=== PATIENT | female | born 2005 | race Caucasian/White ===

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

== ENCOUNTER 2023-11-14 19:55 | Emergency (ER) | payer OTHER ==
--- OUTSIDE RECORDS SUMMARY | 2023-11-14 19:59 | XMS REPORT | Continuity of Care Document ---
Author Name Unknown Address [address] [facility] [address] [place] [address] [facility] thconnect Address [address] [facility]. [address] [place] [address] Care Team Providers Care Defensive Driving Instructor Name Role Phone Ct Sears Primary Care Physician Margo Sears Attending Clinician Unavailable Chely Segura I Attending Clinician Unavailable Dolly Garcia Attending Clinician Unavailab DAVID Gann Attending Clinician Unavailable David Hartman DO Attending Clinician Mary Gordon PA-C Attending Clinician [phone] Margo Sears Admitting Clinician Unavailable Dolly Garcia Admitting Clinician Unavailab le Payers Payer Name Policy Type Policy Number Effective Date Expirati on Date Source [employer] [id number] 2022 00:00:00 Allergies, Adverse Reactions, Alerts Allergy Name Allergy Type Status Severity Reaction(s) Onset Date Inactive Date Treating Clinician Comments Source cephalex in DA Active MO HIVES 2022-07 00:00: 00 [facility] azithrom ycin DA Active SV SWELLING 2022-07 00:00: 00 [facility] latex DA Active SV HIVES 2023-1 1-12 00:00: 00 [facility] cephalex in DA Active MO HIVES 1 1- 00:00: 00 [facility] azithrom ycin DA Active SV SWELLING 1 1- 00:00: 00 [facility] [place] latex DA Active SV HIVES 1 1- 00:00: 00 [facility] [place] cephalex in DA Active MO HIVES 0 8-30 00:00: 00 [facility] azithrom ycin DA Active SV SWELLING 2022-0 5-17 00:00: 00 [facility] [place] latex DA Active SV 2020-0 6-21 00:00: 00 [facility] [place] latex DA Active SV HIVES 0 6-21 00:00: 00 [facility] latex DA Active SV 2020-0 5-22 00:00: 00 [facility] [place] latex DA Active SV HIVES 0 5-22 00:00: 00 [facility] No Known Allergie s DA Active U 2020-0 3-10 00:00: 00 [facility] No Known Allergie s DA Active U 2020-0 3-10 00:00: 00 [facility] NO KNOWN ALLERGIE S Drug Class Active [facility] Social History Social Habit Start Date Stop Date Quantity Comments Source Exposure to SARS-CoV-2 (event) 2022-10-14 00:00:00 2022-10-24 07:28:00 Not sure [facility] Tobacco use and exposure 2017-10-13 00:00:00 2017-10-13 00:00:00 Smokeless tobacco non-user [facility] Tobacco Comment 2017-10-13 00:00:00 2017-10-13 00:00:00 no smoke exposure [facility] Sex Assigned At 2005 00:00:00 2005 00:00:00 [facility] Smoking Status Start Date Stop Date Source Never smoked tobacco [facility] Medications Ordered Medication Name Filled Medication Name Start Date Stop Date Current Medication? Ordering Clinician Indication Dosage Frequency Signature (SIG) Comments Components Source NaCl 0.9% (NS) bolus infusion 1,000 mL 10-24 14:45: 00 10-24 14:50 :00 No 1000mL at 999 mL/hr, 1,000 mL, IV Piggyback, ONCE, 1 dose, On Kaylah 10/24/22 at 0945, STAT [facility] metoclopram razia HCl (REGLAN) injection 10 mg 10-24 13:45: 00 10-24 13:41 :00 No 10mg 10 mg, Slow IV Push, ONCE, 1 dose, On Kaylah 10/24/22 at 0845, TRACEY [facility] SERTraline 25 mg tablet 10-13 00:00: 00 Yes 25mg Take 1 tablet by mouth at bedtime. [facility] montelukast 10 mg tablet 09-10 00:00: 00 Yes TAKE ONE (1) TABLET(S) BY MOUTH IN THE EVENING. [facility] Vital Signs Vital Name Observation Time Observation Value Comments S ource Heart rate 2022-10-24 15:10:00 98 /min [facility] Respiratory rate 2022-10-24 15:10:00 21 /min [facility] Oxygen saturation in Arterial blood by Pulse oximetry 2022-10-24 15:10:00 98 /min [facility] Systolic blood pressure 2022-10-24 15:00:00 96 mm[Hg] [facility] Diastolic blood pressure 2022-10-24 15:00:00 49 mm[Hg] [facility] Body temperature 2022-10-24 12:30:00 37.06 Zofia [facility] Body height 2022-10-24 12:30:00 167.6 cm [facility] Body weight 2022-10-24 12:30:00 69.128 kg [facility] BMI 2022-10-24 12:30:00 24.60 kg/m2 [facility] Procedures Procedure Date / Time Performed Performing Clinicia n Source [id number] 2023-05-25 00:00:00 SILJA.01 [facility] [id number] 2023-05-25 00:00:00 SILJA.01 [facility] [id number] 2023-05-25 00:00:00 SILJA.01 [facility] [id number] 2022-11-25 00:00:00 MCIAL [facility] COMP. METABOLIC PANEL ([id number]) 2022-10-24 13:41:00 David Hartman [facility] CBC WITH DIFF 2022-10-24 13:41:00 David Hartman [facility] POCT TEST 2022-10-24 12:50:00 Trevor Hartman [facility] URINALYSIS 2022-10-24 12:41:00 David Hartman [facility] RAPID INFLUENZA A/B 2022-10-24 12:41:00 Trevor Hartman [facility] COVID-19 (ID NOW RAPID TESTING) 2022-10-24 12:41:00 David Hartman [facility] NOTICE OF PRIVACY PRACTICES 2022-10-24 12:25:07 Doctor Unassigned, [place] [facility] CONSENT/REFUSAL FOR DIAGNOSIS AND TREATMENT 2022-10-24 12:23:44 Doctor Unassigned, [place] [facility] Encounters Start Date/Time End Date/Time Encounter Type Admission Type Attending Clinicians Care Facility Care Department Encounter ID Source 2021-01-11 11:32:00 Inpatient EL Margo Sears [facility] LD [id number] [facility] 2020-11-21 11:19:59 Inpatient EM Margo Sears [facility] [id number] [facility] 2020-09-16 12:30:00 Inpatient Margo Sears [facility] STEVE [id number] [facility] 2020-09-13 16:23:13 Inpatient Margo Sears [facility] [id number] [facility] 2023-05-24 16:41:00 2023-05-27 12:40:00 Inpatient EM Tamara Searsdany [facility] OBPP [id number] [facility] 2023-05-18 10:00:00 2023-05-18 12:37:00 Emergency EM Chely Segura [facility] STEVE [id number] [facility] 2023-05-07 10:56:00 2023-05-07 12:31:00 Emergency EM Tamara Searsdany [facility] STEVE [id number] [facility] 2023-03-05 17:30:00 2023-03-05 22:20:00 Emergency EM Tamara Searsdany [facility] STEVE [id number] [facility] 2023-01-31 09:09:00 2023-01-31 09:09:00 Outpatient EL OrionBetoralph [facility] RADI [id number] [facility] 2022-12-21 19:40:00 2022-12-23 17:46:00 Inpatient EM SearsTamaradany [facility] MEDI.01 [id number] [facility] 2022-11-22 14:05:00 2022-11-26 17:07:00 Inpatient EM Dolly Garcia [facility] MEDI.01 [id number] [facility] 2022-10-24 07:35:00 2022-10-24 10:15:00 Emergency X DAVID HARTMAN [facility] ERT [id number] [facility] 2022-10-24 07:35:00 2022-10-24 10:15:00 Emergency David Hartman [facility] [id number] [facility] 2020-11-25 20:45:00 2020-11-25 23:43:00 Emergency EM OrionTamaradany [facility] STEVE [id number] [facility] 2019-08-31 00:00:00 2019-08-31 00:00:00 Telephone Mary Gordon [facility] [id number] 2019-08-31 00:00:00 2019-08-31 00:00:00 Telephone Mary Gordon [facility] [id number] [facility] 2019-02-25 00:00:00 2019-02-25 00:00:00 Telephone Mary Gordon [facility] [id number] 2019-02-25 00:00:00 2019-02-25 00:00:00 Telephone Mary Gordon [facility] [id number] [facility] Results Test Description Test Time Test Comments Results Result Co mments Source BILE ACIDS [id number] 01:08:00* Test Item Value Reference Range Interpretation Comme nts BILE ACIDS TOTAL (test code = BILEACT) 3.4 umol/L 0.0-10.0 Performed At: [facility] [id number] Sanjai MD Ph:[phone] Comments to Cloth Framer: add to admission labs drawn on 05/24/23 Specimen Comment: do not drawCOMPREHENSIVE METABOLIC [id number] 17:30:00* Test Item Value Reference Range Interpretation Comme nts SODIUM (test code = NA) 142 mEq/L 135-145 N POTASSIUM (test code = K) 3.9 mEq/L 3.5-5.0 N CHLORIDE (test code = CL) 108 mEq/L 100-115 N CARBON DIOXIDE (test code = CO2) 20 mEq/L 22-31 L ANION GAP (test code = GAP) 18.20 10-20 N GLUCOSE (test code = GLU) 121 mg/dL 65-110 H BLOOD UREA NITROGEN (test code = BUN) 4 mg/dL 7-18 L GLOMERULAR FILTRATION RATE (test code = GFR) 133 ml/min >60 N The Glomerular Filtration Rate is a calculated parameterbased on serum Creatinine, patient age and sex. GFR valuesless than 60 mL/min/1.73 square meters are indicative ofChronic Kidney Disease. Values less than 15 mL/min/1.73square meters indicate Kidney failure. The calculation forGFR is based on the CKD-EPI (2020) calculation. This formulais race indifferent and is the recommended formula for GFRby the National Kidney Foundation for Adults.The GFR will not calculate if the sex is unknown or if thepatient's age is <18 years. CREATININE (test code = CREAT) 0.6 mg/dL 0.5-1.0 N TOTAL PROTEIN (test code = PROT) 6.2 gm/dL 6.3-8.2 L ALBUMIN (test code = ALB) 2.9 gm/dL 3.4-4.8 L CALCIUM (test code = CA) 8.9 mg/dL 8.4-10.2 N BILIRUBIN TOTAL (test code = BILT) 0.2 mg/dL 0.2-1.0 N SGOT/AST (test code = AST) 20 units/L 15-37 N SGPT/ALT (test code = ALT) 15 units/L 12-78 N ALKALINE PHOSPHATASE TOTAL (test code = ALKP) 118 units/L 46-116 H AG HEPATITIS B [id number] 17:15:00* Test Item Value Reference Range Interpretation Comme nts AG HEPATITIS B SURFACE (test code = HBSAG) NONREACTIVE NONREACTIVE AB HEPATITIS C [id number] 17:15:00* Test Item Value Reference Range Interpretation Comme nts AB HEPATITIS C (test code = HCVAB) NONREACTIVE NONREACTIVE SIGNAL TO CUTOFF (test code = CUTOFF) 0.07 <0.80 N AB [id number] 17:15:00* Test Item Value Reference Range Interpretation Comme nts AB TREPONEMA (test code = TREPAB) NONREACTIVE NONREACTIVE AB HIV [id number] 17:15:00* Test Item Value Reference Range Interpretation Comme nts AB HIV 1 2 (test code = MDK84VS) NONREACTIVE NONREACTIVE Done by [employer] HIV Ag/Ab Combo Screen CBC W/AUTO [id number] 16:06:00* Test Item Value Reference Range Interpretation Comme nts WHITE BLOOD CELL (test code = WBC) 12.1 K/mm3 6.5-12.3 N RED BLOOD CELL (test code = RBC) 3.39 M/mm3 3.51-4.69 L HEMOGLOBIN (test code = HGB) 9.8 g/dL 10.1-13.8 L HEMATOCRIT (test code = HCT) 29.6 % 32.5-41.8 L MEAN CELL VOLUME (test code = MCV) 87.3 fL 84.6-96.6 N MEAN CELL HGB (test code = MCH) 28.9 pg 27.3-33.9 N MEAN CELL HGB CONCETRATION ( test code = MCHC) 33.1 gm/dL 32.0-34.2 N RED CELL DISTRIBUTION WIDTH (test code = RDW) 13.0 % 12.2-16.3 N PLATELET COUNT (test code = PLT) 210 K/mm3 134-363 N MEAN PLATELET VOLUME (test c ode = MPV) 11.5 fL 9.2-12.7 N NEUTROPHIL % (test code = NT%) 65.5 % 57.9-77.3 N LYMPHOCYTE % (test code = LY%) 23.2 % 14.5-29.7 N MONOCYTE % (test code = MO%) 9.7 % 3.6-10.2 N EOSINOPHIL % (test code = EO%) 0.2 % 0.0-3.0 N BASOPHIL % (test code = BA%) 0.2 % 0.1-0.9 N NEUTROPHIL # (test code = NT#) 7.9 K/mm3 LYMPHOCYTE # (test code = LY#) 2.8 K/mm3 MONOCYTE # (test code = MO#) 1.2 K/mm3 EOSINOPHIL # (test code = EO#) 0.02 K/mm3 BASOPHIL # (test code = BA#) 0.0 K/mm3 RBC MORPHOLOGY REQUIRED (beth t code = RBCM) NORMAL NORMAL PLATELET MORPHOLOGY REQUIRED (test code = PLTMR) NORMAL NORMAL RUPTURE OF [id number] 12:12:00* Test Item Value Reference Range Interpretation Comme nts RUPTURE OF MEMBRANES (test c ode = ROM) NON-RUPTURED COVID 19 Asymptomatic IH [id number] 20:21:00* Test Item Value Reference Range Interpretation Comme nts COVID 19 Asymptomatic IH AG (test code = COVNONPUIAG) NEGATIVE NEGATIVE This test has be en authorized only for the detection ofproteins from SARS-CoV-2, not for any other viruses orpathogens. Negative results should be treated as presumptive andconfirmed with a molecular assay, if necessary for patientmanagement. Negative results do not rule out COVID-19 andshould not be used as the sole basis for treatment orpatient management decisions, including infection controldecisions. Negative results should be considered in thecontext of a patient's recent exposures, history and thepresence of clinical signs and symptoms consistent withCOVID-19. This test has not been FDA cleared or approved; the test hasbeen authorized by FDA under an Emergency Use Authorization(EUA) for use by laboratories certified under the CLIA thatmeet the requirements to perform moderate, high or waivedcomplexity tests. This test is authorized for use at thePoint of Care (POC), i.e., in patient care settingsoperating under a CLIA Certificate of Waiver, Certificate ofCompliance, or Certificate of Accreditation. This test is only authorized for the duration of thedeclaration that circumstances exist justifying theauthorization of emergency use of in vitro diagnostic testsfor detection and/or diagnosis of COVID-19 under Xdzaqfx186(b)(1) of the Act, 21 U.S.C. 360bbb-3(b)(1), unless theauthorization is terminated or revoked sooner. URINALYSIS [id number] 18:18:00* Test Item Value Reference Range Interpretation Comme nts UA COLOR (test code = COLU) YELLOW YELLOW UA APPEARANCE (test code = APPU) Slightly-Cloudy CLEAR UA GLUCOSE DIPSTICK (test code = DGLUU) NEGATIVE NEG UA BILIRUBIN DIPSTICK (test code = BILU) NEGATIVE NEG UA KETONE DIPSTICK (test cod e = KETU) NEGATIVE NEG UA SPECIFIC GRAVITY (test code = SGU) 1.018 1.001-1.035 N UA BLOOD DIPSTICK (test code = BRYSON) NEG NEG UA PH DIPSTICK (test code = GINO) 6.0 5-9 UA PROTEIN DIPSTICK (test code = PROU) NEGATIVE NEG UA UROBILINIOGEN DIPSTICK (test code = URO) NEGATIVE mg/dL NEG UA NITRITE DIPSTICK (test code = SHAKIRA) NEG NEG UA LEUKOCYTE ESTERASE DIPSTICK (test code = LEUU) TRACE NEG A UA WBC (test code = WBCU) 3-5 #/hpf NONE SEEN A UA RBC (test code = RBCU) 0-2 #/hpf NONE SEEN UA EPITHELIAL CELLS (test code = EPIU) RARE #/HPF RARE-FEW UA BACTERIA (test code = BACU) RARE /HPF RARE-FEW UA MUCUS (test code = MUCU) 1+ NONE SEEN URINE SAMPLE: CLEAN CATCH- US PREG UT [id number] 00:00:00 [facility] 2005 Sex: F Patient Name: KALLI CALDWELL Unit No: [id number] EXAMS: CPT CODE: [id number] US PREG UT TRANSVAGINAL 51585 PROCEDURE INFORMATION: Exam: US , Limited and US , Transvaginal Exam date and time: 03/05/2023 8:32 PM Age: 17 years old Clinical indication: Other: Abdominal pain; Gestational age or lmp: 25w2d; ; Additional info: Iup @ 25.2 weeks; Cervical length LABS AND CLINICAL REPORTS: Gestational age (Established): 25 w 2 d Estimated due date (Established): 06/16/2023 TECHNIQUE:Imaging protocol: Real-time ultrasound of the maternal uterus with image documentation. Transvaginal imaging was used for better evaluation of the fetus, adnexa, and/or cervix. Exam focused on the clinical indication. COMPARISON: US PREG AFTER 1ST TRI 01/31/2023 9:31 AM FINDINGS: Gestation:A single living intrauterine gestation is present in breech position with heart rate of 155 bpm. The placenta is posterior fundal. An accessory placental lobe is located anteriorly and appears low lying, located 1.4 cm from the internal os. Amniotic fluid index is normal measuring 13.6 cm. The cervix is competent measuring 3.3 cm in length. heart rate: 155 bpm Amniotic fluid index: MIGUEL ANGEL is 13.61 cm. IMPRESSION: A single living IUP is present in breech position with heart rate of 155 bpm. MIGUEL ANGEL is normal and the cervix is competent. The placenta is posterior fundal, however, there is an acc essory placental lobe located anteriorly, low lying, with tip 1.4 cm from the internal os. at 2327 Reported and signed by: Crystal Martinez M.D. CC: Margo Sears MD Technologist: Anitha Quesada RDMS Probe: [id number] Trnscrbd D/ (4747) GCD.CPS Orig Print D/T: S: 03/05/2023 (0527) [facility] NAME: KALLI CALDWELL Radiology Department PHYS: Margo Wang MD [address] : 2005 AGE:17 SEX: F [place], [place] [address] LOC: MarisabelSTEVE PHONE #: [phone] EXAM DATE: 03/05/2023 STATUS: [facility] FAX #: [phone] RAD NO: Page 1 Signed Report Patient Name: KALLI CALDWELL Unit No: [id number] EXAMS: CPT CODE: [id number] US PREG UT TRANSVAGINAL 45853 (Continued) [facility] NAME: KALLI CALDWELL Radiology Department PHYS: Margo Wang MD [address] : 2005 AGE: 17 SEX: F [place] [address] LOC: GE[place]ES PHONE #: [phone] EXAM DATE: 03/05/2023 STATUS: DEP ER FAX #: [phone] RAD NO: Page 2 Signed Report- US [id number] 00:00:00 [facility] : 2005 Sex: F Patient Name: KALLI CALDWELL Unit No: [id number] EXAMS: CPT CODE: [id number] US LTD 65653 PROCEDURE INFORMATION: Exam: US , Limited and US , Transvaginal Exam date and time: 03/05/2023 8:32 PM Age: 17 years old Clinical indication: Other: Abdominal pain; Gestational age or lmp: 25w2d; ; Additional info: Iup @ 25.2 weeks; Cervical length LABS AND CLINICAL REPORTS: Gestational age (Established): 25 w 2 d Estimated due date (Established): 06/16/2023 TECHNIQUE: Imaging protocol: Real-time ultrasound of the maternal uterus with image documentation. Transvaginal imaging was used for better evaluation of the fetus, adnexa, and/or cervix. Exam focused on the c linical indication. COMPARISON: US PREG AFTER 1ST TRI 01/31/2023 9:31 AM FINDINGS: Gestation: A single living intrauterine gestation is present in breech position with heart rate of 155 bpm. The placenta is posterior fundal. An accessory placental lobe is located anteriorly and appears low lying, located 1.4 cm from the internal os. Amniotic fluid index is normal measuring 13.6 cm. The cervix is competent measuring 3.3 cm in length. heart rate: 155 bpm Amniotic fluid index: MIGUEL ANGEL is 13.61 cm. IMPRESSION: A single living IUP is present in breech position with heart rate of 155 bpm. MIGUEL ANGEL is normal and the cervix is competent. The placenta is posterior fundal, however, there is an accessory placental lobe located anteriorly, low lying, with tip 1.4 cm from the internal os. at 2327 Reported and signed by: Crystal Martinez M.D. CC: Margo Sears MD Technologist: Anitha Quesada RDMS Probe: Trnscrbd D/ (2326) GCD.CPS Orig Print D/T: S: 03/05/2023 (2326) [facility] NAME: NETTIE CALDWELLNA Radiology Department PHYS: Margo Wang MD [address] : 2005 AGE: 17 SEX: F [place] [address] LOC: Hailey.STEVE PHONE #: [phone] EXAM DATE: 03/05/2023 STATUS: DEP ER FAX #: [phone] RAD NO: Page 1 Signed Report Patient Name: KALLI CALDWELL Unit No: [id number] EXAMS: CPT CODE: [id number] US LTD 08420 (Continued) [facility] NAME: [facility] Rad[facility] Department PHYS: Margo Wang MD [address] : 2005 AGE: 17 SEX: F [place] [address] LOC: Hailey.STEVE PHONE #: [phone] EXAM DATE: 03/05/2023 STATUS: DEP ER FAX #: [phone] RAD NO: Page 2 Signed Report- US PREG AFTER [id number] 00:00:00 [facility] 2005 Sex: F Patient Name: KALLI CALDWELL Unit No: [id number] EXAMS: CPT CODE: [id number] US PREG AFTER 1ST TRI 05971 PROCEDURE INFORMATION: Exam: US After First Trimester, Transabdominal Exam date and time: 01/31/2023 9:31 AM Age: 17 years old Clinical indication: Screening exam; Routine US, uterus; Additional info: Anatomy TECHNIQUE: Imaging protocol: Real-time transabdominal obstetrical ultras ound of the maternal pelvis and a second or third trimester with image documentation. COMPARISON: US PREG UT TRANSVAGINAL 12/23/2022 3:00 PM FINDINGS: Gestation: Single, viable intrauterinegestation. heart rate: 146 bpm presentation: Variable. Placenta: Posterior, grade 2 placenta without placenta previa or retroplacental hemorrhage. Amniotic fluid: Normal amniotic fluid byvisual estimate. ANATOMY: midline falx: Unremarkable cerebellum: Unremarkable lateral ventricles: Unremarkable cisterna magna: Unremarkable choroid plexus: Unremarkable upper lip and nose: Unremarkable heart four-chamber view, heart size and position:Four- chamber heart visualized with normal situs right ventricular outflow tract: UnremarkableFetal left ventricular outflow tract: Limited by position kidneys: Unremarkable stomach: Unremarkable. Normal situs urinary bladder: Unremarkable spine: Unremarkable Umbilicalcord insertion site into the abdomen: Normal cord insertion Umbilical cord vessel number: 3 vessel cord extremities: Unremarkable external genitalia: Unremarkable; Female BIOMETRY: Gestational age (AUA): 20 w 1 d Estimated due date (AUA): 06/19/2023 Estimated weight: 355 +/-52 g (13 oz); EFW%: 38.1% Biparietal diameter (BPD): 4.6 cm Head circumference (HC): 17.2 cm. EGA (HC) is 19 w 6 d. 12.2 % percentile Abdominal circumference (AC): 16 cm. EGA (AC) is 21 w 0 d. 57.8 % percentile [facility] NAME: KALLI CALDWELL Radiology Department PHYS: Margo Wang MD [address] : 2005 AGE: 17 SEX: F [place], [place] [address] LOC: F.RAD PHONE #: [phone] EXAM DATE: 01/31/2023 STATUS: DEP CLI FAX #: [phone] RAD NO: Page1 Signed Report (CONTINUED) Patient Name: KALLI CALDWELL Unit No: [id number] EXAMS: CPT CODE: [id number] US PREG AFTER 1ST TRI 87099 (Continued) Humerus length (HL): 3 cm. EGA (HL) is 20 w 0 d. 29.4 % percentile Femur length (FL): 3 cm. EGA (FL) is 20 w 0 d. 23.7 % percentile Cephalic Index (CI): 72.47 % (Normal range: 70 % - 86 %) HC/AC: 1.09 (Normal range: 1.07 - 1.25) FL/HC: 0.19 (Normal range: 0.16 - 0.2) FL/BPD: 70.31 % (OOR) FL/AC: 20.3 % (Normal range: 20 % - 24 %) MATERNAL: Uterus: Unremarkable. Cervix: The cervix measures 3.4 cm Right ovary/adnexa: Obscured maternal right ovary by bowel gas. Left ovary/adnexa: Obscured maternal left ovary by bowel gas. Intraperitoneal space: No intr aperitoneal free fluid. IMPRESSION: 1. Normal growth concordant with dates. 2. Limited assessment of the structures for anomalies due to position. No gross focal abnormalities detected. at 0824 Reported and signed by:Sai Morris MD CC: Margo Sears MD Technologist: Lala Hood RDMS Probe: Trnscrbd D/ (0824) GCD.CPS Orig Print D/T: S: 02/01/2023 (0824) [facility] NAME: KALLI CALDWELL Radiology Department PHYS: Margo Wang MD [address] : 2005 AGE: 17 SEX: F [place] [address] LOC: MarisabelRAD PHONE #: [phone] EXAM DATE: 02/01/20 STATUS: DEP CLI FAX #: [phone] RAD NO: Page 2 Signed Report Patient Name: KALLI CALDWELL Unit No: [id number] EXAMS: CPT CODE: [id number] US PREG AFTER TRI 39467 (Continued) [facility] NAME: KALLI CALDWELL Radiology Department PHYS: Margo Wang MD [address] : 2005 AGE: 17 SEX: F [place] [address] LOC: Hailey.RAD PHONE #: [phone] EXAM DATE: 01/31/2023 STATUS: DEP CLI FAX #: [phone] RAD NO: Page 3 Signed Report- US PREG UT [id number] 00:00:00 [facility] 2005 Sex: F Patient Name: KALLI CALDWELL Unit No: [id number] EXAMS: CPT CODE: [id number] US PREG UT TRANSVAGINAL 77504 PROCEDURE INFORMATION: Exam: US , Limited and US , Transvaginal Exam date and time: 12/23/2022 3:00 PM Age: 17 years old Clinical indication: Abnormal findings; Abnormal radiologicstudy of abdomen/pelvis; ; Additional info: Subchorionic hemrrhage, pelvic pain; () LABS AND CLINICAL REPORTS: Gestational age (Established): 15 w 0 d Estimated due date (Established): 06/16/2023 TECHNIQUE: Imaging protocol: Real-time ultrasound of the maternal uterus with image documentation. Transvaginal imaging was used for better evaluation of the fetus, adnexa, and/or cervix. Exam focused on the clinical indication. COMPARISON: US PREG UT TRANSVAGINAL 12/22/2022 12:23 AM FINDINGS: Gestation: Intrauterine gestation. heart rate: 161 bpm. position: Fetus in transverse position with head on maternal left side. Placenta: Placenta is fundal, anterior and posterior and low lying. BIOMETRY: Gestational age (AUA): Gestational age 15 weeks 0 days by MARIA TERESA. MATERNAL: Cervix: Cervix measures 4.2 cm length. IMPRESSION: Live intrauterine in transverse position. Low lying placenta. at 1546 Reported and signed by: Tacho Simms MD CC: Margo Sears MD Technologist: Radha Cruz [facility] Probe: [id number] Trnscrbd D/ (1546) GCD.CPS Orig Print D/T: S: 12/23/2022 (1547) [facility] NAME: NETTIE CALDWELLNA Radiology Department PHYS: Margo Wang MD [address] : 2005 AGE: 17 SEX: F [place], [place] [address] [facility] NO: [id number] LOC: FMarii2606 A PHONE #: [phone] EXAM DATE: 12/23/2022 STATUS: ADM IN FAX #: [phone] RAD NO: Page 1 Signed Report Patient Name: KALLI CALDWELL Unit No: [id number] EXAMS: CPT CODE: [id number] US PREG UT TRANSVAGINAL 10992(Continued) [facility] NAME: JOHNKALLI Radiology Department PHYS: Margo Wang MD [address] : 2005 AGE: 17 SEX: F [place] [address] LOC: Jeanette6 Chirag PHONE #: [phone] EXAM DATE: 12/23/2022 STATUS: ADM IN FAX #: [phone] RAD NO:Page 2 Signed Report- US LTD 2022-12-23 00:00:00 [facility] 2005 Sex: F Patient Name: KALLI CALDWELL Unit No: [id number] EXAMS: CPT CODE: [id number] US LTD 19053 PROCEDURE INFORMATION: Exam: US , Limited and US , Transvaginal Exam date and time: 12/23/2022 3:00 PM Age: 17 years old Clinical indication: Abnormal findings; Abnormal radiologic studyof abdomen/pelvis; ; Additional info: Subchorionic hemrrhage, pelvic pain; () LABS AND CLINICAL REPORTS: Gestational age (Established): 15 w 0 d Estimated due date (Established): 06/16/2023 TECHNIQUE: Imaging protocol: Real-time ultrasound of the maternal uterus with image documentation. Transvaginal imaging was used for better evaluation of the fetus, adnexa, and/or cervix. Examfocused on the clinical indication. COMPARISON: US PREG UT TRANSVAGINAL 12/22/2022 12:23 AM FINDINGS: Gestation: Intrauterine gestation. heart rate: 161 bpm. position: Fetus in transverse position with head on maternal left side. Placenta: Placenta is fundal, anterior and posterior and low lying. BIOMETRY: Gestational age (AUA): Gestational age 15 weeks 0 days by MARIA TERESA. MATERNAL: Cervix: Cervix measures 4.2 cm length. IMPRESSION: Live intrauterine in transverse position. Low lying placenta. at 1546 Reported and signed by: Tacho Simms MD CC: Margo Sears MD Technologist: Radha Cruz RDMS Probe: Trnscrbd D/ (1546) GCD.CPS Orig Print D/T: S: 12/23/2022 (1547) [facility] NAME: KALLI CALDWELL Radiology Department PHYS: Margo Wang MD [address] : 2005 AGE: 17 SEX: F [place] [address] LOC: F.2606 A PHONE #: [phone] EXAM DATE: 12/23/2022 STATUS: ADM IN FAX #: [phone] RAD NO: Page 1 Signed Report Patient Name: KALLI CALDWELL Unit No: [id number] EXAMS: CPT CODE: [id number] US LTD 97515 (Continued) [facility] NAME: KALLI CALDWELL Radiology Department PHYS: Margo Wang MD [address] : 2005 AGE: 17 SEX: F [place], [place] [address] LOC: F.2606 A PHONE #: [phone] EXAM DATE: 12/23/2022 STATUS: ADM IN FAX #: [phone] RAD NO: Page 2 Signed Report- US PREG UT [id number] 00:00:00 [facility] : 2005 Sex: F Patient Name: KALLI CALDWELL Unit No: [id number] EXAMS: CPT CODE: [id number] US PREG UT TRANSVAGINAL 19959 PROCEDURE INFORMATION: Exam: US , Transvaginal Exam date and time: 12/22/2022 12:23 AM Age: 17 years old Clinical indication: Cervical length. complicated by abdominal or pelvic pain; Lower; Second trimester (14 weeks 0 days to 27 weeks 6 days); Gestational age or lmp: 14w5; LABS AND CLINICAL REPORTS: Gestational age (Established): 14 w 5 d Estimated due date (Established): 06/16/2023 TECHNIQUE: Imaging protocol: Real-time transvaginal obstetrical ultrasound of thematernal pelvis with image documentation. Transvaginal imaging was used for better evaluation of the fetus, adnexa, and/or cervix. COMPARISON: US LTD 12/21/2022 8:26 PM FINDINGS: Gestation:A single live intrauterine is identified currently in cephalic position with heart tones of 161 bpm. Cervix measures 4 cm length on transvaginal imaging. Maternal ovaries are obscuredby overlying gas. No free pelvic fluid seen. heart rate: 161 bpm MATERNAL: Cervix: Cervical length measures 4 cm. IMPRESSION: Cervical length of 4 cm. at 0102 Reported and signed by: Fabrice Avila MD CC: Cady Nelson MD; Margo Sears MD Technologist: Citlalli Krishnamurthy RDMS Probe: [id number] Trnscrbd D/ (0102) GCD.CPSOrig Print D/T: S: 12/22/2022 (0103) [facility] NAME: KALLI CALDWELL Radiology Department PHYS: RORO. Cady Nelson MD [address] : 2005 AGE: 17 SEX: F [place], [place] [address] LOC: HEATHER 3 PHONE #: [phone] EXAM DATE: 12/22/2022 STATUS: ADM IN FAX #: [phone] RAD NO: Page 1 Signed Report Patient Name: KALLI CALDWELL Unit No: [id number] EXAMS: CPT CODE: [id number] US PREG UT TRANSVAGINAL 75322 (Continued) [facility] Radiology Department PHYS: Cady Nelson MD [address] : 2005 AGE: 17 SEX: F [place], [place] [address] LOC: HEATHER 3 PHONE #: [phone] EXAM DATE: 12/22/2022 STATUS: ADM IN FAX #: [phone] RAD NO: Page 2 Signed ReportHCG SERUM 2022-12-21 21:01:00* Test Item Value Reference Range Interpretation Comme nts HCG SERUM (test code = HCG) 26974 INTERPRETATION:V ALUES BETWEEN 15-20 milliInternational units/mL NEED TO BERETESTED WITHIN 48 HOURS. All units for these ranges are in milliInternationalunits/mL0-1 WK AFTER CONCEPTION 0-50 1-2 WKS AFTER CONCEPTION 40-3002-3 WKS AFTER CONCEPTION 100-1,0003-4 WKS AFTER CONCEPTION 500-6,0001-2 MONTHS AFTER CONCEPTION 5,000-200,0002-3 MONTHS AFTER CONCEPTION 10,000-100,0002ND TRIMESTER 3,000-50,0003RD TRIMESTER 1,000-50,000 SPECIMENS WITH AN HCG LEVEL FROM 0-6 milliInternationalunits/mL SHOULD BE CONSIDERED NEGATIVE BASIC METABOLIC [id number] 20:41:00* Test Item Value Reference Range Interpretation Comme nts SODIUM (test code = NA) 141 mEq/L 135-145 N POTASSIUM (test code = K) 3.8 mEq/L 3.5-5.0 N CHLORIDE (test code = CL) 107 mEq/L 100-115 N CARBON DIOXIDE (test code = CO2) 23 mEq/L 22-31 N ANION GAP (test code = GAP) 14.80 10-20 N GLUCOSE (test code = GLU) 83 mg/dL 65-110 N BLOOD UREA NITROGEN (test code = BUN) 8 mg/dL 7-18 N GLOMERULAR FILTRATION RATE (test code = GFR) 133 ml/min >60 N The Glomerular Filtration Rate is a calculated parameterbased on serum Creatinine, patient age and sex. GFR valuesless than 60 mL/min/1.73 square meters are indicative ofChronic Kidney Disease. Values less than 15 mL/min/1.73square meters indicate Kidney failure. The calculation forGFR is based on the CKD-EPI (2020) calculation. This formulais race indifferent and is the recommended formula for GFRby the National Kidney Foundation for Adults.The GFR will not calculate if the sex is unknown or if thepatient's age is <18 years. CREATININE (test code = CREAT) 0.6 mg/dL 0.5-1.0 N CALCIUM (test code = CA) 8.9 mg/dL 8.4-10.2 N LIVER [id number] 20:41:00* Test Item Value Reference Range Interpretation Comme nts TOTAL PROTEIN (test code = PROT) 6.8 gm/dL 6.3-8.2 N ALBUMIN (test code = ALB) 3.6 gm/dL 3.4-4.8 N BILIRUBIN TOTAL (test code = BILT) 0.2 mg/dL 0.2-1.0 N BILIRUBIN DIRECT (test code = BILD) 0.1 mg/dL <0.2 N SGOT/AST (test code = AST) 14 units/L 15-37 L SGPT/ALT (test code = ALT) 19 units/L 12-78 N ALKALINE PHOSPHATASE TOTAL ( test code = ALKP) 47 units/L 46-116 N UA RFLX MICR CULT IF [id number] 20:23:00* Test Item Value Reference Range Interpretation Comme nts UA COLOR (test code = COLU) YELLOW YELLOW UA APPEARANCE (test code = APPU) CLEAR CLEAR UA GLUCOSE DIPSTICK (test co de = DGLUU) NEGATIVE NEG UA BILIRUBIN DIPSTICK (test code = BILU) NEGATIVE NEG UA KETONE DIPSTICK (test cod e = KETU) NEGATIVE NEG UA SPECIFIC GRAVITY (test co de = SGU) 1.020 1.001-1.035 N UA BLOOD DIPSTICK (test code = BRYSON) NEG NEG UA PH DIPSTICK (test code = GINO) 5.0 5-9 UA PROTEIN DIPSTICK (test co de = PROU) NEGATIVE NEG UA UROBILINIOGEN DIPSTICK (test code = URO) NEGATIVE mg/dL NEG UA NITRITE DIPSTICK (test co de = SHAKIRA) NEG NEG UA LEUKOCYTE ESTERASE DIPSTI CK (test code = LEUU) 2+ NEG A UA WBC (test code = WBCU) 6-10 #/hpf NONE SEEN A UA RBC (test code = RBCU) 3-5 #/hpf NONE SEEN A UA EPITHELIAL CELLS (test co de = EPIU) RARE #/HPF RARE-FEW UA BACTERIA (test code = BACU) RARE /HPF RARE-FEW UA MUCUS (test code = MUCU) 1+ NONE SEEN Indication for culture: Suprapubic PainSpecimen Description: CLEAN CATCHCBC W/AUTO [id number] 20:18:00* Test Item Value Reference Range Interpretation Comme nts WHITE BLOOD CELL (test code = WBC) 6.9 K/mm3 6.5-12.3 N RED BLOOD CELL (test code = RBC) 3.75 M/mm3 3.51-4.69 N HEMOGLOBIN (test code = HGB) 11.6 g/dL 10.1-13.8 N HEMATOCRIT (test code = HCT) 33.4 % 32.5-41.8 N MEAN CELL VOLUME (test code = MCV) 89.1 fL 84.6-96.6 N MEAN CELL HGB (test code = MCH) 30.9 pg 27.3-33.9 N MEAN CELL HGB CONCETRATION ( test code = MCHC) 34.7 gm/dL 32.0-34.2 H RED CELL DISTRIBUTION WIDTH (test code = RDW) 13.1 % 12.2-16.3 N PLATELET COUNT (test code = PLT) 191 K/mm3 134-363 N MEAN PLATELET VOLUME (test c ode = MPV) 10.5 fL 9.2-12.7 N NEUTROPHIL % (test code = NT%) 44.7 % 57.9-77.3 L LYMPHOCYTE % (test code = LY%) 45.0 % 14.5-29.7 H MONOCYTE % (test code = MO%) 7.4 % 3.6-10.2 N EOSINOPHIL % (test code = EO%) 2.2 % 0.0-3.0 N BASOPHIL % (test code = BA%) 0.4 % 0.1-0.9 N NEUTROPHIL # (test code = NT#) 3.1 K/mm3 LYMPHOCYTE # (test code = LY#) 3.1 K/mm3 MONOCYTE # (test code = MO#) 0.5 K/mm3 EOSINOPHIL # (test code = EO#) 0.15 K/mm3 BASOPHIL # (test code = BA#) 0.0 K/mm3 RBC MORPHOLOGY REQUIRED (beth t code = RBCM) NORMAL NORMAL PLATELET MORPHOLOGY REQUIRED (test code = PLTMR) NORMAL NORMAL - US ABDOMEN [id number] 00:00:00 [facility] 2005 Sex: F Patient Name: KALLI CALDWELL Unit No: [id number] EXAMS: CPT CODE: [id number] US ABDOMEN LTD 80994 PROCEDURE INFORMATION: Exam: US Abdomen, Limited; Appendix Exam date and time: 12/21/2022 8:39 PM Age: 17 years old Clinical indication: Abdominal pain; ; Additional info: Pain in rllq TECHNIQUE: Imaging protocol: Real time ultrasound of the abdomen with image documentation. Limited exam focused onthe appendix. COMPARISON: US DUP AB/PEL/SC LTD 11/21/2022 3:38 PM FINDINGS: Appendix: The appendix is not definitively seen on the exam. There are no thick walled, dilated tubular structure seen to give sonographic evidence of acute appendicitis. There are no fluid collections. The visualized bowel loops appear unremarkable. Notes: Ultrasound has sensitivity of 75-90 percent, specificity of 86-100percent, and positive predictive value of 89- 93 percent for the diagnosis of appendicitis. However, bowel gas and patient body habitus can limit the exam. IMPRESSION: Unremarkeble limited exam, appendix not definitively visualized. at 2147 Reported and signed by: Ha Fontenot CC: Cady Nelson MD; Margo Sears MD Technologist: Citlalli Krishnamurthy, RENETTA Probe: Trnscrbd D/ (2146) GCD.CPS Orig Print D/T: S: 12/21/2022 (2146) [facility] NAME: KALLI CALDWELL Radiology Department PHYS: [email or web address].[email or web address] - Cady Nelson MD [address] : 2005 AGE: 17 SEX: F [place] [address] LOC: F.ERS PHONE #: [phone] EXAM DATE: 12/21/2022 STATUS: REG ER FAX #: [phone] RAD NO: Page 1 SignedReport Patient Name: KALLI CALDWELL Unit No: [id number] EXAMS: CPT CODE: [id number] US ABDOMEN LTD 97032 (Continued) [facility] Rad[facility] Department PHYS: MEKHI.0 1 - Cady Nelson MD [address] : 2005 AGE: 17 SEX: F [place] [address] LOC: Hailey.ERS PHONE #: [phone] EXAM DATE: 12/21/2022 STATUS: REG ER FAX #: [phone] RAD NO: Page 2 Signed Report- US [id number] 00:00:00 [facility] : 2005 Sex: F Patient Name: KALLI CALDWELL Unit No: [id number] EXAMS: CPT CODE: [id number] US LTD 38339 PROCEDURE INFORMATION: Exam: US , Limited Exam date and time: 12/21/2022 8:26 PM Age: 17 years old Clinical indication: complicated by abdominal or pelvic pain; Right lower quadrant; Second trimester (14 weeks 0 days to 27 weeks 6 days); Gestational age or lmp: 14w5; TECHNIQUE: Imaging protocol: Real-time ultrasound of the maternal uterus with image documentation.Exam focused on the clinical indication. ADDITIONAL STUDY INFORMATION: Cervix: Cervical length measures 2.9 cm. Left adnexa: Left ovary measures 2.1 cm x 2.2 cm x 1 cm. Left adnexa: Left ovarian volume is 2.5 mL. Right adnexa: Right ovary measures 2.4 cm x 1.8 cm x 1.2 cm. Right adnexa: Right ovarian volume is 2.8 mL. Gestational age (Established): 14 w 5 d Estimated due date (Established): 06/16/2023 heart rate: 154 bpm COMPARISON: US PREG 1ST TRIMTR 11/21/2022 3:38 PM Findings: Limited transabdominal ultrasound. A single live intrauterine is identified currently in c ephalic position with heart tones of 154 bpm. Anterior grade 1 placenta is seen with a heterogeneous hypoechoic avascular area at the inferior placental tip measuring 2.7 x 1.3 x 1.6 cm. Low lying placenta with tip approximately 1.2 cm from the internal cervical os. The cervix measures 3.5 cmlength. Single deepest amniotic fluid pocket measures 4 cm. Maternal right ovary appears normal measuring 2.4 x 1.2 x 1.8 cm. Left ovary appears normal measuring 2.1 x 1 x 2.3 cm. Arterial and venouswaveforms documented to each ovary. No free pelvic fluid seen. Impression: 1. Single live intrauterine . 2. Suspected small placental marginal hemorrhage. 3. No sonographic abnormality of the ovaries. at 2221 Reported and signed by: Fabrice Avila MD CC: Cady Nelson MD; Margo Sears MD Technologist: Citlalli Krishnamurthy RDMS Probe: Trnscrbd D/ (222) GCD.CPS Orig Print D/T: S: 12/21/2022 (222) [facility] NAME: KALLI CALDWELL Radiology Department PHYS: MEKHI Cady Nelson MD [address] :2005 AGE: 17 SEX: F [place], [place] [address] LOC: F.ERS PHONE #: [phone] EXAM DATE: 12/21/2022 STATUS: REG ER FAX #: [phone] RAD NO: Page 1 Signed Report Patient Name: KALLI CALDWELL Unit No: [id number] EXAMS: CPT CODE: [id number] LTD 51045 (Continued) [facility] NAME: [facility] Radiology Department PHYS: RORO Cady Nelson MD [address] : 2005 AGE: 17 SEX: F [place], [place] [address] LOC: F.ERS PHONE #: [phone] EXAM DATE: 12/21/2022 STATUS: REG ER FAX #: [phone] RAD NO: Page 2 Signed Report- XR CHEST 1 [id number] 00:00:00[facility] : 2005 Sex: F Patient Name: KALLI CALDWELL Unit No: [id number] EXAMS: CPT CODE: [id number] XR CHEST 1 V 60917 PROCEDURE INFORMATION: Exam: XR Chest Exam date [...] RT Millicent Trnscrbd D/ (1606) GCD.CPS Orig PrintD/T: S: 11/25/2022 (1606) [facility] NAME: JOHNKALLI Radiology Department PHYS: Margo Wang MD [address] : 2005 AGE: 17 SEX: F [place], [place] [address] LOC: F.2650 A PHONE #: [phone] EXAM DATE: 11/25/2022 STATUS: ADM IN FAX #: [phone] RAD NO: Page 1 Signed ReportCOMPREHENSIVE METABOLIC [id number] 05:38:00* Test Item Value Reference Range Interpretation Comme nts SODIUM (test code = NA) 137 mEq/L 135-145 N POTASSIUM (test code = K) 3.9 mEq/L 3.5-5.0 N CHLORIDE (test code = CL) 104 mEq/L 100-115 N CARBON DIOXIDE (test code = CO2) 23 mEq/L 22-31 N ANION GAP (test code = GAP) 13.60 10-20 N GLUCOSE (test code = GLU) 94 mg/dL 65-110 N BLOOD UREA NITROGEN (test code = BUN) 5 mg/dL 7-18 L GLOMERULAR FILTRATION RATE (test code = GFR) 128 ml/min >60 N The Glomerular Filtration Rate is a calculated parameterbased on serum Creatinine, patient age and sex. GFR valuesless than 60 mL/min/1.73 square meters are indicative ofChronic Kidney Disease. Values less than 15 mL/min/1.73square meters indicate Kidney failure. The calculation forGFR is based on the CKD-EPI (202) calculation. This formulais race indifferent and is the recommended formula for GFRby the National Kidney Foundation for Adults.The GFR will not calculate if the sex is unknown or if thepatient's age is <18 years. CREATININE (test code = CREAT) 0.7 mg/dL 0.5-1.0 N TOTAL PROTEIN (test code = PROT) 5.8 gm/dL 6.3-8.2 L ALBUMIN (test code = ALB) 3.4 gm/dL 3.4-4.8 N CALCIUM (test code = CA) 8.6 mg/dL 8.4-10.2 N BILIRUBIN TOTAL (test code = BILT) 0.2 mg/dL 0.2-1.0 SGOT/AST (test code = AST) 9 units/L 15-37 L SGPT/ALT (test code = ALT) 18 units/L 12-78 N ALKALINE PHOSPHATASE TOTAL (test code = ALKP) 39 units/L 46-116 L - US PREG UT [id number] 00:00:00 [facility] : 2005 Sex: F Patient Name: KALLI CALDWELL Unit No: [id number] EXAMS: CPT CODE: [id number] US PREG UT TRANSVAGINAL 30346 PROCEDURE INFORMATION: Exam: US First Trimester (Transabdominal), [...] and other vascular conditions. COMPARISON: US PREG WI TRANSVAGINAL 11/20/2020 6:07 PM FINDINGS: Gestation: Intrauterine . Embryonic/ heart rate: 177 bpm. Extra-embryonic membranes/Placenta: Subchorionic hemorrhage measures 2.2 x 0.9 x 1.6 cm. Amniotic fluid:Amniotic fluid and extra-amniotic fluid are unremarkable for gestational age. BIOMETRY: Gestationalage (AUA): Gestational age 10 weeks 0 days by crown-rump length. Estimated due date (AUA): 06/19/2023 Mean sac diameter: 4.8 cm. EGA (MSD) is 10 w 3 d [place]-Rump length: 31.2 mm. EGA (CRL) is 10 w 0 d MATERNAL: Uterus: Uterus measures 10.0 cm length. Cervix: Unremarkable. Right ovary/adnexa: Right ovary measures 3.4 x 1.7 x 2.5 cm and contains a corpus luteum. Normal color and spectral Doppler. Left ovary/adnexa: Left ovary measures 2.3 x 1.2 x 1.1 cm with normal color and spectral Doppler. Intr aperitoneal space: No intraperitoneal free fluid. IMPRESSION: Live intrauterine with gestational age 10 weeks 0 days. [facility] NAME: KALLI CALDWELL Radiology DepartmentPHYS: Margo Wang MD [address] : 2005 AGE: 17 SEX: F [place] [id number] LOC: Marisabel2604 A PHONE #: [phone] EXAM DATE: 11/21/2022 STATUS: ADM IN FAX #: [phone] RAD NO: Page 1 Signed Report (CONTINUED) Patient Name: KALLI CALDWELL Unit No: [id number] EXAMS: CPT CODE: [id number] US PREG UT TRANSVAGINAL 83796 (Continued) at 1627 Reported and signed by: Tacho Simms MD CC: Margo Sears MD Technologist: Shayy Kasper, RENETTA Probe: [id number] Trnscrbd D/ (1627) GCD.CPS Orig Print D/T: S: 11/21/2022 (162) [facility] NAME: KALLI CALDWELL Radiology Department PHYS: Margo Wang MD [address] : 2005 AGE: 17 SEX: F [place] [address] LOC: Kimberly A PHONE #: [phone] EXAM DATE: 11/21/2022 STATUS: ADM IN FAX #: [phone] RAD NO: Page 2 Signed Report Patient Name: KALLI CALDWELL Unit No: [id number] EXAMS: CPT CODE: [id number] PREG UT TRANSVAGINAL 07175 (Continued) [facility] NAME: KALLI CONLEY Radiology Department PHYS: Margo Wang MD [address] : 2005 AGE: 17 SEX: F [place] [address] LOC: F.2604 A PHONE #: [phone] EXAM DATE: 11/21/2022 STATUS: ADM IN FAX #: [phone] RAD NO: Page 3 Signed Report- DUP AB/PEL/SC/[id number] 00:00:00 [facility] : 2005 Sex: F Patient Name: KALLI CALDWELL Unit No: [id number] EXAMS: CPT CODE: [id number] DUP AB/PEL/SC/LTD 35887 PROCEDURE INFORMATION: Exam: US First Trimester (Transabdominal), (Transvaginal), and US Duplex Artery or Vein (Ovaries) Limited Exam date and time: 11/21/2022 3:38 PM Age: 17 years old Clinical indication: Screening exam; Viability; Other: Hyperemesis; ; Additional info: viability; () LABS AND CLINICAL REPORTS: Last menstrual period start date: 09/13/2022 TECHNIQUE:Imaging protocol: Real-time transabdominal and transvaginal obstetrical ultrasound [...] are unremarkable for gestational age. BIOMETRY: Gestational age(AUA): Gestational age 10 weeks 0 days by crown-rump length. Estimated due date (AUA): 06/19/2023 Mean sac diameter: 4.8 cm. EGA (MSD) is 10 w 3 d [place]-Rump length: 31.2 mm. EGA (CRL) is 10 w 0 d MATERNAL: Uterus: Uterus measures 10.0 cm length. Cervix: Unremarkable. Right ovary/adnexa: Right ovary measures 3.4 x 1.7 x 2.5 cm and contains a corpus luteum. Normal color and spectral Doppler. Leftovary/adnexa: Left ovary measures 2.3 x 1.2 x 1.1 cm with normal color and spectral Doppler. Intraperitoneal space: No intraperitoneal free fluid. IMPRESSION: Live intrauterine with gestational age 10 weeks 0 days. [facility] NAME: KALLI CALDWELL Radiology Department PHYS: Margo Wang MD [address] : 2005 AGE: 17 SEX: F [place] [address] LOC: F.2603 A PHONE #: [phone] EXAM DATE: 11/21/2022 STATUS: ADM IN FAX #: [phone] RAD NO: Page 1 Signed Report (CONTINUED) Patient Name: KALLI CALDWELL Unit No: [id number] EXAMS: CPT CODE: [id number] DUP AB/PEL/SC/LTD 89923 (Continued) at 1627 Reported and signed by: Tacho Simms MD CC: Margo Sears MD Technolo gist: Shayy Kasper RDMS Probe: Trnscrbd D/ (1627) GCD.CPS Orig Print D/T: S: 11/21/2022 (1627) [facility] NAME: KALLI CALDWELL Radiology Department PHYS: Margo Wang MD [address] : 2005 AGE: 17 SEX: F [place] [address] LOC: F.2604 A PHONE #: [phone] EXAM DATE: 11/21/2022 STATUS: ADM IN FAX #: [phone] RAD NO: Page 2 Signed Report Patient Name: KALLI CALDWELL Unit No: [id number] EXAMS: CPT CODE: [id number] DUPAB/PEL/SC/LTD 67053 (Continued) [facility] NAME: KALLI CALDWELL Radiology Department PHYS: Margo Wang MD [address] : 2005 AGE: 17 SEX: F [place], [place] [address] LOC: F.2604 A PHONE #: [phone] EXAM DATE: 11/21/2022 STATUS: ADM IN FAX #:[phone] RAD NO: Page 3 Signed Report- US PREG EVAL 1ST [id number] 00:00:00 [facility] : 2005 Sex: F Patient Name: KALLI CALDWELL Unit No: [id number] EXAMS: CPT CODE: [id number] US PREG EVAL 1ST TRIMTR [id number] PROCEDURE INFORMATION: Exam: US First Trimester (Transabdominal), [...] 2.2 x 0.9 x 1.6 cm. Amniotic fluid:Amniotic fluid and extra-amniotic fluid are unremarkable for gestational age. BIOMETRY: Gestationalage (AUA): Gestational age 10 weeks 0 days by crown-rump length. Estimated due date (AUA): 06/19/2023 Mean sac diameter: 4.8 cm. EGA (MSD) is 10 w 3 d [place]-Rump length: 31.2 mm. EGA (CRL) is 10 w 0 d MATERNAL: Uterus: Uterus measures 10.0 cm length. Cervix: Unremarkable. Right ovary/adnexa: Right ovary measures 3.4 x 1.7 x 2.5 cm and contains a corpus luteum. Normal color and spectral Doppler. Left ovary/adnexa: Left ovary measures 2.3 x 1.2 x 1.1 cm with normal color and spectral Doppler. Intr aperitoneal space: No intraperitoneal free fluid. IMPRESSION: Live intrauterine with gestational age 10 weeks 0 days. [facility] NAME: KALLI CALDWELL Radiology Department PHYS: Jaimee Jennings MD [address] : 2005 AGE: 17 SEX: F [place], [place] [address] LOC: Hailey.2604 A PHONE #: [phone] EXAM DATE: 11/21/2022 STATUS: ADM IN FAX #:[phone] RAD NO: Page 1 Signed Report (CONTINUED) Patient Name: KALLI CALDWELL Unit No: [id number] EXAMS: CPT CODE: [id number] US PREG EVAL 1ST TRIMTR 88463 (Continued) at 1627 Reported and signed by: Tacho Simms MD CC: Jaimee Simental MD; Margo Sears MD Technologist: Shayy Kasper RDMS Probe: Trnscrbd D/ (1627) GCD.CPS Orig Print D/T: S: 11/21/2022 (1627) [facility] NAME: [facility] Radiology Department PHYS: Jaimee Jennings MD [address] : 2005 AGE: 17 SEX: F [place] [address] LOC: F.2604 A PHONE #: [phone] EXAM DATE: 11/21/2022 STATUS: ADM IN FAX #: [phone] RAD NO: Page 2 Signed Report [facility] Unit No: [id number] EXAMS: CPT CODE: [id number] US PREG EVAL 1ST TRIMTR 64714 (Continued) [facility] NAME: [facility] Radiology Department PHYS: Jaimee Jennings MD [address] : 2005 AGE: 17 SEX: F [place] [address] LOC: F.2604 A PHONE #: [phone] EXAM DATE: 11/21/2022 STATUS: ADM IN FAX #: [phone] RAD NO: Page 3 Signed ReportCOMPREHENSIVE METABOLIC [id number] 20:43:00* Test Item Value Reference Range Interpretation Comme nts SODIUM (test code = NA) 134 mEq/L 135-145 L POTASSIUM (test code = K) 3.7 mEq/L 3.5-5.0 N CHLORIDE (test code = CL) 101 mEq/L 100-115 N CARBON DIOXIDE (test code = CO2) 23 mEq/L 22-31 N ANION GAP (test code = GAP) 13.70 10-20 N GLUCOSE (test code = GLU) 91 mg/dL 65-110 N BLOOD UREA NITROGEN (test code = BUN) 10 mg/dL 7-18 N GLOMERULAR FILTRATION RATE (test code = GFR) 128 ml/min >60 N The Glomerular Filtration Rate is a calculated parameterbased on serum Creatinine, patient age and sex. GFR valuesless than 60 mL/min/1.73 square meters are indicative ofChronic Kidney Disease. Values less than 15 mL/min/1.73square meters indicate Kidney failure. The calculation forGFR is based on the CKD-EPI (202) calculation. This formulais race indifferent and is the recommended formula for GFRby the National Kidney Foundation for Adults.The GFR will not calculate if the sex is unknown or if thepatient's age is <18 years. CREATININE (test code = CREAT) 0.7 mg/dL 0.5-1.0 N TOTAL PROTEIN (test code = PROT) 6.7 gm/dL 6.3-8.2 N ALBUMIN (test code = ALB) 3.7 gm/dL 3.4-4.8 N CALCIUM (test code = CA) 8.4 mg/dL 8.4-10.2 N BILIRUBIN TOTAL (test code = BILT) 0.6 mg/dL 0.2-1.0 N SGOT/AST (test code = AST) 15 units/L 15-37 N SGPT/ALT (test code = ALT) 15 units/L 12-78 N ALKALINE PHOSPHATASE TOTAL (test code = ALKP) 39 units/L 46-116 L CBC W/AUTO [id number] 20:01:00* Test Item Value Reference Range Interpretation Comme nts WHITE BLOOD CELL (test code = WBC) [...] pg 27.3-33.9 N MEAN CELL HGB CONCETRATION ( test code = MCHC) 34.4 gm/dL 32.0-34.2 H RED CELL DISTRIBUTION WIDTH (test code = RDW) 12.4 % 12.2-16.3 N PLATELET COUNT (test code = PLT) 189 K/mm3 134-363 N MEAN PLATELET VOLUME (test c ode = MPV) 11.0 fL 9.2-12.7 N NEUTROPHIL % (test code = NT%) 59.8 [...] = BA#) 0.0 K/mm3 RBC MORPHOLOGY REQUIRED (beth t code = RBCM) NORMAL NORMAL PLATELET MORPHOLOGY REQUIRED (test code = PLTMR) NORMAL NORMAL UA RFLX MICR CULT IF [id number] 19:50:00* Test Item Value Reference Range Interpretation Comme nts UA COLOR (test code = COLU) YELLOW YELLOW UA APPEARANCE (test code = APPU) Slightly-Cloudy CLEAR UA GLUCOSE DIPSTICK (test code = DGLUU) NEGATIVE NEG UA BILIRUBIN DIPSTICK (test code = BILU) NEGATIVE NEG UA KETONE DIPSTICK (test cod e = KETU) 2+ NEG A UA SPECIFIC GRAVITY (test code = SGU) 1.029 1.001-1.035 N UA BLOOD DIPSTICK (test code = BRYSON) NEG NEG UA PH DIPSTICK (test code = GINO) 6.0 5-9 UA PROTEIN DIPSTICK (test code = PROU) NEGATIVE NEG UA UROBILINIOGEN DIPSTICK (test code = URO) NEGATIVE mg/dL NEG UA NITRITE DIPSTICK (test code = SHAKIRA) NEG NEG UA LEUKOCYTE ESTERASE DIPSTICK (test code = LEUU) 1+ NEG A UA WBC (test code = WBCU) 6-10 #/hpf NONE SEEN A UA RBC (test code = RBCU) 3-5 #/hpf NONE SEEN A UA EPITHELIAL CELLS (test code = EPIU) FEW #/HPF RARE-FEW UA BACTERIA (test code = BACU) RARE /HPF RARE-FEW UA MUCUS (test code = MUCU) 4+ NONE SEEN Indication for culture: Suprapubic PainSpecimen Description: CLEAN CATCHPOCT [id number] 12:50:00* Test Item Value Reference Range Interpretation Comme nts POCT PREG (test code = 1605) positive On board controls acceptable with C Line (test code = 3574) present POCT PREG LOT # (test code = 3575) [id number] POCT PREG TEST DATE ( test code = 3576) 08/06/2023 Lab Interpretation (test cod e = 87149-8) [facility] [id number] 11:34:00 * Test Item Value Reference Range Interpretation Comme nts COVID 19 Asymptomatic IH AG (test code = COVNONPUIAG) NEGATIVE NEGATIVE This test has be en authorized only for the detection ofproteins from SARS-CoV-2, not for any other viruses orpathogens. Negative results should be treated as presumptive andconfirmed with a molecular assay, if necessary for patientmanagement. Negative results do not rule out COVID-19 andshould not be used as the sole basis for treatment orpatient management decisions, including infection controldecisions. Negative results should be considered in thecontext of a patient's recent exposures, history and thepresence of clinical signs and symptoms consistent withCOVID-19. This test has not been FDA cleared or approved; the test hasbeen authorized by FDA under an Emergency Use Authorization(EUA) for use by laboratories certified under the CLIA thatmeet the requirements to perform moderate, high or waivedcomplexity tests. This test is authorized for use at thePoint of Care (POC), i.e., in patient care settingsoperating under a CLIA Certificate of Waiver, Certificate ofCompliance, or Certificate of Accreditation. This test is only authorized for the duration of thedeclaration that circumstances exist justifying theauthorization of emergency use of in vitro diagnostic testsfor detection and/or diagnosis of COVID-19 under Abhgypo476(b)(1) of the Act, 21 U.S.C. 360bbb-3(b)(1), unless theauthorization is terminated or revoked sooner. Comments to Cloth Framer: LDO CAG HEPATITIS B [id number] 11:22:00* Test Item Value Reference Range Interpretation Comme nts AG HEPATITIS B SURFACE (test code = HBSAG) NONREACTIVE NONREACTIVE Comments to Cloth Framer: LDO CIS CONSENT FORM SIGNED FOR HIV TESTING? YAB HEPATITIS C [id number] 11:22:00* Test Item Value Reference Range Interpretation Comme nts AB HEPATITIS C (test code = HCVAB) NONREACTIVE NONREACTIVE SIGNAL TO CUTOFF (test code = CUTOFF) 0.03 <0.80 N Comments to Cloth Framer: LDO CIS CONSENT FORM SIGNED FOR HIV TESTING? YAB [id number] 11:22:00* Test Item Value Reference Range Interpretation Comme nts AB TREPONEMA (test code = TREPAB) NONREACTIVE NONREACTIVE Comments to Cloth Framer: LDO CIS CONSENT FORM SIGNED FOR HIV TESTING? YAB HIV 1 11:22:00* Test Item Value Reference Range Interpretation Comme nts AB HIV 1 2 (test code = [id number]) NONREACTIVE NONREACTIVE Done by [employer] HIV Ag/Ab Combo Screen Comments to Cloth Framer: LDO CIS CONSENT FORM SIGNED FOR HIV TESTING? YCBC W/AUTO [id number] 10:06:00* Test Item Value Reference Range Interpretation Comme nts WHITE BLOOD CELL (test code = WBC) [...] pg 26-32 N MEAN CELL HGB CONCETRATION ( test code = MCHC) 32.8 gm/dL 32-35 N RED CELL DISTRIBUTION WIDTH (test code = RDW) 13.0 % 12.2-16.3 N PLATELET COUNT (test code = PLT) 206 K/mm3 135-380 N MEAN PLATELET VOLUME (test c ode = MPV) 10.7 fL 9.2-12.7 N NEUTROPHIL % (test code = NT%) 66.0 [...] = BA#) 0.0 K/mm3 RBC MORPHOLOGY REQUIRED (beth t code = RBCM) NORMAL NORMAL PLATELET MORPHOLOGY REQUIRED (test code = PLTMR) NORMAL NORMAL RUPTURE OF [id number] 00:27:00* Test Item Value Reference Range Interpretation Comme nts RUPTURE OF MEMBRANES (test c ode = ROM) NON-RUPTURED - US RETRO [id number] 01:16:00 [facility] 2005 Sex: F Patient Name: KALLI CALDWELL Unit No: [id number] EXAMS: CPT CODE: [id number] US RETRO LTD 49475 EXAM: US, US RETRO LTD: 11/21/2020, 0007 hours Clinical Indication: IUP at 32.4 weeks. Back pain. Flank pain. Comparison: None. TECHNIQUE: Multiple longitudinal and transverse real time sonographic images ofthe kidneys and urinary bladder are obtained. FINDINGS: KIDNEY: The right kidney measures 12.2 x 5.5 x 5.5 cm in length. Cortical thickness: 1.2 cm The left kidney measures 11.6 x 5.2 x 5.2 cm in length. Cortical thickness: 0.9 cm Normal shape, contour, and position. Cortices are normal in thickness and the cortico- medullary differentiation is maintained. Moderate right hydronephrosis. No echogenic foci/nephrolithiasis. No abnormal perinephric collections. BLADDER: Partly filled urinary bladder and limited due to movements and . Possible bilateral ureteral jets seen, left moreappreciable than right. There is no bladder wall thickening or bladder debris noted. AORTA AND IVC:Not well seen due to bowel gas. ASCITES: No ascites noted. IMPRESSION: 1. Moderate right hydronephrosis. SL: DARRIUS at 0116 Reported andsigned by: Sean Torres M.D. CC: Margo Sears MD Technologist: SWATHI SALCIDO RDMS, RVT Probe: Trnscrbd D/ (0116) t.SHANER.JS38 Orig Print D/T: S: 11/21/2020 (0119) [facility] NAME: KALLI CALDWELL Radiology Department PHYS: Margo Wang MD [address] : 2005 AGE: 15 SEX: F [place] [address] LOC: F.3004 A PHONE #: [phone] EXAM DATE: 11/20/2020 STATUS: ADM IN FAX #: [phone] RAD NO: Page 1 Signed Report Patient Name: KALLI CALDWELL Unit No: [id number] EXAMS: CPT CODE: [id number] [facility] L[facility] [address] (Continued) [facility] NAME: KALLI CALDWELL Radiology Department PHYS: Margo Wang MD [address] : 2005 AGE: 15 SEX: F [place] [address] LOC: Marisabel3004 Chirag PHONE #: [phone] EXAM DATE: 11/20/2020 STATUS: ADM IN FAX #: [phone] RAD NO: Page 2 Signed ReportCOVID 19 Asymptomatic IH [id number] 20:59:00* Test Item Value Reference Range Interpretation Comme nts COVID 19 Asymptomatic IH AG (test code = COVNONPUIAG) NEGATIVE NEGATIVE This test has be en authorized only for the detection ofproteins from SARS-CoV-2, not for any other viruses orpathogens. Negative results should be treated as presumptive andconfirmed with a molecular assay, if necessary for patientmanagement. Negative results do not rule out COVID-19 andshould not be used as the sole basis for treatment orpatient management decisions, including infection controldecisions. Negative results should be considered in thecontext of a patient's recent exposures, history and thepresence of clinical signs and symptoms consistent withCOVID-19. This test has not been FDA cleared or approved; the test hasbeen authorized by FDA under an Emergency Use Authorization(EUA) for use by laboratories certified under the CLIA thatmeet the requirements to perform moderate, high or waivedcomplexity tests. This test is authorized for use at thePoint of Care (POC), i.e., in patient care settingsoperating under a CLIA Certificate of Waiver, Certificate ofCompliance, or Certificate of Accreditation. This test is only authorized for the duration of thedeclaration that circumstances exist justifying theauthorization of emergency use of in vitro diagnostic testsfor detection and/or diagnosis of COVID-19 under Skanrky111(b)(1) of the Act, 21 U.S.C. 360bbb-3(b)(1), unless theauthorization is terminated or revoked sooner. Specimen Comment: LDO DCBC W/AUTO [id number] 19:53:00* Test Item Value Reference Range Interpretation Comme nts WHITE BLOOD CELL (test code = WBC) [...] pg 26-32 N MEAN CELL HGB CONCETRATION ( test code = MCHC) 33.3 gm/dL 32-35 N RED CELL DISTRIBUTION WIDTH (test code = RDW) 13.0 % 12.2-16.3 N PLATELET COUNT (test code = PLT) 199 K/mm3 135-380 N MEAN PLATELET VOLUME (test c ode = MPV) 11.1 fL 9.2-12.7 N NEUTROPHIL % (test code = NT%) 67.8 [...] = BA#) 0.0 K/mm3 RBC MORPHOLOGY REQUIRED (beth t code = RBCM) NORMAL NORMAL PLATELET MORPHOLOGY REQUIRED (test code = PLTMR) NORMAL NORMAL - US PREG UT [id number] 19:13:00 [facility] : 2005 Sex: F Patient Name: KALLI CALDWELL Unit No: [id number] EXAMS: CPT CODE: [id number] US PREG [place] TRANSVAGINAL 81590 biophysical profile with transvaginal imaging of the [...] Reported and signed by: Mu Harmon MD CC:Margo Sears MD Technologist: Mirta Jones Probe: [id number] Trnscrbd D/ (1912) tVINICIO Orig Print D/T: S: 11/20/2020 (1915) [facility] NAME: KALLI CALDWELL Radiology Department PHYS: Margo Wang MD [address] : 2005 AGE: 15 SEX: F [place], [place] [address] LOC: FRANCESCA D PHONE #: [phone] EXAM DATE: 11/20/2020 STATUS: ADM IN FAX #: [phone] RAD NO: Page 1 Signed Report Patient Name: KALLI CALDWELL Unit No: [id number] EXAMS: CPT CODE: [id number] US PREG UT TRANSVAGINAL 01408 (Continued) [facility] NAME: KALLI CALDWELL Radiology Department PHYS: Margo Wang MD [address] : 2005 AGE: 15 SEX: F [place], [place] [address] LOC: MarisabelLDO D PHONE #: [phone] EXAM DATE: 11/20/2020 STATUS: ADM IN FAX #: [phone] RAD NO: Page 2 Signed Report- US FET BIO PH AR W/O [id number] 19:13:00 [facility] 2005 Sex: F Patient Name: KALLI CALDWELL Unit No: [id number] EXAMS: CPT CODE: [id number] FET BIO PH AR W/O NST 04015 biophysical profile with transvaginal imaging of the cervix dated 11/20/2020. HISTORY: 32 weeks . Abdominal pain. Back pain. A limited transabdominal obstetrical ultrasound was performed for biophysical profile determination. The ultrasound reveals the presence of a single intrauter ine in cephalic position. cardiac activity is documented with a heart rate of 131 bpm. The placenta is anteriorly positioned and demonstrates grade 2 echotexture. There is no evidenceof placenta previa. Amniotic fluid volume appears within [...] Mirta Jones RDMS Probe: Trnscrbd D/ (1912) t.SDR.DMM Orig Print D/T: S: 11/20/2020 (1915) [facility] NAME: [facility] Radiology Department PHYS: Margo Wang MD [address] : 2005 AGE: 15 SEX: F [place] [address] LOC: SONIAO D PHONE #: [phone] EXAM DATE: 11/20/2020 STATUS: ADM IN FAX #: [phone] RAD NO: Page 1 Signed Report Patient Name: KALLI CALDWELL Unit No: [id number] EXAMS: CPT CODE: [id number] US FET BIO PH AR W/O NST 46617 (Continued) [facility] NAME: [facility] Radiology Department PHYS: Margo Wang MD [address] : 2005 A GE: 15 SEX: F [place] [address] LOC: SONIAO D PHONE #: [phone] EXAM DATE: 11/20/2020 STATUS: ADM IN FAX #: [phone] RAD NO: Page 2 Signed ReportFETAL [id number] 18:59:00* Test Item Value Reference Range Interpretation Comme nts FIBRONECTIN (test code = FFN) NEGATIVE Among symptoma tic women, elevated levels (>0.05 ug/mL) offFN between 24 weeks and 34 weeks, 6 days indicate increasedrisk of delivery in <= 7 or <= 14 days from samplecollection. Similarly, among asymptomatic women, elevated levels of fFNbetween 22 weeks and 30 weeks, 6 days indicate increasedrisk of delivery in <= 34 weeks, 6 days of gestation. URINALYSIS [id number] 18:10:00* Test Item Value Reference Range Interpretation Comme nts UA COLOR (test code = COLU) YELLOW YELLOW UA APPEARANCE (test code = APPU) Slightly-Cloudy CLEAR UA GLUCOSE DIPSTICK (test code = DGLUU) NEGATIVE NEG UA BILIRUBIN DIPSTICK (test code = BILU) NEGATIVE NEG UA KETONE DIPSTICK (test cod e = KETU) NEGATIVE NEG UA SPECIFIC GRAVITY (test code = SGU) 1.016 1.001-1.035 N UA BLOOD DIPSTICK (test code = BRYSON) NEG NEG UA PH DIPSTICK (test code = GINO) 8.0 5-9 UA PROTEIN DIPSTICK (test code = PROU) NEGATIVE NEG UA UROBILINIOGEN DIPSTICK (test code = URO) NEGATIVE mg/dL NEG UA NITRITE DIPSTICK (test code = SHAKIRA) NEG NEG UA LEUKOCYTE ESTERASE DIPSTICK (test code = LEUU) TRACE NEG A UA WBC (test code = WBCU) 6-10 #/hpf NONE SEEN A UA RBC (test code = RBCU) 0-2 #/hpf NONE SEEN UA EPITHELIAL CELLS (test code = EPIU) RARE #/HPF RARE-FEW UA BACTERIA (test code = BACU) RARE /HPF RARE-FEW UA MUCUS (test code = MUCU) RARE NONE SEEN URINE SAMPLE: CLEAN CATCHRUPTURE OF [id number] 23:18:00* Test Item Value Reference Range Interpretation Comme nts RUPTURE OF MEMBRANES (test c ode = ROM) NON-RUPTURED URINALYSIS [id number] 13:46:00* Test Item Value Reference Range Interpretation Comme nts UA COLOR (test code = COLU) YELLOW YELLOW UA APPEARANCE (test code = APPU) Slightly-Cloudy CLEAR UA GLUCOSE DIPSTICK (test code = DGLUU) NEGATIVE NEG UA BILIRUBIN DIPSTICK (test code = BILU) NEGATIVE NEG UA KETONE DIPSTICK (test cod e = KETU) NEGATIVE NEG UA SPECIFIC GRAVITY (test code = SGU) 1.016 1.001-1.035 N UA BLOOD DIPSTICK (test code = BRYSON) NEG NEG UA PH DIPSTICK (test code = GINO) 7.0 5-9 UA PROTEIN DIPSTICK (test code = PROU) NEGATIVE NEG UA UROBILINIOGEN DIPSTICK (test code = URO) NEGATIVE mg/dL NEG UA NITRITE DIPSTICK (test code = SHAKIRA) NEG NEG UA LEUKOCYTE ESTERASE DIPSTICK (test code = LEUU) 2+ NEG A UA WBC (test code = WBCU) 6-10 #/hpf NONE SEEN A UA RBC (test code = RBCU) 0-2 #/hpf NONE SEEN UA EPITHELIAL CELLS (test code = EPIU) FEW #/HPF RARE-FEW UA BACTERIA (test code = BACU) RARE /HPF RARE-FEW UA MUCUS (test code = MUCU) RARE NONE SEEN URINE SAMPLE: CLEAN CATCH- US PREG UT [id number] 17:48:00 [facility] : 2005 Sex: F Patient Name: KALLI CALDWELL Unit No: [id number] EXAMS: CPT CODE: [id number] US PREG UT TRANSVAGINAL 14681 TRANSABDOMINAL AND TRANSVAGINAL OBSTETRICAL PELVIC ULTRASOUND INDICATION: DECREASED MOVEMENTS. TECHNIQUE: Transabdominal and transvaginal obstetrical pelvic ultrasound was performed with dennis scale and Doppler images. COMPARISONS: None. FINDINGS: TRANSABDOMINAL: The maternal urinary bladder appears normal as visualized. The uterine cervix is obscured due to shadowing. The maternal rightovary measures 2.9 x 1.4 x 1.7 cm. The maternal left ovary measures 2.8 x 1.2 x 1.7 cm. There is a single live intrauterine gestation in vertex presentation. The heart rate is 144 bpm. There kenton grade 1 anterior placenta. There is no placenta previa or placental abruption. The amniotic fluidvolume appears subjectively normal. Transvaginal pelvic ultrasound was performed in order to bettervisualize the pelvic structures. TRANSVAGINAL PELVIC ULTRASOUND: The uterine cervix is closed and the cervical length is 3.5 cm. IMPRESSION: 1. There is a single live intrauterine gestation in vertexpresentation. 2. There is no placenta previa or placental abruption. 3. The uterine cervix is closed and the cervical length is 3.5 cm. at 1748 Reported and signed by: Reggie Nick DO CC: Margo Sears MD Technologist: Lorenza Montiel RDMS, RVT Probe: [id number] Trnscrbd D/ (1748) t.JB33 [facility] Print D/T: S: 09/13/2020 (1752) [facility] NAME: KALLI CALDWELL Radiology Department PHYS: Margo Wang MD [address] : 2005 AGE: 15 SEX: F [place], [place] [address] LOC: MarisabelSTEVE PHONE #: [phone] EXAM DATE: 09/13/2020 STATUS: REG ER FAX #: [phone] RAD NO: Page 1 Signed Report Patient Name: KALLI CALDWELL Unit No: [id number] EXAMS: CPT CODE: [id number] [facility] TRANSVAGINAL [address] (Continued) [facility] NAME: JOHNKALL[facility] Radiology Department PHYS: Margo Wang MD [address] : 2005 AGE: 15 SEX: F [place], [place] [address] LOC: MarisabelSTEVE PHONE #: [phone] EXAM DATE: 09/13/2020 STATUS: REG ER FAX #: [phone] RAD NO: Page 2 Signed Report- US [id number] 17:48:00[facility] : 2005 Sex: F Patient Name: KALLI CALDWELL Unit No: [id number] EXAMS: CPT CODE: [id number] [place] [address] TRANSABDOMINAL AND TRANSVAGINAL OBSTETRICAL PELVIC ULTRASOUND INDICATION: DECREASED MOVEMENTS. TECHNIQUE: Transabdominal and transvaginal obstetrical pelvic ultrasound was performed with dennis scaleand Doppler images. COMPARISONS: None. FINDINGS: TRANSABDOMINAL: The maternal urinary bladder appear s normal as visualized. The uterine cervix is obscured due to shadowing. The maternal right ovary measures 2.9 x 1.4 x 1.7 cm. The maternal left ovary measures 2.8 x 1.2 x 1.7 cm. There is a single live intrauterine gestation in vertex presentation. The heart rate is 144 bpm. There is a grade1 anterior placenta. There is no placenta previa [...] MD Technologist: Lorenza Montiel RDMS, RVT Probe: Trnscrbd D/ (1744) t.SHANERMariiJB33 Orig Print D/T: S: 09/13/2020 (2967) [facility] NAME: KALLI CALDWELL Radiology Department PHYS: Vishnu Vázquez III, MD [address] : 2005 AGE: 15 SEX: F [place] [address] LOC:Hailey.STEVE PHONE #: [phone] EXAM DATE: 09/13/2020 STATUS: REG ER FAX #: [phone] RAD NO: Page 1 Signed Report Patient Name: KALLI CALDWELL Unit No: [id number] EXAMS: CPT CODE: [id number] LTD [address]387 (Continued) [facility] NAME: JOHNKALLI GHOSH Radiology Department PHYS: Vishnu Vázquez III, MD [address] : 2005 AGE: 15 SEX: F [place] [address] LOC: F.STEVE PHONE #: [phone] EXAM DATE: 09/13/2020 STATUS: REG ER FAX #: [phone] RAD NO: Page 2 Signed Report Notes Date/Time Note Provider Source 2023-05-28 23:58:00 [id number] rcmnrpNi+sCtaN8qGC8f/Es2JmQz1 JTLSX4+bkpEq5ArAD5xrcoLX9nI6589-01-66Z77:58:732[address] [address] [place], [place] [address] PATIENT NAME: KALLI CALDWELL ADMIT DATE: 05/24/23ACCOUNT NO: [id number] ROOM NO: AGE: 17 SEX: F ADMITTING PHYSICIAN: Margo Sears MD ATTENDING PHYSICIAN: Margo Sears MD Provider Query QUERY TEXT: Specificity General 360MD Query related questions should be directed to: [place] [facility] [place] [facility] Coding Query Helpline Please provide any known specificity for [Chronic anemia] documented in the [OB Discharge 05/26/2023 ]. (Acute blood loss anemia, Chronic blood loss anemia, iron deficiency anemia, other, unable to determine) The patient's Clinical Indicators include:Chronic anemia- hgb on admission is 9.8 - OB Discharge 05/26/2023Vaginal delivery - OB Delivery Note 05/25/2023EBL:350 mL - OB Delivery Note 05/25/2023HEMATOCRIT (%) 29.6L - LABHEMOGLOBIN (g/dL) 9.8L - LABPNV WITH FE FUMARATE/FA - OB Admission / H and P 05/24/2023 Options provided:-- Respond - Create new note now-- Dismiss - Not applicable / Not valid-- Dismiss - Clinically unable to determine / Unknown-- Assign to another provider QUERY RESPONSE: Patient has physiologic anemia of (no evidence of iron deficiency anemia, no evidence of chronic blood loss anemia nor acute blood loss anemia on admission on 05/24/23 when hgb was found to be 9.8) Query created by: SHLOMO PORTILLO on 05/28/2023 9:47 PM at 2358 PATIENT NAME: KALLI CALDWELL noteF.[id number] for patient kofkKVZCQIBDZYKGRP8252-01-26N27:00:01 [facility] 2023-05-26 10:20:00 [id number] OTxhyvG51B8MYWNIw4O3mU7GfBcUf VsdN7xrwo2tE5FSWeKr7BYwjcxh9571-72-16C25:20:00 [facility] ([facility])OB Disch PostpartumREPORT#:[id number] REPORT STATUS: SignedREPORT INITIALIZATION DATE:05/26/23 TIME: 1020 PATIENT: KALLI CALDWELL UNIT #: [id number]#: [id number] ROOM/BED: 2015-ADOB: [birth year] AGE: 17 SEX: F ATTEND: Margo Sears MDADM AUTHOR: Margo Sears MDREPT SERVICE DT/TIME: 05/26/23 1020* ALL edits or amendments must be made on the electronic/computer document * Subjective SubjectiveAdmission EGA: Weeks: 36 Days: 5EGA at delivery (wks/days): 36 weeks (6 days)Status/day: post partumPatient reports: Patient reports: Yes: complaints, normal lochia, pain management effective, tolerating po well, voiding well, voiding without pain, tolerating ambulation, flatus, headache. No: bowel movement, nausea, vomiting, excessive bleeding, abdominal pain, perineal pain, blurred vision. Objective GeneralVS:Vital Signs Date Temp Pulse Resp B/P B/P Mean Pulse Ox FiO2 05/25-05/26 97.9-98.8 82-90 18 101-119/62-82 79.5 98 Last Documented: Result Date Time Pulse Ox 98 05/26 08 B/P 105/67 05/26 08 B/P Mean 79.5 05/26 817 Temp 97.9 05/26 08 Pulse 88 05/26 08 Resp 18 05/26 0408 PATIENT WEIGHT: Weight (lb): Weight (oz): Weight (kg): 77.700 Physical ExamLungs: unlabored breathingNeuro: Exam: alert, oriented x3, normal speechAbdomen: post gravid, soft, no abnormal tenderness, no guarding, no rebound tendernessUterus: involution appropriate, non-tenderFundus: firm, below the umbilicus, non-tenderLochia: normalLower extremities: Edema: none ResultsFindings/Data:Laboratory Tests: 05/24 1700 Chemistry Sodium (135 - 145 mEq/L) 142 Potassium (3.5 - 5.0 mEq/L) 3.9 Chloride (100 - 115 mEq/L) 108 Carbon Dioxide (22 - 31 mEq/L) 20 L Anion Gap (10 - 20) 18.20 BUN (7 - 18 mg/dL) 4 L Creatinine (0.5 - 1.0 mg/dL) 0.6 Glomerular Filtr Rate (>60 ml/min) 133 Glucose (65 - 110 mg/dL) 121 H Calcium (8.4 - 10.2 mg/dL) 8.9 Total Bilirubin (0.2 - 1.0 mg/dL) 0.2 AST (15 - 37 units/L) 20 ALT (12 - 78 units/L) 15 Total Alk Phosphatase (46 - 116 units/L) 118 H Total Protein (6.3 - 8.2 gm/dL) 6.2 L Albumin (3.4 - 4.8 gm/dL) 2.9 L Results: labs reviewed, vital signs reviewed, vital signs stable Discharge Summary GeneralFree Text A P:17 yo s/p PTSVD at 36 weeks due to labor and suspected intrahepatic cholestasis of based on clinical findings 1) PPD1 - good support with mother, doing well. baby at bedside getting bililights. Lochia normal, pain controlled with motrin. Lochia normal. 2) GBS negative 3) Rubella immune/Rh positive 4) PMH: bipolar disorder with anxiety/depression- patient kept stating that she was nervous about "everything" when she was admitted to D just prior to amniotomy. Asked if she took medications at home regarding her anxiety and her mother at bedside stated that she takes Buspirone. Will order; superior mesenteric artery syndrome 5) PSH: 2005 Eustacian tubes in ears 6) s/p tdap vaccine 7) Intrahepatic cholestasis of - patient complains of pruritis of palmsof her hands and soles of her feet. Bile acids drawn 05/22/23 at [facility] are still pending. Normal liver enzymes on admission (AST 20, ALT 15). Explainedto patient that the pruritis is a classic sign of this condition which could be lethal to her fetus so she was given recommendation to be admitted for augmentation of labor since delivery is indicated between 36-37 weeks in patients who have intrahepatic cholestasis of . She has not taken Ursodiol. 8) Chronic anemia- hgb on admission is 9.8. She had an order for type and cross x 2 units PRBC ordered since she has an obstetric risk for hemorrhage 9) OB History: s/p of her son on 12/25/20 and she reports that this was complicated by manual extraction of placenta and prolonged hospitalization as a result of this complication 10), Dispo - home tomorrow. strict precautions for PP depression, f/u in 2 weeksfor virtual visit and 6 weeks for pp visit. pt advised to get psych appointment this week for close follow up.Hospital course: spontaneous labor, spontaneous vag deliveryProcedures: spontaneous vaginal delivDischarge condition: stableDischarge to: Home/Self CareDischarge diagnosis: full-term uncomp deliveryDischarge management: less than 30 minsBaby A: status: live born Gender: female 1 minute: 8 5 minutes: 9 Anomalies:none notedNursing data:The data set between the solid lines has been imported from nursing documentation. Any exceptions have been noted below under Provider comments. Delivery date A: 05/25/23 Delivery time infant A: 0648Birthweight (gm) infant A: 3340Feeding preference: Gender A: FemaleApgar 1 minute A: 8Apgar 5 minutes infant A: 9Apgar 10 minutes A: Provider comments on imported nursing data: [] Plan: routine care Discharge InstructionsInstructions: routine instr sheet given, instr and warnings rev'd, specific instr as notedDiet: RegularActivity: Light DutyAdditional discharge routines: Attending Follow-UpContraception discussed: abstinence for 4-6 weeks, will discuss at PP visitPrescriptions: e-prescribe at 1700 RPT #:[id number] OF REPORT CLClinical [id number]:20:00F.[id number] able for patient tpaoRQKCXFLXETDJSO3780-95-56L97:01:14 [facility] 2023-05-25 07:17:00 [id number] liPO3emlU/T3kPi0JkI/LkBTLKFkz cW6FCECQ9H/0LWHB93s/jCSpAKI2586-50-77O11:17:00 [facility] ([facility])OB Delivery NoteREPORT#:[id number] REPORT STATUS: SignedREPORT INITIALIZATION DATE:05/25/23 TIME: 716 PATIENT: KALLI CALDWELL UNIT #: [id number]#: [id number] [facility] AGE: 17 SEX: F ATTEND: Margo Sears MDADM AUTHOR: Nuvia Schafer MDREPT SERVICE DT/TIME: 05/25/23 0717* ALL edits or amendments must be made on the electronic/computer document * OB Delivery Pre-deliveryGBS status: GBS status: negativeNewborn evaluation at delivery: NRP certified personnelAdmission EGA: Weeks: 36 Days: 5EGA at delivery (wks/days): 36 weeks (6 days)Admission indication: labor, intrahepatic cholestasis of Steroids Prior to DeliverySteroids prior to delivery: no, delivery on arrival Blood Loss/DetailsBlood loss at delivery: <1K: no sx hypovol=no hemEBL at delivery (ml's): 350 Baby A InformationBaby A information Delivery date: 05/25/23 Delivery time: 0648 status: live born Wt of baby: not yet available Gender: female 1 minute: 8 5 minutes: 9 Presentation: vertex Anomalies:none notedABG details Baby A Cord blood gases: not collectedNuchal cord Baby A Nuchal cord: no Vaginal Delivery Vaginal DeliveryVaginal delivery: Labor: augmented Medications/Devices used: oxytocinLacerations: High vaginal laceration: noExtraction details OVD performed: noShoulder dystocia present: noAdditional comments:Ms. Kalli Caldwell is a 17 y.o. woman who presented [facility]) on 05/24/23 at 36 weeks 5 days with complaint of painful regular contractions. OB hospitalist evaluated her and gave her Nubain for pain relief. When I evaluated her she not only complained of uterine contractions that had intensified compared to those she felt at her last visit with Dr. Sears at [facility] on 05/22/23 but also she stated shehad itching of the palms of her hands as well as the soles of her feet. Dr. Salinas ordered bile acids on 05/22/23 which are still pending. Patient and her mother at bedside were informed that she would be admitted not only for labor since her SVE in the outpatient setting was 3 cm but her cervix was dilated to 4 cm in ST[facility]E at [facility] but she was also informed that she has clinical signs of intrahepatic cholestasis of which can cause elevated bile acids. She was told that delivery is indicated between 36-37 weeks in patients who have intrahepatic cholestasis of because bile acids can be toxic for her fetus possibly leading to . When she was transferred from STEVE to L D unit, she gave verbal consent to perform amniotomy when SVE was 4 cm/70%/-3, clear fluid noted after use of amnihook. She elected to have an epidural placed afterwards. Her nurse, Tracey Chen, found her SVE to be 5 cm at 4:30 am. Patient complained of pressure despite having epidural and need to push at 6:30 am shortly after she was evaluated by [employer] M113. I checked her SVE and she was found to be 10 cm/100%/+1. Pushing effort began after her martines catheter was removed. She yelled "I can't do this! This hurts! I thought this epidural was suppose to work." I explained to Ms. Caldwell that she was likely experiencing intense pelvic pressure since her fetus had descended in her pelvis and she was encouraged to push so that herpelvic pressure would be alleviated with delivery. As the head crowned and delivered in LEROY position, the perineum was protected with blue towel. The anterior shoulder delivered with gentle downward tractionand posterior shoulder with gentle upward traction. A nuchal cord was not noted. Delivery time was 6:48 am on 05/25/23. The was placed on patient's chest, the umbilical cord was clamped x2 after 60 sec of delayed cord clampingand cut, then assessed by P certified nurse. Umbilical cord blood was collected and sent to the lab. Umbilical cord blood gases were not collected. Umbilical cord blood was not donated or kept for private use. Placenta delivered spontaneously and intact, sent to pathology due to intrahepatic cholestasis of . Bimanual exam was performed to clear the uterus of all clots and debris. Hemostasis achieved with fundal massage and IV pitocin. A right angle retractor was placed inside of the vagina to visualize the cervix which was noted to be free of lacerations. The right angle retractor was then removed from the vagina. No perineal laceration was noted; therefore, no stitches were required. Sponge, lap, and needle counts correct x 2, lap scan negative. Good maternal-infant bonding noted between Ms. Caldwell and her daughter (no name yet). Infant's weight is unavailable at this time. Infant's scores were 8 at 1 min and 9 at 5 min. EBL:350 mL. at 0728 RPT #:[id number] OF REPORT CLClinical [id number]:17:00F.[id number] able for patient [id number]:28:32 [facility] 2023-05-24 18:53:00 [id number] V+[id number] NicU2hyWFmyG5mNu1Gkry82EAIm7544-55-06X04:53:00 [facility] ([facility])OB Admission / H PREPORT#:[id number] REPORT STATUS: SignedREPORT INITIALIZATION DATE:05/24/23 TIME: 1852 PATIENT: KALLI CALDWELL UNIT #: [id number]#: [id number] ROOM/BED: 030-ADOB: [birth year] AGE: 17 SEX: F ATTEND: Margo Sears MDA AUTHOR: Nuvia Schafer MDREPT SERVICE DT/TIME: 05/24/23 4829* ALL edits or amendments must be made on the electronic/computer document * OB HistoryChief complaint: uterine contractions, itching of palms of hands and soles of feetHPI:Ms. Kalli Caldwell is a 18 y.o. at 36 weeks 1 day (EDC 06/20/23) on day of admission from [facility] to L D unit at [facility] on 05/24/23. She notes that she has had increase in her contractions since 05/19/23 when she had a routine visit with Dr. Sears who found her SVE to be 3 cm/70%/-2. She denies having leakage of vaginal fluid or vaginal bleeding. She detects movement. She has had one prior vaignal . history: : 3 Term: 1 : 0 Abortus: 1 Complications (prev preg): none Previous : none Number of prev : 0Current : Best EDC: 06/20/23 Admission EGA (weeks) 36 Admission EGA (days) 5 EDC based on: ultrasound, 1st trimester Steroids prior to delivery: no, delivery on arrivalConditions of : hospitalized for hyperemsis gravidarum in first trimester s/p zofran subcutaneous infusion pump and PICC joon which has been removed, hospitalized for pyelonephritis s/p IV antibiotics, contractions- she took progesterone 200 mg po qday since she could not tolerate vaginal progesterone and she had serial cervical length ultrasounds, hospitalized in [place], [place] at approx 28 weeks for contractions and received magnesium for neuroprophylaxis, steroids for lung maturity and SVE was 1-2 cm Labs: Blood type: O Rh: positive Rubella: immune Hepatitis B: negative HIV: negative STD: negative Syphilis: currently negative GBS: negativeProcedures: non stress test Past HistoryPast Medical History:Reports: Depression/mood disorder. Denies: Alcoholism/subst abuse, Anemia, Arthritis, Asthma, Atrial fibrillation, Cancer, Congestive heart failure, COPD, Coronary artery disease, Dementia, Diabetes mellitus, GERD/gastritis, Hypertension, Kidney disease/stones, Seizure disorder, Transient ischemic attack, , Abdominal aortic aneurysm, ADD/ADHD, AIDS, Angina pectoris, Anticoagulant therapy, Atrial flutter, Bleeding disorder, BPH, C diff colitis, Cardiac dysrhythmias, Chronic pain, Cirrhosis, Congenital anomalies, Dyslipidemia, Gallbladder dis/stones, GI bleed, Glaucoma, Headache disorder, Hepatitis, HIV, Intracranial hemorrhage, Ischemic stroke, Motor dysfunction, Pancreatitis, Peptic ulcer disease, Periph arterial disease, Pressure ulcer, Prior MS, Schizophrenia, Sickle cell disease, Steroid use, Thyroid disorder, Transfusion history, Tuberculosis, Urinary tract infection, Venous thromboembolism. Additional Medical History:Superior mesenteric artery syndrome, bipolar disorder with anxiety/depression (Dr. Amauri Pisano is her psychiatrist)Past Surgical History:Denies: Abdominal surgery, Appendectomy, Bariatric procedure, CABG, Carotid endarterectomy, Cholecystectomy, , Dialysis shunt/AV fistula, Heart valve procedure, Hernia repair, Hysterectomy, Pacemaker, Spine surgery, Splenectomy, Tonsillectomy, Transplant recipient, Vascular procedure, , Amputation, Anesthesia complications, Bilateral tubal ligation,Bladder surgery, Breast biopsy/procedure, Carpal tunnel release, Cranial procedure, D C, Eye surgery, Feeding tube, Hip procedure, ICD, Indwelling IV catheter, Knee procedure, Lithotripsy, Lung surgery, Nephrectomy, PCI, Prostate surgery, Thyroidectomy, Tracheotomy, ACTIVITY ASSISTANT shunt. Additional Surgical History:2005 Eustacian tubes in earsFamily HistoryReports: Depression/mood disorder. Denies: Abdominal aortic aneurysm, Anemia, Asthma, CAD < 40 yrs old, Cancer, Coagulopathy, Dementia/Alzheimer's dis, Diabetes, Heart disease, Hypertension, Kidney disease/stones, Seizure disorder, Stroke/TIA, Subarachnoid hemorrhage, Sudden cardiac , Thyroid disorder, , Connective tissue dis, Gallbladder disease, Hyperlipidemia, Neurofibromatosis, Sickle cell disease. Alcohol Use Denies EtOH useDrug Use Denies recreational drugsSmoking status for patients 13 years old or older: Former SmokerAdditional Social History:her mother is at bedsideMedications:Home Medications:PNV WITH FE FUMARATE/FA () (Unknown Dose) PROGESTERONE,MICRONIZED (PROMETRIUM) 200 MG PO BEDTIME Buspirone for mood Allergies:Coded Allergies:azithromycin (From ZITHROMAX) (Severe, SWELLING 05/18/23)latex (Severe, HIVES 05/18/23)cephalexin (From KEFLEX) (Intermediate, HIVES 05/18/23) Review of SystemsConstitutional:Denies: chills, fever. Skin:Denies: rash. Allergy/Immun:Denies: rhinorrhea. Eyes:Denies: visual loss/blurred. ENT:Denies: sore throat. Respiratory:Denies: SOB. Cardiovascular:Denies: chest pain. GI:Reports: abdominal pain. :Reports: , previous pregnancies. Denies: dysuria, vaginal bleeding, vaginal discharge. Musculoskeletal:Denies: extremity pain, extremity swelling. Neuro:Denies: headache. Objective GeneralVS:Last Documented: Result Date Time Pulse Ox 98 05/25 257 Pulse 97 05/25 257 B/P Mean 74.0 05/25 256 B/P 98/54 05/25 256 Temp 98.4 05/25 0200 Resp 18 05/24 2034Vital Signs: Date Time Temp Pulse Resp B/P B/P Pulse O2 O2 Flow FiO2 Mean Ox Delivery Rate 05/25 257 97 98 05/25 0256 74.0 05/25 0256 93 98/54 05/25 0252 98 98 05/25 0247 99 99 05/25 0242 94 100 05/25 0241 80.0 05/25 0241 88 107/64 05/25 0237 96 98 05/25 0232 93 97 05/25 0228 83.0 05/25 0228 91 116/58 05/25 0227 90 99 05/25 0222 93 98 05/25 0217 91 98 05/25 0212 96 97 05/25 0211 80.0 05/25 0211 93 107/66 05/25 0207 95 99 05/25 0202 95 98 05/25 0200 98.4 05/25 0157 95 98 05/25 0154 85.0 05/25 0154 101 113/68 05/25 0152 92 99 05/25 0151 85.0 11/19 0151 89 110/68 05/25 0148 84.0 05/25 0148 93 111/66 05/25 0147 92 98 05/25 0145 82.0 05/25 0145 103 108/65 05/25 0142 81.0 05/25 0142 97 107/67 99 05/25 0139 83.0 05/25 0139 107 110/65 05/25 0137 113 99 05/25 0135 70.0 05/25 0135 129 101/56 05/25 0134 72.0 05/25 0134 141 98/55 05/25 0132 79.0 05/25 0132 144 108/59 97 05/25 0130 86.0 05/25 0130 155 120/68 05/25 0128 85.0 05/25 0128 144 111/71 05/25 0127 145 100 05/25 0054 82.0 05/25 0054 113 105/67 05/25 0025 86.0 05/25 0025 120 116/65 05/24 2354 74.0 05/24 2354 90 101/56 05/24 2324 67.0 05/24 2324 94 93/52 05/24 2254 66.0 05/24 2254 104 91/53 05/24 2224 65.0 05/24 2224 98 92/53 05/24 2149 76.0 05/24 2149 100 105/61 05/24 2134 83.0 05/24 2134 98 104/70 05/24 2120 80.0 05/24 2120 96 101/67 05/24 2105 87.0 05/24 2105 98 114/70 05/24 2050 86.0 05/24 2050 99 114/71 05/24 2034 86.0 05/24 2034 98.8 99 18 115/71 18 1811 121 100 18 1806 105 99 18 1801 109 89 05/24 1756 100 100 18 1753 8 85 18 1751 107 100 18 1746 97 100 18 1741 92 100 18 1736 99 100 18 1731 195 99 18 1726 99 97 18 1721 100 98 18 1716 101 98 18 1711 102 98 18 1706 99 98 18 1701 210 99 11/18 1656 120 98 05/24 1651 109 98 05/24 1646 97 98 05/24 1641 104 97 05/24 1636 101 98 05/24 1631 201 99 05/24 1626 95 97 05/24 1621 99 97 05/24 1616 100 97 05/24 1611 103 97 05/24 1606 116 98 05/24 1601 125 98 05/24 1556 137 97 05/24 1551 122 97 05/24 1546 128 97 05/24 1544 126 90 05/24 1541 121 99 05/24 1536 132 99 05/24 1531 123 98 05/24 1526 145 98 05/24 1521 98.1 150 24 98 05/24 1516 122 97 05/24 1512 77.0 05/24 1512 98.1 150 24 99/65 98 05/24 1511 156 97 Vital Signs Date Temp Pulse Resp B/P B/P Mean Pulse Ox FiO2 05/24-05/25 98.1-98.8 8-210 18-24 91-120/52-71 65.0-87.0 85-100 PATIENT WEIGHT: Weight (lb): Weight (oz): Weight (kg): 77.700 Physical ExamHEENT: normocephalic w/o injuryCardiac: regular rate and rhythm (by palpation of radial pulse)Lungs: unlabored breathingBreasts: deferredNeuro: Exam: alert, oriented x3, normal speechAbdomen: gravid, soft, no abnormal tenderness, no guarding, no rebound tendernessMusculoskeletal: normal inspectionUterine activity: Monitor: toco Frequency (description): irregularPelvic exam: Pelvis clinically adequate: yesCervical/ exam: Dilatation (cm): 4 Effacement (%): 70 Est wt (gms): 3022 (by US at [facility] 05/22/23) Suspected macrosomia: No Suspected >/= 4500 grams No Suspected >/= 5000 grams: No station: - 3Membranes: Membranes: AROM ROM date: 05/25/23 ROM time: 0030 Amniotic fluid: clearLower extremities: Edema: noneBaby A: Baby A FHR category: category 1 ResultsFindings/Data:Laboratory Tests: 05/24 05/24 05/24 1700 1559 1557 Chemistry Sodium (135 - 145 mEq/L) 142 Potassium (3.5 - 5.0 mEq/L) 3.9 Chloride (100 - 115 mEq/L) 108 Carbon Dioxide (22 - 31 mEq/L) 20 L Anion Gap (10 - 20) 18.20 BUN (7 - 18 mg/dL) 4 L Creatinine (0.5 - 1.0 mg/dL) 0.6 Glomerular Filtr Rate (>60 ml/min) 133 Glucose (65 - 110 mg/dL) 121 H Calcium (8.4 - 10.2 mg/dL) 8.9 Total Bilirubin (0.2 - 1.0 mg/dL) 0.2 AST (15 - 37 units/L) 20 ALT (12 - 78 units/L) 15 Total Alk Phosphatase (46 - 116 units/L) 118 H Total Protein (6.3 - 8.2 gm/dL) 6.2 L Albumin (3.4 - 4.8 gm/dL) 2.9 L Hematology WBC (6.5 - 12.3 K/mm3) 12.1 RBC (3.51 - 4.69 M/mm3) 3.39 L Hgb (10.1 - 13.8 g/dL) 9.8 L Hct (32.5 - 41.8 %) 29.6 L MCV (84.6 - 96.6 fL) 87.3 MCH (27.3 - 33.9 pg) 28.9 MCHC (32.0 - 34.2 gm/dL) 33.1 RDW (12.2 - 16.3 %) 13.0 Plt Count (134 - 363 K/mm3) 210 MPV (9.2 - 12.7 fL) 11.5 Neut % (Auto) (57.9 - 77.3 %) 65.5 Lymph % (Auto) (14.5 - 29.7 %) 23.2 Trimble % (Auto) (3.6 - 10.2 %) 9.7 Eos % (Auto) (0.0 - 3.0 %) 0.2 Baso % (Auto) (0.1 - 0.9 %) 0.2 Neut # (Auto) (K/mm3) 7.9 Lymph # (Auto) (K/mm3) 2.8 Trimble # (Auto) (K/mm3) 1.2 Eos # (Auto) (K/mm3) 0.02 Baso # (Auto) (K/mm3) 0.0 Serology Treponema pallidum Ab (NONREACTIVE) NONREACTIVE Hep Bs Antigen (NONREACTIVE) NONREACTIVE Hepatitis C Antibody (NONREACTIVE) NONREACTIVE Hep C Ab Signal/Cutoff (<0.80) 0.07 HIV 1 2 Antibody (NONREACTIVE) NONREACTIVE Diagnosis, Assessment Plan Diagnosis, Assessment PlanFree Text A P:Ms. Kalli Caldwell is a 17 y.o. woman at 36 weeks 5 days (EDC 06/20/23) who is admitted from [facility] to L D unit at [facility] due to labor and suspected intrahepatic cholestasis of based on clinical findings 1) labor-patient's SVE at [facility] during her routine visits on 05/22/23 was 3 cm/70%/-2-OB hospitalist evaluated patient and found that she had a great deal of pain with abdominal contractions so she gave her Nubain-On L D my SVE was 4/70%/-3 and she was offered amniotomy for which she gave verbal consent. At approx 00:30 amnihook was used to perform amniotomy which patient tolerated with her mother at bedside but she explained it was exquisitely uncomfortable but she declined epidural prior to amniotomy since shehas fear of needles-After amniotomy she requested epidural-Plan to give IV Pitocin to augment labor-anticipate -Adequate pelvis 2) well being-cat I FHT-last growth US on 05/22/23 at [facility] showed fetus was in cephalic presentation/EFW 3022 gm/fundal placenta/MIGUEL ANGEL 17.80 cm-She received betamethasone at approx 28 weeks when she was hospitalized in [place], [place] for rule out labor. She had a rescue course 05/22/23 and 05/23/23 at [facility] 3) GBS negative 4) Rubella immune/Rh positive 5) PMH: bipolar disorder with anxiety/depression- patient kept stating that she was nervous about "everything" when she was admitted to L D just prior to amniotomy. Asked if she took medications at home regarding her anxiety and her mother at bedside stated that she takes Buspirone. Will order; superior mesenteric artery syndrome 6) PSH: 2005 Eustacian tubes in ears 7) s/p tdap vaccine 8) Intrahepatic cholestasis of - patient complains of pruritis of palmsof her hands and soles of her feet. Bile acids drawn 05/22/23 at [facility] are still pending. Normal liver enzymes on admission (AST 20, ALT 15). Explainedto patient that the pruritis is a classic sign of this condition which could be lethal to her fetus so she was given recommendation to be admitted for augmentation of labor since delivery is indicated between 36-37 weeks in patients who have intrahepatic cholestasis of . She has not taken Ursodiol. 9) Chronic anemia- hgb on admission is 9.8. She had an order for type and cross x 2 units PRBC ordered since she has an obstetric risk for hemorrhage 10) OB History: s/p of her son on 12/25/20 and she reports that this was complicated by manual extraction of placenta and prolonged hospitalization as a result of this complication 11) Dispo: admit to L D unit for labor and intrahepatic cholestasis of based on clinical findings of pruritis of palms of hands soles of her feet at 36 weeks 5 days at 0333 RPT #:[id number] OF REPORT HPHistory and physical ckgzpowhfjs2754-06-09F75:53:00F.[id number] AVAvailable for patient vhqgHYFKXFTKHAGKFA6644-50-63W79:33:18 [facility] 2023-05-24 16:03:00 [id number] 4mn9IRBWn4RGpenyJCyCNb43EIj7121-75-93J16:03:00 [facility] ([facility])STEVE Evaluation NoteREPORT#:[id number] REPORT STATUS: SignedREPORT INITIALIZATION DATE:05/24/23 TIME: 1603 PATIENT: KALLI CALDWELL UNIT #: [id number]#: [id number] ROOM/BED: [facility]: 03 AGE: 17 SEX: F ATTEND: Margo Sears MDA AUTHOR: Vicky Anderson MDREPT SERVICE DT/TIME: 05/24/23 1603* ALL edits or amendments must be made on the electronic/computer document * STEVE History Nursing Documentation ReviewNursing data:The data set between the solid lines has been imported from nursing documentation. Any exceptions have been noted below under Provider comments. Current dataSteroids prior to arrival: ROM date: ROM time: EDC date: 06/16/23Gestational age (labor triage): Post hemorrhage risk score: Prior historyGravida: 3 Para: 1 Term: : Abortions spontaneous: Abortions induced: Living children: Ectopic: Stillbirths: Live births: deaths: Number of previous C/S: Reported maternal labs/dataBlood type: Rh type: Rubella: Hepatitis B: HIV exposure test: VDRL: Group B beta strep: Rho(D) immune globulin this preg: Monitor mode - UA: Feeding preference: Provider comments on imported nursing data: [] Chief complaint: uterine contractionsHPI:17 year old at 36w5d who presents to ST[facility]E with complaint of contractions. The patient states that her contractions started earlier today and are painful and worsening. She was checked in clinic and noted to be 2cm dilated. She had labor earlier in her and dreceived 2 doses of betamethasone with rescure course given this week. She reports movement, no vaginal bleeding or loss of fluid. history: : 3 Term: 1 Abortus: 1 Living children: 1Conditions of : pre-term laborPast medical history: bipolarPast surgical history: denies PSHSocial history: no alcohol use, no tobacco use, no drug useFamily historyRelation not specified for: FH: breast cancer Medications:Home Medications:Medication Dose/Rte/Freq Days Qty Entered Last Max Daily Dose Reviewed PNV WITH FE (Unknown Dose) 12/21/22 FUMARATE/FA 2027 ()Strength: (Unknown Strength)TAB TERCONAZOLE 1 APPFUL VAGINAL 3 20 05/18/23 (TERAZOL-3 0.8% VAGINAL) DAILY 1226Strength: 0.8 % CREAM PROGESTERONE,MICRONIZED 200 MG PO BEDTIME 30 12/23/22 (PROMETRIUM) 1700Strength: 100 MG CAP Current Hospital Medications:Central Nervous System Agents Sig/Cornelio Start time Last Medication Dose Route Stop Time Status Admin Nalbuphine HCl 10 MG Q4H PRN PRN 05/24 1600 AC (NALBUPHINE HCL 10 IV 07/23 1559 MG/ML 1 ML AMP) AllergiesCoded Allergies:azithromycin (From ZITHROMAX) (Severe, SWELLING 05/18/23)latex (Severe, HIVES 05/18/23)cephalexin (From KEFLEX) (Intermediate, HIVES 05/18/23) Review of SystemsAdditional notes:As per HPI Objective GeneralVS:Last Documented: Result Date Time Pulse Ox 97 05/24 1556 Pulse 137 05/24 1556 Temp 98.1 05/24 1521 Resp 24 05/24 1521 B/P Mean 77.0 05/24 1512 B/P 05/24 1512 Vital Signs Date Temp Pulse Resp B/P B/P Mean Pulse Ox FiO2 05/24 98.1 121-156 24 77.0 90-99 PATIENT WEIGHT: Weight (lb): Weight (oz): Weight (kg): 77.208817 Physical ExamHEENT: normocephalic w/o injury, pupils equalCardiac: regular rate and rhythmNeuro: Exam: alert, oriented x3, normal speechAbdomen: gravidUterine activity: Monitor: toco Frequency (minutes): 2Cervical/ exam: Dilatation (cm): 4 Effacement (%): 25 station: - 3 FHR evaluation: Baseline: 130 bpm Variability: moderate 6-25 bpm Accelerations: 15 X 15 Decelerations: none FHR category: Reactive NSTMembranes: Membranes: Intact Diagnosis, Assessment Plan Diagnosis, Assessment PlanAssessment/Impression: 17 year old at 36w5d with contractionsPlan: Patient received Nubain with improvement in pain, however remains uncomfortable. Given degree of pain as well as regular contractions, will plan to admit patient to labor and delivery for expectant management. Patient's primary OB group notified. Care to be transfered. surveillance remains reassuring. at 1706 RPT #:[id number] OF REPORT CLClinical [id number]:03:00F.[id number] able for patient nwdoVAYYAESCLUHOLK3258-90-55W01:07:15 [facility] 2023-05-18 10:46:00 [id number]/ Hx4cq4gKooFQQQ27Y5OMrb7zg5EVb mxKk6N2XHsnNHJHYU4+n8qts0U/1717-16-48S61:46:00 [facility] ([facility])STEVE Evaluation NoteREPORT#:[id number] REPORT STATUS: SignedREPORT INITIALIZATION DATE:05/18/23 TIME: 104 PATIENT: KALLI CALDWELL UNIT #: [id number]#: [id number] ROOM/BED:: 03 AGE: 17 SEX: F ATTEND: Chely Segura I MDADM DT: AUTHOR: Chely Segura I MDREPT SERVICE DT/TIME: 05/18/23 1046* ALL edits or amendments must be made on the electronic/computer document * STEVE HistoryChief complaint: uterine contractionsHPI:17 year old at 35.6 weeks with complaints of contractions. States contractions has been occuring every 2 minutes since last night. No vb, lof. +FMPatient has had chronic vaginitis during and was treated for BV. Reports discharge and was tested on Friday by Dr. Sears who informed her that shehad white clumpy discharge history: : 2 Term: 1 Abortus: 1 Comments:G1 (2020)- 37 wks, . 6lb 12ozPast medical history: bipolar, superior mesentary artery syndromePast surgical history: wisdom teethSocial history: no alcohol use, no tobacco use, no drug useFamily historyRelation not specified for: FH: breast cancer Medications:Home Medications:Medication Dose/Rte/Freq Days Qty Entered Last Max Daily Dose Reviewed PNV WITH FE (Unknown Dose) 12/21/22 05/18/23 FUMARATE/FA 2027 1054 ()Strength: (UnknownStrength) TAB TERCONAZOLE 1 APPFUL VAGINAL 3 20 05/18/23 (TERAZOL-3 0.8% VAGINAL) DAILY 1226Strength: 0.8 % CREAM PROGESTERONE,MICRONIZED 200 MG PO BEDTIME 30 12/23/22 (PROMETRIUM) 1700Strength: 100 MG CAP AllergiesCoded Allergies:azithromycin (From ZITHROMAX) (Severe, SWELLING 05/18/23)latex (Severe, HIVES 05/18/23)cephalexin (From KEFLEX) (Intermediate, HIVES 05/18/23) Objective GeneralVS:Last Documented: Result Date Time Pulse Ox 99 05/18 1157 Pulse 91 05/18 1157 B/P Mean 90.0 05/18 1154 B/P 115/74 05/18 1154 Temp 98.4 05/18 1020 Resp 22 05/18 1020 Vital Signs Date Temp Pulse Resp B/P B/P Mean Pulse Ox FiO2 05/18 98.4 89-116 22 112-115/71-74 84.0-90.0 98-100 PATIENT WEIGHT: Weight (lb): 170Weight (oz): Weight (kg): 77.300 Physical ExamHEENT: normocephalic w/o injury, no scleral icterusLungs: unlabored breathingNeuro: Exam: alert, oriented x3, CNII-XII grossly intactAbdomen: gravid, soft, no abnormal tenderness, no rebound tendernessMusculoskeletal: normal inspectionUterine activity: Monitor: toco Frequency (description): noneCervical/ exam: Dilatation (cm): 0 - closed Effacement (%): 50 station: - 5 presentation: unable to assess FHR evaluation: Baseline: 140 bpm Variability: moderate 6-25 bpm Accelerations: 15 X 15 Decelerations: none Notes:ReactiveLower extremities: Edema: none Diagnosis, Assessment Plan Diagnosis, Assessment PlanFree Text A P:17 year old at 35.6 weeks with concerns about contractions ruled out forlabor Plan:- No cevical change or contractions noted - Patient given a trial with Procardia 10 mg once with no relief- Discussed concern for possible [place] infection. Pending vaginal swab by Dr. Sears. Will send patient with prescription for terconazole and informed to follow-up with swab performed in office- labor precautions- f/u with OB in 1-2 days at 1304 RPT #:[id number] OF REPORT CLClinical [id number]:46:00F.[id number] able for patient rejoFHMWFRZEJJQJOQ3792-48-57B98:05:29 [facility] 2023-05-07 11:20:00 [id number] c00LYJu8MBAAFr9RxYvuB3PFjJw9T 0awCJiK8QWWyH8Nv9j4LovXpDbb2753-08-91R03:20:00 [facility] ([facility])STEVE Evaluation NoteREPORT#:[id number] REPORT STATUS: SignedREPORT INITIALIZATION DATE:05/07/23 TIME: 1120 PATIENT: KALLI CALDWELL UNIT #: [id number]#: [id number] ROOM/BED:: 03 AGE: 17 SEX: F ATTEND: Margo Sears AUTHOR: Chely Segura I MDREPT SERVICE DT/TIME: 05/07/23 1120* ALL edits or amendments must be made on the electronic/computer document * STEVE HistoryChief complaint: suspected ruptured membHPI:17 year old at 34.2 weeks (MARIA TERESA 06/16/23) who presents with possible rupture of membrane. Noticed leakage since Friday and increased today. No contractions, vaginal bleeding. Reports movementPrenatal care with Dr. Sears. complicated by history of bipolar disorderPregnancy history: : 3 Term: 1 Abortus: 1 Comments:G1 (2020)- 37 wks, . 6lb 12ozPast medical history: bipolarPast surgical history: wisdom teethSocial history: no alcohol use, no tobacco use, no drug useFamily historyRelation not specified for: FH: breast cancer Medications: vitaminProgesterone 200 mcg POAllergiesCoded Allergies:azithromycin (From ZITHROMAX) (Severe, SWELLING 05/07/23)latex (Severe, HIVES 05/07/23)cephalexin (From KEFLEX) (Intermediate, HIVES 05/07/23) Review of SystemsAll systems rev neg: except as marked Objective GeneralVS:Last Documented: Result Date Time Pulse Ox 99 05/07 1158 Pulse 102 05/07 1158 B/P Mean 87.0 05/07 1106 B/P 110/72 05/07 1106 Temp 98.2 05/07 1106 Resp 18 05/07 1106 Vital Signs Date Temp Pulse Resp B/P B/P Mean Pulse Ox FiO2 05/07 98.2 100-116 18 110/72 87.0 98-99 PATIENT WEIGHT: Weight (lb): 168Weight (oz): Weight (kg): 76.400 Physical ExamHEENT: normocephalic w/o injury, no scleral icterusLungs: unlabored breathingNeuro: Exam: alert, oriented x3, CNII-XII grossly intactAbdomen: gravid, soft, no abnormal tendernessMusculoskeletal: normal inspectionUterine activity: Monitor: toco Frequency (description): nonePelvic exam: Sterile speculum exam: visually closed, no pooling, no bleeding, thick white discharge FHR evaluation: Baseline: 130 bpm Variability: moderate 6-25 bpm Accelerations: 15 X 15 Decelerations: none Notes:ReactiveLower extremities: Edema: none ResultsFindings/Data:Laboratory Tests: 05/07 1141 Other Body Source Membranes Rupture NON-RUPTURED Microbiology: Date/Time Procedure - Status Source Growth 05/07 1125 Wet Prep - COMP CERVIX Diagnosis, Assessment Plan Diagnosis, Assessment PlanFree Text A P:17 year old at 34.2 weeks ruled out for rupture of membrane. Plan:- ROM plus negative and speculum exam negative for pooling with valsalva- Wet prep with clue cells. Will treat for bacterial vaginosis. Metrogel sent topharmacy- labor precautions- f/u with OB on Friday as scheduled or earlier if indicatedPlan discussed with: patient, parent at 1323 RPT #:[id number] OF REPORT CLClinical [id number]:20:00F.[id number] able for patient fmqlCYQVJXFEJHDYUZ7632-04-33G21:24:20 [facility] 2023-03-05 23:16:00 [id number] WPHcKHEcagQQsislGhLTbtUkACUv1 SnvwJ5xsyiDNEGI5SRoEfux01/y8229-78-25K15:16:00 [facility] ([facility])Clinical NoteREPORT#:[id number] REPORT STATUS: SignedREPORT INITIALIZATION DATE:03/05/23 TIME: 2315 PATIENT: KALLI CALDWELL UNIT #: [id number]#: [id number] ROOM/BED:: 03 AGE: 17 SEX: F ATTEND: Margo Sears AUTHOR: Margo Sears MDREPT SERVICE DT/TIME: 03/05/232315* ALL edits or amendments must be made on the electronic/computer document * Clinical NoteNote:Patient is a 17 year old at 24 weeks gestation that presents to the hospital today complaining of pelvic pain, passing mucus, fever. PNC: Kassy NEWMAN with Dr Sears. Please see records for information. Obstetrical History: TSVDx 1, sab Past Medical History: bipolar Past Surgical History: non-contributory Social History: no alcohol, tobacco or drugs Medications: PNV, See Allergies: NKDA Vitals: Vital Signs: Date Time Temp Pulse Resp B/P B/P Pulse O2 O2 Flow FiO2 Mean Ox Delivery Rate 03/05 1951 98.2 18 03/05 1757 84.0 03/05 1757 88 103/74 03/05 1756 98 99 Abdomen: - gravid, non-tender SVE - closedEFM - Cat 1 strip 150bpm/moderate variability/positive accelerations/no decels. no cvatToco - no contractionsLaboratory Tests: 03/05 Serology SARS-CoV-2 Ag (Rapid) (NEGATIVE) NEGATIVE Urines Urine Color (YELLOW) YELLOW Urine Appearance (CLEAR) Slightly-Cloudy Urine pH (5 - 9) 6.0 Ur Specific [place] (1.001 - 1.035) 1.018 Urine Protein (NEG) NEGATIVE Urine Glucose (UA) (NEG) NEGATIVE Urine Ketones (NEG) NEGATIVE Urine Blood (NEG) NEG Urine Nitrite (NEG) NEG Urine Bilirubin (NEG) NEGATIVE Urine Urobilinogen (NEG mg/dL) NEGATIVE Ur Leukocyte Esterase (NEG) TRACE H Urine RBC (NONE SEEN #/hpf) 0-2 Urine WBC (NONE SEEN #/hpf) 3-5 H Ur Epithelial Cells (RARE - FEW #/HPF) RARE Urine Bacteria (RARE - FEW /HPF) RARE Urine Mucus (NONE SEEN) 1+ Microbiology: Date/Time Procedure - Status Source Growth 03/05 1953 Influenza Virus Type B Antigen - COMP NASOPHARG 03/05 1953 Influenza Virus Type A Antigen - COMP NASOPHARG 03/05 1804 Urine Culture - RECD URINE Assessment/Plan: Patient seen in Triage for pelvic pain and rule out labotPlan: Suspect UTI, plan for antibiotics, pelvic rest and tylenol for pain increase water hydration. Pyelonephritis precautions given. SVE close, plan to discharge home with ptl precautions. Patient advised to f/u in office at next scheduled appointment. at 2251 RPT #:[id number] OF REPORT CLClinical [id number]:16:00F.[id number] able for patient rizfTRBLIOETDSLJID5742-09-82Z41:51:59 [facility] 2022-12-23 16:26:00 [id number] 2VdaNAOJj5YxjtYPmO6N+cFGO3DIR G4UzHCjNICrFtpYkJlun2cAqkC59065-15-15I57:26:00 [facility] ([facility])OB Disch UndeliveredREPORT#:[id number] REPORT STATUS: SignedDATE:12/23/22 TIME: 1625 PATIENT: KLALI CALDWELL UNIT #: [id number]#: [id number] [address] [birth year] AGE: 17 SEX: F ATTEND: Margo Sears MDA AUTHOR: Margo Sears MD * ALL edits or amendments must be made on the electronic/computer document * Subjective SubjectiveAdmission EGA: Weeks: 14 Days: 1Current EGA weeks/days: 14 weekStatus/Day: hospital day (3)Patient reports: Patient reports: Yes: abdominal pain (but improving, mild). No: complaints, vaginal bleeding,leaking fluid, contractions, normal movement, no movement, headache,scotomata, fever, chills, shortness of breath, comfortable with epidural, coping well w/o pain meds, new complaints. Objective GeneralVS:Last Documented: Result Date Time Pulse Ox 99 12/23 1554 B/P 98/61 12/23 1554 B/P Mean 73.4 12/23 1554 O2 Delivery Room air 12/23 1554 Temp 98.1 12/23 1554 Pulse 90 12/23 1554 Resp 18 12/23 1554 Vital Signs Date Temp Pulse Resp B/P B/P Mean Pulse Ox FiO2 12/22-12/23 98.1-98.2 71-97 16-20 85-109/50-68 61.6-81.6 97-100 PATIENT WEIGHT: Weight (lb): Weight (oz): Weight (kg): 65.800 Physical ExamCervical/ exam: Dilatation (cm): 0 - closedFHR evaluation: Baby A notes:positive on ultrasoundProcedures performed: ultrasound: abdominal, ultrasound: transvaginalHEENT: normocephalic w/o injuryLungs: unlabored breathingNeuro: Exam: alert, oriented x3, normal speech, normal gaitAbdomen: gravid, soft, no abnormal tenderness, no rebound tenderness, no CVATLower extremities: Edema: none Los's sign: negative Calf tenderness: negative Discharge Undelivered GeneralFree Text A P:17 yo at 14 weeks 1 days with acute right lower abdominal painhospital day 3 - 14 days and 3 days1. Acute abdominal pain (RLQ and flank) - On iv antibiotics rocephin every 24 hours for presumed early pyelonephritis. Tvus shows 2.7 cornelio, no bleeding noted normal cervical length. continue progesterone. Repeat ultrasound on discharge shows viable fetus, stable 4cm cervical length. Abdominal ultrasound shows appendix appears normal. Patient also has a history of SMA syndrome.Patient reports she is clinically feeling better, no bleeding, recommend rest upon discharge, no pelvic activity and continue progesterone. Bleeding precautions. Will continue keflex outpatient for 7 more days, continue po hydration 2. Rh+3. Anxiety/history of bipolar - pt is not meds. will add prn hydroxyzine. 4. dispo - dc home today, plan to continue oral antibiotics. f/u in 1 week for repeat ultrasound. Discharge to: Home/Self CareDischarge diagnosis: kidney/bladder infection, low lying placenta, pelvic painProcedures: ultrasound: abdominal, ultrasound: transvaginalDischarge management: greater than 30 minsTime spent: Time spent with patient (minut 30 >50% spent on counseling/coordination of care: yes Discharge InstructionsInstructions: routine instr sheet given, instr and warnings rev'd, specific instr as notedWarnings: bleeding, nausea/vomit/dehydration, labor warnings, feverDiet: RegularActivity: Light Duty, No [place] for 6 Wks, No Lifting >10lbs, No Sports/Activities, No Strenuous ActivityAdditional Discharge Routines: Attending Follow-Up, F/U Labs/Procedures (f/u ultrasound 1 week)Follow-up labs, proc, tx:1 week ultrasoundPrescriptions:Continue taking these medications:ONDANSETRON (ZOFRAN) 4 MG TAB 4 MILLIGRAM ORAL EVERY 6 HOURS NEEDED. as needed for NAUSEA/VOMITING PNV WITH FE FUMARATE/FA () (Unknown Strength) TAB Unknown Dose AMOXICILLIN (AMOXIL) 875 MG TAB 875 MILLIGRAM ORAL EVERY 12 HOURS. Qty = 14 Start taking the following new medications:hydrOXYzine HCL (ATARAX) 25 MG TAB 25 MILLIGRAM ORAL EVERY 6 HOURS NEEDED. as needed for ANXIETY/SEDATION Qty = 30 No Refills CEPHALEXIN (KEFLEX) 500 MG CAP 500 MILLIGRAM ORAL EVERY 12 HOURS. Qty = 14 No Refills PROGESTERONE,MICRONIZED (PROMETRIUM) 100 MG CAP 200 MILLIGRAM ORAL BEDTIME. Qty = 30 No Refills at 0832 [facility] #:[id number] OF REPORT CLClinical [id number]:26:00F.[id number] able for patient kbyuVXRBGAJXSMCTHO9260-95-65Y42:33:00 [facility] 2022-12-22 09:55:00 [id number]/+ lWLcGOPSPBVqIBDq+1O5Fs6tNC7dn 3qnDYiXQPSsN0i3YKMYcicV4ZtT0525-91-72Y29:55:00 [facility] ([facility])OB Antepartum Prog NoteREPORT#:[id number] REPORT STATUS: SignedDATE:12/22/22 TIME: 09 PATIENT: KALLI CALDWELL UNIT #: [id number]#: [id number] ROOM/BED: [facility]-ADOB: [birth year] AGE: 17 SEX: F ATTEND: Margo Sears MDADM AUTHOR: Margo Sears MD * ALL edits or amendments must be made on the electronic/computer document * Subjective SubjectiveAdmission EGA: Weeks: 14 Days: 1Patient reports: Patient reports: Yes abdominal pain (right pains), No no complaints, No vaginal bleeding, No leaking fluid, No contractions, No normal movement, No decreased movement, No no movement, No headache, No blurred vision, No scotomata, Nofever, No chills, No shortness of breath, No comfortable with epidural, No coping well w/o pain meds, No new complaints Objective Nursing Documentation ReviewNursing data:The data set between the solid lines has been imported from nursing documentation. Any exceptions have been noted below under Provider comments. ROM date: ROM time: Labor onset date: Labor onset time: Provider comments on imported nursing data: [] VS:Last Documented: Result Date Time Pulse Ox 96 12/22 0925 B/P 97/63 12/22 0825 B/P Mean 74.2 12/22 0825 Temp 98.1 12/22 0925 Pulse 86 12/22 0925 Resp 14 12/22 09 O2 Delivery Room air 12/22 0200 Vital Signs Date Temp Pulse Resp B/P B/P Mean Pulse Ox FiO2 12/21-12/22 97.6-98.1 77-86 14-18 89-97/47-63 60.9-74.2 96-100 PATIENT WEIGHT: Weight (lb): Weight (oz): Weight (kg): 65.800 Membranes: IntactCervical/ exam: Dilatation (cm): 0 - closedHEENT: normocephalic w/o injuryCardiac: regular rate and rhythmLungs: unlabored breathingNeuro: Exam: alert, oriented x3, normal speech, normal gaitAbdomen: gravid, soft, no rebound tenderness, tender to deep palpation in lower right quadrant, right cvat, right CVATLower extremities: Edema: none Los's sign: negative Calf tenderness: negativeFindings/data:Laboratory Tests: 12/21 Chemistry Sodium (135 - 145 mEq/L) 141 Potassium (3.5 - 5.0 mEq/L) 3.8 Chloride (100 - 115 mEq/L) 107 Carbon Dioxide (22 - 31 mEq/L) 23 Anion Gap (10 - 20) 14.80 BUN (7 - 18 mg/dL) 8 Creatinine (0.5 - 1.0 mg/dL) 0.6 Glomerular Filtr Rate (>60 ml/min) 133 Glucose (65 - 110 mg/dL) 83 Calcium (8.4 - 10.2 mg/dL) 8.9 Total Bilirubin (0.2 - 1.0 mg/dL) 0.2 Direct Bilirubin (<0.2 mg/dL) 0.1 AST (15 - 37 units/L) 14 L ALT (12 - 78 units/L) 19 Total Alk Phosphatase (46 - 116 units/L) 47 Total Protein (6.3 - 8.2 gm/dL) 6.8 Albumin (3.4 - 4.8 gm/dL) 3.6 Hematology WBC (6.5 - 12.3 K/mm3) 6.9 RBC (3.51 - 4.69 M/mm3) 3.75 Hgb (10.1 - 13.8 g/dL) 11.6 Hct (32.5 - 41.8 %) 33.4 MCV (84.6 - 96.6 fL) 89.1 MCH (27.3 - 33.9 pg) 30.9 MCHC (32.0 - 34.2 gm/dL) 34.7 H RDW (12.2 - 16.3 %) 13.1 Plt Count (134 - 363 K/mm3) 191 MPV (9.2 - 12.7 fL) 10.5 Neut % (Auto) (57.9 - 77.3 %) 44.7 L Lymph % (Auto) (14.5 - 29.7 %) 45.0 H [place] % (Auto) (3.6 - 10.2 %) 7.4 Eos % (Auto) (0.0 - 3.0 %) 2.2 Baso % (Auto) (0.1 - 0.9 %) 0.4 Neut # (Auto) (K/mm3) 3.1 Lymph # (Auto) (K/mm3) 3.1 [place] # (Auto) (K/mm3) 0.5 Eos # (Auto) (K/mm3) 0.15 Baso # (Auto) (K/mm3) 0.0 Miscellaneous Maternal Serum HCG 03756 Urines Urine Color (YELLOW) YELLOW Urine Appearance (CLEAR) CLEAR Urine pH (5 - 9) 5.0 Ur Specific [place] (1.001 - 1.035) 1.020 Urine Protein (NEG) NEGATIVE Urine Glucose (UA) (NEG) NEGATIVE Urine Ketones (NEG) NEGATIVE Urine Blood (NEG) NEG Urine Nitrite (NEG) NEG Urine Bilirubin (NEG) NEGATIVE Urine Urobilinogen (NEG mg/dL) NEGATIVE Ur Leukocyte Esterase (NEG) 2+ H Urine RBC (NONE SEEN #/hpf) 3-5 H Urine WBC (NONE SEEN #/hpf) 6-10 H Ur Epithelial Cells (RARE - FEW #/HPF) RARE Urine Bacteria (RARE - FEW /HPF) RARE Urine Mucus (NONE SEEN) 1+ Microbiology: Date/Time Procedure - Status Source Growth 12/21 2022 Urine Culture - RES URINE Recent Impressions:ULTRASOUND - US ABDOMEN LTD 12/21 2024 Report Impression - Status: SIGNED Entered: 12/21/20227 IMPRESSION: Unremarkeble limited exam, appendix not definitively visualized. Impression By: [id number] - Enrique Fontenot - US LTD 12/21 2024 Report Impression - Status: SIGNED Entered: 12/21/2022 2221 Impression: 1. Single live intrauterine . 2. Suspected small placental marginal hemorrhage. 3. No sonographic abnormality of the ovaries.Impression By: [email or web address] - [place] - US PREG UT TRANSVAGINAL 12/22 0020 Report Impression - Status: SIGNED Entered: 12/22/2022 0103 IMPRESSION: Cervical length of 4 cm. Impression By: [email or web address] - Fabrice Avila MD Diagnosis, Assessment Plan Diagnosis, Assessment PlanFree Text A P:17 yo at 14 weeks 1 days with acute right lower abdominal painhospital day 2 - 14 days and 2 days1. Acute abdominal pain (RLQ and flank) - On iv antibiotics rocephin every 24 hours for presumed early pyelonephritis. Tvus shows 2.7 cornelio, no bleeding noted normal cervical length. continue progesterone. plan to repeat tvus on dischargeto monitor CORNELIO size. Abdominal ultrasound shows appendix appears normal. Patient also has a history of SMA syndrome.Patient is feel a little better, but still having some pains this morning with urination. 2. Rh+3. Anxiety/history of bipolar - pt is not meds. will add prn hydroxyzine. 4. dispo - possible home afte4 48 hours of iv antibiotics and clinical improvement. plan to continue oral antibiotics. f/u in 1 week for repeat ultrasound. Plan: continue current managmnt, begin antibiotic therapyPlan discussed with: patient, parent at 0958 RPT #:[id number] OF REPORT PRProgress [id number]:55:00F.[id number] able for patient oudnHTPERUBTCUKJGP1394-88-12N10:59:01 [facility] 2022-12-21 23:47:00 [id number] 4OToRye0wd5hKTqGRqkw01t7IEJVV 6WTu1rkxsAJKJJtZARMtSjh8B6v6364-08-62Q77:47:00 [facility])OB Admission / H PREPORT#:[id number] REPORT STATUS: SignedDATE:12/21/22 TIME: 2346 PATIENT: KALLI CALDWELL UNIT #: [id number]#: [id number] ROOM/BED: [facility]-ADOB: [birth year] AGE: 17 SEX: F ATTEND: Margo Sears MDADM AUTHOR: Margo Sears MD * ALL edits or amendments must be made on the electronic/computer document * OB HistoryChief complaint: nausea and vomiting, pelvic pain, right lower quadrantHPI:17 yo female at 14 weeks with severe right lower quadrant pain that started this morning. patient reports she also vomited this morning. Previously had hyperemesis but was controlled over the last few weeks with sublingual zofran. Prior picc line was removed earlier due to infection of picc line. She reports this pain is different than the pains and cramps she had before and thisfelt more like labor pains she had when she delivered her first baby. She deniesbleeding or loss of fluid. She has been in a lot of emotional stress from separation with baby's father. She has support of her mother who she is living with now. She denies recent trauma or strenous activity. prior history of 2.2subchorionic hemorrhage. history: : 3 Term: 1 : 0 Abortus: 1 Living children: 1Current : Best EDC: 06/20/23 Admission EGA (weeks) 14 Admission EGA (days) 1 EDC based on: LMP, ultrasound, 1st trimesterConditions of : hyperemesis gravidarum, kidney/bladder infectionLabs: Blood type: O Rh: positive Rubella: immuneProcedures: ultrasound Past HistoryPast Medical History:Reports: Depression/mood disorder. Denies: Alcoholism/subst abuse, Anemia, Arthritis, Asthma, Atrial fibrillation, Cancer, Congestive heart failure, COPD, Coronary artery disease, Dementia, Diabetes mellitus, GERD/gastritis, Hypertension, Kidney disease/stones, Seizure disorder, Transient ischemic attack, , Abdominal aortic aneurysm, ADD/ADHD, AIDS, Angina pectoris, Anticoagulant therapy, Atrial flutter, Bleeding disorder, BPH, C diff colitis, Cardiac dysrhythmias, Chronic pain, Cirrhosis, Congenital anomalies, Dyslipidemia, Gallbladder dis/stones, GI bleed, Glaucoma, Headache disorder, Hepatitis, HIV, Intracranial hemorrhage, Ischemic stroke, Motor dysfunction, Pancreatitis, Peptic ulcer disease, Periph arterial disease, Pressure ulcer, Prior MS, Schizophrenia, Sickle cell disease, Steroid use, Thyroid disorder, Transfusion history, Tuberculosis, Urinary tract infection, Venous thromboembolism. Additional Medical History:Superior mesenteric artery syndromePast Surgical History:Denies: Abdominal surgery, Appendectomy, Bariatric procedure, CABG, Carotid endarterectomy, Cholecystectomy, , Dialysis shunt/AV fistula, Heart valve procedure, Hernia repair, Hysterectomy, Pacemaker, Spine surgery, Splenectomy, Tonsillectomy, Transplant recipient, Vascular procedure, , Amputation, Anesthesia complications, Bilateral tubal ligation,Bladder surgery, Breast biopsy/procedure, Carpal tunnel release, Cranial procedure, D C, Eye surgery, Feeding tube, Hip procedure, ICD, Indwelling IV catheter, Knee procedure, Lithotripsy, Lung surgery, Nephrectomy, PCI, Prostate surgery, Thyroidectomy, Tracheotomy, ACTIVITY ASSISTANT shunt. Additional Surgical History:ear tubesFamily HistoryReports: Depression/mood disorder. Denies: Abdominal aortic aneurysm, Anemia, Asthma, CAD < 40 yrs old, Cancer, Coagulopathy, Dementia/Alzheimer's dis, Diabetes, Heart disease, Hypertension, Kidney disease/stones, Seizure disorder, Stroke/TIA, Subarachnoid hemorrhage, Sudden cardiac , Thyroid disorder, , Connective tissue dis, Gallbladder disease, Hyperlipidemia, Neurofibromatosis, Sickle cell disease. Alcohol Use Denies EtOH useDrug Use Denies recreational drugsSmoking status for patients 13 years old or older: Never SmokerAllergies:Coded Allergies:azithromycin (From ZITHROMAX) (Severe, SWELLING 11/20/22)latex (Severe, HIVES 12/25/20) Objective GeneralVS:Last Documented: Result Date Time Pulse Ox 100 12/21 2130 B/P 92/55 12/21 2130 B/P Mean 67 12/21 2130 O2 Delivery Room air 12/21 2130 Pulse 77 12/21 2130 Resp 16 12/21 2130 Temp 97.6 12/22 1951 Vital Signs Date Temp Pulse Resp B/P B/P Mean Pulse Ox FiO2 12/21 97.6 77-86 16 92/55-62 67-72 98-100 PATIENT WEIGHT: Weight (lb): Weight (oz): Weight (kg): 65.800 Physical ExamHEENT: normocephalic w/o injuryCardiac: regular rate and rhythmLungs: unlabored breathingBreasts: deferredNeuro: Exam: alert, oriented x3, normal speech, normal gaitAbdomen: gravid, soft, no rebound tenderness, tender to deep palpation in lower right quadrant, right cvatGenitourinary: flank pain (right)Cervical/ exam: Dilatation (cm): 0 - closedMembranes: Membranes: IntactLower extremities: Edema: none Los's sign: negative Calf tenderness: negative ResultsFindings/Data:Laboratory Tests: 12/21 Chemistry Sodium (135 - 145 mEq/L) 141 Potassium (3.5 - 5.0 mEq/L) 3.8 Chloride (100 - 115 mEq/L) 107 Carbon Dioxide (22 - 31 mEq/L) 23 Anion Gap (10 - 20) 14.80 BUN (7 - 18 mg/dL) 8 Creatinine (0.5 - 1.0 mg/dL) 0.6 Glomerular Filtr Rate (>60 ml/min) 133 Glucose (65 - 110 mg/dL) 83 Calcium (8.4 - 10.2 mg/dL) 8.9 Total Bilirubin (0.2 - 1.0 mg/dL) 0.2 Direct Bilirubin (<0.2 mg/dL) 0.1 AST (15 - 37 units/L) 14 L ALT (12 - 78 units/L) 19 Total Alk Phosphatase (46 - 116 units/L) 47 Total Protein (6.3 - 8.2 gm/dL) 6.8 Albumin (3.4 - 4.8 gm/dL) 3.6 Hematology WBC (6.5 - 12.3 K/mm3) 6.9 RBC (3.51 - 4.69 M/mm3) 3.75 Hgb (10.1 - 13.8 g/dL) 11.6 Hct (32.5 - 41.8 %) 33.4 MCV (84.6 - 96.6 fL) 89.1 MCH (27.3 - 33.9 pg) 30.9 MCHC (32.0 - 34.2 gm/dL) 34.7 H RDW (12.2 - 16.3 %) 13.1 Plt Count (134 - 363 K/mm3) 191 MPV (9.2 - 12.7 fL) 10.5 Neut % (Auto) (57.9 - 77.3 %) 44.7 L Lymph % (Auto) (14.5 - 29.7 %) 45.0 H Trimble % (Auto) (3.6 - 10.2 %) 7.4 Eos % (Auto) (0.0 - 3.0 %) 2.2 Baso % (Auto) (0.1 - 0.9 %) 0.4 Neut # (Auto) (K/mm3) 3.1 Lymph # (Auto) (K/mm3) 3.1 Trimble # (Auto) (K/mm3) 0.5 Eos # (Auto) (K/mm3) 0.15 Baso # (Auto) (K/mm3) 0.0 Miscellaneous Maternal Serum HCG 72947 Urines Urine Color (YELLOW) YELLOW Urine Appearance (CLEAR) CLEAR Urine pH (5 - 9) 5.0 Ur Specific [place] (1.001 - 1.035) 1.020 Urine Protein (NEG) NEGATIVE Urine Glucose (UA) (NEG) NEGATIVE Urine Ketones (NEG) NEGATIVE Urine Blood (NEG) NEG Urine Nitrite (NEG) NEG Urine Bilirubin (NEG) NEGATIVE Urine Urobilinogen (NEG mg/dL) NEGATIVE Ur Leukocyte Esterase (NEG) 2+ H Urine RBC (NONE SEEN #/hpf) 3-5 H Urine WBC (NONE SEEN #/hpf) 6-10 H Ur Epithelial Cells (RARE - FEW #/HPF) RARE Urine Bacteria (RARE - FEW /HPF) RARE Urine Mucus (NONE SEEN) 1+ Microbiology: Date/Time Procedure - Status Source Growth 12/21 2022 Urine Culture - RES URINE Recent Impressions:ULTRASOUND - US ABDOMEN LTD 12/21 2024 Report Impression - Status: SIGNED Entered: 12/21/20227 IMPRESSION: Unremarkeble limited exam, appendix not definitively visualized. Impression By: [id number] - Enrique Fontenot - US LTD 12/21 2024 Report Impression - Status: SIGNED Entered: 12/21/2022 2221 Impression: 1. Single live intrauterine . 2. Suspected small placental marginal hemorrhage. 3. No sonographic abnormality of the ovaries.Impression By: [email or web address] - Fabrice Gerguis, MDULTRASOUND - US PREG UT TRANSVAGINAL 12/22 0020 Report Impression - Status: SIGNED Entered: 12/22/2022 0103 IMPRESSION: Cervical length of 4 cm. Impression By: [email or web address] - Fabrice Avila MD Results: labs reviewed, vital signs reviewed, vital signs stable Diagnosis, Assessment Plan Diagnosis, Assessment PlanFree Text A P:17 yo at 14 weeks 1 days with acute right lower abdominal pain1. Acute abdominal pain (RLQ and flank) - Will admit for observation and iv antibiotics rocephin every 24 hours for presumed early pyelonephritis. Tvus shows 2.7 cornelio, no bleeding noted. will get cervical length to evaluate for labor sx. discussed increased risk of miscarriage and ptl with CORNELIO. Patient also noted to have a uti possible early pyelonephritis. prn pain meds. pt received iv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 notedDiet: RegularActivity: As ToleratedAdditional discharge routines: Attending Follow-UpContraception discussed: abstinence for 4-6 weeks, will discuss at PP visitPrescriptions: e-prescribe at 1218 RPT #:[id number] OF REPORT OBObstetric mgxq6891-80-76W32:15:00F.[id number] able for patient zjhpCVMASBOIYLBRSD8036-88-72G82:18:44 [facility] 2020-12-25 18:01:00 [id number] G0prPC+9JqIMJLAay0Nj9OPQvLanD wfsBvzJNXVdu95CWZ6hHfl2bEQivLXrXke7375-87-95X56:0 1:00 [facility] ([facility])OB Delivery NoteREPORT#:[id number] REPORT STATUS: SignedDATE:12/25/20 TIME: 180 PATIENT: KALLI CALDWELL UNIT #: [id number]#: [id number] ROOM/BED: 002-ADOB: [birth year] AGE: 15 SEX: F ATTEND: Margo Sears MDADM AUTHOR: Margo Sears MD * ALL edits or amendments must be made on the electronic/computer document * OB Delivery Nursing Documentation ReviewNursing data:The data set between the solid lines has been imported from nursing documentation. Any exceptions have been noted below under Provider comments. ROM date: ROM time: Membranes rupture method: AROMAmniotic fluid color: ClearAmniotic fluid amount: Steroids prior to arrival: Antibiotic prophylaxis given: Post hemorrhage risk score: Low Risk for Hemorrhage. Delivery date infant A: Delivery time A: Birthweight (gm) A: Weight (lb) A: Weight (oz) infant A: Gender infant A: 1 minute infant A: 5 minutes infant A: 10 minutes A: Cord pH obtained A: Vacuum time A: Vacuum # pulls A: Vacuum # popoffs A: QBL at delivery: Provider comments on imported nursing data: [] Pre-deliveryGBS status: GBS status: negativeNewborn evaluation at delivery: NRP certified personnelAdmission EGA: Weeks: 37 Days: 4EGA at delivery (wks/days): 37 weeks Baby A InformationBaby A information Delivery date: 12/25/20 Delivery time: 1734 status: live born Wt of baby: not yet available Gender: male (Medardo) 1 minute: 8 5 minutes: 9 Presentation: vertexABG details Baby A Cord blood gases: collectedNuchal cord Baby A Nuchal cord: no Vaginal DeliveryVaginal delivery: Labor: augmented Medications/Devices used: oxytocin Vaginal delivery: spontaneous Amniotic fluid: clear Anesthesia type: epidural anesthesia Episiotomy: none Episiotomy repair: not applicable Laceration repair: 3-0 suture (chromic) Vaginal hematoma: none Placenta: spontaneous, intact Post delivery meds used: oxytocin Count: correct, vag exam neg for sponges Vaginal packing: No Mother's condition: mother stable 's condition: stable in roomLacerations: Perineal laceration(s): 1st Degree w/labia/skin High vaginal laceration: noExtraction details OVD performed: noShoulder dystocia present: noAdditional comments:As the head crowned and delivered, the perineum was protected with blue towel. The anterior shoulder delivered with gentle downward traction and posterior shoulder with gentle upward traction. A nuchal cord was not noted. A vigorous baby boy delivered, clear amniotic fluid. The was bulb suctioned, the cord clamped and cut, then handed to the waiting mother. Placenta delivered spontaneously and intact. Hemostasis achieved with fundal massage and IV pitocin. A small first degree laceration was noted and repaired with 3-0 chromic, right labial repaired ith 3-0 chromic. Laceration repair as noted above. Sponge, lap, and needle counts correct x 2, lap scan negative. Good maternal- bonding notedebl 300. Blood Loss/DetailsBlood loss at delivery: <1000 mlEBL at delivery (ml's): 300 at 1804 RPT #:[id number] OF REPORT OBObstetric ymqo7057-55-10M15:01:00F.[id number] able for patient ddqaAAYHFAPTCAMHNE6524-31-20R57:05:11 [facility] 2020-12-25 11:34:00 EVphzfguwag06896228W W++uvHKDyz78ndN9Mdvwa0D71BeE4 nHBNVsSPxdOS09qhqD4/PSEIEm9wK/6Y7C4652-27-60T93:3 4:00 [facility] Ad[facility] / H PREPORT#:[id number] REPORT STATUS: SignedDATE:12/25/20 TIME: 1134 PATIENT: KALLI CALDWELL UNIT #: [id number]#: [id number] [facility] AGE: 15 SEX: F [facility] AUTHOR: Margo Sears MD * ALL edits or amendments must be made on the electronic/computer document * OB HistoryChief complaint: uterine contractions, decreased movementHPI: at 37 weeks 4 days with painful contractions, she was supposed to be induced today for polyhydramnios. contractions every 2-5minutes. Has bipolar on multiple medications, mood stable now , no suicidal or homicidal ideations. Father of baby at bedside. She denies bleeding or loss of fluid. history: : 1 Term: 0Current : Admission EGA (weeks) 37 Admission EGA (days) 4Conditions of : polyhydramniosLabs: Blood type: O Rh: positive Rubella: immune Hepatitis B: negative HIV: negative STD: negative Syphilis: currently negative GBS: negativeProcedures: ultrasound Past HistoryPast Medical History:Reports: Depression/mood disorder. Denies: Alcoholism/subst abuse, Anemia, Arthritis, Asthma, Atrial fibrillation, Cancer, Congestive heart failure, COPD, Coronary artery disease, Dementia, Diabetes mellitus, GERD/gastritis, Hypertension, Kidney disease/stones, Seizure disorder, Transient ischemic attack, , Abdominal aortic aneurysm, ADD/ADHD, AIDS, Angina pectoris, Anticoagulant therapy, Atrial flutter, Bleeding disorder, BPH, C diff colitis, Cardiac dysrhythmias, Chronic pain, Cirrhosis, Congenital anomalies, Dyslipidemia, Gallbladder dis/stones, GI bleed, Glaucoma, Headache disorder, Hepatitis, HIV, Intracranial hemorrhage, Ischemic stroke, Motor dysfunction, Pancreatitis, Peptic ulcer disease, Periph arterial disease, Pressure ulcer, Prior MS, Schizophrenia, Sickle cell disease, Steroid use, Thyroid disorder, Transfusion history, Tuberculosis, Urinary tract infection, Venous thromboembolism. Past Surgical History:Denies: Abdominal surgery, Appendectomy, Bariatric procedure, CABG, Carotid endarterectomy, Cholecystectomy, , Dialysis shunt/AV fistula, Heart valve procedure, Hernia repair, Hysterectomy, Pacemaker, Spine surgery, Splenectomy, Tonsillectomy, Transplant recipient, Vascular procedure, , Amputation, Anesthesia complications, Bilateral tubal ligation,Bladder surgery, Breast biopsy/procedure, Carpal tunnel release, Cranial procedure, D C, Eye surgery, Feeding tube, Hip procedure, ICD, Indwelling IV catheter, Knee procedure, Lithotripsy, Lung surgery, Nephrectomy, PCI, Prostate surgery, Thyroidectomy, Tracheotomy, ACTIVITY ASSISTANT shunt. Additional Surgical History:ear tubesFamily HistoryReports: Depression/mood disorder. Denies: Abdominal aortic aneurysm, Anemia, Asthma, CAD < 40 yrs old, Cancer, Coagulopathy, Dementia/Alzheimer's dis, Diabetes, Heart disease, Hypertension, Kidney disease/stones, Seizure disorder, Stroke/TIA, Subarachnoid hemorrhage, Sudden cardiac , Thyroid disorder, , Connective tissue dis, Gallbladder disease, Hyperlipidemia, Neurofibromatosis, Sickle cell disease. Alcohol Use Denies EtOH useDrug Use Denies recreational drugsSmoking status: Smoking status for patients 13 years old or older: Never SmokerMedications:Home Medications:LEVOTHYROXINE (SYNTHROID) 25 MCG PO DAILY FERROUS SULFATE (FEOSOL) 325 MG PO DAILY busPIRone (BUSPAR) 10 MG PO ASDIR SERTRALINE (ZOLOFT) 100 MG PO DAILY ASCORBIC ACID (VITAMIN C) (Unknown Dose) PO DAILY ALBUTEROL (PROAIR HFA 90 MCG/ACT 8.5 GM) ARIPiprazole (ABILIFY) 15 MG PO DAILY Allergies:Coded Allergies:latex (Severe, HIVES 12/25/20) Review of SystemsAll systems rev neg: except as marked Objective GeneralVS:Last Documented: Result Date Time B/P Mean 77.0 12/25 1456 B/P 110/57 12/25 1456 Pulse 83 12/25 1456 Temp 98.9 12/25 1453 Resp 16 12/25 1453 Vital Signs Date Temp Pulse Resp B/P B/P Mean Pulse Ox FiO2 12/25 98.7-98.9 83-100 16 91-128/57-70 68.0-86.0 PATIENT WEIGHT: Weight (lb): 179Weight (oz): Weight (kg): 81.193 Physical ExamHEENT: normocephalic w/o injury, pupils equal, pupils reactive to light, no apparent hearing diff, no lesions of mouthCardiac: regular rate and rhythmLungs: unlabored breathingBreasts: deferredNeuro: Exam: alert, oriented x3, normal speech, normal gaitAbdomen: gravid, soft, no abnormal tenderness, no guarding, no rebound tendernessMusculoskeletal: normal inspectionGenitourinary: no bladder distentionUterine activity: Monitor: toco Frequency (description): regular Frequency (minutes): 3 Intensity: moderatePelvic exam: Pelvis clinically adequate: yes, inlet appears appropriate, pubic bone configappropr, no midpelvic contraction Vulvar lesions: none, no evidence herpetic les, no evidence of other STD Vagina: normal Exam: soft, non-tenderCervical/ exam: Dilatation (cm): 3 Effacement (%): 70 Est wt (gms): 3000 Suspected macrosomia: No Suspected > 5000 grams: No station: - 2 presentation: cephalicMembranes: Membranes: IntactLower extremities: Edema: trace Los's sign: negative Calf tenderness: negativeBaby A: Baby A FHR category: category 1 ResultFindings/Data:Laboratory Tests: 12/25 12/25 0956 0925 Hematology WBC [...] % (Auto) (14.5 - 29.7 %) 20.4 Trimble % (Auto) (3.6 - 10.2 %) 11.1 H Eos % (Auto) (0.0 - 3.0 %) 0.7 Baso % (Auto) (0.1 - 0.9 %) 0.3 Neut # (Auto) (K/mm3) 9.2 Lymph # (Auto) (K/mm3) 2.8 Trimble # (Auto) (K/mm3) 1.6 Eos # (Auto) (K/mm3) 0.10 Baso # (Auto) (K/mm3) 0.0 Serology Treponema pallidum Ab (NONREACTIVE) NONREACTIVE Hep Bs Antigen (NONREACTIVE) NONREACTIVE Hepatitis C Antibody (NONREACTIVE) NONREACTIVE Hep C Ab Signal/Cutoff (<0.80) 0.03 HIV 1 2 Antibody (NONREACTIVE) NONREACTIVE SARS-CoV-2 Ag (Rapid) (NEGATIVE) NEGATIVE Results: vital signs stable Diagnosis, Assessment Plan Diagnosis, Assessment PlanFree Text A P:15 yo at 37 weeks 4 days in early active labor1. early active labor - admit to L D routine labs, will augment with pitocin if labor protracted. pelvis adequate for efw 7#, will arom when ready2. Teen - secondary social studies teacher consult3. Bipolar d/o- on abilify 15mg daily, zoloft 100mg daily, buspar 10mg bid, moodcurrently stable but high risk for depression, will monitor mood closely. Patient is with father of baby, patient is a little estranged from her mother and father. 4. RH+/rubella immune/gbs negativePlan: [facility] discussed with: patient at 1510 [facility] #:[id number] OF REPORT HPHistory and physical ytpbgktyeky4600-38-10Z98:34:00F.[id number] AVAvailable for patient wzxaAPNXTGVHRNXMOE3830-28-88A87:10:18 [facility] 2020-11-25 23:37:00 [id number] o7Ge02E5gzdavp+niv11xce+L8zdH uk8MSu405zjDZ5HoQ/Z0RFHLzF/B3Pfw+G1832-61-38B22:3 7:[address] [facility] ([facility])EMERGENCY PROVIDER REPORTREPORT#:[id number] REPORT STATUS: SignedDATE:11/25/20 TIME: 2336 PATIENT: KALLI CALDWELL UNIT #: [id number]#: [id number] ROOM/BED:AGE: 15 SEX: F PCP PHYS: Margo Sears MDSERVICE AUTHOR: Suzie Davis MD * ALL edits or amendments must be made on the electronic/computer document * STEVE HistoryChief complaint: LOFHPI:15y/o EDC: 01/11/2021 @ 33 weeks 2 days presents to STEVE c/o LOF started yesterday at 2330. + ctx q few min no vb +FM. no covid sxPast medical history: Bipolar depression anxietyPast surgical history: denies PSHSocial history: unemployed, single, no alcohol use, no tobacco use, no drug useFamily historyRelation not specified for: FH: breast cancer Medications:Home Medications:Medication Dose/Rte/Freq Days Qty Entered Last Max Daily Dose Reviewed LEVOTHYROXINE 25 MCG PO DAILY 09/13/20 11/25/20 (SYNTHROID) 1608 2023Strength: 25 MCG TAB FERROUS SULFATE 325 MG PO DAILY 11/25/20 11/25/20 (FEOSOL) 2024 2024Strength: 325 MG TAB busPIRone (BUSPAR) 10 MG PO ASDIR 11/25/20 11/25/20rength: 10 MG TAB 2024 2024 SERTRALINE (ZOLOFT) 100 MG PO DAILY 11/25/20 11/25/20rength: 100 MG TAB 2024 2025 ASCORBIC ACID (VITAMIN C) (Unknown Dose) PO 11/25/20 11/25/20rength: (Unknown DAILY 2025ren) TAB ALBUTEROL 11/25/20 11/25/20 (PROAIR HFA 90 MCG/ACT 2025 2025 8.5 GM)Strength: 90 MCG INHALER AllergiesCoded Allergies:latex (Severe, HIVES 11/25/20) Review of SystemsConstitutional:Denies: chills, fatigue, fever, generalized weakness, lethargy, malaise, recent wt loss, other. Skin:Denies: rash, swelling. Allergy/Immun:Denies: rhinorrhea, sneezing. Eyes:Denies: visual loss/blurred. ENT:Denies: nasal congestion, sore throat, throat pain. Respiratory:Denies: BARBOZA (dyspnea on exertion), hemoptysis, non productive cough, parox nocturnal dyspnea, pleurisy, pleuritic pain, pneumonia, productive cough (sputum), SOB, wheezing, other. Cardiovascular:Denies: chest pain, BARBOZA (dyspnea on exertion), edema, orthopnea, palpitations, parox nocturnal dyspnea, other. GI:Denies: abdominal pain, anorexia, constipation, diarrhea, dysphagia, GERD, hematemesis, hematochezia, hiatal hernia, melena, nausea, rectal pain, vomiting,other. :Reports: . Denies: dysuria, flank pain, frequency, hematuria, nocturia,pelvic pain, urgency, urinary retention, vaginal bleeding, vaginal discharge, other. Musculoskeletal:lumbar pain. Denies: extremity pain, extremity swelling, myalgias. Neuro:Denies: bladder dysfunction, bowel dysfunction, change in LOC, confusion, dizziness, focal weakness, gait problem, headache, lightheaded, numbness, seizure, slurred speech, spinning sensation, syncope, unable to speak, vision change, weakness, other. Psych:anxiety, depression. Denies: agitation, auditory hallucination, change in mental status, confusion, delusional, homicidal ideation, hostile, insomnia, stress, suicidal ideation, visual hallucination, other. Objective GeneralVS:PATIENT WEIGHT: Weight (lb): Weight (oz): Weight (kg): 78.602205X:98.4F P:94 R:18 BP: 101/55 Physical ExamHEENT: normocephalic w/o injuryCardiac: regular rate and rhythmLungs: clear to auscultationBreasts: deferredNeuro: Exam: alert, oriented x3, normal speechAbdomen: gravid, soft, no abnormal tenderness, normoactive bowel soundsMusculoskeletal: no CVA tendernessUterine activity: Monitor: toco Frequency (description): noneCervical/ exam: Dilatation (cm): 1 Effacement (%): 60 station: - 2 (exam by rn) presentation: cephalic FHR evaluation: Baseline: 125 bpm Variability: moderate 6-25 bpm Accelerations: 15 X 15 Decelerations: noneLower extremities: Edema: none Los's sign: negative Calf tenderness: negative ResultsROM test: negative Diagnosis, Assessment Plan Diagnosis, Assessment PlanFree Text A P:IUP @ 33 weeks 2 day no evidence of PTL/ PPROM AVSS FHR reactive Plan: discharge home ptl warnings given f/u primary ob at 2346 [facility] #:[id number] OF REPORT OBObstetric euxq7483-00-26K40:37:00F.SKSR47254130-4048JUBeuek able for patient hypaRKLCKUZAOSAEMW4763-41-83O24:47:00 [facility] 2020-11-23 12:23:00 QEjcgkxfesj68753402f ZfWs7oN8pW5fRtOBsiT5r1FF3GgT3 XniIMYWNkSMx5EzI5b7ekAn/20nrNreyat2278-05-71P90:2 3:00 [facility]OB Disch UndeliveredREPORT#:[id number] REPORT STATUS: SignedDATE:11/23/20 TIME: 1223 PATIENT: KALLI CALDWELL UNIT #: [id number]#: [id number] [facility]BED: [facility]-ADOB: [birth year] AGE: 15 SEX: F ATTEND: Margo Sears [facility] AUTHOR: Jaimee Santiago MD * ALL edits or amendments must be made on the electronic/computer document * Subjective SubjectiveAdmission EGA: Weeks: 32 Days: 4Current EGA weeks/days: 38z8vNtqvkw/Day: hospital day, #4Patient reports: Patient reports: Yes: normal movement. No: complaints, abdominal pain, vaginal bleeding, leaking fluid, contractions. Objective GeneralVS:Last Documented: Result Date Time B/P Mean 78.0 11/23 0854 B/P 103/65 11/23 0854 Pulse 90 11/23 0854 Pulse Ox 97 11/22 1323 Temp 98.3 11/22 1323 Resp 16 11/22 1323 Vital Signs Date Temp Pulse Resp B/P B/P Mean Pulse Ox FiO2 11/22-11/23 98.3 90-102 16 97-114/61-69 73.0-83.0 97 PATIENT WEIGHT: Weight (lb): 170Weight (oz): Weight (kg): 77.111 Physical ExamCervical/ exam: Dilatation (cm): 0 - closed Effacement (%): 30 station: - 2 presentation: cephalicFHR evaluation: Baby A baseline: 140 bpm Baby A variability: moderate 6-25 bpm Baby A accelerations: 15 X 15 Baby A decelerations: none Baby A FHR category: category 1 Baby A notes:monitored NST For 30 minutes, reactive NSTUterine activity: Monitor: toco Frequency (description): none, irritabilityHEENT: normocephalic w/o injuryLungs: unlabored breathingNeuro: Exam: alert, oriented x3, normal speech, normal gaitAbdomen: gravid, soft, no abnormal tendernessUterus: soft, non-tenderLower extremities: Calf tenderness: negative Discharge Undelivered GeneralFree Text A P:15 yo at 32 weeks 4 days with acute back pain and worsening depression HD#/33+0 weeks 1. Acute back pain - FFN negative, no evidence of active labor, will monitor with toco. Ddx includes renal stone, pyelonephritis although fever at this time.WBC elevated at 12. s/p IVF and 2 days of rocephin. Will send pt home with 4 days of oral augmentin for presumed pyelo/complicated UTI. urine culture sent-pending. -Pt has h/o kidney infections and UTIs. urine dip +leuk estrace-renal ultrasound-mild right hydronephrosis, no stones. -discussed adding heating pad for lower back pain and prn albuterol for contractions-advised to avoid IM Demerol if possible.-11/22: overnight patient did not report pain, but began having radiating back/abdominal pains this morning not relieved with PO meds. One dose of IV Demerol given, now comfortably sleeping. Mother at bedside. -11/23: pt states pain is much improved, she desires to go home 2. Depression/bipolar with anxiety/depression - Dr Baugh is her psychiatrist and she was on oxcarbazepine and buspirone prior to . Currently she is on zoloft 50mg, will increase her to 100mg tonight. s/p social work consult Suicidal precautions givenpatient is high risk for depression.Family support, mother at bedside-pt seen by social work and sitter ordered (sitter canceled after f/u visit fromsocial worker)-inpatient pysch consult pending, Dr. Flores (no inpatient psych consult optionat this time)-today feeling better. moments of saddness, no suicidal plans currently. has made decision not to breastfeed so that she can resume her previous psych medications-arranged outpatient f/u with patient's primary psychiatrist Dr. Regalado for 11/23 via telemedicine. patient is aware and dr. Regalado office was scheduled to contact her to confirm time-11/23: s/p telehealth visit with Dr Balderrama, pt has follow up appointment in 2 weeks 3. PTIUP - reactive NST observed over 30minutes, category 1, reassuring today 11/23/2020 4. RH+/rubella immune, COVID-19 negative 5. Dispo- Discharge pt home today with her mother. Strict PTL/PIH/fkc precautions given. pt to f/u with her psychiatrist in 2 weeks. pt has appt with Dr Sears next week. Plan:d/c home todayAdmission diagnosis: complicated UTI, back pain, worsening depressionHospital course:15 yo at 32 weeks 4 days with acute back pain and worsening depression HD#/33+0 weeks 1. Acute back pain - FFN negative, no evidence of active labor, will monitor with toco. Ddx includes renal stone, pyelonephritis although fever at this time.WBC elevated at 12. s/p IVF and 2 days of rocephin. Will send pt home with 4 days of oral augmentin for presumed pyelo/complicated UTI. urine culture sent-pending. -Pt has h/o kidney infections and UTIs. urine dip +leuk estrace-renal ultrasound-mild right hydronephrosis, no stones. -discussed adding heating pad for lower back pain and prn albuterol for contractions-advised to avoid IM Demerol if possible.-11/22: overnight patient did not report pain, but began having radiating back/abdominal pains this morning not relieved with PO meds. One dose of IV Demerol given, now comfortably sleeping. Mother at bedside. -11/23: pt states pain is much improved, she desires to go home 2. Depression/bipolar with anxiety/depression - Dr Baugh is her psychiatrist and she was on oxcarbazepine and buspirone prior to . Currently she is on zoloft 50mg, will increase her to 100mg tonight. s/p social work consult Suicidal precautions givenpatient is high risk for depression.Family support, mother at bedside-pt seen by social work and sitter ordered (sitter canceled after f/u visit fromsocial worker)-inpatient pysch consult pending, Dr. Flores (no inpatient psych consult optionat this time)-today feeling better. moments of saddness, no suicidal plans currently. has made decision not to breastfeed so that she can resume her previous psych medications-arranged outpatient f/u with patient's primary psychiatrist Dr. Regalado for 11/23 via telemedicine. patient is aware and dr. Regalado office was scheduled to contact her to confirm time-11/23: s/p telehealth visit with Dr Balderrama, pt has follow up appointment in 2 weeks 3. PTIUP - reactive NST observed over 30minutes, category 1, reassuring today 11/23/2020 4. RH+/rubella immune, COVID-19 negative 5. Dispo- Discharge pt home today with her mother. Strict PTL/PIH/fkc precautions given. pt to f/u with her psychiatrist in 2 weeks. pt has appt with Dr Sears next week. Discharge to: Home/Self CareDischarge condition: stableDischarge diagnosis: worsening depression, back pain, complicated UTIDischarge management: less than 30 minsTime spent: Time spent with patient (minutes): 20 >50% spent on counseling/coordination of care: yes Discharge InstructionsInstructions: routine instr sheet given, instr and warnings rev'd, specific instr as notedWarnings: labor warnings, decreased movementDiet: RegularActivity: Light DutyAdditional Discharge Routines: Attending Follow-UpPrescriptions:Stop taking the following medications:SERTRALINE (ZOLOFT) 50 MG TAB 50 MILLIGRAM ORAL DAILY. Continue taking these medications:PNV/FE FUM/FA ( MULTIVITAMIN) 28 MG IRON-800 MCG TAB 1 TABLET ORAL DAILY. LEVOTHYROXINE (SYNTHROID) 25 MCG TAB 25 MICROGRAM ORAL DAILY. PROGESTERONE,MICRONIZED (PROMETRIUM) 100 MG CAP 200 MILLIGRAM ORAL DAILY. Start taking the following new medications:HYDROcodone/APAP (NORCO 5/325) 1 TAB TAB 1 TABLET ORAL EVERY 6 HOURS NEEDED. as needed for pain Days = 30 Qty = 10 No Refills SERTRALINE (ZOLOFT) 50 MG TAB 100 MILLIGRAM ORAL BEDTIME. Days = 30 Qty = 30 Refills = 1 Consultation(s) performed: Consultation performed: psychiatrist, health and social care teacher at [address] [facility] #:[id number] OF REPORT OBObstetric kdnd7575-66-29H83:23:00F.[id number] able for patient odffNJHXIZSQUZZGPD1822-31-85L59:25:22 [facility] 2020-11-23 12:15:00 [id number] 0tEGJXqGC93ifNS/TU4IS9mTvgVNn qvHJa6DrUxgs6PFXaFtt5ky7eHDXAveA5i0330-66-28T40:1 5:00 [facility] ([facility])OB Antepartum Prog NoteREPORT#:[id number] REPORT STATUS: SignedDATE:11/23/20 TIME: 1215 PATIENT: KALLI CALDWELL UNIT #: [id number]#: [id number] [address] AGE: 15 SEX: F ATTEND: Margo Sears [facility] AUTHOR: Jaimee Santiago MD * ALL edits or amendments must be made on the electronic/computer document * Subjective SubjectiveAdmission EGA: Weeks: 32 Days: 4Patient reports: Patient reports: No no complaints Comments:Pt states pain is much improved and she desires to go home today +FM denies sx of labor Objective Nursing Documentation ReviewNursing data:The data set between the solid lines has been imported from nursing documentation. Any exceptions have been noted below under Provider comments. ROM date: ROM time: Labor onset date: Labor onset time: Provider comments on imported nursing data: [] Membranes: IntactCervical/ exam: Dilatation (cm): 0 - closed Effacement (%): 30 station: - 2 presentation: cephalicUterine activity: Monitor: toco Frequency (description): none, irritabilityHEENT: normocephalic w/o injuryCardiac: regular rate and rhythmLungs: unlabored breathingNeuro: Exam: alert, oriented x3, normal speech, normal gaitAbdomen: gravid, soft, no abnormal tendernessUterus: soft, non-tenderLower extremities: Calf tenderness: negativeBaby A: Baby A baseline: 140 bpm Baby A variability: moderate 6-25 bpm Baby A accelerations: 15 X 15 Baby A decelerations: none Baby A FHR category: category 1 Baby A notes:monitored NST For 30 minutes, reactive NST Diagnosis, Assessment Plan Diagnosis, Assessment PlanFree Text A P:15 yo at 32 weeks 4 days with acute back pain and worsening depression HD#/33+0 weeks 1. Acute back pain - FFN negative, no evidence of active labor, will monitor with toco. Ddx includes renal stone, pyelonephritis although fever at this time.WBC elevated at 12. s/p IVF and 2 days of rocephin. Will send pt home with 4 days of oral augmentin for presumed pyelo/complicated UTI. urine culture sent-pending. -Pt has h/o kidney infections and UTIs. urine dip +leuk estrace-renal ultrasound-mild right hydronephrosis, no stones. -discussed adding heating pad for lower back pain and prn albuterol for contractions-advised to avoid IM Demerol if possible.-11/22: overnight patient did not report pain, but began having radiating back/abdominal pains this morning not relieved with PO meds. One dose of IV Demerol given, now comfortably sleeping. Mother at bedside. -11/23: pt states pain is much improved, she desires to go home 2. Depression/bipolar with anxiety/depression - Dr Baugh is her psychiatrist and she was on oxcarbazepine and buspirone prior to . Currently she is on zoloft 50mg, will increase her to 100mg tonight. s/p social work consult Suicidal precautions givenpatient is high risk for depression.Family support, mother at bedside-pt seen by social work and sitter ordered (sitter canceled after f/u visit fromsocial worker)-inpatient pysch consult pending, Dr. Flores (no inpatient psych consult optionat this time)-today feeling better. moments of saddness, no suicidal plans currently. has made decision not to breastfeed so that she can resume her previous psych medications-arranged outpatient f/u with patient's primary psychiatrist Dr. Regalado for 11/23 via telemedicine. patient is aware and dr. Regalado office was scheduled to contact her to confirm time-11/23: s/p telehealth visit with Dr Balderrama, pt has follow up appointment in 2 weeks 3. PTIUP - reactive NST observed over 30minutes, category 1, reassuring today 11/23/2020 4. RH+/rubella immune, COVID-19 negative 5. Dispo- Discharge pt home today with her mother. Strict PTL/PIH/fkc precautions given. pt to f/u with her psychiatrist in 2 weeks. pt has appt with Dr Sears next week. Assessment: IUP @ 32WKS CONTRACTIONS-DOUBT THAT SHE IS IN LABOR ANXIETYPlan: continue current managmnt, I RECOMMENDED CONTINUED MONITORING FOR NOWConsultation(s): Consultation performed: social servicesPlan discussed with: patient, parent, nurse at 1219 RPT #:[id number] OF REPORT PRProgress Zvqm0238-72-91X94:15:00F.[id number] able for patient dwxfGZSFHTCNKZWPFB7128-55-36K83:19:51 [facility] 2020-11-23 12:15:00 [id number] mdHQwqOFoOaVZwvq+DKyP5I9GSHpi Zdo8KBDsQrQE6ztn1KFFYc1eNi9WKBe9zG7712-48-01R85:1 5:00 [facility] ([facility])OB Antepartum Prog NoteREPORT#:[id number] REPORT STATUS: SignedDATE:11/23/20 TIME: 1215 PATIENT: KALLI CALDWELL UNIT #: [id number]#: [id number] [address] AGE: 15 SEX: F ATTEND: Margo Sears MDADM AUTHOR: Jaimee Santiago MD * ALL edits or amendments must be made on the electronic/computer document * See AddendumSubjective SubjectiveAdmission EGA: Weeks: 32 Days: 4Patient reports: Patient reports: No no complaints Comments:Pt states pain is much improved and she desires to go home today +FM denies sx of labor Objective Nursing Documentation ReviewNursing data:The data set between the solid lines has been imported from nursing documentation. Any exceptions have been noted below under Provider comments. ROM date: ROM time: Labor onset date: Labor onset time: Provider comments on imported nursing data: [] Membranes: IntactCervical/ exam: Dilatation (cm): 0 - closed Effacement (%): 30 station: - 2 presentation: cephalicUterine activity: Monitor: toco Frequency (description): none, irritabilityHEENT: normocephalic w/o injuryCardiac: regular rate and rhythmLungs: unlabored breathingNeuro: Exam: alert, oriented x3, normal speech, normal gaitAbdomen: gravid, soft, no abnormal tendernessUterus: soft, non-tenderLower extremities: Calf tenderness: negativeBaby A: Baby A baseline: 140 bpm Baby A variability: moderate 6-25 bpm Baby A accelerations: 15 X 15 Baby A decelerations: none Baby A FHR category: category 1 Baby A notes:monitored NST For 30 minutes, reactive NST Diagnosis, Assessment Plan Diagnosis, Assessment PlanFree Text A P:15 yo at 32 weeks 4 days with acute back pain and worsening depression HD#4/33+0 weeks 1. Acute back pain - FFN negative, no evidence of active labor, will monitor with toco. Ddx includes renal stone, pyelonephritis although fever at this time.WBC elevated at 12. s/p IVF and 2 days of rocephin. Will send pt home with 4 days of oral augmentin for presumed pyelo/complicated UTI. urine culture sent-pending. -Pt has h/o kidney infections and UTIs. urine dip +leuk estrace-renal ultrasound-mild right hydronephrosis, no stones. -discussed adding heating pad for lower back pain and prn albuterol for contractions-advised to avoid IM Demerol if possible.-11/22: overnight patient did not report pain, but began having radiating back/abdominal pains this morning not relieved with PO meds. One dose of IV Demerol given, now comfortably sleeping. Mother at bedside. -11/23: pt states pain is much improved, she desires to go home 2. Depression/bipolar with anxiety/depression - Dr Baugh is her psychiatrist and she was on oxcarbazepine and buspirone prior to . Currently she is on zoloft 50mg, will increase her to 100mg tonight. s/p social work consult Suicidal precautions givenpatient is high risk for depression.Family support, mother at bedside-pt seen by social work and sitter ordered (sitter canceled after f/u visit fromsocial worker)-inpatient pysch consult pending, Dr. Flores (no inpatient psych consult optionat this time)-today feeling better. moments of saddness, no suicidal plans currently. has made decision not to breastfeed so that she can resume her previous psych medications-arranged outpatient f/u with patient's primary psychiatrist Dr. Regalado for 11/23 via telemedicine. patient is aware and dr. Regalado office was scheduled to contact her to confirm time-11/23: s/p telehealth visit with Dr Balderrama, pt has follow up appointment in 2 weeks 3. PTIUP - reactive NST observed over 30minutes, category 1, reassuring today 11/23/2020 4. RH+/rubella immune, COVID-19 negative 5. Dispo- Discharge pt home today with her mother. Strict PTL/PIH/fkc precautions given. pt to f/u with her psychiatrist in 2 weeks. pt has appt with Dr Sears next week. Assessment: IUP @ 32WKS CONTRACTIONS-DOUBT THAT SHE IS IN LABOR ANXIETYPlan: continue current managmnt, I RECOMMENDED CONTINUED MONITORING FOR NOWConsultation(s): Consultation performed: social servicesPlan discussed with: patient, parent, nurse at 1219 Addendum 1: 11/23/20 1220 by Jaimee Santiago MD urine culture negative therefore no oral home antibiotics needed at 1220 RPT #:[id number] OF REPORT PRProgress [id number]:15:00F.[id number] able for patient zvmqBPBPCMAAZDKOUN6982-25-77O59:21:11 [facility] 2020-11-22 11:28:00 [id number] Va+bA+oSYBuu/S1HqJ+5cR8o9IxiZ /1rIBiWZANCYBnf/aB1+QMF1WCKK/sq/188699-81-39H17:2 8:00 [facility] ([facility])OB Antepartum Prog NoteREPORT#:[id number] REPORT STATUS: SignedDATE:11/22/20 TIME: 1128 PATIENT: KALLI CALDWELL UNIT #: [id number]#: [id number] ROOM[facility]BED: [facility]-ADOB: [birth year] AGE: 15 SEX: F ATTEND: Tamara Searsdany MDADM AUTHOR: Gabriela Miramontes MD * ALL edits or amendments must be made on the electronic/computer document * Subjective SubjectivePatient reports: Patient reports: Yes abdominal pain, Yes normal movement, No leaking fluid, No contractions Objective Nursing Documentation ReviewNursing data:Vital Signs: Date Time Temp Pulse Resp B/P B/P Pulse O2 O2 Flow FiO2 Mean Ox Delivery Rate 11/22 0903 77.0 11/22 0903 84 106/62 11/21 2104 87.0 11/22 2103 97.8 105 16 120/66 The data set between the solid lines has been imported from nursing documentation. Any exceptions have been noted below under Provider comments. ROM date: ROM time: Labor onset date: Labor onset time: Provider comments on imported nursing data: [] Abdomen: gravid, soft, no abnormal tendernessLower extremities: Calf tenderness: negativeBaby A: Baby A FHR category: category 1 Diagnosis, Assessment Plan Diagnosis, Assessment PlanFree Text A P:15 yo at 32 weeks 4 days with acute back pain and worsening depression HD#32+6 weeks 1. Acute back pain - FFN negative, no evidence of active labor, will monitor with toco. Ddx includes renal stone, pyelonephritis although fever at this time.WBC elevated at 12. Will start ivf and rocephin IV x 24hrs (up tonight at midnight) and urine culture sent-pending. -Pt has h/o kidney infections and UTIs. urine dip +leuk estrace-renal ultrasound-mild right hydronephrosis, no stones. -discussed adding heating pad for lower back pain and prn albuterol for contractions-advised to avoid IM Demerol if possible.-11/22: overnight patient did not report pain, but began having radiating back/abdominal pains this morning not relieved with PO meds. One dose of IV Demerol given, now comfortably sleeping. Mother at bedside. 2. Depression/bipolar with anxiety/depression - Dr Baugh is her psychiatrist and she was on oxcarbazepine and buspirone prior to . Currently she is on zoloft 50mg, will increase her to 100mg tonight. Psych consult and social workerconsult pending. Suicidal precautions givenpatient is high risk for depression.Family support, mother at bedside-pt seen by social work and sitter ordered (sitter canceled after f/u visit fromsocial worker)-inpatient pysch consult pending, Dr. Flores (no inpatient psych consult optionat this time)-today feeling better. moments of saddness, no suicidal plans currently. has made decision not to breastfeed so that she can resume her previous psych medications-arranged outpatient f/u with patient's primary psychiatrist Dr. Regalado for 11/23 via telemedicine. patient is aware and dr. Regalado office was scheduled to contact her to confirm time 3. PTIUP - reactive NST observed over 30minutes, category 1, reassuring today 11/22 4. RH+/rubella immune, COVID-19 negative 5. Dispo- consider d/c home later this evening or tomorrow, if pain controlled on oral meds, currently required IV pain meds at 1250 RPT #:[id number] OF REPORT PRProgress Htdp8505-85-86Q51:28:00F.[id number] able for patient lwuxSMEOLEPGPWUUZQ9359-84-52M28:51:00 [facility] 2020-11-21 12:31:00 [id number]+ b9GS7g4NOLCYFPVfpaJLxCTFZnDZW vxfdZwfYXMZ8G6IsQiHCmxG0huf8mwlrrm3524-23-77A76:3 1:00 [facility])OB Antepartum Prog NoteREPORT#:[id number] REPORT STATUS: SignedDATE:11/21/20 TIME: 1231 PATIENT: KALLI CALDWELL UNIT #: [id number]#: [id number] [address] [birth year] AGE: 15 SEX: F ATTEND: Margo Sears [facility] AUTHOR: Patricia Szymanski MD * ALL edits or amendments must be made on the electronic/computer document * Subjective SubjectiveAdmission EGA: Weeks: 32 Days: 4Patient reports: Patient reports: Yes normal movement, No no complaints, No abdominal pain, No vaginal bleeding, No leaking fluid, No contractions, No headache, No fever, No chills ObjectiveMembranes: IntactCervical/ exam: Dilatation (cm): 0 - closed Effacement (%): 30 station: - 2 presentation: cephalicUterine activity: Monitor: toco Frequency (description): none, irritabilityHEENT: normocephalic w/o injuryCardiac: regular rate and rhythmLungs: unlabored breathingNeuro: Exam: alert, oriented x3, normal speech, normal gaitAbdomen: gravid, soft, no abnormal tenderness, no guarding, no rebound tenderness, cva tendernessUterus: soft, non-tenderBaby A: Baby A baseline: 140 bpm Baby A variability: moderate 6-25 bpm Baby A accelerations: 15 X 15 Baby A decelerations: none Baby A FHR category: category 1 Baby A notes:monitored NST For 30 minutes, reactive NST Diagnosis, Assessment Plan Diagnosis, Assessment PlanFree Text A P:15 yo at 32 weeks 4 days with acute back pain and worsening depression HD#2/32+5 weeks 1. Acute back pain - FFN negative, no evidence of active labor, will monitor with toco. Ddx includes renal stone, pyelonephritis although fever at this time.WBC elevated at 12. Will start ivf and rocephin IV x 24hrs (up tonight at midnight) and urine culture sent-pending. -Pt has h/o kidney infections and UTIs. urine dip +leuk estrace-renal ultrasound-mild right hydronephrosis, no stones. -discussed adding heating pad for lower back pain and prn albuterol for contractions-advised to avoid IM Demerol if possible. 2. Depression/bipolar with anxiety/depression - Dr Baugh is her psychiatrist and she was on oxcarbazepine and buspirone prior to . Currently she is on zoloft 50mg, will increase her to 100mg tonight. Psych consult and social workerconsult pending. Suicidal precautions givenpatient is high risk for depression.Family support, mother at bedside-pt seen by social work and sitter ordered (sitter canceled after f/u visit fromsocial worker)-inpatient pysch consult pending, Dr. Flores (no inpatient psych consult optionat this time)-today feeling better. moments of saddness, no suicidal plans currently. has made decision not to breastfeed so that she can resume her previous psych medications-arranged outpatient f/u with patient's primary psychiatrist Dr. Regalado for 11/23 via telemedicine. patient is aware and dr. Regalado office was scheduled to contact her to confirm time 3. PTIUP - reactive NST observed over 30minutes, reassuring today 11/21 4. RH+/rubella immune, COVID-19 negativeAssessment: IUP @ 32WKS CONTRACTIONS-DOUBT THAT SHE IS IN LABOR ANXIETYPlan: continue current managmnt, I RECOMMENDED CONTINUED MONITORING FOR NOW at 1446 RPT #:[id number] OF REPORT PRProgress Yzcc2397-44-32D27:31:00F.[id number] able for patient xcriVRGNTVRDLKUFYT4178-17-56B14:46:41 [facility] 2020-11-21 07:06:00 [id number] YSofHNYMw6A4jbh7fJ74gFtqd6Wcr 0fd690GLhkABIRj+bHIzn7ecpQCOJ+j61y8719-42-25K56:0 6:00 [facility] ([facility])OB Antepartum Prog NoteREPORT#:[id number] REPORT STATUS: SignedDATE:11/21/20 TIME: 07 PATIENT: KALLI CALDWELL UNIT #: [id number]#: [id number] ROOM[facility]BED: [facility]-ADOB: [birth year] AGE: 15 SEX: F ATTEND: Margo Sears [facility] AUTHOR: Camden Richards Jr, MD * ALL edits or amendments must be made on the electronic/computer document * Subjective SubjectiveAdmission EGA: Weeks: 32 Days: 4Comments:I WAS ASKED TO EVALUATE THIS PATIENT FOR CONTRACTIONS THAT STARTED THIS AM. NURSE GAVE ONE DOSE OF TERB AND CALLED ME TO EVALUATE PER DR SEARS REQUEST. Objective Nursing Documentation ReviewNursing data:The data set between the solid lines has been imported from nursing documentation. Any exceptions have been noted below under Provider comments. ROM date: ROM time: Labor onset date: Labor onset time: Provider comments on imported nursing data: [] VS:Last Documented: Result Date Time Pulse Ox 99 11/21 0633 Pulse 110 11/21 0633 B/P Mean 76.0 11/20 2146 B/P 101/62 11/20 2146 Vital Signs Date Temp Pulse Resp B/P B/P Mean Pulse Ox FiO2 11/20-11/21 87-112 101/62 76.0 88-100 PATIENT WEIGHT: Weight (lb): 170Weight (oz): Weight (kg): 77.111 Membranes: IntactCervical/ exam: Dilatation (cm): 0 - closed Effacement (%): 30 station: - 2 presentation: cephalicUterine activity: Monitor: toco Frequency (description): none, irritabilityAbdomen: gravid, soft, no abnormal tenderness, no guarding, no rebound tenderness, cva tendernessUterus: soft, non-tenderBaby A: Baby A baseline: 140 bpm Baby A variability: moderate 6-25 bpm Baby A accelerations: 15 X 15 Baby A decelerations: none Baby A FHR category: category 1 Baby A notes:monitored NST For 30 minutes, reactive NST Diagnosis, Assessment Plan Diagnosis, Assessment PlanAssessment: IUP @ 32WKS CONTRACTIONS-DOUBT THAT SHE IS IN LABOR ANXIETYPlan: continue current managmnt, I RECOMMENDED CONTINUED MONITORING FOR NOWPlan discussed with: patient, parent, nurse at 0718 RPT #:[id number] OF REPORT PRProgress Whms8145-57-98K37:06:00F.[id number] able for patient cqrcIGUXWBQOEUVLCU3182-81-42S90:19:06 [facility] [facility] 2020-11-20 20:09:00 [id number]4T13:0 9:00 [facility] ([facility])OB Admission / H PREPORT#:[id number] REPORT STATUS: SignedDATE:11/20/20 TIME: 2008 PATIENT: KALLI CALDWELL UNIT #: [id number]#: [id number] [facility] AGE: 15 SEX: F [facility]END[facility] AUTHOR: Margo Sears MD * ALL edits or amendments must be made on the electronic/computer document * OB HistoryChief complaint: uterine contractions, BACK PAINHPI:15 yo at 32 weeks 4 days with worsening back pain and abdominal tightening over the day. She reports the pain is 5/10, worsening and so intense it feels like labor. She has had musculoskeletal pains during the but this is acute worsening of pains. She feels like the baby is very low. No bleeding. She is on zoloft 50mg and reports mood is worsening due to increased discomforts anddue to FOB recently stating he is not planning to be involved with the baby. Shehas h/o bipolar and previously on other mood stablizers. Her mother is here withher and patient reports she recently had thought things would be so much easier if she just took a bunch of pills and go to sleep. She had thoughts of hurting herself but has not taken any action. She has good support from her mother who has been with her at every visit. No homicidal thoughts. She is trying to see a psychiatrist but she does not do well with just virtual visits. No psychosis. history: : 1 Term: 0Current : Best EDC: 01/11/21 Admission EGA (weeks) 32 Admission EGA (days) 4 EDC based on: LMP, ultrasound, 1st trimester Progesterone for PTB: yesConditions of : false labor, depressionLabs: Blood type: O Rh: positive Rubella: immune Hepatitis B: negative HIV: negative STD: negative Syphilis: currently negativeProcedures: ultrasound, non stress testPast medical history: depressionPast surgical history: ear tubesSocial history: no alcohol use, no tobacco use, no drug useMedications:Home Medications:SERTRALINE (ZOLOFT) 50 MG PO DAILY PNV/FE FUM/FA ( MULTIVITAMIN) 1 TAB PO DAILY LEVOTHYROXINE (SYNTHROID) 25 MCG PO DAILY PROGESTERONE,MICRONIZED (PROMETRIUM) 200 MG PO DAILY AllergiesCoded Allergies:No Known Allergies (09/13/20) Review of SystemsGI:Denies: abdominal pain, anorexia, constipation, diarrhea, dysphagia, GERD, hematemesis, hematochezia, hiatal hernia, melena, nausea, rectal pain, vomiting,other. :Reports: flank pain, pelvic pain, . Psych:depression, suicidal ideation. Denies: agitation, anxiety, auditory hallucination, change in mental status, confusion, delusional, homicidal ideation, hostile, insomnia, stress, visual hallucination, other. All systems rev neg: except as marked Objective GeneralVS:PATIENT WEIGHT: Weight (lb): 170Weight (oz): Weight (kg): 77.111 Physical ExamHEENT: normocephalic w/o injuryCardiac: regular rate and rhythmLungs: unlabored breathingBreasts: deferredNeuro: Exam: alert, oriented x3, normal speech, normal gaitAbdomen: gravid, soft, no abnormal tenderness, no guarding, no rebound tenderness, cva tendernessMusculoskeletal: normal inspectionGenitourinary: flank painUterine activity: Monitor: toco Frequency (description): none, irritabilityPelvic exam: Pelvis clinically adequate: yes, inlet appears appropriate, pubic bone configappropr, no midpelvic contractionMembranes: Membranes: IntactBaby A: Baby A baseline: 140 bpm Baby A variability: moderate 6-25 bpm Baby A accelerations: 15 X 15 Baby A decelerations: none Baby A FHR category: category 1 Baby A notes:monitored NST For 30 minutes, reactive NST ResultFindings/Data:Laboratory Tests: 11/20 11/20 11/20 1915 1715 1225 [...] % (Auto) (14.5 - 29.7 %) 22.3 [place] % (Auto) (3.6 - 10.2 %) 7.5 Eos % (Auto) (0.0 - 3.0 %) 0.6 Baso % (Auto) (0.1 - 0.9 %) 0.2 Neut # (Auto) (K/mm3) 8.4 Lymph # (Auto) (K/mm3) 2.8 [place] # (Auto) (K/mm3) 0.9 Eos # (Auto) (K/mm3) 0.07 Baso # (Auto) (K/mm3) 0.0 Miscellaneous Fibronectin NEGATIVE Urines Urine Color (YELLOW) YELLOW Urine Appearance (CLEAR) Slightly-Cloudy Urine pH (5 - 9) 8.0 Ur Specific [place] (1.001 - 1.035) 1.016 Urine Protein (NEG) [...] 1917 Urine Culture - RECD URINE Recent Impressions:ULTRASOUND - US PREG UT TRANSVAGINAL 11/20 1810 Report Impression - Status: SIGNED Entered: 11/20/20201915 IMPRESSION:1. Single living intrauterine in cephalic position.2. biophysical profile score of 8/8.3. Cervical shortening with a measured length of 1.9 cm usingtransvaginal imaging. SL: 131 Impression By: Sandy Harmon MDULTRASOUND - US FET BIO PH AR W/O NST 11/20 1810 Report Impression - Status: SIGNED Entered: 11/20/20201915 IMPRESSION:1. Single living intrauterine in cephalic position.2. biophysical profile score of 8/8.3. Cervical shortening with a measured length of 1.9 cm usingtransvaginal imaging. SL: 131 Impression By: Erica.KIRIT - Mu Harmon MD Results: labs reviewed, vital signs stable Diagnosis, Assessment Plan Diagnosis, Assessment PlanFree Text A P:15 yo at 32 weeks 4 days with acute back pain and worsening depression1. Acute back pain - FFN negative, no evidence of active labor, will monitor with toco. Ddx includes renal stone, pyelonephritis although fever at this time.WBC elevated at 12. Will start ivf and rocephin and urine culture sent. Pt has h/o kidney infections and UTIs. Order renal ultrasound in am.2. Depression/bipolar with anxiety/depression - Dr Baugh is her psychiatrist and she was on oxcarbazepine and buspirone prior to . Currently she is on zoloft 50mg, will increase her to 100mg tonight. Psych consult and social workerconsult pending. Suicidal precautions givenpatient is high risk for depression.Family support, mother at bedside3. PTIUP - reactive NST observed over 30minutes, reassuring4. RH+/rubella immuneAssessment/Impression: labor, pyelonephritis, depressionPlan: admit to observation, IVFConsultation(s): Consultation performed: psychiatrist, social servicesPlan discussed with: patient, parent at 2025 RPT #:[id number] OF REPORT HPHistory and physical [id number]:09:00F.[id number] AVAvailable for patient [id number]:27:05 [facility] 2020-11-20 20:09:00 [id number] [id number] LOE7hNxngyiVAa1kjyYLsnKtv3Ram0zzmR9809-97-70Z38:0 9:00 [facility] ([facility])OB Admission / H PREPORT#:[id number] REPORT STATUS: SignedDATE:11/20/20 TIME: 2008 PATIENT: KALLI CALDWELL UNIT #: [id number]#: [id number] [facility] F[facility]: [birth year] AGE: 15 SEX: F ATTEND: Margo Sears MDADM AUTHOR: Margo Sears MD * ALL edits or amendments must be made on the electronic/computer document * See AddendumOB HistoryChief complaint: uterine contractions, BACK PAINHPI:15 yo at 32 weeks 4 days with worsening back pain and abdominal tightening over the day. She reports the pain is 5/10, worsening and so intense it feels like labor. She has had musculoskeletal pains during the but this is acute worsening of pains. She feels like the baby is very low. No bleeding. She is on zoloft 50mg and reports mood is worsening due to increased discomforts anddue to FOB recently stating he is not planning to be involved with the baby. Shehas h/o bipolar and previously on other mood stablizers. Her mother is here withher and patient reports she recently had thought things would be so much easier if she just took a bunch of pills and go to sleep. She had thoughts of hurting herself but has not taken any action. She has good support from her mother who has been with her at every visit. No homicidal thoughts. She is trying to see a psychiatrist but she does not do well with just virtual visits. No psychosis. history: : 1 Term: 0Current : Best EDC: 01/11/21 Admission EGA (weeks) 32 Admission EGA (days) 4 EDC based on: LMP, ultrasound, 1st trimester Progesterone for PTB: yesConditions of : false labor, depressionLabs: Blood type: O Rh: positive Rubella: immune Hepatitis B: negative HIV: negative STD: negative Syphilis: currently negativeProcedures: ultrasound, non stress testPast medical history: depressionPast surgical history: ear tubesSocial history: no alcohol use, no tobacco use, no drug useMedications:Home Medications:SERTRALINE (ZOLOFT) 50 MG PO DAILY PNV/FE FUM/FA ( MULTIVITAMIN) 1 TAB PO DAILY LEVOTHYROXINE (SYNTHROID) 25 MCG PO DAILY PROGESTERONE,MICRONIZED (PROMETRIUM) 200 MG PO DAILY AllergiesCoded Allergies:No Known Allergies (09/13/20) Review of SystemsGI:Denies: abdominal pain, anorexia, constipation, diarrhea, dysphagia, GERD, hematemesis, hematochezia, hiatal hernia, melena, nausea, rectal pain, vomiting,other. :Reports: flank pain, pelvic pain, . Psych:depression, suicidal ideation. Denies: agitation, anxiety, auditory hallucination, change in mental status, confusion, delusional, homicidal ideation, hostile, insomnia, stress, visual hallucination, other. All systems rev neg: except as marked Objective GeneralVS:PATIENT WEIGHT: Weight (lb): 170Weight (oz): Weight (kg): 77.111 Physical ExamHEENT: normocephalic w/o injuryCardiac: regular rate and rhythmLungs: unlabored breathingBreasts: deferredNeuro: Exam: alert, oriented x3, normal speech, normal gaitAbdomen: gravid, soft, no abnormal tenderness, no guarding, no rebound tenderness, cva tendernessMusculoskeletal: normal inspectionGenitourinary: flank painUterine activity: Monitor: toco Frequency (description): none, irritabilityPelvic exam: Pelvis clinically adequate: yes, inlet appears appropriate, pubic bone configappropr, no midpelvic contractionMembranes: Membranes: IntactBaby A: Baby A baseline: 140 bpm Baby A variability: moderate 6-25 bpm Baby A accelerations: 15 X 15 Baby A decelerations: none Baby A FHR category: category 1 Baby A notes:monitored NST For 30 minutes, reactive NST ResultFindings/Data:Laboratory Tests: 11/20 11/20 11/20 1915 1715 1225 [...] % (Auto) (14.5 - 29.7 %) 22.3 [place] % (Auto) (3.6 - 10.2 %) 7.5 Eos % (Auto) (0.0 - 3.0 %) 0.6 Baso % (Auto) (0.1 - 0.9 %) 0.2 Neut # (Auto) (K/mm3) 8.4 Lymph # (Auto) (K/mm3) 2.8 [place] # (Auto) (K/mm3) 0.9 Eos # (Auto) (K/mm3) 0.07 Baso # (Auto) (K/mm3) 0.0 Miscellaneous Fibronectin NEGATIVE Urines Urine Color (YELLOW) YELLOW Urine Appearance (CLEAR) Slightly-Cloudy Urine pH (5 - 9) 8.0 Ur Specific [place] (1.001 - 1.035) 1.016 Urine Protein (NEG) [...] 1917 Urine Culture - RECD URINE Recent Impressions:ULTRASOUND - US PREG UT TRANSVAGINAL 11/20 1810 Report Impression - Status: SIGNED Entered: 11/20/20201915 IMPRESSION:1. Single living intrauterine in cephalic position.2. biophysical profile score of 8/8.3. Cervical shortening with a measured length of 1.9 cm usingtransvaginal imaging. SL: 131 Impression By: Sandy - Mu Harmon MDULTRASOUND - US FET BIO PH AR W/O NST 11/20 1810 Report Impression - Status: SIGNED Entered: 11/20/20201915 IMPRESSION:1. Single living intrauterine in cephalic position.2. biophysical profile score of 8/8.3. Cervical shortening with a measured length of 1.9 cm usingtransvaginal imaging. SL: 131 Impression By: Erica.KIRIT - Mu Harmon MD Results: labs reviewed, vital signs stable Diagnosis, Assessment Plan Diagnosis, Assessment PlanFree Text A P:15 yo at 32 weeks 4 days with acute back pain and worsening depression1. Acute back pain - FFN negative, no evidence of active labor, will monitor with toco. Ddx includes renal stone, pyelonephritis although fever at this time.WBC elevated at 12. Will start ivf and rocephin and urine culture sent. Pt has h/o kidney infections and UTIs. Order renal ultrasound in am.2. Depression/bipolar with anxiety/depression - Dr Baugh is her psychiatrist and she was on oxcarbazepine and buspirone prior to . Currently she is on zoloft 50mg, will increase her to 100mg tonight. Psych consult and social workerconsult pending. Suicidal precautions givenpatient is high risk for depression.Family support, mother at bedside3. PTIUP - reactive NST observed over 30minutes, reassuring4. RH+/rubella immuneAssessment/Impression: labor, pyelonephritis, depressionPlan: admit to observation, IVFConsultation(s): Consultation performed: psychiatrist, social servicesPlan discussed with: patient, parent at 2025 Addendum 1: 11/20/202039 by Margo Sears MD Vitals: BP 101/66, Pulse 78-92, RR 18, Temp 98.3, at 2039 RPT #:[id number] OF REPORT HPHistory and physical [id number]:09:00F.[id number] AVAvailable for patient lsgjXNJTBIYAVKOMZM6059-34-20B94:41:16 [facility] 2020-11-20 20:09:00 [id number] RpC5ZSJWoCDicequthx84VegYuV34 73IgnJ14MQzaz2hQ8j4uKtRMAT8jZ8F5qw7658-81-53S69:0 9:00 [facility] ([facility])OB Admission / H PREPORT#:[id number] REPORT STATUS: SignedDATE:11/20/20 TIME: 2008 PATIENT: KALLI CALDWELL UNIT #: [id number]#: [id number] ROOM/BED: .[facility]-DDOB: [birth year] AGE: 15 SEX: F ATTEND: Margo Sears [facility] AUTHOR: Margo Sears MD * ALL edits or amendments must be made on the electronic/computer document * See AddendumOB HistoryChief complaint: uterine contractions, BACK PAINHPI:15 yo at 32 weeks 4 days with worsening back pain and abdominal tightening over the day. She reports the pain is 5/10, worsening and so intense it feels like labor. She has had musculoskeletal pains during the but this is acute worsening of pains. She feels like the baby is very low. No bleeding. She is on zoloft 50mg and reports mood is worsening due to increased discomforts anddue to FOB recently stating he is not planning to be involved with the baby. Shehas h/o bipolar and previously on other mood stablizers. Her mother is here withher and patient reports she recently had thought things would be so much easier if she just took a bunch of pills and go to sleep. She had thoughts of hurting herself but has not taken any action. She has good support from her mother who has been with her at every visit. No homicidal thoughts. She is trying to see a psychiatrist but she does not do well with just virtual visits. No psychosis. history: : 1 Term: 0Current : Best EDC: 01/11/21 Admission EGA (weeks) 32 Admission EGA (days) 4 EDC based on: LMP, ultrasound, 1st trimester Progesterone for PTB: yesConditions of : false labor, depressionLabs: Blood type: O Rh: positive Rubella: immune Hepatitis B: negative HIV: negative STD: negative Syphilis: currently negativeProcedures: ultrasound, non stress testPast medical history: depressionPast surgical history: ear tubesSocial history: no alcohol use, no tobacco use, no drug useMedications:Home Medications:SERTRALINE (ZOLOFT) 50 MG PO DAILY PNV/FE FUM/FA ( MULTIVITAMIN) 1 TAB PO DAILY LEVOTHYROXINE (SYNTHROID) 25 MCG PO DAILY PROGESTERONE,MICRONIZED (PROMETRIUM) 200 MG PO DAILY AllergiesCoded Allergies:No Known Allergies (09/13/20) Review of SystemsGI:Denies: abdominal pain, anorexia, constipation, diarrhea, dysphagia, GERD, hematemesis, hematochezia, hiatal hernia, melena, nausea, rectal pain, vomiting,other. :Reports: flank pain, pelvic pain, . Psych:depression, suicidal ideation. Denies: agitation, anxiety, auditory hallucination, change in mental status, confusion, delusional, homicidal ideation, hostile, insomnia, stress, visual hallucination, other. All systems rev neg: except as marked Objective GeneralVS:PATIENT WEIGHT: Weight (lb): 170Weight (oz): Weight (kg): 77.111 Physical ExamHEENT: normocephalic w/o injuryCardiac: regular rate and rhythmLungs: unlabored breathingBreasts: deferredNeuro: Exam: alert, oriented x3, normal speech, normal gaitAbdomen: gravid, soft, no abnormal tenderness, no guarding, no rebound tenderness, cva tendernessMusculoskeletal: normal inspectionGenitourinary: flank painUterine activity: Monitor: toco Frequency (description): none, irritabilityPelvic exam: Pelvis clinically adequate: yes, inlet appears appropriate, pubic bone configappropr, no midpelvic contractionMembranes: Membranes: IntactBaby A: Baby A baseline: 140 bpm Baby A variability: moderate 6-25 bpm Baby A accelerations: 15 X 15 Baby A decelerations: none Baby A FHR category: category 1 Baby A notes:monitored NST For 30 minutes, reactive NST ResultFindings/Data:Laboratory Tests: 11/20 11/20 11/20 1915 1715 1225 [...] % (Auto) (14.5 - 29.7 %) 22.3 [place] % (Auto) (3.6 - 10.2 %) 7.5 Eos % (Auto) (0.0 - 3.0 %) 0.6 Baso % (Auto) (0.1 - 0.9 %) 0.2 Neut # (Auto) (K/mm3) 8.4 Lymph # (Auto) (K/mm3) 2.8 [place] # (Auto) (K/mm3) 0.9 Eos # (Auto) (K/mm3) 0.07 Baso # (Auto) (K/mm3) 0.0 Miscellaneous Fibronectin NEGATIVE Urines Urine Color (YELLOW) YELLOW Urine Appearance (CLEAR) Slightly-Cloudy Urine pH (5 - 9) 8.0 Ur Specific [place] (1.001 - 1.035) 1.016 Urine Protein (NEG) [...] 1917 Urine Culture - RECD URINE Recent Impressions:ULTRASOUND - US PREG UT TRANSVAGINAL 11/20 1810 Report Impression - Status: SIGNED Entered: 11/20/20201915 IMPRESSION:1. Single living intrauterine in cephalic position.2. biophysical profile score of 8/8.3. Cervical shortening with a measured length of 1.9 cm usingtransvaginal imaging. SL: 131 Impression By: Erica.KIRIT Harmon MDULTRASOUND - US FET BIO PH AR W/O NST 11/20 1810 Report Impression - Status: SIGNED Entered: 11/20/20201915 IMPRESSION:1. Single living intrauterine in cephalic position.2. biophysical profile score of 8/8.3. Cervical shortening with a measured length of 1.9 cm usingtransvaginal imaging. SL: 131 Impression By: Erica.KIRIT Harmon MD Results: labs reviewed, vital signs stable Diagnosis, Assessment Plan Diagnosis, Assessment PlanFree Text A P:15 yo at 32 weeks 4 days with acute back pain and worsening depression1. Acute back pain - FFN negative, no evidence of active labor, will monitor with toco. Ddx includes renal stone, pyelonephritis although fever at this time.WBC elevated at 12. Will start ivf and rocephin and urine culture sent. Pt has h/o kidney infections and UTIs. Order renal ultrasound in am.2. Depression/bipolar with anxiety/depression - Dr Baugh is her psychiatrist and she was on oxcarbazepine and buspirone prior to . Currently she is on zoloft 50mg, will increase her to 100mg tonight. Psych consult and social workerconsult pending. Suicidal precautions givenpatient is high risk for depression.Family support, mother at bedside3. PTIUP - reactive NST observed over 30minutes, reassuring4. RH+/rubella immuneAssessment/Impression: labor, pyelonephritis, depressionPlan: admit to observation, IVFConsultation(s): Consultation performed: psychiatrist, social servicesPlan discussed with: patient, parent at 2025 Addendum 1: 11/20/202039 by Margo Sears MD Vitals: BP 101/66, Pulse 78-92, RR 18, Temp 98.3, at 2039 Addendum 2: 11/20/202055 by Margo Sears MD D/w pt risk/benefits/indications/alternatives of adding back buspar to her mood medication regimen. Patient reports she has more anxiety symptoms and this worked well prior to . Discussed this is a class C drug and overall recommend use if benefits outweighs risk to baby. Buspar 10mg bid started. Patients consents to use. at 2056 RPT #:[id number] OF REPORT HPHistory and physical qpohvbsghqk2924-98-44H26:09:00F.[id number] AVAvailable for patient qtqhXEXHIBCROFKTCO1106-01-18K63:58:06 [facility] 2020-09-17 15:02:00 [id number]+Dq XcdjaT9j6ge55hidMlGCZ9ZFeFJZVRVYYm5988-67-70J88:0 2:[id number] [facility] [id number] PATIENT NAME: KALLI CALDWELL ADMIT DATE: 09/16/20ACCOUNT NO: [id number] ROOM NO: AGE: 15 SEX: F ADMITTING PHYSICIAN: ATTENDING PHYSICIAN: Margo Sears MD TRIAGE EVALUATION: 09/16/2020 For evaluation in OB ED on 09/16/2000, by Soumya Guerrero MD, triage hospitalist per agreement with [facility], patient of Dr. Sears. HISTORY OF PRESENT ILLNESS: The patient is a 15-year-old G1, P0 with lastmenstrual period unsure in 03/2020, and estimated date of iazkgrvkjlw18/08/2021. She presented at 23 and 2/7th weeks complaining of leakage of fluidbeginning on the evening of the . She also reported some occasional off andon brief abdominal twinges of pain for the last few days. She states she didhave intercourse earlier on the , but could not recall the exact time. Shedenied vaginal bleeding and reported good movement. She had been in theOB ED 3 days prior complaining of decreased movement. Workup was negativeand she was discharged home in stable condition at that time. She currentlydenies headache, vision changes, or other preeclampsia symptoms. She deniesfever, chills, nausea, vomiting, diarrhea, constipation, or dysuria. She deniescough, sore throat, shortness of breath, loss of taste and smell, fever,diarrhea, or other COVID symptoms. She states she did have COVID infection inJanuary. She was hospitalized for a single day and then sent home. She wasquarantined at that time. Her partner was also positive. She denies persistentsymptoms of COVID. Her care has been with Dr. Sears beginning atapproximately 4 weeks' gestation. She states she did have first trimesterbleeding and was diagnosed with a subchorionic hematoma. The bleeding resolvedwithout intervention, but she also reports she was found to have a lowprogesterone and has been on progesterone supplements since. She otherwisedenies complications in the and reports all labs and ultrasoundsnormal to her knowledge. PAST MEDICAL HISTORY: Asthma diagnosed in 2012, never hospitalized overnight,intubated or on long-term steroids. She states her last flare was 1 week ago.She uses her medications as needed, last with her flare a week ago. She alsoreports a history of anxiety and depression and bipolar disorder. She states 2years ago she attempted suicide multiple times during the course of a year andwas hospitalized 4 times, each suicide attempt was by overdosing with pills.She currently denies suicidal or homicidal ideation and states that the Zoloftis controlling her symptoms well. She was on Seroquel also in the past, butthis was stopped when she became . The patient states she was diagnosedwith hypothyroidism in the and was started on medications. PAST SURGICAL HISTORY: [facility] in 2019. ALLERGIES: NO KNOWN DRUG ALLERGIES. PATIENT NAME: KALLI CALDWELL MEDICATIONS: vitamins, levothyroxine, Zoloft, daily oral progesteroneand inhaler for her asthma as needed. OBSTETRICAL HISTORY: The patient is primiparous. GYNECOLOGIC HISTORY: Menarche at age 9 with regular monthly cycles lasting upto 2 weeks, heavy with moderate cramping. The patient denies prior history ofSTDs. She thinks she had a Pap smear though she is only 15 and states it wasnormal. SOCIAL HISTORY: The patient denies tobacco or illicit drug use. She reportsrare prepregnancy alcohol use. She lives with her mom, her stepfather, and 4siblings. She is still involved with the father of the . He is w35-ussj-irg healthy male. She is attending online classes for 11th grade. [employer] courses. FAMILY HISTORY: Mother with breast cancer diagnosed at age 37. Also, bipolardisorder, and anxiety disorder. Father with heart disease and diabetes.Maternal grandmother with diabetes and history of breast cancer diagnosed in her40s. Maternal grandfather with diabetes. Paternal grandmother with unknownhealth history. Paternal grandfather with MS. The patient has 3 halfsiblings, all living and healthy. She denies history of mental retardation orbirth defects in her family or her partner's family. REVIEW OF SYSTEMS: A 10-point review of systems is negative except as statedabove. PHYSICAL EXAMINATION:GENERAL: The patient is a well-nourished, well-developed young white female inno acute distress, lying on triage stretcher in OB ED.VITAL SIGNS: Height 5 feet 7, weight prior to the 150 pounds and atmost recent visit 160 pounds. Blood pressure 110/61, pulse 89, respirations 18,and temperature 98.7.HEAD AND NECK: Within normal limits without lymphadenopathy or thyromegaly.CHEST: Clear to auscultation bilaterally.HEART: With regular rate and rhythm.BREASTS: Deferred.ABDOMEN: Soft, nontender, gravid with a fundal height 4 cm above umbilicus.PELVIC: Sterile speculum exam showed normal leukorrhea and cervix appearedlong, closed, and posterior. No sterile vaginal exam was performed.EXTREMITIES: Without edema. Bilateral patellar reflexes, 2+NEUROLOGIC: Nonfocal. The patient is awake, alert, and oriented x3. heart tones in the 140s to 150s range. No contractions noted onmonitoring. ROM Plus was negative. Wet prep negative. LABORATORY DATA: Urinalysis showed 2+ leukocytes with 0 to 2 rbc's, 6 to 10wbc's, rare epithelial cells, and rare bacteria. Urine culture is pending atthe time of discharge, will not be available for approximately 48 hours. ASSESSMENT/PLAN: This is a 15-year-old G1, P0 at 23 and 2/7th weeks, very anxious with known history of anxiety, depression, and bipolar disorder, currently managed with an SSRI. Young teenage couple with limited knowledge of what is normal and abnormal in a . This is her second visit in 3 days. The PATIENT NAME: KALLI CALDWELL first for decreased movement. It was discussed with the patient at thisgestational age, movement might be felt less often than later in thepregnancy and now with leakage of fluid, but on workup consistent with normalleukorrhea and possibly mixed with seminal fluid from recent intercourse. Shealso reported low abdominal pain and is found to have urine with probableurinary tract infection. She is now discharged home in stable condition withreassuring status. An e-script for Macrobid is sent to her pharmacy [facility]. She is to drink greater than 100 ounces of water daily, eat frequentsmall meals. Follow up with Dr. Sears as scheduled. She is also to call 's office on the to request final results of urine culture. She is tocall or return for vaginal bleeding, leakage of fluid, contractions withincreasing force and frequency, worsening pain, temperature greater than 100.4,flank pain, dysuria, hematuria, or other concerns. It was also discussed withthe patient that due to her mother's history of breast cancer diagnosed at 37and her maternal grandmother with breast cancer diagnosis in her 40s, thepatient should follow up with her [facility] to discuss timing of her firstmammogram. Currently the recommendation is approximately 10 years younger thanthe age at which a first-degree relative was diagnosed i.e., at age 27. Dictated By: Soumya Guerrero MD WT: HP:ALVIN/AMBREEN/NTSDD: 09/17/2020 15:02:06DT: 09/17/2020 19:34:39Conf#: [id number]/DID#: [id number] and Edited by Soumya Guerrero MD On 10/08/20 1:57:18 AM at 0159 PATIENT NAME: KALLI CALDWELL and physical [id number]:34:00F.[id number] VAvailable for patient [id number]:59:53 [facility] 2020-09-13 16:18:00 [id number] [id number]:1 8:00 [facility] PROVID[facility] REPORTREPORT#:[id number] REPORT STATUS: SignedDATE:09/13/20 TIME: 1618 PATIENT: KALLI CALDWELL UNIT #: [id number]#: [id number] ROOM/BED:AGE: 15 SEX: F PCP PHYS: Margo Sears MDSERVICE AUTHOR: Vishnu Allen III, MD * ALL edits or amendments must be made on the electronic/computer document * STEVE History Nursing Documentation ReviewNursing data: [facility] STEVE 15 year old white female Primagravida at 22.6 wkscc Decreased movementsHPI She noticed the onset of decreased movements for the past 2 days. No vaginal bleeding, not leaking amniotic fluid, no ab pain. care with Dr Sears. Claims normal anatomy scan in her . History of first trimester vaginal bleeding. She is on oral progesterone.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 [employer] STD denied PMH Hypothyroidism PSH Denied MEDS Levothyroxine, zofran, progesterone, vitaminsFMH Postive for diabetes SH No smoke, no etoh, no drugsROS No fever, no cough, no sore throat, no shortness of breath, no chest pain, no ab pain, no vaginal bleeding, not leaking amniotic fluid, she is feeling her baby move here in triage Medications:Home Medications:Medication Dose/Rte/Freq Days Qty Entered Last Max Daily Dose Reviewed SERTRALINE (ZOLOFT) 50 MG PO DAILY 09/13/20 09/13/20rength: 50 MG TAB 1604 1606 PNV/FE FUM/FA 1 TAB PO DAILY 09/13/20 09/13/20 ( MULTIVITAMIN) 1605 1606Strength: 28 MG IRON-800 MCGTAB LEVOTHYROXINE 25 MCG PO DAILY 09/13/20 09/13/20 (SYNTHROID) 1605 1606Strength: 25 MCG TAB PROGESTERONE,MICRONIZED 200 MG PO DAILY 09/13/20 09/13/20 (PROMETRIUM) 1606 1606Strength: 100 MG CAP AllergiesCoded Allergies:No Known Allergies (09/13/20) Objective GeneralVS:PATIENT WEIGHT: Weight (lb): 160Weight (oz): Weight (kg): 72.725911Hy acute distress, alert, normal affectAfebrile, VSS 112/67, pulse 78 PUL Chest clear to auscultation, unlabored respirations CVR RRRAB Gravid, nontenderSVE Deferred, she is not contractingEXT No pathological pretibial edema, normal reflexes, no calf tendernessTOCO She is not contractingFHT Reassuring for gest age 4:08 pm I introduced myself to her. H and P done. Plan of care discussed. USG ordered. Upon return of her USG report I gave her results of her testing. Cleared for discharge. All questions were answered. I also spoke with Dr Miramontes. Recent Impressions:ULTRASOUND - US PREG WI TRANSVAGINAL 09/14 1719 Report Impression - Status: SIGNED Entered: 09/13/20201751 IMPRESSION: 1. There is a single live intrauterine gestation in vertexpresentation.2. There is no placenta previa or placental abruption.3. The uterine cervix is closed and the cervical length is 3.5 cm.Impression By: [email or web address] - Reggie Nick, [facility] 09/14 1719 Report Impression - Status: SIGNED Entered: 09/13/20201751 IMPRESSION: 1. There is a single live intrauterine gestation in vertexpresentation.2. There is no placenta previa or placental abruption.3. The uterine cervix is closed and the cervical length is 3.5 cm.Impression By: Nicci Nick DO Normal MIGUEL ANGEL ResultsFindings/Data:Recent Impressions:ULTRASOUND - US PREG UT TRANSVAGINAL 09/14 1719 Report Impression - Status: SIGNED Entered: 09/13/20201751 IMPRESSION: 1. There is a single live intrauterine gestation in vertexpresentation.2. There is no placenta previa or placental abruption.3. The uterine cervix is closed and the cervical length is 3.5 cm.Impression By: Nicci Nick DOULTRASOUND - US LTD 09/14 1719 Report Impression - Status: SIGNED Entered: 09/13/20201751 IMPRESSION: 1. There is a single live intrauterine gestation in vertexpresentation.2. There is no placenta previa or placental abruption.3. The uterine cervix is closed and the cervical length is 3.5 cm.Impression By: Nicci Nick DO Diagnosis, Assessment Plan Diagnosis, Assessment PlanFree Text A P:A IUP at 22.6 wks Decreased movementsP I gave her results of her testing. Cleared for discharge. Labor precautions. F/U with Dr Orion ochoa at 1915 RPT #:[id number] OF REPORT OBObstetric [id number]:18:[id number] able for patient [id number]:15:27 [facility]
[2023-11-14] MEDS ORDERED: MORPHINE 4 MG/ML SYR ONE (21:07)
[2023-11-14] MEDS ORDERED: NA CHLORIDE 0.9% 1,000 ML ONE (21:07)
[2023-11-14] MEDS ORDERED: ONDANSETRON 4 MG/2 ML VIAL ONE (21:07)
[2023-11-14 21:23] LABS: Absolute Eosinophils 0.2 K/uL (0-0.5); Absolute Monocytes 0.5 K/uL (0.1-1.3); Basophils % 0.7 % (0-1.3); Eosinophils % 3.2 % (0-4.4); Hematocrit 37.2 % (36.0-45.0); Hemoglobin 12.3 g/dL (12.0-15.0); MCHC 33.1 g/dL (32.0-36.0); MCV 87.7 fL (80-100); MPV 8.6 fL (7.6-11.3); Monocytes % 7.2 % (3.3-12.3); Neutrophils % 44.9 % (41.7-73.7); Platelets 211 thou/uL (152-406); RBC Red Blood Cell Count 4.24 M/uL (3.86-4.86); Red Cell Distribution Width 14.3 % (12.1-15.2)
[2023-11-14 21:34] LABS: Specific Gravity 1.029 (1.005-1.030)
[2023-11-14 21:35] LABS: Albumin 3.9 g/dL (3.4-5.0); Albumin/Globulin Ratio 1.1 (1.1-1.8); Anion Gap 4.9 mEq/L (5.0-15.0); Bilirubin Total 0.3 mg/dL (0.2-1.0); Globulin 3.4 g/dL (2.3-3.5); Potassium 3.9 mEq/L (3.5-5.1); Protein, Total 7.3 g/dL (6.4-8.2); Sqamous Epithelial <5 /HPF (None Seen); Urine Bacteria None Seen /HPF (<20); Urine Bilirubin NEGATIVE (Negative); Urine Blood Negative (Negative); Urine Clarity Clear (Clear); Urine Color Light-Yellow (Yellow); Urine Culture Reflex Order NOT NEEDED; Urine Glucose NEGATIVE (Negative); Urine Ketones NEGATIVE (Negative); Urine Microscopic Reflex YN ORDER UMIC; Urine Mucus Slight /HPF (None Seen); Urine Nitrite NEGATIVE (Negative); Urine Protein NEGATIVE (Negative); Urine RBC <5 /HPF (None Seen); Urine Urobilinogen Normal (Normal); Urine WBC <5 /HPF (<5); Urine pH 5.5 (5.0-7.0)
--- NOTE | 2023-11-14 22:32 | RAD REPORT ---
EXAM DESCRIPTION: CT - Abdomen Pelvis W Contrast - 11/14/2023 10:06 pm CLINICAL HISTORY: Abdominal pain COMPARISON: 2019 TECHNIQUE: Computed axial tomography of the abdomen pelvis was obtained. 100 cc Isovue-300 was admin istered intravenously. Oral contrast was not requested which limits evaluation of bowel and appendix All CT scans are performed using dose optimization technique as appropriate and may include automated exposure control or mA/KV adjustment according to patient size. FINDINGS: The liver, spleen, pancreas, adrenal and kidneys appear unremarkable. There is no evidence of diverticulitis. Normal appendix. No adnexal mass. Very small umbilical hernia Moderate amount stool within the colon IMPRESSION: Moderate amount of stool within the colon
[2023-11-14] MEDS ORDERED: KETOROLAC 30 MG/ML INJ ONE (22:57)
[2023-11-14] MEDS ORDERED: DICYCLOMINE HCL 20 MG/2 ML AMP IM ONE (22:57)
[2023-11-14] MEDS ORDERED: LACTULOSE 20 GM/30 ML UCUP ONE (22:58)
--- NOTE | 2023-11-15 00:39 | EDPHYS ---
Physician Documentation [facility] Name: Kalli Caldwell Age: 18 yrs Sex: Female : 2005 Arrival Date: 11/14/2023 Time: 19:55 Bed 7 Private MD: ED Physician Anselmo Aviles HPI: 11/14 02:24 This 18 yrs old Female presents to ER via Ambulatory with complaints of Abdominal Pain. rt 02:24 Patient presents to the ED with about 1 day of a right lower quadrant pain with nausea, rt subjective fever. The patient denies other acute complaints at this time, symptoms are moderate in severity, no other aggravating alleviating factors. No radiation of pain.. Historical: - Allergies: 11/13 20:22 Omnicef; pf1 20:22 Zithromax; pf1 20:22 Keflex; pf1 20:22 Latex, Natural Rubber; pf1 - PMHx: 20:22 Anxiety; Bipolar disorder; Depression; Hypothyroidism; SMAS; pf1 - PSHx: 20:22 None; pf1 - Immunization history:: Adult Immunizations not up to date, Client reports having NOT received the Covid vaccine. Last tetanus immunization: < 10 years ago Flu vaccine is not up to date. - Infectious Disease History:: Denies. - Social history:: Smoking status: Patient denies any tobacco usage or history of. Patient/guardian denies using alcohol, street drugs. - Family history:: not pertinent. ROS: 11/14 02:24 Cardiovascular: Negative for chest pain, palpitations, and edema, Respiratory: Negative rt for shortness of breath, cough, wheezing, and pleuritic chest pain, : Negative for injury, bleeding, discharge, and swelling, MS/Extremity: Negative for injury and deformity, Skin: Negative for injury, rash, and discoloration, Neuro: Negative for headache, weakness, numbness, tingling, and seizure, Constitutional: Positive for fever, malaise, Abdomen/GI: Positive for abdominal pain, nausea, Exam: 02:24 Constitutional: This is a well developed, well nourished patient who is awake, alert, rt and in no acute distress. Head/Face: Normocephalic, atraumatic. Chest/axilla: Normal chest wall appearance and motion. Nontender with no deformity. No lesions are appreciated. Cardiovascular: Regular rate and rhythm with a normal S1 and S2. No gallops, murmurs, or rubs. Normal PMI, no JVD. No pulse deficits. Respiratory: Lungs have equal breath sounds bilaterally, clear to auscultation and percussion. No rales, rhonchi or wheezes noted. No increased work of breathing, no retractions or nasal flaring. Abdomen/GI: Soft, non-tender, with normal bowel sounds. No distension or tympany. No guarding or rebound. No evidence of tenderness throughout. Skin: Warm, dry with normal turgor. Normal color with no rashes, no lesions, and no evidence of cellulitis. MS/ Extremity: Pulses equal, no cyanosis. Neurovascular intact. Full, normal range of motion. Neuro: Awake and alert, GCS 15, oriented to person, place, time, and situation. Cranial nerves II-XII grossly intact. Motor strength 5/5 in all extremities. Sensory grossly intact. Cerebellar exam normal. Normal gait. Psych: Awake, alert, with orientation to person, place and time. Behavior, mood, and affect are within normal limits. 02:24 Abdomen/GI: Tenderness to the right lower quadrant without rebound, guarding, distention, Vital Signs: 11/13 20:16 BP 108 / 68; Pulse 89; Resp 16; Temp 98.6; Pulse Ox 100% on R/A; Weight 63.5 kg; Height pf1 5 ft. 9 in. ; Pain 04/15; 21:48 BP 101 / 71; Pulse 84; Resp 16 S; Pulse Ox 100% on R/A; lg3 11/14 01:03 BP 113 / 67; Pulse 77; Resp 17 S; Temp 98.2(O); Pulse Ox 100% on R/A; lg3 11/13 20:16 Body Mass Index 20.67 (63.50 kg, 175.26 cm) pf1 11/13 20:16 Pain Scale: Adult pf1 MDM: 11/13 21:01 Patient medically screened. rt 11/14 02:24 Differential Diagnosis Appendicitis, kidney stone, nonspecific abdominal pain, ovarian rt torsion. Data reviewed: vital signs, nurses notes, lab test result(s), radiologic studies. I considered the following discharge prescriptions or medication management in the emergency department Medications were administered in the Emergency Department. See MAR. Independent interpretation of the following test(s) in the Emergency Department CT Scan: My interpretation is No bowel obstruction syndrome interpretation of CT scan images. Counseling: I had a detailed discussion with the patient and/or guardian regarding the historical points, exam findings, and any diagnostic results supporting the discharge/admit diagnosis, lab results, radiology results, the need for outpatient follow up, to return to the emergency department if symptoms worsen or persist or if there are any questions or concerns that arise at home. Response to treatment: the patient's symptoms have markedly improved after treatment. 11/13 21:05 Order name: CBC with Diff; Complete Time: 21:37 rt 11/13 21:05 Order name: CMP; Complete Time: 21:37 rt 11/13 21:05 Order name: Lipase; Complete Time: 21:37 rt 11/13 21:05 Order name: Test, Urine; Complete Time: 21:37 rt 11/13 21:05 Order name: Urinalysis w/ reflexes; Complete Time: 21:37 rt 11/13 21:05 Order name: CT Abd/Pelvis - IV Contrast Only; Complete Time: 22:36 rt 11/13 23:53 Order name: Transvaginal Study Probe EDMS 11/13 21:05 Order name: IV Saline Lock; Complete Time: 21:13 rt 11/13 21:05 Order name: Labs collected and sent; Complete Time: 21:13 rt Administered Medications: 11/13 21:13 Drug: NS 0.9% IV 1000 ml IV at 1 bolus Per protocol; 1000 mL bolus Route: IV; Rate: 1 lg3 bolus; Site: right antecubital; 11/14 01:02 Follow up: Response: No adverse reaction; IV Status: Completed infusion; IV Intake: lg3 1000ml 11/13 21:13 Drug: Ondansetron IVP 4 mg IVP once; over 2 minutes Route: IVP; Site: right antecubital;3 11/14 01:03 Follow up: Response: No adverse reaction formerly [facility] 11/13 21:13 Drug: morphine IVP or IV 4 mg IVP once over 4 mins Route: IVP; Infused Over: 4 mins; lg3 Site: right antecubital; 11/14 01:03 Follow up: Response: No adverse reaction formerly [facility] 11/13 23:06 Drug: Lactulose PO 30 grams 45 ml PO once Volume: 45 ml; Route: PO; 3 11/14 01:02 Follow up: Response: No adverse reaction 3 11/13 23:06 Drug: Ketorolac IVP 15 mg IVP once Route: IVP; Site: right antecubital; 3 11/14 01:02 Follow up: Response: No adverse reaction 3 11/13 23:06 Drug: Dicyclomine IM 20 mg IM once Route: IM; Site: right deltoid; 3 11/14 01:02 Follow up: Response: No adverse reaction 3 Disposition Summary: 11/15/23 00:39 Discharge Ordered Notes: Location: Home rt Problem: new rt Symptoms: have improved rt Condition: Stable rt Diagnosis - Abdominal pain, unspecified rt Followup: rt - With: Private Physician - When: 2 - 3 days - Reason: Discharge Instructions: - Discharge Summary Sheet rt - Abdominal Pain, Adult rt Forms: - Medication Reconciliation Form rt - Antibiotic Education rt - Prescription Opioid Use rt - Patient Portal Instructions rt - Leadership Thank You Letter rt Signatures: Dispatcher [employer] EDKelly Ott RN RN lg3 Anselmo Aviles MD MD rt Kasey Bailey RN RN pf1 Corrections: (The following items were deleted from the chart) 11/13 20:23 20:22 Allergies: unknown antibiotic; pf1 pf1 21:06 21:06 CBC+H.LAB.BRZ ordered. EDMS EDMS 21: 21:06 COMPREHENSIVE METABOLIC PANEL+C.LAB.BRZ ordered. EDMS EDMS 21: 21:06 LIPASE+C.LAB.BRZ ordered. EDMS EDMS 21: 21:06 Test, Urine+UC.LAB.BRZ ordered. EDMS EDMS 21:06 21:06 Urinalysis+U.LAB.BRZ ordered. EDMS EDMS 23:53 22:50 Pelvis Complete+US.RAD.BRZ ordered. EDMS EDMS
--- NOTE | 2023-11-15 00:39 | ER ---
Nurse's Notes [facility] Name: Kalli Caldwell Age: 18 yrs Sex: Female : 2005 Arrival Date: 11/14/2023 Time: 19:55 Bed 7 Private MD: Diagnosis: Abdominal pain, unspecified Presentation: 11/13 20:16 Chief complaint: Patient states: RLQ pain of 10,onset yesterday with nausea and low pf1 grade fever. Coronavirus screen: Vaccine status: Patient reports being unvaccinated. Client denies travel out of the [place] in the last 14 days. At this time, the client does not indicate any symptoms associated with coronavirus-19. Ebola Screen: Patient negative for fever greater than or equal to 101.5 degrees Fahrenheit, and additional compatible Ebola Virus Disease symptoms. Initial Sepsis Screen: Does the patient meet any 2 criteria? No. Patient's initial sepsis screen is negative. Does the patient have a suspected source of infection? No. Patient's initial sepsis screen is negative. Risk Assessment: Do you want to hurt yourself or someone else? Patient reports no desire to harm self or others. Onset of symptoms was November 13, 2023. 20:16 Method Of Arrival: Ambulatory pf1 20:16 Acuity: ANDRE 3 pf1 Triage Assessment: 20:23 General: Appears in no apparent distress. uncomfortable, well groomed, well developed, pf1 Behavior is calm, cooperative, appropriate for age, quiet. Pain: Complains of pain in abdomen Pain currently is 10 out of 10 on a pain scale. GI: Abdomen is flat, non-distended, Reports lower abdominal pain, nausea. Historical: - Allergies: 20:22 Omnicef; pf1 20:22 Zithromax; pf1 20:22 Keflex; pf1 20:22 Latex, Natural Rubber; pf1 - PMHx: 20:22 Anxiety; Bipolar disorder; Depression; Hypothyroidism; SMAS; pf1 - PSHx: 20:22 None; pf1 - Immunization history:: Adult Immunizations not up to date, Client reports having NOT received the Covid vaccine. Last tetanus immunization: < 10 years ago Flu vaccine is not up to date. - Infectious Disease History:: Denies. - Social history:: Smoking status: Patient denies any tobacco usage or history of. Patient/guardian denies using alcohol, street drugs. - Family history:: not pertinent. Screenin:07 [facility] ED Fall Risk Assessment (Adult) History of falling in the last 3 months, rv including since admission No falls in past 3 months (0 pts) Score/Fall Risk Level 0 - 2 = Low Risk Oriented to surroundings, Maintained a safe environment, Educated pt \T\ family on fall prevention, incl call for assistance when getting out of bed, Assessed \T\ reinforced patient's understanding of fall precautions. Abuse screen: Denies threats or abuse. Denies injuries from another. Nutritional screening: No deficits noted. Tuberculosis screening: No symptoms or risk factors identified. Assessment: 21:11 General: Appears in no apparent distress. uncomfortable, Behavior is calm, cooperative. lg3 Pain: Complains of pain in right lower quadrant Pain does not radiate. Pain currently is 7 out of 10 on a pain scale. Neuro: No deficits noted. [place] Agitation-Sedation Scale (RASS): 0 - Alert and Calm Level of Consciousness is awake, alert, obeys commands, Oriented to person, place, time, situation. Cardiovascular: No deficits noted. Denies chest pain, shortness of breath, Capillary refill < 3 seconds Clubbing of nail beds is absent JVD is absent Patient's skin is warm and dry. Respiratory: No deficits noted. Airway is patent Respiratory effort is even, unlabored, Respiratory pattern is regular, symmetrical, Breath sounds are clear bilaterally. GI: Abdomen is round non-distended, Bowel sounds present X 4 quads. Abd is soft X 4 quads Abdomen is tender to palpation in right lower quadrant. : No deficits noted. No signs and/or symptoms were reported regarding the genitourinary system. Urine is clear. EENT: No deficits noted. No signs and/or symptoms were reported regarding the EENT system. Derm: No deficits noted. No signs and/or symptoms reported regarding the dermatologic system. Skin is intact, is healthy with good turgor, Skin is dry, Skin is normal, Skin temperature is warm. Musculoskeletal: No deficits noted. No signs and/or symptoms reported regarding the musculoskeletal system. Circulation, motion, and sensation intact. Range of motion: intact in all extremities. 21:48 Reassessment: Patient appears in no apparent distress at this time. No changes from lg3 previously documented assessment. Patient and/or family updated on plan of care and expected duration. Pain level reassessed. Patient is alert, oriented x 3, equal unlabored respirations, skin warm/dry/pink. 11/14 01:02 Reassessment: Patient appears in no apparent distress at this time. Patient and/or lg3 family updated on plan of care and expected duration. Pain level reassessed. Patient is alert, oriented x 3, equal unlabored respirations, skin warm/dry/pink. Patient states feeling better. Patient states symptoms have improved. Vital Signs: 11/13 20:16 BP 108 / 68; Pulse 89; Resp 16; Temp 98.6; Pulse Ox 100% on R/A; Weight 63.5 kg; Height pf1 5 ft. 9 in. ; Pain 04/15; 21:48 BP 101 / 71; Pulse 84; Resp 16 S; Pulse Ox 100% on R/A; lg3 11/14 01:03 BP 113 / 67; Pulse 77; Resp 17 S; Temp 98.2(O); Pulse Ox 100% on R/A; lg3 11/13 20:16 Body Mass Index 20.67 (63.50 kg, 175.26 cm) pf1 11/13 20:16 Pain Scale: Adult pf1 ED Course: 11/13 19:57 Patient arrived in ED. im 19:58 Anselmo Aviles MD is Attending Physician. rt 20:21 Triage completed. pf1 20:24 Arm band placed on left wrist. pf1 20:59 Ed Marmolejo, ROSE is Primary Nurse. rv 21:07 Patient has correct armband on for positive identification. Client placed on continuous rv cardiac and pulse oximetry monitoring. NIBP monitoring applied. 21:07 No provider procedures requiring assistance completed. rv 21:11 Door closed. Noise minimized. Warm blanket given. Pillow given. Family accompanied lg3 patient. 21:11 Initial lab(s) drawn, by me, sent to lab. Urine collected: clean catch specimen, clear. lg3 Inserted saline lock: 20 gauge in right antecubital area, using aseptic technique. Blood collected. 22:07 CT Abd/Pelvis - IV Contrast Only In Process Unspecified. EDMS 23:53 Transvaginal Study Probe In Process Unspecified. EDMS 11/14 01:03 IV discontinued, intact, bleeding controlled, No redness/swelling at site. Pressure lg3 dressing applied. Administered Medications: 11/13 21:13 Drug: NS 0.9% IV 1000 ml IV at 1 bolus Per protocol; 1000 mL bolus Route: IV; Rate: 1 lg3 bolus; Site: right antecubital; 11/14 01:02 Follow up: Response: No adverse reaction; IV Status: Completed infusion; IV Intake: lg3 1000ml 11/13 21:13 Drug: Ondansetron IVP 4 mg IVP once; over 2 minutes Route: IVP; Site: right antecubital;lg3 11/14 01:03 Follow up: Response: No adverse reaction lg3 11/13 21:13 Drug: morphine IVP or IV 4 mg IVP once over 4 mins Route: IVP; Infused Over: 4 mins; lg3 Site: right antecubital; 11/14 01:03 Follow up: Response: No adverse reaction lg3 11/13 23:06 Drug: Lactulose PO 30 grams 45 ml PO once Volume: 45 ml; Route: PO; lg3 11/14 01:02 Follow up: Response: No adverse reaction lg3 11/13 23:06 Drug: Ketorolac IVP 15 mg IVP once Route: IVP; Site: right antecubital; lg3 11/14 01:02 Follow up: Response: No adverse reaction lg3 11/13 23:06 Drug: Dicyclomine IM 20 mg IM once Route: IM; Site: right deltoid; lg3 11/14 01:02 Follow up: Response: No adverse reaction lg3 Medication: 11/13 21:07 VIS not applicable for this client. rv Intake: 11/14 01:02 IV: 1000ml; Total: 1000ml. lg3 Outcome: 00:39 Discharge ordered by MD. rt 01:03 Discharged to home ambulatory, with significant other, lg3 01:03 Condition: stable 01:03 Discharge instructions given to patient, Instructed on discharge instructions, follow up and referral plans. Demonstrated understanding of instructions, follow-up care, 01:04 Patient left the ED. lg3 Signatures: Dispatcher [employer] EDMS Ed Marmolejo RN RN rv Able, Lacie, RN RN lg3 Anselmo Aviles MD MD rt Kasey Bailey RN RN pf1 Jacquie Torres im Corrections: (The following items were deleted from the chart) 11/13 20:23 20:22 Allergies: unknown antibiotic; pf1 pf1
[2023-11-15 01:50] VITALS: BP 113/67; TEMP 98.2; O2SAT 100
--- NOTE | 2023-11-17 11:27 | RAD REPORT ---
EXAM DESCRIPTION: Transvaginal Study Probe CLINICAL HISTORY: 18 years Female rlq pain, r/o torsion COMPARISON: None TECHNIQUE: Endovaginal sonography of the pelvis was performed. FINDINGS: Uterus is normal in size and echogenicity measuring 8.5 x 4.0 x 5.8 cm. Endometrium measur es 1 cm. Right ovary is normal in size and echogenicity measuring 4.0 x 2.6 x 2.3 cm. Doppler evaluation revea ls satisfactory flow. 2.0 x 1.7 x 1.6 cm cyst right ovary. This finding is thought to be benign. No f urther follow-up needed. Left ovary is normal in size and echogenicity measuring 2.3 x 1.6 x 1.6 cm. Doppler evaluation reveal ed satisfactory flow. Minimal fluid within the cul-de-sac. IMPRESSION: No sonographic abnormality involving the uterus or ovaries bilaterally. No sonographic evidence for ovarian torsion bilaterally. Electronically signed by: Brigitte Alcantara MD 11/15/2023 12:10 AM CDT Due to temporary technical issues with the PACS/Fluency reporting system, reports are being signed by the in house radiologist without review as a courtesy to ensure prompt reporting. The interpreting r adiologist is fully responsible for the content of the report.
== END 2023-11-15 01:04 | disposition home or self-care (01) ==
LOC: ER 19:55
DX: R10.31 Right lower quadrant pain (principal); Z88.1 Allergy status to other antibiotic agents; Z88.3 Allergy status to other anti-infective agents; Z91.040 Latex allergy status; Z91.048 Other nonmedicinal substance allergy status; Z28.310 Unvaccinated for COVID-19
CPT/HCPCS: 96361; 85025; 81001; 36415; 81025; 83690; 80053; 74177; 76830; 96375; 96372; 96374; 99284; Q9967; J0500; J2405; J7030

== ENCOUNTER 2024-10-25 12:50 | Emergency (ER) | payer OTHER ==
--- OUTSIDE RECORDS SUMMARY | 2024-10-25 12:55 | XMS REPORT | Continuity of Care Document ---
Author Name Unknown Address [address] [facility] [place] [address] [facility] Address [address] [facility] [address] [place] [address] Care Team Providers Care Tissue Technician Name Role Phone Ct Sears Primary Care Physician [phone] Margo Sears Attending Clinician Unavailable AUBRIE DOLAN Attending Clinician Unavailable AUBRIE DOLAN Attending Clinician Unavailable Aubrie Dolan MD Attending Clinician Manuela Vu MD Attending Clinician [phone] MANUELA VU Attending Clinician Unavailable MANUELA VU Attending Clinician Unavailable ARLENE MAYORGA Attending Clinician Unavailab ARLENE Royal Attending Clinician Unavailab Arlene Royal DO Attending Clinician [phone] Chely Segura I Attending Clinician Unavailable Dolly Garcia Attending Clinician Unavailab DAVID Gann Attending Clinician Unavailable David Vieyra DO Attending Clinician [phone] Mary Gordon PA-C Attending Clinician AUBRIE DOLAN Admitting Clinician Unavailable Margo Sears Admitting Clinician Unavailable Aubrie Dolan MD Admitting Clinician MANUELA VU Admitting Clinician Unavailable Dolly Garcia Admitting Clinician Unavailab le Payers Payer Name Policy Type Policy Number Effective Date Expirati on Date Source [facility] [id number] 2022 00:00:00 [facility] STAR [id number] 2023 00:00:00 [facility] STAR [id number] 2022 00:00:00 Allergies, Adverse Reactions, Alerts Allergy Name Allergy Type Status Severity Reaction(s) Onset Date Inactive Date Treating Clinician Comments Source cephalex in DA Active MO HIVES 0 3-05 00:00: 00 [facility] azithrom ycin DA Active SV SWELLING 0 3-05 00:00: 00 [facility] metoclop ramide DA Active SV TWITCHING 0 3-05 00:00: 00 [facility] latex DA Active SV HIVES 0 3-05 00:00: 00 [facility] cephalex in DA Active MO HIVES 0 2-19 00:00: 00 [facility] metoclop ramide DA Active SV TWITCHING 0 2-19 00:00: 00 [facility] latex DA Active SV HIVES 0 2-19 00:00: 00 [facility] cephalex in DA Active MO HIVES 0 1-06 00:00: 00 [facility] azithrom ycin DA Active SV SWELLING 0 1-06 00:00: 00 [facility] metoclop ramide DA Active SV TWITCHING 0 1-06 00:00: 00 [facility] latex DA Active SV HIVES 0 1-06 00:00: 00 [facility] LATEX DRUG INGREDI Active Hives 2023-07 0-04 00:00: 00 [facility] METOCLOP RAMIDE DRUG INGREDI Active EP Effects 2023-1 0-04 00:00: 00 [facility] Latex Propensi ty to adverse reaction s Active Hives 2023-07 0-04 00:00: 00 [facility] Metoclop ramide Propensi ty to adverse reaction s Active Extra pyramidal effects 2023-1 0-04 00:00: 00 [facility] metoclop ramide DA Active SV TWITCHING 2023-0 9-19 00:00: 00 [facility] CEPHALEX IN DRUG INGREDI Active Hives 2023-0 9- 00:00: 00 [facility] CEFDINIR DRUG INGREDI Active Hives 2023-0 9- 00:00: 00 [facility] AZITHROM YCIN DRUG INGREDI Active Hives 2023-0 9- 00:00: 00 [facility] Cephalex in Propensi ty to adverse reaction s Active Hives 0 9- 00:00: 00 [facility] Cefdinir Propensi ty to adverse reaction s Active Hives 2023-0 9- 00:00: 00 [facility] Azithrom ycin Propensi ty to adverse reaction s Active Hives 2023-0 9- 00:00: 00 [facility] cephalex in DA Active MO HIVES 2022-07 1- 00:00: 00 [facility] azithrom ycin DA Active SV SWELLING 2022-07- 00:00: 00 [facility] latex DA Active SV HIVES 2022-07 00:00: 00 [facility] cephalex in DA Active MO HIVES 2022-07 1- 00:00: 00 [facility] azithrom ycin DA Active SV SWELLING 2022-07 1 00:00: 00 [facility] latex DA Active SV HIVES 2022-07 1- 00:00: 00 [facility] cephalex in DA Active MO HIVES 0 8-30 00:00: 00 [facility] azithrom ycin DA Active SV SWELLING 2022-0 5-17 00:00: 00 [facility] latex DA Active SV 0 6-21 00:00: 00 [facility] latex DA Active SV HIVES 0 6-21 00:00: 00 [facility] latex DA Active SV 0 5-22 00:00: 00 [facility] latex DA Active SV HIVES 0 5-22 00:00: 00 [facility] No Known Allergie s DA Active U 0 3-10 00:00: [address] [facility] No Known Allergie s DA Active U 0 3-10 00:00: [address] [facility] NO KNOWN ALLERGIE S Drug Class Active [facility] Social History Social Habit Start Date Stop Date Quantity Comments Source ASSERTION 2024-01-19 00:00:00 [facility]coholic [facility] intake 2024-06-20 00:00:00 2024-06-20 00:00:00 Ex-drinker (finding) [facility] History of Social function 2024-04-10 00:00:00 2024-04-10 00:00:00 [facility] Exposure to SARS-CoV-2 (event) 2022-10-14 00:00:00 2022-10-24 07:28:00 Not sure [facility] Tobacco use and exposure 2017-10-13 00:00:00 2017-10-13 00:00:00 Smokeless tobacco non-user [facility] Tobacco Comment 2017-10-13 00:00:00 2017-10-13 00:00:00 no smoke exposure [facility] Sex assigned at 2003 00:00:00 2005 00:00:00 [facility] Smoking Status Start Date Stop Date Source Never smoked tobacco [facility] Medications Ordered Medication Name Filled Medication Name Start Date Stop Date Current Medication? Ordering Clinician Indication Dosage Frequency Signature (SIG) Comments Components Source metroNIDAZO LE 500 mg tablet 2023-07 00:00: 00 Yes [id number] 500mg Take 1 tablet by mouth every 12 (twelve) hours. [facility] Nitrofurant oin&Nit. Macrocryst 100 mg capsule 2023-07 00:00: 00 Yes [id number] 100mg Take 1 capsule by mouth in the morning and 1 capsule in the evening. [facility] amoxicillin (TRIMOX) capsule 500 mg 2023-07 0-05 06:00: 00 04-10 06:00 :00 No 500mg 500 mg, Oral, ONCE, 1 dose, On 04/10/24 at 0100, TRACEY, Reason for Anti-Infec tive: Documented Infection, Documented Infection Site: Urine, Duration of Therapy: Once (ED) [facility] Potassium Bicarb-Citr ic Acid (EFFER-K) effervescen t tablet 40 mEq 2023-07 05:00: 00 04-10 05:17 :00 No 40meq 40 mEq, Oral, ONCE, 1 dose, On 04/10/24 at 0000, Routine [facility] ketorolac (TORADOL) injection 30 mg 2023-07 0-05 03:45: 00 04-10 03:30 :00 No 30mg 30 mg, Slow IV Push, ONCE, 1 dose, On Fri04/09/24 at 2245, Routine [facility] amoxicillin 500 mg capsule 2023-07 0-05 00:00: 00 06-20 00:00 :00 No [id number] 500mg Take 1 capsule by mouth in the morning and 1 capsule at noon and 1 capsule in the evening. [facility] NaCl 0.9% (NS) bolus infusion 1,000 mL 03-07 23:30: 00 03-07 23:46 :00 No 1000mL at 999 mL/hr, 1,000 mL, IV Infusion, ONCE, 1 dose, On 03/07/24 at 1830, TRACEY [facility] metoclopram razia HCl (REGLAN) injection 10 mg 03-07 22:45: 00 03-07 22:56 :00 No 10mg 10 mg, Slow IV Push, ONCE, 1 dose, On 03/07/24 at 1745, TRACEY [facility] proMETHazin e 12.5 mg suppository 03-07 00:00: 00 Yes [id number] 12.5mg Insert 1 Suppositor y into rectum every 4 (four) hours as needed for Nausea and Vomiting (N/V). [facility] NaCl 0.9% (NS) bolus infusion 1,000 mL 10-24 14:45: 00 10-24 14:50 :00 No 1000mL at 999 mL/hr, 1,000 mL, IV Piggyback, ONCE, 1 dose, On Kaylah 10/24/22 at 0945, STAT [facility] metoclopram razia HCl (REGLAN) injection 10 mg 10-24 13:45: 00 10-24 13:41 :00 No 10mg 10 mg, Slow IV Push, ONCE, 1 dose, On Kaylah 10/24/22 at 0845, TRACEY [facility] SERTraline 25 mg tablet 10-13 00:00: 00 Yes 25mg Take 1 tablet by mouth at bedtime. [facility] montelukast 10 mg tablet 09-10 00:00: 00 Yes TAKE ONE (1) TABLET(S) BY MOUTH IN THE EVENING. [facility] Vital Signs Vital Name Observation Time Observation Value Comments S ource Systolic blood pressure 2024-06-20 07:30:00 92 mm[Hg] [facility] Diastolic blood pressure 2024-06-20 07:30:00 58 mm[Hg] [facility] Heart rate 2024-06-20 07:30:00 80 /min [facility] Oxygen saturation in Arterial blood by Pulse oximetry 2024-06-20 07:30:00 100 /min [facility] Body temperature 2024-06-20 06:25:00 36.89 Zofia [facility] Respiratory rate 2024-06-20 06:04:00 17 /min [facility] Body height 2024-06-20 06:04:00 167.6 cm [facility] Body weight 2024-06-20 06:04:00 74.435 kg [facility] BMI 2024-06-20 06:04:00 26.49 kg/m2 [facility] Systolic blood pressure 2024-04-10 06:00:00 100 mm[Hg] [facility] Diastolic blood pressure 2024-04-10 06:00:00 66 mm[Hg] [facility] Heart rate 2024-04-10 06:00:00 79 /min [facility] Body temperature 2024-04-10 06:00:00 37.11 Zofia [facility] Respiratory rate 2024-04-10 06:00:00 18 /min [facility] Oxygen saturation in Arterial blood by Pulse oximetry 2024-04-10 06:00:00 99 /min [facility] Body height 2024-04-10 02:05:00 170.2 cm [facility] Body weight 2024-04-10 02:05:00 68.04 kg [facility] BMI 2024-04-10 02:05:00 23.49 kg/m2 [facility] Systolic blood pressure 2024-03-08 00:00:24 100 mm[Hg] [facility] Diastolic blood pressure 2024-03-08 00:00:24 73 mm[Hg] [facility] Heart rate 2024-03-08 00:00:24 79 /[facility] Body temperature 2024-03-08 00:00:24 37 Zofia [facility] Respiratory rate 2024-03-08 00:00:24 20 /min [facility] Oxygen saturation in Arterial blood by Pulse oximetry 2024-03-08 00:00:00 100 /min [facility] Body height 2024-03-07 22:45:00 170.2 cm [facility] Body weight 2024-03-07 22:41:00 72.576 kg [facility] BMI 2024-03-07 22:41:00 25.06 kg/m2 [facility] Heart rate 2022-10-24 15:10:00 98 /min [facility] Respiratory rate 2022-10-24 15:10:00 21 /min [facility] Oxygen saturation in Arterial blood by Pulse oximetry 2022-10-24 15:10:00 98 /min [facility] Systolic blood pressure 2022-10-24 15:00:00 96 mm[Hg] [facility] Diastolic blood pressure 2022-10-24 15:00:00 49 mm[Hg] [facility] Body temperature 2022-10-24 12:30:00 37.06 Zofia [facility] Body height 2022-10-24 12:30:00 167.6 cm [facility] Body weight 2022-10-24 12:30:00 69.128 kg [facility] BMI 2022-10-24 12:30:00 24.60 kg/m2 [facility] Procedures Procedure Date / Time Performed Performing Clinician Source DELIVERY OF PRODUCTS OF CONCEPTION, EXTERNAL APPRO 2024-09-09 00:00:00 GABRIELLE.03 [facility] DRAINAGE OF AMNIOTIC FL, THERAP FROM POC, VIA OPEN 2024-09-09 00:00:00 GABRIELLE.03 [facility] INTRODUCTION OF OTH HORMONE INTO PERIPH VEIN, PERC 2024-09-09 00:00:00 GABRIELLE.03 [facility] URINALYSIS 2024-06-20 06:42:00 [facility]um[facility] ADC ONLY - FERN TEST 2024-06-20 06:42:00 Adum[facility]ubrie [facility] FIRST TRIMESTER LESS THAN 14 WEEKS 2024-04-10 04:53:00 Manuela Vu [facility] ABORH CONFIRMATION (LAB ONLY) 2024-04-10 03:53:00 Manuela Vu [facility] URINALYSIS 2024-04-10 03:34:00 Manuela Vu [facility] BASIC METABOLIC PANEL (NA, K, CL, CO2, GLUCOSE, BUN, CREATININE, CA) 2024-04-10 02:41:00 Manuela Vu [facility] CBC WITH DIFF 2024-04-10 02:41:00 Manuela Vu Uni [facility] HB ABO GROUPING 2024-04-10 02:41:00 Manueal Vu U [facility] POCT TEST 2024-03-07 23:48:00 Rina Mayorga ra [facility] URINALYSIS 2024-03-07 23:45:00 Arlene Mayorga [facility] MAGNESIUM 2024-03-07 22:58:00 Arlene Mayorga [facility] COMP. METABOLIC PANEL (31038) 2024-03-07 22:58:00 Arlene Mayorga [facility] CBC WITH DIFF 2024-03-07 22:58:00 Arlene Mayorga U [facility] [id number] 2023-05-25 00:00:00 SILJA.01 [facility] [id number] 2023-05-25 00:00:00 SILJA.01 [facility] [id number] 2023-05-25 00:00:00 SILJA.01 [facility] [id number] 2022-11-25 00:00:00 MCIAL [facility] COMP. METABOLIC PANEL ([id number]) 2022-10-24 13:41:00 David Vieyra [facility] CBC WITH DIFF 2022-10-24 13:41:00 David Vieyra [facility] POCT TEST 2022-10-24 12:50:00 Trevor Vieyra [facility] URINALYSIS 2022-10-24 12:41:00 David Vieyra [facility] RAPID INFLUENZA A/B 2022-10-24 12:41:00 Trevor Vieyra [facility] COVID-19 (ID NOW RAPID TESTING) 2022-10-24 12:41:00 David Vieyra [facility] NOTICE OF PRIVACY PRACTICES 2022-10-24 12:25:07 Doctor Unassigned, Daphne [facility] CONSENT/REFUSAL FOR DIAGNOSIS AND TREATMENT 2022-10-24 12:23:44 Doctor Unassigned, Daphne [facility] Encounters Start Date/Time End Date/Time Encounter Type Admission Type Attending [facility] Care Department Encounter ID Source 2024-06-20 03:43:33 Outpatient P [facility] JAY JAY [id number] [facility] 2021-01-11 11:32:00 Inpatient EL Tamara Searsdany [facility] LD [id number] [facility] 2020-11-21 11:19:59 Inpatient EM Tamara Searsdany [facility] [id number] [facility] 2020-09-16 12:30:00 Inpatient Tamara Searsdany [facility] STEVE [id number] [facility] 2020-09-13 16:23:13 Inpatient SearsTamaradany [facility] [id number] [facility] 2024-09-08 23:26:00 2024-09-14 17:41:00 Inpatient EM Tamara Searsdany [facility] OBPP [id number] [facility] 2024-08-25 17:50:00 2024-08-25 23:57:00 Emergency EM Tamara Searsdany [facility] STEVE [id number] [facility] 2024-08-03 13:41:00 2024-08-03 16:56:00 Emergency EM Tamara Searsdany [facility] STEVE [id number] [facility] 2024-07-12 19:38:00 2024-07-12 21:58:00 Emergency EM Tamara Searsdany [facility] STEVE [id number] [facility] 2024-06-20 00:20:00 2024-06-20 02:43:00 Outpatient P ADAUBRIE ERNST VIVIAN [facility] JAY JAY [id number] [facility] 2024-06-20 00:20:00 2024-06-20 02:43:00 Hospital Encounter Aubrie Dolan [facility] [id number] [facility] 2024-04-09 21:00:00 2024-04-10 01:25:00 Emergency Manuela Vu [facility] [id number] [id number] [facility] 2024-04-09 21:00:00 2024-04-10 01:25:00 Emergency X MANUELA VU WAKILI [facility] ERT [id number] [facility] 2024-03-23 18:17:00 2024-03-25 12:47:00 Inpatient EM Margo Sears [facility]01 [id number] [facility] 2024-03-07 17:45:00 2024-03-07 19:13:00 Emergency X ARLENE MAYORGA SANDRA [facility] ERT [id number] [facility] 2024-03-07 17:45:00 2024-03-07 19:13:00 Emergency Arlene Mayorga [facility] [id number] [facility] 2023-05-24 16:41:00 2023-05-27 12:40:00 Inpatient EM Margo Sears [facility] OBPP [id number] [facility] 2023-05-18 10:00:00 2023-05-18 12:37:00 Emergency EM Chely Segura [facility] STEVE [id number] [facility] 2023-05-07 10:56:00 2023-05-07 12:31:00 Emergency EM Tamara Searsdany [facility] STEVE [id number] [facility] 2023-03-05 17:30:00 2023-03-05 22:20:00 Emergency EM Tamara Searsdany [facility] STEVE [id number] [facility] 2023-01-31 09:09:00 2023-01-31 09:09:00 Outpatient EL Tamara Searsdany [facility] RADI [id number] [facility] 2022-12-21 19:40:00 2022-12-23 17:46:00 Inpatient EM Tamara Searsdany [facility] MEDI.01 [id number] [facility] 2022-11-22 14:05:00 2022-11-26 17:07:00 Inpatient EM Dolly Garcia [facility] MEDI.01 [id number] [facility] 2022-10-24 07:35:00 2022-10-24 10:15:00 Emergency X DAVID VIEYRA [facility] ERT [id number] [facility] 2022-10-24 07:35:00 2022-10-24 10:15:00 Emergency David Vieyra [facility] [id number] [id number] [id number] [id number] [facility] 2020-11-25 20:45:00 2020-11-25 23:43:00 Emergency EM Tamara Searsdany [facility] STEVE [id number] [facility] 2019-08-31 00:00:00 2019-08-31 00:00:00 Telephone Mary Gordon [facility] 1..840.114 [id number] [id number] [id number] 2019-08-31 00:00:00 2019-08-31 00:00:00 Telephone Mary Gordon [facility] [id number] [id number] [id number] [facility] 2019-02-25 00:00:00 2019-02-25 00:00:00 Telephone Mary Gordon [facility] [id number] [id number] 2019-02-25 00:00:00 2019-02-25 00:00:00 Telephone Mary Gordon [facility] [id number] [id number] [facility] Results Test Description Test Time Test Comments Results Result Co mments Source AB HEPATITIS C [id number] 03:48:00* Test Item Value Reference Range Interpretation Comme nts AB HEPATITIS C (test code = HCVAB) NONREACTIVE NONREACTIVE SIGNAL TO CUTOFF (test code = CUTOFF) 0.14 <0.80 N AB [id number] 03:48:00* Test Item Value Reference Range Interpretation Comme nts AB TREPONEMA (test code = TREPAB) NONREACTIVE NONREACTIVE AB HIV 1 03:48:00* Test Item Value Reference Range Interpretation Comme nts AB HIV 1 2 (test code = [id number]) NONREACTIVE NONREACTIVE Done by Siemens Myagiaur 4th Gen HIV Ag/Ab Combo Screen CBC W/AUTO [id number] 01:40:00* Test Item Value Reference Range Interpretation Comme nts WHITE BLOOD CELL (test code = WBC) 11.9 K/mm3 6.5-12.3 N RED BLOOD CELL (test code = RBC) 3.59 M/mm3 3.51-4.69 N HEMOGLOBIN (test code = HGB) 10.4 g/dL 10.1-13.8 N HEMATOCRIT (test code = HCT) 31.6 % 32.5-41.8 L MEAN CELL VOLUME (test code = MCV) 88.0 fL 84.6-96.6 N MEAN CELL HGB (test code = MCH) 29.0 pg 27.3-33.9 N MEAN CELL HGB CONCETRATION ( test code = MCHC) 32.9 gm/dL 32.0-34.2 N RED CELL DISTRIBUTION WIDTH (test code = RDW) 13.2 % 12.2-16.3 N PLATELET COUNT (test code = PLT) 224 K/mm3 134-363 N MEAN PLATELET VOLUME (test c ode = MPV) 11.3 fL 9.2-12.7 N NEUTROPHIL % (test code = NT%) 58.0 % 57.9-77.3 N LYMPHOCYTE % (test code = LY%) 29.7 % 14.5-29.7 N MONOCYTE % (test code = MO%) 9.9 % 3.6-10.2 N EOSINOPHIL % (test code = EO%) 1.1 % 0.0-3.0 N BASOPHIL % (test code = BA%) 0.3 % 0.1-0.9 N NEUTROPHIL # (test code = NT#) 6.9 K/mm3 LYMPHOCYTE # (test code = LY#) 3.5 K/mm3 MONOCYTE # (test code = MO#) 1.2 K/mm3 EOSINOPHIL # (test code = EO#) 0.13 K/mm3 BASOPHIL # (test code = BA#) 0.0 K/mm3 COMPREHENSIVE METABOLIC [id number] 01:38:00* Test Item Value Reference Range Interpretation Comme nts SODIUM (test code = NA) 140 mEq/L 136-145 N POTASSIUM (test code = K) 3.8 mEq/L 3.4-4.5 N CHLORIDE (test code = CL) 106 mEq/L 98-107 N CARBON DIOXIDE (test code = CO2) 24 mEq/L 20-31 N Please note ne w normal range as of Aug 2024 ANION GAP (test code = GAP) 14 10-20 N GLUCOSE (test code = GLU) 88 mg/dL 74-106 N BLOOD UREA NITROGEN (test code = BUN) <5 mg/dL 8-23 L GLOMERULAR FILTRATION RATE (test code = GFR) 136.76 ml/min >60 N The Glomerular Filtration Rate [...] <18 years. CREATININE (test code = CREAT) 0.5 mg/dL 0.55-1.02 L TOTAL PROTEIN (test code = PROT) 6.1 g/dL 5.7-8.2 N ALBUMIN (test code = ALB) 4.2 g/dL 3.2-4.8 N CALCIUM (test code = CA) 9.7 mg/dL 8.3-10.6 N BILIRUBIN TOTAL (test code = BILT) 0.4 mg/dL 0.3-1.2 N SGOT/AST (test code = AST) 18 units/L < 34 SGPT/ALT (test code = ALT) 8 units/L 10-49 L ALKALINE PHOSPHATASE TOTAL (test code = ALKP) 101 units/L 46-116 N AG [id number] 23:26:00* Test Item Value Reference Range Interpretation Comme nts AG RSV (test code = RSV) NEGATIVE NEGATIVE Coronavirus 2019 nCoV [id number] 23:26:00* Test Item Value Reference Range Interpretation Comme nts Coronavirus 2019 nCoV Bedside (test code = [id number]) Negative Negative Negative results should be treated as presumptive and, ifinconsistent with clinical signs and symptoms or necessaryfor patient management, should be tested with differentauthorized or cleared molecular tests. Negative results donot preclude SARS-COV-2 infection and should not be used asthe sole basis for patient management decisions. Negativeresults should be considered in the context of the patient'srecent exposures, history, presence of clinical signs andsymptoms consistent with COVID-19. This result does not rule out co-infections with otherpathogens. * False negative results may occur if a specimen isimproperly collected, transported or handled. False negativeresults may also occur if amplification inhibitors arepresent in the specimen or if inadequate levels of virusesare present in the specimen. * As with any molecular test, if the virus mutates in [facility] [facility], COVID-19 may not be detected or may bedetected less predictably.TEST PERFORMED UNDER AN EMERGENCY USE AUTHORIZATION FROM [facility] DRUGS OF ABUSE [id number] 22:12:00* Test Item Value Reference Range Interpretation Comme nts UR COCAINE (test code = COCAU) Negative Negative DETECTION CUT OF F: 150 ng/mL UR CANNABINOIDS (test code = CANU) Negative Negative DETECTION CUT OF F: 50 ng/mL UR AMPHETAMINE (test code = AMPHU) Negative Negative DETECTION CUT OF F: 500 ng/mL UR BARBITURATE QUAL (test code = BARBQLU) Negative Negative DETECTION CUT OF F: 200 ng/mL UR BENZODIAZEPINE (test code = BENZU) Negative Negative DETECTION CUT OF F: 200 ng/mL UR OPIATES QUAL (test code = OPIAQLU) Negative Negative DETECTION CUT OF F: 300 ng/mL UR PHENCYCLIDINE (PCP) (test code = PHENCU) Negative Negative DETECTION C UT OFF: 25 ng/mL COMPREHENSIVE METABOLIC [id number] 19:37:00* Test Item Value Reference Range Interpretation Comme nts SODIUM (test code = NA) 141 mEq/L 136-145 N POTASSIUM (test code = K) 3.8 mEQ/L 3.4-4.5 N Please note new normal range as of November 2023 CHLORIDE (test code = CL) 110 mEq/L 98-107 H Please note new normal range as of November 2023 CARBON DIOXIDE (test code = CO2) 21 mEq/L 22-31 L ANION GAP (test code = GAP) 13.8 10-20 N GLUCOSE (test code = GLU) 93 mg/dL 74-106 N Please note new normal range as of November 2023 BLOOD UREA NITROGEN (test code = BUN) 5 mg/dL 8-23 L Please note ne w normal range as of November 2023 CREATININE (test code = CREAT) 0.6 mg/dL 0.55-1.02 N Please note new normal range as of November 2023 TOTAL PROTEIN (test code = PROT) 6.7 g/dL 5.7-8.2 N Please note new normal range as of November 2023 ALBUMIN (test code = ALB) 4.4 g/dL 3.2-4.8 N Please note new normal range as of November 2023 CALCIUM (test code = CA) 9.4 mg/dL 8.3-10.6 N Please note new normal range as of November 2023 BILIRUBIN TOTAL (test code = BILT) 0.4 mg/dL 0.3-1.2 N Please note n ew normal range as of November 2023 SGOT/AST (test code = AST) 20 units/L < 34 SGPT/ALT (test code = ALT) 7 units/L 10-49 L ALKALINE PHOSPHATASE TOTAL (test code = ALKP) 85 units/L 46-116 N Please note n ew normal range as of November 2023 GLOMERULAR FILTRATION RATE (test code = GFR) 130.88 ml/min >60 N The Glomerular Filtration Rate [...] or if thepatient's age is <18 years. URINALYSIS [id number] 18:44:00* Test Item Value Reference Range Interpretation Comme nts UA COLOR (test code = COLU) YELLOW YELLOW UA APPEARANCE (test code = APPU) CLEAR CLEAR UA GLUCOSE DIPSTICK (test co de = DGLUU) NEGATIVE NEG UA BILIRUBIN DIPSTICK (test code = BILU) NEGATIVE NEG UA KETONE DIPSTICK (test cod e = KETU) 1+ NEG A UA SPECIFIC GRAVITY (test co de = SGU) 1.020 1.001-1.035 N UA BLOOD DIPSTICK (test code = BRYSON) NEG NEG UA PH DIPSTICK (test code = GINO) 6.0 5-9 UA PROTEIN DIPSTICK (test co de = PROU) NEGATIVE NEG UA UROBILINIOGEN DIPSTICK (test code = URO) NEGATIVE mg/dL NEG UA NITRITE DIPSTICK (test co de = SHAKIRA) NEG NEG UA LEUKOCYTE ESTERASE DIPSTI CK (test code = LEUU) NEG NEG UA WBC (test code = WBCU) 0-2 #/hpf NONE SEEN UA RBC (test code = RBCU) 0-2 #/hpf NONE SEEN UA EPITHELIAL CELLS (test co de = EPIU) RARE #/HPF RARE-FEW UA BACTERIA (test code = BACU) RARE /HPF RARE-FEW UA MUCUS (test code = MUCU) RARE NONE SEEN URINE SAMPLE: CLEAN CATCHCBC W/AUTO [id number] 18:40:00* Test Item Value Reference Range Interpretation Comme nts WHITE BLOOD CELL (test code = WBC) 11.1 K/mm3 6.5-12.3 N RED BLOOD CELL (test code = RBC) 3.55 M/mm3 3.51-4.69 N HEMOGLOBIN (test code = HGB) 10.4 g/dL 10.1-13.8 N HEMATOCRIT (test code = HCT) 31.7 % 32.5-41.8 L MEAN CELL VOLUME (test code = MCV) 89.3 fL 84.6-96.6 N MEAN CELL HGB (test code = MCH) 29.3 pg 27.3-33.9 N MEAN CELL HGB CONCETRATION ( test code = MCHC) 32.8 gm/dL 32.0-34.2 N RED CELL DISTRIBUTION WIDTH (test code = RDW) 13.2 % 12.2-16.3 N PLATELET COUNT (test code = PLT) 222 K/mm3 134-363 N MEAN PLATELET VOLUME (test c ode = MPV) 11.0 fL 9.2-12.7 N NEUTROPHIL % (test code = NT%) 59.4 % 57.9-77.3 N LYMPHOCYTE % (test code = LY%) 27.8 % 14.5-29.7 N MONOCYTE % (test code = MO%) 10.6 % 3.6-10.2 H EOSINOPHIL % (test code = EO%) 1.2 % 0.0-3.0 N BASOPHIL % (test code = BA%) 0.4 % 0.1-0.9 N NEUTROPHIL # (test code = NT#) 6.6 K/mm3 LYMPHOCYTE # (test code = LY#) 3.1 K/mm3 MONOCYTE # (test code = MO#) 1.2 K/mm3 EOSINOPHIL # (test code = EO#) 0.13 K/mm3 BASOPHIL # (test code = BA#) 0.0 K/mm3 URINALYSIS [id number] 15:08:00* Test Item Value Reference Range Interpretation Comme nts UA COLOR (test code = COLU) YELLOW YELLOW UA APPEARANCE (test code = APPU) CLEAR CLEAR UA GLUCOSE DIPSTICK (test co de = DGLUU) NEGATIVE NEG UA BILIRUBIN DIPSTICK (test code = BILU) NEGATIVE NEG UA KETONE DIPSTICK (test cod e = KETU) 1+ NEG A UA SPECIFIC GRAVITY (test co de = SGU) 1.010 1.001-1.035 N UA BLOOD DIPSTICK (test code = BRYSON) NEG NEG UA PH DIPSTICK (test code = GINO) 6.0 5-9 UA PROTEIN DIPSTICK (test co de = PROU) NEGATIVE NEG UA UROBILINIOGEN DIPSTICK (test code = URO) NEGATIVE mg/dL NEG UA NITRITE DIPSTICK (test co de = SHAKIRA) NEG NEG UA LEUKOCYTE ESTERASE DIPSTI CK (test code = LEUU) NEG NEG UA WBC (test code = WBCU) 0-2 #/hpf NONE SEEN UA RBC (test code = RBCU) 0-2 #/hpf NONE SEEN UA EPITHELIAL CELLS (test co de = EPIU) RARE #/HPF RARE-FEW UA BACTERIA (test code = BACU) RARE /HPF RARE-FEW UA MUCUS (test code = MUCU) RARE NONE SEEN URINE SAMPLE: URINE BAGURINALYSIS [id number] 21:03:00* Test Item Value Reference Range Interpretation Comme nts UA COLOR (test code = COLU) YELLOW YELLOW UA APPEARANCE (test code = APPU) CLEAR CLEAR UA GLUCOSE DIPSTICK (test co de = DGLUU) NEGATIVE NEGATIVE UA BILIRUBIN DIPSTICK (test code = BILU) NEGATIVE NEGATIVE UA KETONE DIPSTICK (test cod e = KETU) NEGATIVE NEGATIVE UA SPECIFIC GRAVITY (test co de = SGU) 1.010 1.001-1.035 N UA BLOOD DIPSTICK (test code = BRYSON) NEG NEGATIVE UA PH DIPSTICK (test code = GINO) 6.5 5-9 UA PROTEIN DIPSTICK (test co de = PROU) NEGATIVE NEGATIVE UA UROBILINIOGEN DIPSTICK (test code = URO) 0.2 EU/dL <=1.0 UA NITRITE DIPSTICK (test co de = SHAKIRA) NEGATIVE NEGATIVE UA LEUKOCYTE ESTERASE DIPSTI CK (test code = LEUU) NEG NEGATIVE UA WBC (test code = WBCU) 5-10 #/hpf NONE SEEN A UA RBC (test code = RBCU) 0-2 #/hpf NONE SEEN UA EPITHELIAL CELLS (test co de = EPIU) MANY #/hpf NONE SEEN A UA BACTERIA (test code = BACU) MODERATE #/hpf NONE SEEN A URINE SAMPLE: CLEAN CATCHRUPTURE OF [id number] 20:47:00* Test Item Value Reference Range Interpretation Comme nts RUPTURE OF MEMBRANES (test c ode = ROM) NON-RUPTURED US FIRST TRIMESTER LESS THAN 14 [id number] 05:31:11Ordering physician: MANUELA VU INDICATION: Contractions in early COMPARISON: None TECHNIQUE: Limited grayscale and Doppler images of the pelvis wereperformed via a transabdominal approach. FINDINGS: The uterus measures 13.2 x 8.4 x 10.7 cm. The cervix appearsclosed, measuring approximately 5.2 cm in length. There is a single liveintrauterine gestation. The placenta is forming anteriorly. Estimatedgestational age by crown-rump length is 13 weeks, 2 days. Amniotic fluidvolume is grossly within normal limits. heart rate is 165 bpm. Theright ovary measures 2.8 x 1.1 x 2.2 cm and the left ovary measures 2.7 x1.9 x 2.8 cm. There is grossly preserved color Doppler flow in the o variesbilaterally. No adnexal mass or free fluid is appreciated.[facility] Only)2024-04-10 04:03:00* Test Item Value Reference Range Interpretation Comme nts ABO & RH (test code = 20) O Positive [facility] (NA, K, CL, CO2, GLUCOSE, BUN, CREATININE, CA)2024-04-10 03:54:06* Test Item Value Reference Range Interpretation Comme nts NA (test code = 1776038695) 133 mmol/L 135-145 L K (test code = 5031489234) 3.1 mmol/L 3.5-5.0 L CL (test code = 8798768250) 105 mmol/L 98-108 CO2 TOTAL (test code = 4778724690) 16 mmol/L 23-31 L AGAP (test code = 5844411939) 12 2-16 BUN (test code = 2175223801) 5 mg/dL 7-23 L GLUCOSE (test code = 8615883931) 103 mg/dL 70-110 CREATININE (test code = 2160-0) 0.58 mg/dL 0.50-1.04 CALCIUM (test code = 3098867917) 8.9 mg/dL 8.6-10.6 eGFR (test code = 08315-2) 133.1 mL/min/1.73m2 CKD-EPI eGFR (2020). Assuming creatinine has been stable day-to-day for at least three months, the eGFR indicates Category G1 (>= 90 mL/min/1.73 m2) Lab Interpretation (test code = 60532-0) Abnormal [facility] with [id number] 03:40:27* Test Item Value Reference Range Interpretation Comme nts WBC (test code = 6690-2) 6.34 4.30-11.10 RBC (test code = 789-8) 3.77 3.93-5.25 L HGB (test code = 718-7) 11.6 g/dL 11.6-15.0 HCT (test code = 4544-3) 33.3 % 35.7-45.2 L MCV (test code = 787-2) 88.3 fL 80.6-95.5 MCH (test code = 785-6) 30.8 pg 25.9-32.8 MCHC (test code = 786-4) 34.8 g/dL 31.6-35.1 RDW-SD (test code = 75676-2) 39.6 fL 39.0-49.9 RDW-CV (test code = 788-0) 12.3 % 12.0-15.5 PLT (test code = 777-3) 194 166-358 MPV (test code = 73866-4) 11.0 fL 9.5-12.9 NRBC/100 WBC (test code = 4988148008) 0.0 0.0-10.0 NRBC x10^3 (test code = 3830180146) See_Comment [Automated messa ge] The system which generated this result transmitted reference range: 10*3/?L. The reference range was not used to interpret this result as normal/abnormal. GRAN MAT (NEUT) % (test code = 770-8) 48.4 % IMM GRAN % (test code = 8392597925) 0.50 % LYMPH % (test code = 736-9) 41.6 % MONO % (test code = 5905-5) 7.6 % EOS % (test code = 713-8) 1.4 % BASO % (test code = 706-2) 0.5 % GRAN MAT x10^3(ANC) (test code = 8613656732) 3.07 10*3/uL 1.88-7.09 IMM GRAN x10^3 (test code = 5095467680) 0.03 10*3/uL 0.00-0.06 LYMPH x10^3 (test code = 731-0) 2.64 10*3/uL 1.32-3.29 MONO x10^3 (test code = 742-7) 0.48 10*3/uL 0.33-0.92 EOS x10^3 (test code = 711-2) 0.09 10*3/uL 0.03-0.39 BASO x10^3 (test code = 704-7) 0.03 10*3/uL 0.01-0.07 Lab Interpretation (test code = 30168-3) [facility]normal [facility] - ONCE [id number] 03:36:00 * Test Item Value Reference Range Interpretation Comme nts ABO & RH (test code = 20) O POSITIVE IAT (test code = 1185) Negative [facility] Center[facility]PRE[facility] METABOLIC [id number] 07:45:00* Test Item Value Reference Range Interpretation Comme nts SODIUM (test code = NA) 138 mEq/L 136-145 N POTASSIUM (test code = K) 3.7 mEQ/L 3.4-4.5 N Please note new normal range as of November 2023 CHLORIDE (test code = CL) 108 mEq/L 98-107 H Please note new normal range as of November 2023 CARBON DIOXIDE (test code = CO2) 26 mEq/L 22-31 N ANION GAP (test code = GAP) 7.7 10-20 L GLUCOSE (test code = GLU) 91 mg/dL 74-106 N Please note new normal range as of November 2023 BLOOD UREA NITROGEN (test code = BUN) <5 mg/dL 8-23 L Please note ne w normal range as of November 2023 CREATININE (test code = CREAT) 0.6 mg/dL 0.55-1.02 N Please note new normal range as of November 2023 TOTAL PROTEIN (test code = PROT) 6.1 g/dL 5.7-8.2 N Please note new normal range as of November 2023 ALBUMIN (test code = ALB) 3.7 g/dL 3.2-4.8 N Please note new normal range as of November 2023 CALCIUM (test code = CA) 8.8 mg/dL 8.3-10.6 N Please note new normal range as of November 2023 BILIRUBIN TOTAL (test code = BILT) 0.3 mg/dL 0.3-1.2 N Please note n ew normal range as of November 2023 SGOT/AST (test code = AST) 14 units/L < 34 SGPT/ALT (test code = ALT) 7 units/L 10-49 L ALKALINE PHOSPHATASE TOTAL (test code = ALKP) 43 units/L 46-116 L Please note n ew normal range as of November 2023 GLOMERULAR FILTRATION RATE (test code = GFR) 131.70 ml/min >60 N The Glomerular Filtration Rate [...] or if thepatient's age is <18 years. COMPREHENSIVE METABOLIC [id number] 08:39:00* Test Item Value Reference Range Interpretation Comme nts SODIUM (test code = NA) 138 mEq/L 136-145 N POTASSIUM (test code = K) 3.8 mEQ/L 3.4-4.5 N Please note new normal range as of November 2023 CHLORIDE (test code = CL) 109 mEq/L 98-107 H Please note new normal range as of November 2023 CARBON DIOXIDE (test code = CO2) 25 mEq/L 22-31 N ANION GAP (test code = GAP) 7.8 10-20 L GLUCOSE (test code = GLU) 92 mg/dL 74-106 N Please note new normal range as of November 2023 BLOOD UREA NITROGEN (test code = BUN) 6 mg/dL 8-23 L Please note ne w normal range as of November 2023 CREATININE (test code = CREAT) 0.6 mg/dL 0.55-1.02 N Please note new normal range as of November 2023 TOTAL PROTEIN (test code = PROT) 5.8 g/dL 5.7-8.2 N Please note new normal range as of November 2023 ALBUMIN (test code = ALB) 3.6 g/dL 3.2-4.8 N Please note new normal range as of November 2023 CALCIUM (test code = CA) 8.2 mg/dL 8.3-10.6 L Please note new normal range as of November 2023 BILIRUBIN TOTAL (test code = BILT) 0.4 mg/dL 0.3-1.2 N Please note n ew normal range as of November 2023 SGOT/AST (test code = AST) 13 units/L < 34 SGPT/ALT (test code = ALT) <7 units/L 10-49 L ALKALINE PHOSPHATASE TOTAL (test code = ALKP) 40 units/L 46-116 L Please note n ew normal range as of November 2023 GLOMERULAR FILTRATION RATE (test code = GFR) 131.70 ml/min >60 N The Glomerular Filtration Rate [...] or if thepatient's age is <18 years. [id number] 08:39:00* Test Item Value Reference Range Interpretation Comme nts MAGNESIUM (test code = MAG) 1.7 mg/dL 1.6-2.6 N Please note new normal range as of November 2023 DRUGS OF ABUSE [id number] 20:57:00* Test Item Value Reference Range Interpretation Comme nts UR COCAINE (test code = COCAU) Negative Negative DETECTION CUT OF F: 150 ng/mL UR CANNABINOIDS (test code = CANU) Negative Negative DETECTION CUT OF F: 50 ng/mL UR AMPHETAMINE (test code = AMPHU) Negative Negative DETECTION CUT OF F: 500 ng/mL UR BARBITURATE QUAL (test code = BARBQLU) Negative Negative DETECTION CUT OFF: 200 ng/mL UR BENZODIAZEPINE (test code = BENZU) Negative Negative DETECTION CUT OF F: 200 ng/mL UR OPIATES QUAL (test code = OPIAQLU) POSITIVE Negative A RESULTS CALLED Ferny DIAZ SINEGARREAD BACK & CONFIRMED?YES BY [id number] 03/23/242055 RESULTS SENT FOR CONFIRMATION OF SCREEN RESULTS These results are to be used only for medical (ie,treatment) purposes. Unconfirmed screening results must notbe used for non-medical purposes (eg, employment testing)DETECTION CUT OFF: 300 ng/mL UR PHENCYCLIDINE (PCP) (test code = PHENCU) Negative NEGATIVE DETECTION C UT OFF: 25 ng/mL UA RFLX MICR CULT IF [id number] 20:47:00* Test Item Value Reference Range Interpretation Comme nts UA COLOR (test code = COLU) YELLOW YELLOW UA APPEARANCE (test code = APPU) CLEAR CLEAR UA GLUCOSE DIPSTICK (test co de = DGLUU) NEGATIVE NEG UA BILIRUBIN DIPSTICK (test code = BILU) NEGATIVE NEG UA KETONE DIPSTICK (test cod e = KETU) 2+ NEG A UA SPECIFIC GRAVITY (test co de = SGU) 1.026 1.001-1.035 N UA BLOOD DIPSTICK (test code = BRYSON) NEG NEG UA PH DIPSTICK (test code = GINO) 6.0 5-9 UA PROTEIN DIPSTICK (test co de = PROU) NEGATIVE NEG UA UROBILINIOGEN DIPSTICK (test code = URO) NEGATIVE mg/dL NEG UA NITRITE DIPSTICK (test co de = SHAKIRA) NEG NEG UA LEUKOCYTE ESTERASE DIPSTI CK (test code = LEUU) NEG NEG UA WBC (test code = WBCU) 0-2 #/hpf NONE SEEN UA RBC (test code = RBCU) 0-2 #/hpf NONE SEEN UA EPITHELIAL CELLS (test co de = EPIU) RARE #/HPF RARE-FEW UA MUCUS (test code = MUCU) 1+ NONE SEEN Indication for culture: Dysuria/FrequencySpecimen Description: CLEAN CATCHHCG [id number] 20:00:00* Test Item Value Reference Range Interpretation Comme nts HCG SERUM (test code = HCG) 05901 mIU/mL INTERPRETATION:V ALUES BETWEEN 15-20 milliInternational units/mL NEED TO BERETESTED WITHIN 48 HOURS. All units for these ranges are in milliInternationalunits/mL0 -1 WK AFTER CONCEPTION 0-50 1-2 WKS AFTER CONCEPTION 40-3002-3 WKS AFTER CONCEPTION 100-1,0003-4 WKS AFTER CONCEPTION 500-6,0001-2 MONTHS AFTER CONCEPTION 5,000-200,0002-3 MONTHS AFTER CONCEPTION 10,000-100,0002ND TRIMESTER 3,000-50,0003RD TRIMESTER 1,000-50,000 SPECIMENS WITH AN HCG LEVEL FROM 0-6 milliInternationalunits/mL SHOULD BE CONSIDERED NEGATIVE CBC W/O [id number] 19:55:00* Test Item Value Reference Range Interpretation Comme nts WHITE BLOOD CELL (test code = WBC) 7.3 K/mm3 6.5-12.3 N RED BLOOD CELL (test code = RBC) 4.33 M/mm3 3.51-4.69 N HEMOGLOBIN (test code = HGB) 13.1 g/dL 10.1-13.8 N HEMATOCRIT (test code = HCT) 36.8 % 32.5-41.8 N MEAN CELL VOLUME (test code = MCV) 85.0 fL 84.6-96.6 N MEAN CELL HGB (test code = MCH) 30.3 pg 27.3-33.9 N MEAN CELL HGB CONCETRATION ( test code = MCHC) 35.6 gm/dL 32.0-34.2 H RED CELL DISTRIBUTION WIDTH (test code = RDW) 12.4 % 12.2-16.3 N PLATELET COUNT (test code = PLT) 192 K/mm3 134-363 N MEAN PLATELET VOLUME (test c ode = MPV) 10.6 fL 9.2-12.7 N COMPREHENSIVE METABOLIC [id number] 19:41:00* Test Item Value Reference Range Interpretation Comme nts SODIUM (test code = NA) 136 mEq/L 136-145 N POTASSIUM (test code = K) 3.3 mEQ/L 3.4-4.5 L Please note new normal range as of November 2023 CHLORIDE (test code = CL) 106 mEq/L 98-107 N Please note new normal range as of November 2023 CARBON DIOXIDE (test code = CO2) 22 mEq/L 22-31 N ANION GAP (test code = GAP) 11.3 10-20 N GLUCOSE (test code = GLU) 89 mg/dL 74-106 N Please note new normal range as of November 2023 BLOOD UREA NITROGEN (test code = BUN) 8 mg/dL 8-23 N Please note ne w normal range as of November 2023 CREATININE (test code = CREAT) 0.6 mg/dL 0.55-1.02 N Please note new normal range as of November 2023 TOTAL PROTEIN (test code = PROT) 7.5 g/dL 5.7-8.2 N Please note new normal range as of November 2023 ALBUMIN (test code = ALB) 4.6 g/dL 3.2-4.8 N Please note new normal range as of November 2023 CALCIUM (test code = CA) 9.4 mg/dL 8.3-10.6 N Please note new normal range as of November 2023 BILIRUBIN TOTAL (test code = BILT) 0.5 mg/dL 0.3-1.2 N Please note n ew normal range as of November 2023 SGOT/AST (test code = AST) 16 units/L < 34 SGPT/ALT (test code = ALT) 8 units/L 10-49 L ALKALINE PHOSPHATASE TOTAL (test code = ALKP) 52 units/L 46-116 N Please note n ew normal range as of November 2023 GLOMERULAR FILTRATION RATE (test code = GFR) 131.70 ml/min >60 N The Glomerular Filtration Rate [...] or if thepatient's age is <18 years. [id number] 19:41:00* Test Item Value Reference Range Interpretation Comme nts LIPASE (test code = LIP) 45 units/L 12-53 N Please note new normal range as of November 2023 POCT [id number] 23:48:00* Test Item Value Reference Range Interpretation Comme nts POCT PREG (test code = 1605) Positive On board controls acceptable with C Line (test code = 3574) Yes POCT PREG LOT # (test code = 3575) [id number] POCT PREG TEST DATE ( test code = 3576) 11/13/2024 Lab Interpretation (test cod e = 87584-4) Normal [facility] (56711)2024-03-07 23:46:53* Test Item Value Reference Range Interpretation Comme nts NA (test code = 4224525145) 137 mmol/L 135-145 K (test code = 3626156998) 3.8 mmol/L 3.5-5.0 CL (test code = 8884360506) 101 mmol/L 98-108 CO2 TOTAL (test code = 4771443245) 28 mmol/L 23-31 AGAP (test code = 4206114573) 8 2-16 BUN (test code = 6903090223) 8 mg/dL 7-23 GLUCOSE (test code = 7631754157) 103 mg/dL 70-110 CREATININE (test code = 2160-0) 0.61 mg/dL 0.50-1.04 TOTAL BILI (test code = 9807287064) 0.7 mg/dL 0.1-1.1 CALCIUM (test code = 2225081667) 9.7 mg/dL 8.6-10.6 T PROTEIN (test code = 9561109952) 7.9 g/dL 6.3-8.2 ALBUMIN (test code = 7099138395) 4.5 g/dL 3.5-5.0 ALK PHOS (test code = 2849813663) 47 U/L 34-122 ALTv (test code = 1742-6) 13 U/L 5-35 AST(SGOT) (test code = 3470809241) 22 U/L 13-40 eGFR (test code = 41812-2) 131.4 mL/min/1.73m2 CKD-EPI eGFR (20 21). Assuming creatinine has been stable day-to-day for at least three months, the eGFR indicates Category G1 (>= 90 mL/min/1.73 m2) [facility] CenterMagnesium2024-[facility] 23:46:53* Test Item Value Reference Range Interpretation Comme nts MAGNESIUM (test code = 3285765659) 1.9 mg/dL 1.7-2.4 Lab Interpretation (test cod e = 22203-7) Normal [facility] CenterCB WITH [id number] 23:22:53* Test Item Value Reference Range Interpretation Comme nts WBC (test code = 6690-2) 8.26 4.30-11.10 RBC (test code = 789-8) 4.25 3.93-5.25 HGB (test code = 718-7) 12.8 g/dL 11.6-15.0 HCT (test code = 4544-3) 37.3 % 35.7-45.2 MCV (test code = 787-2) 87.8 fL 80.6-95.5 MCH (test code = 785-6) 30.1 pg 25.9-32.8 MCHC (test code = 786-4) 34.3 g/dL 31.6-35.1 RDW-SD (test code = 68176-4) 39.1 fL 39.0-49.9 RDW-CV (test code = 788-0) 12.4 % 12.0-15.5 PLT (test code = 777-3) 229 166-358 MPV (test code = 90866-0) 10.4 fL 9.5-12.9 NRBC/100 WBC (test code = 4695610872) 0.0 0.0-10.0 NRBC x10^3 (test code = 7453652013) See_Comment [Automated me ssage] The system which generated this result transmitted reference range: 10*3/?L. The reference range was not used to interpret this result as normal/abnormal. GRAN MAT (NEUT) % (test code = 770-8) 56.2 % IMM GRAN % (test code = 3874669282) 0.40 % LYMPH % (test code = 736-9) 34.9 % MONO % (test code = 5905-5) 7.3 % EOS % (test code = 713-8) 0.7 % BASO % (test code = 706-2) 0.5 % GRAN MAT x10^3(ANC) (test code = 3749622700) 4.65 10*3/uL 1.88-7.09 IMM GRAN x10^3 (test code = 0859153153) 0.03 10*3/uL 0.00-0.06 LYMPH x10^3 (test code = 731-0) 2.88 10*3/uL 1.32-3.29 MONO x10^3 (test code = 742-7) 0.60 10*3/uL 0.33-0.92 EOS x10^3 (test code = 711-2) 0.06 10*3/uL 0.03-0.39 BASO x10^3 (test code = 704-7) 0.04 10*3/uL 0.01-0.07 [facility] 11:07:00* Test Item Value Reference Range Interpretation Comme nts SURGICAL (test code = SR) R UN DATE: 05/28/23 [facility] PAGE 1 RUN TIME: 1107 Specimen Inquiry RUN USER: INTERFACE P ATIENT: KALLI CALDWELL LOC: BLACKUW U #: [id number] AGE/SX: 17/F ROOM: RE05/24/23REG DR: Margo Sears MD, DOB: [birth year] BED: A DIS: 05/27/23 STATUS: DIS IN TLOC: SPEC #: [id number] RECD: 05/26/23 STATUS: SOUFerny REQ #: [id number] DANNI: 05/24/[address] [facility] [address]: Margo Sears MD ENTERED: 05/26/23 SP TYPE: SURGICAL OTHR DR: ORDERED: ANATOMIC SPEC, SPEC TRACK, [id number] PROCEDURES: [id number] (05/26/23) TISSUES: A. PLACENTA, THIRD TRIMESTER (28 + WEEKS) FINAL DIAGNOSIS PLACENTA, DELIVERY: Membranes - Focal mild meconium staining. Cotyledons - Consistent with gestational age. - Focal increased fibrin deposition. Umbilical cord - Three vessels. - Over coiling of cord. GROSS DESCRIPTION Fixative: FormalinLabeled: PlacentaSpecimen received: James placenta with attached membranes and umbilical cordTrimmed weight: 440 gDimensions: 16.8 x 15.2 x 2.9 cmFetal membranes: Dusky pink-dennis, translucentSite of membrane rupture: 2.3 cm from the placental marginFetal surface: Intact, blue-dennis with a normal arborizing vasculature patternUmbilical cord: 3 vessels, 51.3 cm in length and ranges in diameter from 1.5 to 1.8 cmUmbilical cord insertion: Paramarginal; 1.5 cm from closest placental marginUmbilical cord appearance: Pale-rao to light yellow with 5-6 twists per 10 cmMaternal surface: Intact and complete with a slight amount of adherent blood coagulumCut surface: [place]-tanAbnormalities: None identified [employer] sections submitted as follows:A1 umbilical cord and membrane rollA2-A3 full-thickness placental cross-section divided into and maternal aspectsA4 additional section of maternal surface.(CAA; 05/26/2023) Technical component performed at [facility], [place] [address] CONTINUED ON NEXT PAGE R UN DATE: 05/28/23 [facility] - Laboratory PAGE 2 RUN TIME: 1107 Specimen Inquiry RUN USER: INTERFACE S MEHDI #: [id number] PATIENT: KALLI CALDWELL #[id number] (Continued) GROSS DESCRIPTION (Continued) Immunohistochemical stains and Special Stains are performed at [employer] [place], [address] [place] [address], [address], [place] [address] Unless gross only, the diagnosis is based upon microscopic examination. Immunohistochemistry: This test was developed and its performance characteristicsdetermined by this laboratory. It has not been approved nor does it need approval by [place] FDA. Appropriate positive and negative controls are reviewed and judged to beacceptable. This laboratory is certified under the Clinical Laboratory ImprovementAmendments (CLIA-88) as qualified to perform high complexity clinical laboratory testing. MICROSCOPIC DESCRIPTION Microscopic examination is performed and the findings are incorporated in the diagnosis. CLINICAL INFORMATION 05/07/23, OUT OF BODY 0648, IN FORMALIN 1840, 36.6 WEEKS, CHOLESTASIS, PTL. --- Signed _ Sobia Fernandojing 05/28/23 1107 END OF REPORT BILE ACIDS [id number] 01:08:00* Test Item Value Reference Range Interpretation Comme [facility] BILE ACIDS TOTAL (test code = BILEACT) 3.4 umol/L 0.0-10.0 Performed At: [address] [id number] Sanjai MD Ph:[phone] Comments to Cryptography Teacher: add to admission labs drawn on 05/24/23 Specimen Comment: do not drawCOMPREHENSIVE METABOLIC [id number] 17:30:00* Test Item Value Reference Range Interpretation Comme [facility] SODIUM (test code = NA) 142 mEq/L [...] 118 units/L 46-116 H AG HEPATITIS B [id number] 17:15:00* Test Item Value Reference Range Interpretation Comme nts AG HEPATITIS B SURFACE (test code = HBSAG) NONREACTIVE NONREACTIVE AB HEPATITIS C [id number] 17:15:00* Test Item Value Reference Range Interpretation Comme nts AB HEPATITIS C (test code = HCVAB) NONREACTIVE NONREACTIVE SIGNAL TO CUTOFF (test code = CUTOFF) 0.07 <0.80 N AB [id number] 17:15:00* Test Item Value Reference Range Interpretation Comme nts AB TREPONEMA (test code = TREPAB) NONREACTIVE NONREACTIVE AB HIV 1 17:15:00* Test Item Value Reference Range Interpretation Comme nts AB HIV 1 2 (test code = [id number]) NONREACTIVE NONREACTIVE Done by [employer] 4th Gen HIV Ag/Ab Combo Screen CBC W/AUTO [id number] 16:06:00* Test Item Value Reference Range Interpretation [...] code = PLTMR) NORMAL NORMAL RUPTURE OF [id number] 12:12:00* Test Item Value Reference Range Interpretation Comme nts RUPTURE OF MEMBRANES (test c ode = ROM) NON-RUPTURED COVID 19 Asymptomatic IH [id number] 20:21:00* Test Item Value Reference Range Interpretation [...] testsfor detection and/or diagnosis of COVID-19 under Xczlxdu757(b)(1) of the Act, 21 U.S.C. 360bbb-3(b)(1), unless theauthorization is terminated or revoked sooner. URINALYSIS [id number] 18:18:00* Test Item Value Reference Range Interpretation [...] URINE SAMPLE: CLEAN CATCH- US PREG UT [id number] 00:00:00 [facility] : 2005 Sex: F Patient Name: KALLI CALDWELL Unit No: [id number] EXAMS: CPT CODE: [id number] US PREG UT TRANSVAGINAL 18043 PROCEDURE INFORMATION: Exam: US , Limited and [...] of the fetus, adnexa, and/or cervix. Exam focusedon the clinical indication. COMPARISON: US PREG AFTER TRI 01/31/2023 9:31 AM FINDINGS: Gestation: A [...] Sears MD Technologist: Anitha Quesada RDMS Probe: [id number] Trnscrbd D/ (7117) GCD.CPS Orig Print D/T: S: 03/05/2023 (7187) [facility] NAME: KALLI CALDWELL Radiology Department PHYS: Margo Wang MD [address] : 2005 AGE: 17 SEX: F [place] [address] LOC: MarisabelSTEVE PHONE #: [phone] EXAM DATE: 03/05/2023 STATUS: DEP FAX #: [phone] RAD NO: Page 1 Signed Report Patient Name: Jesús CALDWELL No: [id number] EXAMS: CPT CODE: [id number] [facility] UT TRANSVAGINAL [address]9620 (Continued) The [facility] NAME: KALLI CALDWELL Radiology Department PHYS: Margo Wang MD [address] : 2005 AGE: 17 SEX: F [place], [place] [address] LOC: Hailey.STEVE PHONE #: [phone] EXAM DATE: 03/05/2023 STATUS: DEP ER FAX #: [phone] RAD NO: Page 2 Signed Report- US [id number] 00:00:00 [facility] : 2005 Sex: F Patient Name: KALLI CALDWELL Unit No: [id number] EXAMS: CPT CODE: [id number] US LTD 72690 PROCEDURE INFORMATION: Exam: US , Limited and US , Transvaginal Exam date and time: 03/05/2023 8:32 PM Age: 17 years old Clinical indication: Other: Abdominal pain; Gestational age or lmp: 25w2d; ; Additional info: Iup @ 25.2 weeks; Cervical length LABS AND CLINICAL REPORTS: Gestational age (Established): 25 w 2 d Estimated due date (Established): 06/16/2023 TECHNIQUE: Imagingprotocol: Real-time ultrasound of the maternal uterus with image documentation. Transvaginal imaging was used for better evaluation of the fetus, adnexa, and/or cervix. Exam focused on the cl inical indication. COMPARISON: US PREG AFTER 1ST TRI [...] Amniotic fluid index: MIGUEL ANGEL is 13.61 cm.IMPRESSION: A single living IUP is present in breech position with heart rate of 155 bpm. MIGUEL ANGEL is normal and the cervix is competent. The placenta is posterior fundal, however, there is an accessory placental lobe located anteriorly, low lying, with tip 1.4 cm from the internal os. ElectronicallySigned by Sixto Martinez on 03/05/2023 at 2327 Reported and signed by: Crystal Martinez M.D. CC: Margo Sears MD Technologist: Anitha Quesada RDMS Probe: Trnscrbd D/ (2326) GCD.CPS Orig Print D/T: S: 03/05/2023 (2326) [facility] NAME: KALLI CALDWELL Radiology Department PHYS: Margo Wang MD [address] : 2005 AGE: 17 SEX: F [place] [address] LOC: MarisabelSTEVE PHONE #: [phone] EXAM DATE: 03/05/2023 STATUS: DEP ER FAX #: [phone] RAD NO: Page 1 Signed Report Patient Name: KALLI CALDWELL Unit No: [id number] EXAMS: CPT CODE: [id number] US LTD 59824 (Continued) The [facility] NAME: KALLI CALDWELL Radiology Department PHYS: Margo Wang MD [address] : 2005 AGE: 17 SEX: F [place] [address] LOC: MarisabelSTEVE PHONE #: [phone] EXAM DATE: 03/05/2023 STATUS: DEP ER FAX #: [phone] RAD NO: Page 2 Signed Report- US PREG AFTER [id number] 00:00:00 [facility] : 2005 Sex: F Patient Name: KALLI CALDWELL Unit No: [id number] EXAMS: CPT CODE: [id number] US PREG AFTER 1ST TRI 22518 PROCEDURE INFORMATION: Exam: US After First Trimester, Transabdominal Exam date and time: 01/31/2023 9:31 AM Age: 17 years old Clinical indication: Screening exam; Routine US, uterus; Additional info: Anatomy TECHNIQUE: Imaging protocol: Real-time transabdominal obstetrical ultras ound of the maternal pelvis and a second or third trimester with image documentation. COMPARISON: US PREG UT TRANSVAGINAL 12/23/2022 3:00 PM FINDINGS: Gestation: Single, viable intrauterine gestation. heart rate: 146 bpm presentation: Variable. Placenta: Posterior, grade 2 placenta without placenta previa or retroplacental hemorrhage. Amniotic fluid: Normal amniotic fluid by visual estimate. ANATOMY: midline falx: Unremarkable cerebellum: Unremarkable lateral ventricles: Unremarkable cisterna magna: Unremarkable choroid plexus: Unremarkable upper lip and nose: Unremarkable heart four-chamber view, heart size and position: Four- chamber heart visualized with normal situs right ventricular outflow tract: Unremarkable left ventricular outflow tract: Limited by position kidneys: Unremarkable stomach:Unremarkable. Normal situs urinary bladder: Unremarkable spine: Unremarkable [...] (AC) is 21 w 0 d. 57.8 %percentile The [facility] NAME: KALLI CALDWELL Radiology Department PHYS: Margo Wang MD [address] : 2005 AGE: 17 SEX: F [place], [place] [address] LOC: [place] PHONE #: [phone] EXAM DATE: 01/31/2023 STATUS: ALBERTO CLI FAX #: [phone] RAD NO: Page 1 Signed Report (CONTINUED) Patient Name: KALLI CALDWELL Unit No: [id number] EXAMS: CPT CODE: [id number] US PREG AFTER 1ST TRI 09404 (Continued) Humerus length (HL): 3 cm. EGA [...] Technologist: Lala Hood RDMS Probe: Trnscrbd D/ (08) GCD.CPS Orig Print D/T: S: 02/01/2023 (0824) [facility] NAME: KALLI CALDWELL Radiology Department PHYS: Margo Wang MD [address] : 2005 AGE: 17 SEX: F [place], [place] [address] LOC: MarisabelRAD PHONE #: [phone] EXAM DATE: 01/31/2023 STATUS: DEP CLI FAX #: [phone] RAD NO: Page 2 Signed Report Patient Name: KALLI CALDWELL UnitNo: [id number] EXAMS: CPT CODE: [id number] US PREG AFTER 1ST TRI 81426 (Continued) [facility] NAME: KALLI CALDWELL Radiology Department PHYS: Margo Wang MD [address] : 2005 AGE: 17 SEX: F [place], [place] [address] LOC: MarisabelRAD PHONE #: [phone] EXAM DATE: 01/31/2023 STATUS: DEP CLI FAX #: [phone] RAD NO: Page 3 Signed Report- US PREG UT [id number] 00:00:00 [facility] : 2005 Sex: F Patient Name: KALLI CALDWELL Unit No: [id number] EXAMS: CPT CODE: [id number] US PREG UT TRANSVAGINAL 37332 PROCEDURE INFORMATION: Exam: US , Limited and [...] CC: Margo Sears MD Technologist: Radha Cruz [facility] Probe: [id number] Trnscrbd D/ (1546) GCD.CPS Orig Print D/T: S: 12/23/2022 (1547) [facility] NAME: KALLI CALDWELL Radiology Department PHYS: Margo Wang MD [address] : 2005 AGE: 17 SEX: F [place] [address] LOC: F.2606 A PHONE #: [phone] EXAM DATE: 12/23/2022 STATUS: ADM IN FAX #: [phone] RAD NO: Page 1 Signed Report PatientName: KALLI CALDWELL Unit No: [id number] EXAMS: CPT CODE: [id number] US PREG UT TRANSVAGINAL 43014 (Continued) [facility] NAME: KALLI CALDWELL Radiology Department PHYS: Margo Wang MD [address] : 2005 AGE: 17 SEX: F [place], [place] [address] LOC: F.2606 A PHONE #: [phone] EXAM DATE: 12/23/2022 STATUS: ADM IN FAX #: [phone] RAD NO: Page 2 Signed Report- US [id number] 00:00:00 [facility] : 2005 Sex: F Patient Name: KALLI CALDWELL Unit No: [id number] EXAMS: CPT CODE: [id number] US LTD 83608 PROCEDURE INFORMATION: Exam: US , Limited and [...] in transverse position. Low lying placenta. at 1541 Reported and signed by: Tacho Simms MD CC: Margo Sears MD Technologist: Radah Cruz RDMS Probe: Trnscrbd D/ (1546) GCD.CPS Orig Print D/T: S: 12/23/2022 (1547) [facility] NAME: JOHN,KALLI Radiology Department PHYS: Margo Wang MD [address] : 2005 AGE: 17 SEX: F [place], [place] [address] LOC: F.2606 A PHONE #: [phone] EXAM DATE: 12/23/2022 STATUS: ADM IN FAX #: [phone] RAD NO: Page 1 Signed Report Patient Name: KALLI CALDWELL Unit No: [id number] EXAMS: CPT CODE: [id number] US LTD 62206 (Continued) [facility] PHYS: Margo Wang MD [address]: 2005 AGE: 17 SEX: F [place], [place] [address] LOC: F.2606 A PHONE #: [phone] EXAM DATE: 12/23/2022 STATUS: ADM IN FAX #: [phone] RAD NO: Page 2 Signed Report- US PREG UT [id number] 00:00:00 [facility] : 2005 Sex: F Patient Name: KALLI CALDWELL Unit No: [id number] EXAMS: CPT CODE: [id number] US PREG UT TRANSVAGINAL 36172 PROCEDURE INFORMATION: Exam: US , Transvaginal Exam [...] COMPARISON: US LTD 12/21/2022 8:26 PM FINDINGS: Gestation: A single live intrauterine is identified currently in cephalic position with heart tones of 161 bpm. Cervix measures 4 cm length on transvaginal imaging. Maternal ovaries are obscured by overlying gas. No free pelvic fluid seen. heart rate: 161 bpm MATERNAL: Cervix: Cervical length measures 4 cm. IMPRESSION: Cervical length of 4 cm. at 0102 Reported and signed by: Fabrice Avila MD CC: Cady Nelson MD; Margo Sears MD Technologist: Citlalli Krishnamurthy [facility] Probe: [id number] Trnscrbd D/ (0102) GCD.CPS Orig Print D/T: S: 12/22/2022 (0103) [facility] NAME: KALLI CALDWELL Radiology Department PHYS: MEKHIJE. - Cady Nelson MD [address] : 2005 AGE: 17 SEX: F [place], [place] [address] LOC: HEATHER 3 PHONE #: [phone] EXAM DATE: 12/22/2022 STATUS: ADM IN FAX #: [phone] RAD NO: Page 1 Signed Report Patient Name: KALLI CALDWELL Unit No: [id number] EXAMS: CPT CODE: [id number] US PREG UT TRANSVAGINAL 75345 (Continued) The [facility] NAME: KALLI CALDWELL Radiology Department PHYS: DAVI Cady Nelson MD [address] : 2005AGE: 17 SEX: F [place], [place] [address] LOC: HEATHER 3 PHONE #: [phone] EXAMDATE: 12/22/2022 STATUS: ADM IN FAX #: [phone] RAD NO: Page 2 Signed ReportHCG [id number] 21:01:00* Test Item Value Reference Range Interpretation Comme nts HCG SERUM (test code = HCG) 31094 INTERPRETATION:V ALUES BETWEEN 15-20 milliInternational units/mL NEED TO BERETESTED WITHIN 48 HOURS. All units for these ranges are in milliInternationalunits/mL0-1 WK AFTER CONCEPTION 0-50 1-2 WKS AFTER CONCEPTION 40-3002-3 WKS AFTER CONCEPTION 100-1,0003-4 WKS AFTER CONCEPTION 500-6,0001-2 MONTHS AFTER CONCEPTION 5,000-200,0002-3 MONTHS AFTER CONCEPTION 10,000-100,0002ND TRIMESTER 3,000-50,0003RD TRIMESTER 1,000-50,000 SPECIMENS WITH AN HCG LEVEL FROM 0-6 milliInternationalunits/mL SHOULD BE CONSIDERED NEGATIVE BASIC METABOLIC [id number] 20:41:00* Test Item Value Reference Range Interpretation [...] = CA) 8.9 mg/dL 8.4-10.2 N LIVER [id number] 20:41:00* Test Item Value Reference Range Interpretation [...] 46-116 N UA RFLX MICR CULT IF [id number] 20:23:00* Test Item Value Reference Range Interpretation [...] culture: Suprapubic PainSpecimen Description: CLEAN CATCHCBC W/AUTO [id number] 20:18:00* Test Item Value Reference Range Interpretation [...] = PLTMR) NORMAL NORMAL - US ABDOMEN [id number] [facility]:00[facility] 2005 Sex: F Patient Name: AKLLI CALDWELL Unit No: [id number] EXAMS: CPT CODE: [id number] US ABDOMEN LTD 84694 PROCEDURE INFORMATION: Exam: US Abdomen, Limited; Appendix Exam date and time: 12/21/2022 8:39 PM Age: 17 years old Clinical indication: Abdominal pain; ; Additional info: Pain in rllq TECHNIQUE: Imaging protocol: Real time ultrasound of the abdomen with image documentation. Limited exam focused on the appendix. COMPARISON: US DUP AB/PEL/SC LTD 11/21/2022 3:38 PM FINDINGS: Appendix: The appendixis not definitively seen on the exam. There are no thick walled, dilated tubular structure seen to give sonographic evidence of acute appendicitis. There are no fluid collections. The visualized bowel loops appear unremarkable. Notes: Ultrasound has sensitivity of 75-90 percent, specificity of 86-100 percent, and positive predictive value of 89- 93 percent for the diagnosis of appendicitis. However, bowel gas and patient body habitus can limit the exam. IMPRESSION: Unremarkeble limited exam, appendix not definitively visualized. at 2143 Reported and signed by: Ha Fontenot CC: Cady Nelson MD; Margo Sears MD Technologist: Citlalli Krishnamurthy RDMS Probe: Trnscrbd D/ (2146) GCD.CPS Orig Print D/T: S: 12/21/2022 (2146)[facility] Rad[facility] Department PHYS: ROROMarii Cady Olson AMD [address] : 2005 AGE: 17 SEX: F [place] [address] LOC: F.ERSPHONE #: [phone] EXAM DATE: 12/21/2022 STATUS: REG ER FAX #: [phone] RAD NO: Page 1 Signed Report Patient Name: KALLI CALDWELL Unit No: [id number] EXAMS: CPT CODE: [id number] US ABDOMEN LTD 63434 (Continued) [facility] NAME: [facility] Radiology Department PHYS: RORO Colvin Cady Nelson MD [address] : 2005 AGE: 17 SEX: F [place] [address] LOC: F.ERS PHONE #: [phone] EXAM DATE: 12/21/2022 STATUS: REG ER FAX #: [phone] RAD NO: Page 2 Signed Report- US [id number] 00:00:00 [facility] : 2005 Sex: F Patient Name: KALLI CALDWELL Unit No: [id number] EXAMS: CPT CODE: [id number] US LTD 22213 PROCEDURE INFORMATION: Exam: US , Limited Exam date and time: 12/21/2022 8:26 PM Age: 17 yearsold Clinical indication: complicated by abdominal or pelvic [...] in cephalic position with heart tones of 154 bpm. Anterior grade 1 placenta is seen with a heterogeneous hypoechoic avascular area at the inferior placental tip measuring 2.7 x 1.3 x 1.6 cm. Low lying placenta with tip approximately 1.2 cm from the internal cervical os. The cervix measures 3.5 cmlength. Single deepest amniotic fluid pocket measures 4 cm. Maternal right ovary appears normal rogelio uring 2.4 x 1.2 x 1.8 cm. Left [...] Technologist: Citlalli Krishnamurthy RDMS Probe: Trnscrbd D/ (2221) GCD.CPS Orig Print D/T: S: 12/21/2022 (2221) [facility] NAME: KALLI CALDWELL Radiology Department PHYS: ROROMarii Cady Nelson MD [address] : 2005 AGE: 17 SEX: F [place], [place] [address] LOC: Hailey.ERS PHONE #: [phone] EXAM DATE: 12/21/2022 STATUS: REG ER FAX #: [phone] RAD NO: Page 1 Signed Report Patient Name: KALLI CALDWELL Unit No: [id number] EXAMS: CPT CODE: [id number] US LTD 98008 (Continued) [facility] NAME: KALLI CALDWELL Radiology Department PHYS: Samy Nelson MD [address] : 2005 AGE: 17 SEX: F [place], [place] [address] LOC: F.ERS PHONE #: [phone] EXAM DATE: 12/21/2022 STATUS: REG ER FAX #: [phone] RAD NO: Page 2 Signed Report- XR CHEST 1 [id number] 00:00:00[facility] : 2005 Sex: F Patient Name: KALLI CALDWELL Unit No: [id number] EXAMS: CPT CODE: [id number] XR CHEST 1 V 97187 PROCEDURE INFORMATION: Exam: XR Chest Exam date and time: 11/25/2022 3:24 PM Age: 17 years old Clinical indication: Device placement; Picc; Additional info: Picc line placement TECHNIQUE: Imaging protocol: Radiologic exam of the chest. Views: 1 view. COMPARISON: No relevant prior studies available. FINDINGS: Tubes, catheters and devices: Right upper extremity PICC tip overlies the mid superior vena cava.Lungs: No focal consolidation. Pleural spaces: No pleural effusion or pneumothorax. Heart/Mediastinum: No cardiomegaly. Midline trachea. Bones/joints: No acute abnormalities. IMPRESSION: Right upper extremity PICC tip overlies the mid superior vena cava. at 1606 Reported and signed by: Luis Antonio Marcum MD CC: Dolly Garcia MD; Margo Sears MD Technologist: RT Millicent Trnscrbd D/ (160) GCD.CPS Orig Print D/T: S: 11/25/2022 (1606) [facility] NAME: [facility] Radiology DepartmentPHYS: Margo Wang MD [address] : 2005 AGE: 17 SEX: F [place], [place] [address] LOC: F.2650 A PHONE #: [phone] EXAM DATE: 11/25/2022 STATUS: ADM IN FAX #: [phone] RAD NO: Page 1 Signed ReportCOMPREHENSIVE METABOLIC [id number] 05:38:00* Test Item Value Reference Range Interpretation [...] units/L 46-116 L - US PREG UT [id number] 00:00:00 [facility] : 2005 Sex: F Patient Name: KALLI CALDWELL Unit No: [id number] EXAMS: CPT CODE: [id number] US PREG UT TRANSVAGINAL 10301 PROCEDURE INFORMATION: Exam: US First Trimester (Transabdominal), [...] EGA (MSD) is 10 w 3 d [place]-Rump length: 31.2 mm. EGA (CRL) is 10 [...] gestational age 10 weeks 0 days. The [facility] NAME: KALLI CALDWELL Radiology Department PHYS: Margo Wang MD [address] : 2005 AGE: 17 SEX: F [place], [place] [address] LOC: F.2604 A PHONE #: [phone] EXAM DATE: 11/21/2022 STATUS: ADM IN FAX #: [phone] RAD NO: Page 1 Signed Report (CONTINUED) Patient Name: KALLI CALDWELL Unit No: [id number] EXAMS: CPT CODE: [id number] US PREG UT TRANSVAGINAL 59607 (Continued) at 1627 Reported and signed by: Tacho Simms MD CC: Margo Sears MD Technologist: Shayy Kasper RDMS Probe: [id number] Trnscrbd D/ (1626) GCD.CPS Orig Print D/T: S: 11/21/2022 (1626) [facility] NAME: KALLI CALDWELL Radiology DepartmentPHYS: Margo Wang MD [address] : 2005 AGE: 17 SEX: [place], [place] [address] LOC: F.2604 A PHONE #: [phone] EXAM DATE: 11/21/2022 STATUS: ADM IN FAX #: [phone] RAD NO: Page 2 Signed Report Patient Name: KALLI CALDWELL Unit No: [id number] EXAMS: CPT CODE: [id number] US PREG UT TRANSVAGINAL 14338 (Continued) [facility] NAME: KALLI CALDWELL Radiology Department PHYS: Margo Wang MD [address] : 2005 AGE: 17 SEX: [place], [place] [address] LOC: F.2604 A PHONE #: [phone] EXAM DATE: 11/21/2022 STATUS: ADM IN FAX #: [phone] RAD NO: Page 3 Signed Report- DUP AB/PEL/SC/[id number] 00:00:00 [facility] : 2005 Sex: F Patient Name: KALLI CALDWELL Unit No: [id number] EXAMS: CPT CODE: [id number] DUP AB/PEL/SC/LTD 13867 PROCEDURE INFORMATION: Exam: US First Trimester (Transabdominal), [...] exam, limited duplex. Duplex exam was performed toevaluate for torsion and other vascular conditions. COMPARISON: [...] crown-rump length. Estimated due date (AUA): 06/19/2023 [place] diameter: 4.8 cm. EGA (MSD) is 10 w 3 d [place]-Rump length: 31.2 mm. EGA (CRL) is 10 w 0 d MATERNAL: Uterus: Uterus measures 10.0 cm length. Cervix: Unremarkable. Right ovary/adnexa: Right ovary measures 3.4 x 1.7 x 2.5 cm and contains a corpus luteum. Normal color and spectral Doppler. Left ovary/adnexa: Left ovary measures 2.3 x 1.2 x 1.1 cm with normal color and spectral Doppler. Intraperito tiffanie space: No intraperitoneal free fluid. IMPRESSION: Live intrauterine with gestationalage 10 weeks 0 days. The [facility] NAME: KALLI CALDWELL Radiology Department PHYS: Margo Wang MD [address] : 2005 AGE: 17 SEX: F [place], [place] [address] LOC: F.2604 A PHONE #: [phone] EXAM DATE: 11/21/2022 STATUS: ADM IN FAX #: [phone] RAD NO: Page 1 Signed Report (CONTINUED) Patient Name: KALLI CALDWELL Unit No: [id number] EXAMS: CPT CODE: [id number] DUP AB/PEL/SC/LTD 35432 (Continued) Electronically Signed by Tacho Modi 11/21/2022 at 1627 Reported and signed by: Tacho Simms MD CC: Margo Sears MD Technologist: Shayy Kasper RDMS Probe: Trnscrbd D/ (1627) GCD.CPS Orig Print D/T: S: 11/21/2022(1627) [facility] NAME: NETTIE CALDWELLNA Radiology Department PHYS: Margo Wang MD [address] : 2005 AGE: 17 SEX: F [place], [place] [address] LOC: F .2604 A PHONE #: [phone] EXAM DATE: 11/21/2022 STATUS: ADM IN FAX #: [phone] RAD NO: Page2 Signed Report Patient Name: KALLI CALDWELL Unit No: [id number] EXAMS: CPT CODE: [id number] DUP AB/PEL/SC/LTD 87610 (Continued) [facility] NAME: KALLI CALDWELL Radiology Department PHYS: Margo Wang MD [address] : 2005 AGE: 17 SEX: F [place] [address] LOC: Marisabel2604 Chirag PHONE #: [phone] EXAM DATE: 11/21/2022 STATUS: ADM IN FAX #: [phone] RAD NO: Page 3 Signed Report- US PREG EVAL 1ST [id number] [facility]:00[facility]00 [facility] 2005 Sex: F Patient Name: KALLI CALDWELL Unit No: [id number] EXAMS: CPT CODE: [id number] US PREG EVAL 1ST TRIMTR 81663 PROCEDURE INFORMATION: Exam: US First Trimester (Transabdominal), [...] EGA (MSD) is 10 w 3 d [place]-Rump length: 31.2 mm. EGA (CRL) is 10 [...] gestational age 10 weeks 0 days. The [facility] NAME: KALLI CALDWELL Radiology DepartmentPHYS: GABRIELLEShayla - Jaimee Santiago MD [address] : 2005 AGE: 17 SEX: F [place], [place] [address]BPRH NO: [id number] LOC: F.2604 A PHONE #: [phone] EXAM DATE: 11/21/2022 STATUS: ADM IN FAX #: [phone] RAD NO: Page 1 Signed Report (CONTINUED) Patient Name: KALLI CALDWELL Unit No: [id number] EXAMS: CPT CODE: [id number] US PREG EVAL 1ST TRIMTR 76176 (Continued) at 2437 Reported and signed by: Tacho Simms MD CC: Jaimee Santiago MD; Margo Sears MD Technologist: Shayy Kasper RDMS Probe: Trnscrbd D/ (1627) D.CPS Orig Print D/T: S: 11/21/2022 (1627) [facility] NAME: KALLI CALDWELL Radiology Department PHYS: Jaimee Jennings MD [address] : 2005 AGE: 17 SEX: F [place], [place] [address] LOC: F.2604 A PHONE #: [phone] EXAM DATE: 11/21/2022 STATUS: ADM IN FAX #: [phone] RAD NO: Page 2 Signed Report Patient Name: KALLI CALDWELL Unit No:[id number] EXAMS: CPT CODE: [id number] US PREG EVAL 1ST TRIMTR 94599 (Continued) [facility] NAME: KALLI CALDWELL Radiology Department PHYS: Jaimee Jennings MD [address]OB: 2005 AGE: 17 SEX: F [place] [address] LOC: F.2604 A PHONE #: [phone] EXAM DATE: 11/21/2022 STATUS: ADM IN FAX #: [phone] RAD NO: Page 3 Signed ReportCOMPREHENSIVE METABOLIC [id number] 20:43:00* Test Item Value Reference Range Interpretation [...] ALKP) 39 units/L 46-116 L CBC W/AUTO [id number] 20:01:00* Test Item Value Reference Range Interpretation [...] NORMAL NORMAL UA RFLX MICR CULT IF [id number] 19:50:00* Test Item Value Reference Range Interpretation [...] for culture: Suprapubic PainSpecimen Description: CLEAN CATCHPOCT [id number] 12:50:00* Test Item Value Reference Range Interpretation Comme nts POCT PREG (test code = 1605) positive On board controls acceptable with C Line (test code = 3574) present POCT PREG LOT # (test code = 3575) [id number] POCT PREG TEST DATE ( test code = 3576) 08/06/2023 Lab Interpretation (test cod e = 05274-0) [facility] [id number] 11:34:00 * Test Item Value Reference Range [...] testsfor detection and/or diagnosis of COVID-19 under Njinzgk944(b)(1) of the Act, 21 U.S.C. 360bbb-3(b)(1), unless theauthorization is terminated or revoked sooner. Comments to Cryptography Teacher: LOKESH CAG HEPATITIS B [id number] 11:22:00* Test Item Value Reference Range Interpretation Comme nts AG HEPATITIS B SURFACE (test code = HBSAG) NONREACTIVE NONREACTIVE Comments to Cryptography Teacher: LDO CIS CONSENT FORM SIGNED FOR HIV TESTING? YAB HEPATITIS C [id number] 11:22:00* Test Item Value Reference Range Interpretation Comme nts AB HEPATITIS C (test code = HCVAB) NONREACTIVE NONREACTIVE SIGNAL TO CUTOFF (test code = CUTOFF) 0.03 <0.80 N Comments to Cryptography Teacher: LDO CIS CONSENT FORM SIGNED FOR HIV TESTING? YAB [id number] 11:22:00* Test Item Value Reference Range Interpretation Comme nts AB TREPONEMA (test code = TREPAB) NONREACTIVE NONREACTIVE Comments to Cryptography Teacher: LDO CIS CONSENT FORM SIGNED FOR HIV TESTING? YAB HIV 1 11:22:00* Test Item Value Reference Range Interpretation Comme nts AB HIV 1 2 (test code = YJF01MR) NONREACTIVE NONREACTIVE Done by [employer] 4[employer] Gen HIV Ag/Ab Combo Screen Comments to Cryptography Teacher: LDO CIS CONSENT FORM SIGNED FOR HIV TESTING? YCBC W/AUTO [id number] 10:06:00* Test Item Value Reference Range Interpretation [...] code = PLTMR) NORMAL NORMAL RUPTURE OF [id number] 00:27:00* Test Item Value Reference Range Interpretation Comme nts RUPTURE OF MEMBRANES (test c ode = ROM) NON-RUPTURED - US RETRO [id number] 01:16:00 [facility] : 2005 Sex: F Patient Name: KALLI CALDWELL Unit No: [id number] EXAMS: CPT CODE: [id number] US RETRO LTD 84959 EXAM: US, US RETRO LTD: 11/21/2020, 0007 hours Clinical Indication: IUP at 32.4 weeks. Back pain. Flank pain.Comparison: None. TECHNIQUE: Multiple longitudinal and transverse real time sonographic images of the kidneys and urinary bladder are obtained. FINDINGS: KIDNEY: The right kidney measures 12.2 x 5.5x 5.5 cm in length. Cortical thickness: 1.2 cm The left kidney measures 11.6 x 5.2 x 5.2 cm in length. Cortical thickness: 0.9 cm Normal shape, contour, and position. Cortices are normal in thicknessand the cortico- medullary differentiation is maintained. Moderate right hydronephrosis. No echogenic foci/nephrolithiasis. No abnormal perinephric collections. BLADDER: Partly filled urinary bladderand limited due to movements and . Possible bilateral ureteral jets seen, left more appreciable than right. There is no bladder wall thickening or bladder debris noted. AORTA AND IVC: Not well seen due to bowel gas. ASCITES: No ascites noted. IMPRESSION: 1. Moderate right hydronephrosis. SL: DARRIUS at 0116 Reported and s igned by: Sean Torres M.D. CC: Margo Sears MD Technologist: SWATHI SALCIDO RDMS, RVT Probe: Trnscrbd D/ (0116) [id number].[email or web address] Orig Print D/T: S: 11/21/2020 (0119) [facility] NAME: KALLI CALDWELL Radiology Department PHYS: Margo Wang MD [address] : 2005 AGE: 15 SEX: F [place] [address] LOC: F.3004 A PHONE #: [phone] EXAM DATE: 11/20/2020 STATUS: ADM IN FAX #: [phone] RAD NO: Page 1 Signed Report Patient Name: KALLI CALDWELL Unit No: [id number] EXAMS: CPT CODE: [id number] RETRO LTD 03107 (Continued) [facility] NAME: KALLI CALDWELL Radiology Department PHYS: Margo Wang MD [address] : 2005 AGE: 15 SEX: F [place], [place] [address] LOC: F.3004 A PHONE #: [phone] EXAM DATE: 11/20/2020 STATUS: ADM IN FAX #: [phone] RAD NO: Page 2 Signed ReportCOVID 19 Asymptomatic IH [id number] 20:59:00* Test Item Value Reference Range Interpretation [...] testsfor detection and/or diagnosis of COVID-19 under Ohutnfv626(b)(1) of the Act, 21 U.S.C. 360bbb-3(b)(1), unless theauthorization is terminated or revoked sooner. Specimen Comment: LDO DCBC W/AUTO [id number] 19:53:00* Test Item Value Reference Range Interpretation [...] PLTMR) NORMAL NORMAL - US PREG UT [id number] 19:13:00 [facility] : 2005 Sex: F Patient Name: KALLI CALDWELL Unit No: [id number] EXAMS: CPT CODE: [id number] US PREG UT TRANSVAGINAL 40506 biophysical profile with transvaginal imaging of the [...] 1.9 cm using transvaginal imaging. SL: 131 Electronically Signedby Mu Harmon MD on 11/20/2020 at 1913 Reported and signed by: Mu Harmon MD CC: Margo Sears MD Technologist: Mirta Jones RDMS Probe: [id number] Trnscrbd D/ (1912) tVINICIO Orig Print D/T: S: 11/20/2020 (1915) [facility] NAME: JOHNKADEadiology Department PHYS: Margo Wang MD [address] : 2005 AGE: 15 SEX: F [place], [place] [address] LOC: FRANCESCA Jenae PHONE #: [phone] EXAM DATE: 11/20/2020 STATUS: ADM IN FAX #: [phone] RAD NO: Page 1 Signed Report Patient Name: KALLI CALDWELL Unit No: [id number] EXAMS: CPT CODE: [id number] US PREG UT TRANSVAGINAL 92287 (Continued) [facility] NAME: KALLI CALDWELL Radiology Department PHYS: Margo Wang MD [address] : 2005 AGE: 15 SEX: F [place] [address] LOC: FRANCESCA Emanuel PHONE #: [phone] EXAM DATE: 11/20/2020 STATUS: ADM IN FAX #: [phone] RAD NO: Page 2 Signed Report- US FET BIO PH MA W/O [id number] 19:13:00 [facility] 2005 Sex: F Patient Name: KALLI CALDWELL Unit No: [id number] EXAMS: CPT CODE: [id number] US FET BIO PH MA W/O NST 35418 biophysical profile with transvaginal imaging of the cervix dated 11/20/2020. HISTORY: 32weeks . Abdominal pain. Back pain. A limited [...] limits with a measured MIGUEL ANGEL of 14.8cm. The cervix is closed however is shortened [...] at 1913 Reported and signed by: Mu Harmon, [facility]: Margo Sears MD Technologist: Mirta Jones RDMS Probe: Trnscrbd D/ (1912) t.Marycruz FIELD Orig Print D/T: S: 11/20/2020 (1915) [facility] [place] Rad[place] Department PHYS: Margo Wang MD [address] : 2005 AGE: 15 SEX: F [place] [address] LOC: MarisabelBHARATHO D PHONE #: [phone] EXAM DATE: 11/20/2020 STATUS: ADM IN FAX #: [phone] RAD NO: Page 1 Signed Report Patient Name: KALLI CALDWELL Unit No: [id number] EXAMS: CPT CODE: [id number] US FET BIO PH MA W/O NST 34452 (Continued) [facility] [place] Rad[place] Department PHYS: Margo Wang MD [address] : 2005 AGE: 15 SEX: F [place] [address] LOC: MarisabelBHARATHO D PHONE #: [phone] EXAM DATE: 11/20/2020 STATUS: ADM IN FAX #: [phone] RAD NO: Page 2 Signed ReportFETAL [id number] 18:59:00* Test Item Value Reference Range Interpretation [...] 34 weeks, 6 days of gestation. URINALYSIS [id number] 18:10:00* Test Item Value Reference Range Interpretation [...] NONE SEEN URINE SAMPLE: CLEAN CATCHRUPTURE OF [id number] 23:18:00* Test Item Value Reference Range Interpretation Comme nts RUPTURE OF MEMBRANES (test c ode = ROM) NON-RUPTURED URINALYSIS [id number] 13:46:00* Test Item Value Reference Range Interpretation [...] URINE SAMPLE: CLEAN CATCH- US PREG UT [id number] 17:48:00 [facility] : 2005 Sex: F Patient Name: KALLI CALDWELL Unit No: [id number] EXAMS: CPT CODE: [id number] US PREG UT TRANSVAGINAL 24348 TRANSABDOMINAL AND TRANSVAGINAL OBSTETRICAL PELVIC ULTRASOUND INDICATION: [...] placental abruption. 3. The uterine cervix is closedand the cervical length is 3.5 cm. at 1748 Reported and signed by: Reggie Nick DO CC: Margo Sears MD Technologist: Lorenza Montiel RDMS, RVT Probe: [id number] Trnscrbd D/ (1748) t.JB33 Orig Print D/T: S: 09/13/2020 (1752) [facility] NAME: KALLI CALDWELL Radiology Department PHYS: Margo Wang MD [address] : 2005 AGE: 15 SEX: F [place] [address] LOC: MarisabelSTEVE PHONE #: [phone] EXAM DATE: 09/13/2020 STATUS: REG ER FAX #: [phone] RAD NO: Page 1 Signed Report Patient Name: KALLI CALDWELL Unit No: [id number] EXAMS: CPT CODE: [id number] US PREG UT TRANSVAGINAL 13004 (Continued) [facility] NAME: KALLI CALDWELL Radiology DepartmentPHYS: Margo Wang MD [address] : 2005 AGE: 15 SEX: F [place] [address] LOC: MarisabelSTEVE PHONE #: [phone] EXAM DATE: 09/13/2020 STATUS: REG ER FAX #: [phone] RAD NO: Page 2 Signed Report- US [id number] 17:48:00[facility] : 2005 Sex: F Patient Name: KALLI CALDWELL Unit No: [id number] EXAMS: CPT CODE: [id number] LTD 06322 TRANSABDOMINAL AND TRANSVAGINAL OBSTETRICAL PELVIC ULTRASOUND INDICATION: [...] a single live intrauterine gestation in vertex presenta tion. 2. There is no placenta previa or placental abruption. 3. The uterine cervix is closed and the cervical length is 3.5 cm. at 1748 Reported and signed by: Reggie Nick DO CC: Vishnu Allen III, MD; Margo Sears MD Technologist: RENETTA Arcos, RVT Probe: Trnscrbd D/ (1748) [id number] Orig Print D/T: S: 09/13/2020 (1752) [facility] NAME: KALLI CALDWELL Radiology Department PHYS: Vishnu Vázquez III, MD [address] : 2005 AGE: 15 SEX: F [place], [place] [address] LOC: F.STEVE PHONE #: [phone] EXAM DATE: 09/13/2020 STATUS: REG ER FAX #: [phone] RAD NO: Page 1 Signed Report Patient Name: KALLI CALDWELL Unit No: [id number] EXAMS: CPT CODE: [id number] US LTD 20793 (Continued) [facility] NAME: KALLI CALDWELL Radiology Department PHYS: Vishnu Vázquez III, MD [address] : 2005 AGE: 15 SEX: F [place], [place] [address] LOC: F.STEVE PHONE #: [phone] EXAM DATE: 09/13/2020 STATUS: REG ER FAX #: [phone] RAD NO: Page 2 Signed Report Notes Date/Time Note Provider Source 2024-09-14 18:53:00 [facility] ([facility]) OB Disch REPORT#:[id number] REPORT STATUS: Signed REPORT INITIALIZATION DATE:09/14/24 TIME: 1852 PATIENT: KALLI CALDWELL UNIT #: [id number] ROOM/BED: : 03 AGE: 19 SEX: F ATTEND: Margo Sears MD ADM AUTHOR: Patricia Manzo MD REPT SERVICE DT/TIME: 09/14/241852 * ALL edits or amendments must be made on the electronic/computer document * Subjective Subjective Admission EGA: Weeks: 36 Days: 2 EGA at delivery (wks/days): 36 weeks Status/day: post (1) Comments: intermittently mad and overwhelmed by her son's NICU status. denies any SI/HI Objective General VS: Vital Signs Date Temp Pulse Resp B/P B/P Mean Pulse Ox FiO2 09/14 98.0-98.1 74-108 18 108-115/69-73 82.0-86.9 97-99 Last Documented: Result Date Time B/P Mean 82.0 09/14 738 Pulse Ox 97 09/14 738 B/P 108/69 09/14 738 Temp 98.0 09/14 738 Pulse 74 09/14 738 Resp 18 09/14 738 PATIENT WEIGHT: Weight (lb): 180 Weight (oz): Weight (kg): 81.800 Physical Exam Cardiac: normal rhythm Lungs: unlabored breathing Neuro: Exam: alert, oriented x3 Abdomen: post gravid, soft, no abnormal tenderness Uterus: non-tender Fundus: below the umbilicus Discharge Summary General Free Text A P: 19y/o s/p at 36.3wks after spontaneous labor, with c/b cholestasis now having exacerbation of mood disorder PPD#5 Assessment: -ID: Afebrile. No signs or symptoms of infection -Heme: pre-delivery hgb 10.4, no hemorrhage, no need for oral iron supplement for chronic iron deficiency -CV/Pulm: hemodynamically stable -GI/: tolerating regular diet, voiding spontaneously, Colace for bowel regimen -Mother/Baby: patient reports that her remains in NICU and intubated. Possible extubation Friday. 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-in status so she can visit her other two children and visit her son in the NICU (was successfully extubated today and on CPAP) -medication uptitrated recently (Buspirone frequency was changed from BID to TID and Sertraline dose was increased from 50 mg po qbedtime to 75 mg) -s/p psych consult who agreed with the above medication adjustments and agreed that she was safe for discharge home 2) Kidney infections- asymptomatic -PSH: Eustachian tubes 2004 3) Intrahepatic cholestasis of - patient does not complaint of pruritis Assessment: nml progress Hospital course: spontaneous labor, spontaneous vag delivery Discharge condition: stable Discharge to: Home/Self Care Discharge diagnosis: pre-term PROM Baby A: Vaginal delivery: spontaneous status: live born Gender: male 1 minute: 7 5 minutes: 9 Discharge Instructions Instructions: routine instr sheet given, instr and warnings rev'd Diet: Regular Activity: As Tolerated, Light Duty, No Driving, No [place] for 6 Wks, No Lifting >20lbs, No Sports/Activities, No Strenuous Activity, No Swimming, Nothing in vagina pre f/u, Shower Only Additional discharge routines: None Notify PCP of these S/S: Increased tenderness/pain, Moderate/large bleeding, Temp. 101 or greater Discharge meds: Stop taking the following medications: ONDANSETRON ODT (ZOFRAN ODT) 4 MG TAB.RAPDIS 4 MILLIGRAM ORAL EVERY 6 HOURS. Qty = 90 PROGESTERONE,MICRONIZED (PROGESTERONE) 100 MG CAP 100 MILLIGRAM ORAL DAILY. Continue taking these medications: busPIRone (BUSPIRONE) (Unknown Strength) TAB Unknown Dose ORAL TWICE DAILY. ALBUTEROL (PROAIR DIGIHALER 90 MCG/ACT 0.65 GM) 90 MCG INHALER 2 PUFF INHALATION RT - EVERY 4 HOURS. IRON (EZFE 200) 200 MG IRON CAP 200 MILLIGRAM ORAL DAILY. Start taking the following new medications: SERTRALINE (ZOLOFT) 50 MG TAB 75 MILLIGRAM ORAL BEDTIME. Qty = 30 No Refills IBUPROFEN (MOTRIN) 600 MG TAB 600 MILLIGRAM ORAL EVERY 6 HOURS NEEDED. as needed for PAIN SCALE 1-3 ( USE 1ST) Days = 10 Qty = 40 Refills = 1 busPIRone (BUSPIRONE) 10 MG TAB 10 MILLIGRAM ORAL THREE TIMES A DAY. Qty = 90 No Refills Consultation(s): Consultation performed: psychiatrist at 1900 RPT #:[id number] END OF REPORT [facility] 2024-09-13 10:16:00 [facility]) OB Postpart Progr Note REPORT#:[id number] REPORT STATUS: Signed REPORT INITIALIZATION DATE:09/13/24 TIME: 1016 PATIENT: KALLI CALDWELL UNIT #: [id number] ROOM/BED: : 03 AGE: 19 SEX: F ATTEND: Margo Sears MD ADM AUTHOR: Margo Sears MD REPT SERVICE DT/TIME: 09/13/24 1016 * ALL edits or amendments must be made on the electronic/computer document * Subjective Subjective Admission EGA: Weeks: 36 Days: 2 EGA at delivery (wks/days): 36 weeks Status/day: post (1) Patient reports: Patient reports: Yes: complaints, normal lochia, pain management effective, tolerating po well , voiding well, voiding without pain, tolerating ambulation, flatus, difficulty nursing. No: bowel movement, nausea, vomiting, excessive bleeding, abdominal pain, perineal pain, headache, blurred vision. Free Text Subj Notes Free Text Subj Notes: Patient still feels very down, has not seen psych yet. No suicidal or homicidal ideations. Objective Nursing Documentation Review Nursing data: The data set between the solid lines has been imported from nursing documentation. Any exceptions have been noted below under Provider comments. Feeding preference: Post hemorrhage risk score: MedRisk Provider comments on imported nursing data: [] General VS: Vital Signs Date Temp Pulse Resp B/P B/P Mean Pulse Ox FiO2 09/12-09/13 98.4 72-77 19-20 96-109/57-67 70.2-80.8 92-95 Last Documented: Result Date Time Pulse Ox 95 09/13 925 B/P 109/67 09/13 925 B/P Mean 80.8 09/13 925 Temp 98.4 09/13 925 Pulse 72 09/13 925 Resp 19 09/13 925 PATIENT WEIGHT: Weight (lb): 180 Weight (oz): Weight (kg): 81.800 Medications: Active Meds + DC'd Last 24 Hrs Sertraline HCl (Zoloft 25 Mg Tablet) 75 MG BEDTIME PO Buspirone HCl (BUSPAR 10 MG) 10 MG TID PO Acetaminophen (ACETAMINOPHEN 325 MG TAB) 650 MG Q6H PRN PRN PO Ibuprofen (IBUPROFEN 600 MG TAB) 600 MG Q6H PRN PRN PO Multivit/Folic Acid/Iron ( Vitamin Tablet) 1 TAB DAILY PO Docusate Sodium (DOCUSATE SODIUM 100 MG CAP) 100 MG Q12HR PO Benzocaine (AMERICAINE) 1 APPLIC DAILY PRN PRN TOPICAL (CKD) Benzocaine/Menthol (Chloraseptic Sore Throat Lozng) 1 EACH ASDIR PRN MM (CKD) Carboprost Tromethamine (HEMABATE 250 MCG/ML AMP) 250 MCG Q15M PRN PRN IM Guaifenesin/Dextromethorphan (guaiFENesin W DM 10 ML UD) 10 ML Q4H PRN PRN PO Hydrocortisone/Pramoxine (ANALPRAM HC 2.5% CRM SINGLES) 1 GM ASDIR PRN TOPICAL (CKD) Loperamide HCl (LOPERAMIDE HCL 2 MG CAP) 4 MG ASDIR PRN PO Magnesium Hydroxide (MILK OF MAGNESIA 30 ML UD) 30 ML BID PRN PRN PO Measles/Mumps/Rubella Vaccine Live (M-M-R II VACCINE W DILUENT) 0.5 ML ASDIR PRN SUBQ Methylergonovine Maleate (METHERGINE 0.2 MG/ML 1 ML AMP) 0.2 MG Q2H PRN PRN IM Misoprostol (CYTOTEC 200MCG TAB) 600 MCG ASDIR PRN PO Multi-Ingredient GI Drug (Maalox Oral Liquid) 30 ML Q4H PRN PRN PO Ondansetron Base (ZOFRAN ODT 4MG) 4 MG Q6H PRN PRN PO Ondansetron HCl (ZOFRAN 2 MG/ML 4 MG SYR) 4 MG Q6H PRN PRN IV Oxycodone HCl (OXYIR 5MG TAB) 5 MG Q4H PRN PRN PO Oxycodone HCl (Oxycodone HCl 10 MG IR) 10 MG Q4H PRN PRN PO Polyethylene Glycol (POLYETHYLENE GLYCOL PKT) 17 GM DAILY PRN PRN PO Promethazine HCl (Phenergan 25 MG) 25 MG Q6H PRN PRN IM Simethicone (SIMETHICONE 80 MG TAB) 80 MG PC HS PRN PO Tranexamic Acid (Cyklokapron) 1,000 MG ASDIR PRN IV Sodium Chloride (SODIUM CHLORIDE 0.9% 100 mL MBP) 100 ML Witch Sushma/Glycerin (A-E-R) 1 APPLIC ASDIR PRN TOPICAL Loperamide HCl (LOPERAMIDE HCL 2 MG CAP) 2 MG Q4H PRN PRN PO Physical Exam Lungs: unlabored breathing Neuro: Exam: alert, oriented x3 Abdomen: soft, no abnormal tenderness, no guarding, no rebound tenderness Uterus: firm, involution appropriate, non-tender Fundus: firm, below the umbilicus, non-tender Lochia: normal Add'l comments: Affect flat, jittery, restless, good eye contact Results Results: labs reviewed, vital signs reviewed, vital signs stable Diagnosis, Assessment Plan Diagnosis, Assessment Plan Free text A P: 19y/o s/p at 36.3wks after spontaneous labor, with c/b cholestasis now having exacerbation of mood disorder PPD#4 Assessment: -ID: Afebrile. No signs or symptoms of infection -Heme: pre-delivery hgb 10.4, no hemorrhage, no need for oral iron supplement for chronic iron deficiency -CV/Pulm: hemodynamically stable -GI/: tolerating regular diet, voiding spontaneously, Colace for bowel regimen -Mother/Baby: patient reports that her infant remains in NICU and intubated. Possible extubation Friday. She was given emotional support -Pain control: she complains of lower back pain and she is using a heating pad in addition to oral pain medications -Rubella immune /Rh positive -PMH: 1) bipolar disorder, anxiety/depression: patient states she is not thriving well in terms of her mental health. Her discharge was delayed so that her primary Ob/ Billiard Table Mechanic, Dr. Sears could adjust her psychiatric mediations (Buspirone frequency was changed from BID to TID and Sertraline dose was increased from 50 mg po qbedtime to 75 mg). We discussed that having a in NICU can make blues amplified. She feels "down" but she denies having suicidal and homicidal today. A male support person is at her bedside. She explains that the last time she met with her psychiatrist (Dr. Amauri Pisano) was before and she took Gabapentin at that time. She does not have a psychotherapist. She was given recommendation to contact her psychiatrist to re-establish care this week and she was given contact information for [employer] ([email or web address]) to establish care with a psychotherapist. awaiting psychiatry retirement consultant Dr. Madisyn Espinoza ( appreciate her recommendations) to determine if Buspirone 10 mg po TID and Sertraline 75 mg po qbedtime is the appropriate regimen for her mood disorder with exacerbation and if she is safe for discharge to home Still awaiting psych consult prior to dc home. History of pp depression 6 months with first baby. 2) Kidney infections- asymptomatic -PSH: Eustachian tubes 2004 3) Intrahepatic cholestasis of - patient does not complaint of pruritis -Dispo: anticipate discharge home on PPD #4 if cleared by psychiatrist. Social work consult order will be placed as well Assessment: nml progress Consultation(s): Consultation performed: psychiatrist Plan discussed with: patient at 1545 RPT #:[id number] END OF REPORT [facility] 2024-09-12 19:37:00 [facility] ([facility]) OB Postpart Progr Note REPORT#:[id number] REPORT STATUS: Signed REPORT INITIALIZATION DATE:09/12/24 TIME: 1936 PATIENT: KALLI CALDWELL UNIT #: [id number] ROOM/BED: : 03 AGE: 19 SEX: F ATTEND: Margo Sears MD ADM AUTHOR: Nuvia Schafer MD REPT SERVICE DT/TIME: 09/12/241936 * ALL edits or amendments must be made on the electronic/computer document * Subjective Subjective Admission EGA: Weeks: 36 Days: 2 EGA at delivery (wks/days): 36 weeks Status/Day: post (day 3) Comments: Ms. Caldwell reports that she feels "down." She explains that her baby remains intubated in NICU and she feels very "emotional." She has noticed swollen legs for which she is wearing antiembolism stockings. She reports having "severe back pain" which she rates 8/10 on pain scale Objective Nursing Documentation Review Nursing Data: The data set between the solid lines has been imported from nursing documentation. Any exceptions have been noted below under Provider comments. Feeding preference: Post hemorrhage risk score: MedRisk Provider comments on imported nursing data: [] General VS: Vital Signs: Date Time Temp Pulse Resp B/P B/P Pulse O2 O2 Flow FiO2 Mean Ox Delivery Rate 09/12 930 83.0 09/12 930 98.4 72 18 109/70 97 09/11 2346 97.5 76 18 106/69 81.1 96 PATIENT WEIGHT: Weight (lb): 180 Weight (oz): Weight (kg): 81.800 Physical Exam Breasts: Feeding: pumping breasts Lungs: no distress Neuro: Exam: alert, oriented x3, normal speech Abdomen: soft, no abnormal tenderness, no guarding, no rebound tenderness Incision site: none Uterus: firm, involution appropriate, non-tender Fundus: firm, below the umbilicus, non-tender Lochia: normal Lower extremities: Edema: trace (compression stockings in place) Diagnosis, Assessment Plan Diagnosis, Assessment Plan Free text A P: 19y/o s/p at 36.3wks after spontaneous labor, with c/b cholestasis now having exacerbation of mood disorder PPD#3 Assessment: -ID: Afebrile. No signs or symptoms of infection -Heme: pre-delivery hgb 10.4, no hemorrhage, no need for oral iron supplement for chronic iron deficiency -CV/Pulm: hemodynamically stable -GI/: tolerating regular diet, voiding spontaneously, Colace for bowel regimen -Mother/Baby: patient reports that her remains in NICU and intubated. She was given emotional support -Pain control: she complains of lower back pain and she is using a heating pad in addition to oral pain medications -Rubella immune /Rh positive -PMH: 1) bipolar disorder, anxiety/depression: patient states she is not thriving well in terms of her mental health. Her discharge was delayed so that her primary Ob/ Billiard Table Mechanic, Dr. Sears could adjust her psychiatric mediations (Buspirone frequency was changed from BID to TID and Sertraline dose was increased from 50 mg po qbedtime to 75 mg). We discussed that having a in NICU can make blues amplified. She feels "down" but she denies having suicidal and homicidal today. A male support person is at her bedside. She explains that the last time she met with her psychiatrist (Dr. Amauri Pisano) was before and she took Gabapentin at that time. She does not have a psychotherapist. She was given recommendation to contact her psychiatrist to re-establish care this week and she was given contact information for [email or web address] ([email or web address]) to establish care with a psychotherapist. Will consult psychiatry retirement consultant Dr. Madisyn Espinoza (appreciate her recommendations) to determine if Buspirone 10 mg po TID and Sertraline 75 mg po qbedtime is the appropriate regimen for her mood disorder with exacerbation and if she is safe for discharge to home 2) Kidney infections- asymptomatic -PSH: Eustachian tubes 2004 3) Intrahepatic cholestasis of - patient does not complaint of pruritis -Dispo: anticipate discharge home on PPD #4 if cleared by psychiatrist. Social work consult order will be placed as well Assessment: nml progress at 2038 RPT #:[id number] END OF REPORT [facility] 2024-09-10 16:20:00 [facility] ([facility]) Clinical Note REPORT#:[id number] REPORT STATUS: Signed REPORT INITIALIZATION DATE:09/10/24 TIME: 162 PATIENT: KALLI CALDWELL UNIT #: [id number] ROOM/BED: : 03 AGE: 19 SEX: F ATTEND: Margo Sears MD ADM AUTHOR: Margo Sears MD REPT SERVICE DT/TIME: 09/10/24 1620 * ALL edits or amendments must be made on the electronic/computer document * Clinical Note Note: Patient reports feeling anxious and mood not stable. No suicidal or homicidal ideations. Tolerating zoloft 50mg daily. Will add back buspar 10mg 3 times a day and monitor mood. Baby is doing ok but in NICU. at 1621 RPT #:[id number] END OF REPORT [facility] 2024-09-10 09:11:00 [facility] ([facility]) OB Disch REPORT#:[id number] REPORT STATUS: Signed REPORT INITIALIZATION DATE:09/10/24 TIME: 09 PATIENT: KALLI CALDWELL UNIT #: [id number] ROOM/BED: : 03 AGE: 19 SEX: F ATTEND: Margo Sears MD ADM AUTHOR: Zenobia Castillo REPT SERVICE DT/TIME: 09/10/24 0911 * ALL edits or amendments must be made on the electronic/computer document * Subjective Subjective Admission EGA: Weeks: 36 Days: 2 EGA at delivery (wks/days): 36 weeks Status/day: post (1) Patient reports: Patient reports: Yes: normal lochia, pain management effective, tolerating po well, voiding well, voiding without pain, tolerating ambulation, flatus. No: complaints, bowel movement, nausea, vomiting, excessive bleeding, abdominal pain, perineal pain, difficulty nursing, headache, blurred vision. Objective General VS: Vital Signs Date Temp Pulse Resp B/P B/P Mean Pulse Ox FiO2 09/09-09/10 97.7-98.2 93-189 18 95-128/54-78 68.0-96.0 76-100 Last Documented: Result Date Time B/P Mean 68.0 09/10 6 Pulse Ox 96 09/107 B/P 96/54 09/10 000 Temp 98.2 09/10 6 Pulse 109 09/10 000 Resp 18 09/10 000 PATIENT WEIGHT: Weight (lb): 180 Weight (oz): Weight (kg): 81.800 Physical Exam Lungs: unlabored breathing Neuro: Exam: alert, oriented x3 Abdomen: post gravid, soft, no abnormal tenderness Results Findings/Data: Laboratory Tests: 09/09 004 Chemistry Sodium (136 - 145 mEq/L) 140 Potassium (3.4 - 4.5 mEq/L) 3.8 Chloride (98 - 107 mEq/L) 106 Carbon Dioxide (20 - 31 mEq/L) 24 Anion Gap (10 - 20) 14 BUN (8 - 23 mg/dL) <5 L Creatinine (0.55 - 1.02 mg/dL) 0.5 L Glomerular Filtr Rate (>60 ml/min) 136.76 Glucose (74 - 106 mg/dL) 88 Calcium (8.3 - 10.6 mg/dL) 9.7 Total Bilirubin (0.3 - 1.2 mg/dL) 0.4 AST (< 34 units/L) 18 ALT (10 - 49 units/L) 8 L Total Alk Phosphatase (46 - 116 units/L) 101 Total Protein (5.7 - 8.2 g/dL) 6.1 Albumin (3.2 - 4.8 g/dL) 4.2 Hematology WBC (6.5 - 12.3 K/mm3) 11.9 RBC (3.51 - 4.69 M/mm3) 3.59 Hgb (10.1 - 13.8 g/dL) 10.4 Hct (32.5 - 41.8 %) 31.6 L MCV (84.6 - 96.6 fL) 88.0 MCH (27.3 - 33.9 pg) 29.0 MCHC (32.0 - 34.2 gm/dL) 32.9 RDW (12.2 - 16.3 %) 13.2 Plt Count (134 - 363 K/mm3) 224 MPV (9.2 - 12.7 fL) 11.3 Neut % (Auto) (57.9 - 77.3 %) 58.0 Lymph % (Auto) (14.5 - 29.7 %) 29.7 Robertson % (Auto) (3.6 - 10.2 %) 9.9 Eos % (Auto) (0.0 - 3.0 %) 1.1 Baso % (Auto) (0.1 - 0.9 %) 0.3 Neut # (Auto) (K/mm3) 6.9 Lymph # (Auto) (K/mm3) 3.5 Robertson # (Auto) (K/mm3) 1.2 Eos # (Auto) (K/mm3) 0.13 Baso # (Auto) (K/mm3) 0.0 Serology Treponema pallidum Ab (NONREACTIVE) NONREACTIVE Hep Bs Antigen (NONREACTIVE) NON REACTIVE Hepatitis C Antibody (NONREACTIVE) NONREACTIVE Hep C Ab Signal/Cutoff (<0.80) 0.14 HIV 1 2 Antibody (NONREACTIVE) NONREACTIVE Discharge Summary General Free Text A P: 19y/o s/p at 36.3wks after spontaneous labor, with c/b cholestasis 1. PPD#2- AFVSS, no si/sx infection. Patient is feeling well overall and desires discharge home tomorrow on PPD#2 pending her pain. Patient is visiting her in NICU 3. Her pain is well managed and bleeding is light. 2. O+/RI 3. GBS neg/3T HIV neg 4. Cholestasis: urosodiol prn 5. PMHx: bipolar disorder, anxiety/depression: restart home meds. 6. Dispo- cont routine pp care, d/c home tomorrow per patient's request. F/u in 2 weeks for telemed appt or sooner if pain is uncontrolled, bleeding is severe, temp >101F, or poor maternal/ bonding. Assessment: nml progress Date of admission: Date of admission: 09/08/24 Admission diagnosis: labor-spontaneous Hospital course: spontaneous labor, augmentation of labor, spontaneous vag delivery Procedures: spontaneous vaginal deliv Discharge condition: stable Discharge to: Home/Self Care Discharge diagnosis: pre-term PROM Baby A: Vaginal delivery: spontaneous status: live born Gender: male 1 minute: 7 5 minutes: 9 Discharge Instructions Instructions: routine instr sheet given, instr and warnings rev'd Diet: Regular Activity: Light Duty, No Driving, No [place] for 6 Wks, No Lifting >20lbs, No Sports/Activities, No Strenuous Activity, No Swimming, Nothing in vagina pre f/u, Shower Only Additional discharge routines: None Notify PCP of these S/S: Increased tenderness/pain, Moderate/large bleeding, Temp. 101 or greater Contraception discussed: abstinence for 4-6 weeks, will discuss at PP visit at 0917 RPT #:[id number] END OF REPORT [facility] 2024-09-09 14:48:00 [facility] ([facility]) OB Delivery Note REPORT#:[id number] REPORT STATUS: Signed REPORT INITIALIZATION DATE:09/09/24 TIME: 1447 PATIENT: KALLI CALDWELL UNIT #: [id number] [facility] AGE: 19 SEX: F ATTEND: Margo Sears MD ADM AUTHOR: Jaimee Santiago MD REPT SERVICE DT/TIME: 09/09/24 1448 * ALL edits or amendments must be made on the electronic/computer document * OB Delivery Nursing Documentation Review Nursing data: The data set between the solid lines has been imported from nursing documentation. Any exceptions have been noted below under Provider comments. _ ROM date: 09/09/24 ROM time: 0941 Membranes rupture method: AROM Amniotic fluid color: Clear Amniotic fluid amount: Steroids prior to arrival: Antibiotic prophylaxis given: Post hemorrhage risk score: LowRisk Delivery date infant A: 09/09/24 Delivery time infant A: 1404 Birthweight (gm) infant A: Weight (lb) A: Weight (oz) infant A: Gender infant A: Male 1 minute infant A: 5 minutes infant A: 10 minutes infant A: Cord pH obtained A: Vacuum time infant A: Vacuum # pulls A: Vacuum # popoffs infant A: QBL at delivery: __ Provider comments on imported nursing data: [] Pre-delivery [place] evaluation at delivery: [employer] certified personnel, SCHOOL 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 NANNY Admission EGA: Weeks: 36 Days: 2 EGA at delivery (wks/days): 36 weeks Blood Loss/Details Blood loss at delivery: <1K: no sx hypovol=no hem EBL at delivery (ml's): 200 Baby A Information Baby A information Delivery date: 09/09/24 Delivery time: 1404 status: live born Wt of baby: not yet available Gender: male 1 minute: 7 5 minutes: 9 Presentation: vertex Nuchal cord Baby A Nuchal cord: no Vaginal Delivery Vaginal Delivery Vaginal delivery: Labor: induced Medications/Devices used: oxytocin Vaginal delivery: spontaneous Amniotic fluid: clear Anesthesia type: epidural anesthesia Laceration repair: no Placenta: spontaneous, intact Post delivery meds used: oxytocin Count: correct, vag exam neg for sponges Mother's condition: mother stable 's condition: infant stable in room Additional comments: As the head crowned and delivered, the perineum was protected with blue towel. The anterior shoulder delivered with gentle downward traction and posterior shoulder with gentle upward traction. A nuchal cord was not noted. The infant was bulb suctioned, the cord clamped and cut, then handed to the waiting mother. Placenta delivered spontaneously and intact. Hemostasis achieved with fundal massage and IV pitocin. Perineum inspected, no lacerations noted. Sponge, lap , and needle counts correct x 2, lap scan negative. Good maternal-infant bonding noted. NICU called to room due to respiratory desats. at 1451 RPT #:[id number] END OF REPORT [facility] 2024-09-09 01:06:00 [facility] ([facility]) OB Admission / H P REPORT#:[id number] REPORT STATUS: Signed REPORT INITIALIZATION DATE:09/09/24 TIME: 105 PATIENT: KALLI CALDWELL UNIT #: [id number] ROOM/BED: [address] : 03 AGE: 19 SEX: F ATTEND: Margo Sears MD ADM AUTHOR: Deanna Khan MD REPT SERVICE DT/TIME: 09/09/24 0106 * ALL edits or amendments must be made on the electronic/computer document * See Addendum OB History Chief complaint: uterine contractions HPI: 19y/o at 36w3d who presented with complaints of contractions that have gotten more frequent. She was evaluated in [facility] and noted to change from 3cm to 4cm and was admitted for further management. Current : Admission EGA (weeks) 36 Admission EGA (days) 2 Conditions of : Cholestasis of Labs: Blood type: O Rh: positive Rubella: immune Hepatitis B: negative HIV: negative STD: negative Syphilis: currently negative GBS: negative Past History Past Medical History: Reports: Depression/mood disorder. Additional Medical History: Superior mesenteric artery syndrome, bipolar disorder with anxiety/depression (Dr. Amauri Pisano is her psychiatrist) Past Surgical History: Denies: Abdominal surgery, Appendectomy, Bariatric procedure, CABG, Carotid [...] surgery, Nephrectomy, PCI, Prostate surgery, Thyroidectomy, Tracheotomy, [employer] shunt. Additional Surgical History: 2005 Eustachian tubes in ears Family History Reports: Depression/mood disorder. Alcohol Use Denies EtOH use Drug Use Denies recreational drugs Smoking status for patients 13 years old or older: Unknown,if ever smoked Additional Social History: her mother is at bedside Medications: Home Medications: PROGESTERONE,MICRONIZED (PROGESTERONE) 100 MG PO DAILY busPIRone (BUSPIRONE) (Unknown Dose) PO BID ALBUTEROL (PROAIR DIGIHALER 90 MCG/ACT 0.65 GM) 2 PUFF INH RTQ4H IRON (EZFE 200) 200 MG PO DAILY ONDANSETRON ODT (ZOFRAN ODT) 4 MG PO Q6H Allergies: Coded Allergies: azithromycin (From ZITHROMAX) (Severe, SWELLING 09/08/24) latex (Severe, HIVES 09/08/24) metoclopramide (From REGLAN) (Severe, TWITCHING 09/08/24) SEVERE EYE TWITCHING AND EYES ROLLING TO BACK OF HEAD cephalexin (From KEFLEX) (Intermediate, HIVES 09/08/24) Objective General VS: Last Documented: Result Date Time B/P Mean 74.0 09/09 558 B/P 105/54 09/09 558 Pulse 120 09/09 558 Pulse Ox 100 03/06 0558 Temp 98.3 09/09 0136 Vital Signs Date Temp Pulse Resp B/P B/P Mean Pulse Ox FiO2 09/08-09/09 98.3 80-204 81-135/45-83 57.0-102.0 89-100 PATIENT WEIGHT: Weight (lb): 180 Weight (oz): Weight (kg): 81.800 Physical Exam Lungs: unlabored breathing Neuro: Exam: alert, oriented x3 Abdomen: gravid, soft, no abnormal tenderness, no guarding Uterine activity: Monitor: toco Frequency (description): irregular Cervical/ exam: Dilatation (cm): 4 Effacement (%): 50 station: - 3 Membranes: Membranes: Intact Baby A: Baby A baseline: 120 bpm Baby A variability: moderate 6-25 bpm Baby A accelerations: 15 X 15 Baby A decelerations: none Baby A FHR category: category 1 Results Findings/Data: Laboratory Tests: 09/09 004 Chemistry Sodium (136 - 145 mEq/L) 140 Potassium (3.4 - 4.5 mEq/L) 3.8 Chloride (98 - 107 mEq/L) 106 Carbon Dioxide (20 - 31 mEq/L) 24 Anion Gap (10 - 20) 14 BUN (8 - 23 mg/dL) <5 L Creatinine (0.55 - 1.02 mg/dL) 0.5 L Glomerular Filtr Rate (>60 ml/min) 136.76 Glucose (74 - 106 mg/dL) 88 Calcium (8.3 - 10.6 mg/dL) 9.7 Total Bilirubin (0.3 - 1.2 mg/dL) 0.4 AST (< 34 units/L) 18 ALT (10 - 49 units/L) 8 L Total Alk Phosphatase (46 - 116 units/L) 101 Total Protein (5.7 - 8.2 g/dL) 6.1 Albumin (3.2 - 4.8 g/dL) 4.2 Hematology WBC (6.5 - 12.3 K/mm3) 11.9 RBC (3.51 - 4.69 M/mm3) 3.59 Hgb (10.1 - 13.8 g/dL) 10.4 Hct (32.5 - 41.8 %) 31.6 L MCV (84.6 - 96.6 fL) 88.0 MCH (27.3 - 33.9 pg) 29.0 MCHC (32.0 - 34.2 gm/dL) 32.9 RDW (12.2 - 16.3 %) 13.2 Plt Count (134 - 363 K/mm3) 224 MPV (9.2 - 12.7 fL) 11.3 Neut % (Auto) (57.9 - 77.3 %) 58.0 Lymph % (Auto) (14.5 - 29.7 %) 29.7 Robertson % (Auto) (3.6 - 10.2 %) 9.9 Eos % (Auto) (0.0 - 3.0 %) 1.1 Baso % (Auto) (0.1 - 0.9 %) 0.3 Neut # (Auto) (K/mm3) 6.9 Lymph # (Auto) (K/mm3) 3.5 Robertson # (Auto) (K/mm3) 1.2 Eos # (Auto) (K/mm3) 0.13 Baso # (Auto) (K/mm3) 0.0 Serology Treponema pallidum Ab (NONREACTIVE) NONREACTIVE Hep Bs Antigen (NONREACTIVE) NON REACTIVE Hepatitis C Antibody (NONREACTIVE) NONREACTIVE Hep C Ab Signal/Cutoff (<0.80) 0.14 HIV 1 2 Antibody (NONREACTIVE) NONREACTIVE Diagnosis, Assessment Plan Diagnosis, Assessment Plan Free Text A P: 19y/o at 36.3wks who presents in latent labor, with c/b cholestasis 1. Labor: admit to L D. Augment as indicated 2. FHTs: Cat I 3. GBS neg/3T HIV neg 4. Cholestasis: urosodiol prn 5. PMHx: bipolar disorder, anxiety/depression: restart home meds. at 0615 Addendum 1: 09/09/24 1033 by Jaimee Santiago MD s/p arom cervix unchanged will begin pitocin augmentation epidural redosed fhts Cat I monitored > 30 minutes FHTs reassuring for gestational age recheck SVE at noon or prn at 1034 RPT #:[id number] END OF REPORT [facility] 2024-08-27 13:43:00 [facility] ([facility]) EMERGENCY PROVIDER REPORT REPORT#:[id number] REPORT STATUS: Signed DATE:08/27/24 TIME: 1343 PATIENT: KALLI CALDWELL UNIT #: [id number] ROOM/BED: : 03 AGE: 19 SEX: F PCP PHYS: Margo Sears MD SERVICE AUTHOR: Arturo Lares MD REP SRV REP SRV TM: 2300 * ALL edits or amendments must be made on the electronic/computer document * STEVE History Chief complaint: Nausea. Vomiting. Abdo pains. Fever Nasal congestion HPI: This 19yo at 34w2d gestation, presents with a 1 day hx/o: Nausea. Vomiting (x10 emesis). Abdo pains which peaked at 7/10 intensity. Fever (102F at home) Family history Relation not specified for: Condition: FH: breast cancer Medications: Home Medications: Medication Dose/Rte/Freq Days Qty Entered Last Max Daily Dose Reviewed PROGESTERONE,MICRONIZED 100 MG PO DAILY 07/12/24 (PROGESTERONE) 2047 Strength: 100 MG CAP busPIRone (BUSPIRONE) (Unknown Dose) PO 07/12/24 Strength: (Unknown BID 2048 Strength) TAB ALBUTEROL 2 PUFF INH RTQ4H 07/12/24 (PROAIR DIGIHALER 90 9 MCG/ACT 0.65 GM) Strength: 90 MCG INHALER IRON (EZFE 200) 200 MG PO DAILY 07/12/24 Strength: 200 MG IRON CAP 0 ONDANSETRON ODT 4 MG PO Q6H 90 03/25/24 (ZOFRAN ODT) 0952 Strength: 4 MG TAB.RAPDIS Allergies Coded Allergies: azithromycin (From ZITHROMAX) (Severe, SWELLING 07/12/24) latex (Severe, HIVES 08/25/24) metoclopramide (From REGLAN) (Severe, TWITCHING 08/25/24) SEVERE EYE TWITCHING AND EYES ROLLING TO BACK OF HEAD cephalexin (From KEFLEX) (Intermediate, HIVES 08/25/24) Review of Systems Constitutional: fever. Denies: chills. Skin: Denies: rash. ENT: nasal congestion (x2 days). Denies: sore throat, throat pain. Respiratory: Denies: non productive cough, SOB. Cardiovascular: Denies: chest pain. GI: Reports: abdominal pain, nausea, vomiting. Denies: constipation, diarrhea. : Denies: dysuria, frequency. Neuro: Denies: headache, seizure, vision change. Objective General VS: Last Documented: Result Date Time B/P Mean 67.0 08/25 2342 B/P 93/52 08/25 2342 Pulse 82 08/25 2342 Pulse Ox 99 08/25 1804 Temp 99.6 08/25 1804 Resp 18 08/25 1804 Vital Signs Date Temp Pulse Resp B/P B/P Mean Pulse Ox FiO2 08/25 99.6 82-106 18 93-122/52-69 67.0-86.0 99 PATIENT WEIGHT: Weight (lb): 176 Weight (oz): Weight (kg): 80.000 Physical Exam Cardiac: regular rate and rhythm Lungs: unlabored breathing Neuro: Exam: alert, oriented x3, normal speech Abdomen: gravid, soft, no abnormal tenderness Musculoskeletal: no CVA tenderness Uterine activity: Monitor: toco Frequency (description): irregular Pelvic exam: Vulvar lesions: none Vagina: normal Exam: soft, non-tender Cervical/ exam: Dilatation (cm): 1 Effacement (%): 0 station: - 4 Lower extremities: Calf tenderness: negative Results Findings/Data: Laboratory Tests: 08/25 08/25 08/25 08/25 2154 2154 1822 1813 Chemistry Sodium (136 - 145 mEq/L) 141 Potassium (3.4 - 4.5 mEQ/L) 3.8 Chloride (98 - 107 mEq/L) 110 H Carbon Dioxide (22 - 31 mEq/L) 21 L Anion Gap (10 - 20) 13.8 BUN (8 - 23 mg/dL) 5 L Creatinine (0.55 - 1.02 mg/dL) 0.6 Glomerular Filtr Rate (>60 ml/min) 130.88 Glucose (74 - 106 mg/dL) 93 Calcium (8.3 - 10.6 mg/dL) 9.4 Total Bilirubin (0.3 - 1.2 mg/dL) 0.4 AST (< 34 units/L) 20 ALT (10 - 49 units/L) 7 L Total Alk Phosphatase (46 - 116 85 units/L) Total Protein (5.7 - 8.2 g/dL) 6.7 Albumin (3.2 - 4.8 g/dL) 4.4 Hematology WBC (6.5 - 12.3 K/mm3) 11.1 RBC (3.51 - 4.69 M/mm3) 3.55 Hgb (10.1 - 13.8 g/dL) 10.4 Hct (32.5 - 41.8 %) 31.7 L MCV (84.6 - 96.6 fL) 89.3 MCH (27.3 - 33.9 pg) 29.3 MCHC (32.0 - 34.2 gm/dL) 32.8 RDW (12.2 - 16.3 %) 13.2 Plt Count (134 - 363 K/mm3) 222 MPV (9.2 - 12.7 fL) 11.0 Neut % (Auto) (57.9 - 77.3 %) 59.4 Lymph % (Auto) (14.5 - 29.7 %) 27.8 Robertson % (Auto) (3.6 - 10.2 %) 10.6 H Eos % (Auto) (0.0 - 3.0 %) 1.2 Baso % (Auto) (0.1 - 0.9 %) 0.4 Neut # (Auto) (K/mm3) 6.6 Lymph # (Auto) (K/mm3) 3.1 Robertson # (Auto) (K/mm3) 1.2 Eos # (Auto) (K/mm3) 0.13 Baso # (Auto) (K/mm3) 0.0 Serology RSV (PCR) (NEGATIVE) NEGATIVE SARS CoV-2 RNA Rapid STEVEN (Negative) Negative Toxicology Urine Opiates Screen (Negative) Negative Ur Barbiturates, Qual (Negative) Negative Ur Phencyclidine Scrn (Negative) Negative Ur Amphetamines Screen (Negative) Negative U Benzodiazepines Scrn (Negative) Negative Urine Cocaine Screen (Negative) Negative Urine Cannabinoids (Negative) Negative Urines Urine Color (YELLOW) YELLOW Urine Appearance (CLEAR) CLEAR Urine pH (5 - 9) 6.0 Ur Specific [place] (1.001 - 1.035) 1.020 Urine Protein (NEG) NEGATIVE Urine Glucose (UA) (NEG) NEGATIVE Urine Ketones (NEG) 1+ H Urine Blood (NEG) NEG Urine Nitrite (NEG) NEG Urine Bilirubin (NEG) NEGATIVE Urine Urobilinogen (NEG mg/dL) NEGATIVE Ur Leukocyte Esterase (NEG) NEG Urine RBC (NONE SEEN #/hpf) 0-2 Urine WBC (NONE SEEN #/hpf) 0-2 Ur Epithelial Cells (RARE - FEW #/HPF) RARE Urine Bacteria (RARE - FEW /HPF) RARE Urine Mucus (NONE SEEN) RARE Microbiology: Date/Time Procedure - Status Source Growth 08/25 2153 Influenza Virus Type B Antigen - COMP NASOPHARG 08/25 2153 Influenza Virus Type A Antigen - COMP NASOPHARG 08/25 181 Urine Culture - RES URINE Diagnosis, Assessment Plan Diagnosis, Assessment Plan Free Text A P: See labs. RSV Influenza COVID all wnl UA: Ketonuria 1+. ASSESSMENT PLAN: (1) 19yo at 34w2d gestation with probable viral syndrome. Rx Tylenol prn. (2) ctn. VE after 2 hr showed no cx change. UC is pending. Discharged home. F/U with OBGYN in 2-3 days. at 1355 RPT #:[id number] END OF REPORT [facility] 2024-08-03 17:36:00 [facility] ([facility]) ST[facility] Evaluation Note REPORT#:[id number] REPORT STATUS: Signed REPORT INITIALIZATION DATE:08/03/24 TIME: 1735 PATIENT: KALLI CALDWELL UNIT #: [id number] ROOM/BED: : 03 AGE: 19 SEX: F ATTEND: Margo Sears MD ADM DT: AUTHOR: Zoya Hines MD REPT SERVICE DT/TIME: 08/03/241735 * ALL edits or amendments must be made on the electronic/computer document * STEVE History HPI: 19 y/o @ 31+1 here with lower back pain and abdominal cramping. Pt reports hx of PTD, so wanting to make sure everything is fine. Denies any VB, LOF, reg ctx, DFM. Baby is moving well history: : 4 Living children: 2 Past medical history: denies PMH Past surgical history: wisdom teeth Family history Relation not specified for: Condition: FH: breast cancer Allergies Coded Allergies: azithromycin (From ZITHROMAX) (Severe, SWELLING 07/12/24) latex (Severe, HIVES 07/12/24) metoclopramide (From REGLAN) (Severe, TWITCHING 07/12/24) SEVERE EYE TWITCHING AND EYES ROLLING TO BACK OF HEAD cephalexin (From KEFLEX) (Intermediate, HIVES 07/12/24) Review of Systems Constitutional: fatigue. Denies: chills, fever, generalized weakness. Objective General VS: Last Documented: Result Date Time B/P Mean 78.0 08/03 1355 Pulse Ox 100 08/03 1355 B/P 104/63 08/03 1355 Pulse 96 08/03 1355 Temp 98.1 08/03 1340 Resp 17 08/03 1340 Vital Signs Date Temp Pulse Resp B/P B/P Mean Pulse Ox FiO2 08/03 98.1 96 17 104/63 78.0 100 PATIENT WEIGHT: Weight (lb): 165 Weight (oz): Weight (kg): 75.000 Physical Exam Cardiac: regular rate and rhythm Lungs: unlabored breathing Abdomen: gravid, soft, no abnormal tenderness, no guarding Musculoskeletal: no CVA tenderness Uterine activity: Monitor: toco Frequency (description): irritability Cervical/ exam: Dilatation (cm): 0 - closed Effacement (%): 40 station: - 3 FHR evaluation: Baseline: 130 bpm Variability: moderate 6-25 bpm Accelerations: 15 X 15, 10 X 10 FHR category: category 1 Membranes: Membranes: Intact Lower extremities: Edema: none Diagnosis, Assessment Plan Diagnosis, Assessment Plan Assessment/Impression: reassuring status, membranes intact, normal FHR pattern, reactive NST, no evidence of labor, no evidence of infection, no active bleeding, Lower back pain and lower abdominal cramping Plan: discharge home, surveillance, follow up (your ob for this visit), UA , wet prep done all neg No cervical change after 1 hr of monitoring Pt reassures she is not in labor To use warm compresses and tyleno prn for symptoms PTL, FKC precautions reviewed All of pt's questions and concerns addressed at 1800 RPT #:[id number] END OF REPORT [facility] 2024-07-12 20:47:00 [facility] ([facility]) STEVE Evaluation Note REPORT#:[id number] REPORT STATUS: Signed REPORT INITIALIZATION DATE:07/12/24 TIME: 2046 PATIENT: KALLI CALDWELL UNIT #: [id number] ROOM/BED: : 03 AGE: 19 SEX: F ATTEND: Margo Sears MD ADM AUTHOR: Julissa Campbell MD REPT SERVICE DT/TIME: 07/12/242046 * ALL edits or amendments must be made on the electronic/computer document * STEVE History Nursing Documentation Review Nursing data: The data set between the solid lines has been imported from nursing documentation. Any exceptions have been noted below under Provider comments. Current data Steroids prior to arrival: ROM date: ROM time: EDC date: 10/04/24 Gestational age (labor triage): Post hemorrhage risk score: Prior history : 4 Para: 2 Term: : Abortions spontaneous: Abortions induced: Living children: Ectopic: Stillbirths: Live births: deaths: Number of previous C/S: Reported maternal labs/data Blood type: Rh type: Rubella: Hepatitis B: HIV exposure test: VDRL: Group B beta strep: Rho(D) immune globulin this preg: Monitor mode - UA: Feeding preference: Provider comments on imported nursing data: [] Chief complaint: suspected ruptured memb HPI: 19 y/o at 28 weeks presents with c/o contractions, pelvic pressure and leakage of fluid. Her contractions started this morning and have become progressively worse. She feels like the "baby is about to come out" due to the intense pelvic pressure she is experiencing. The patient denies recent intercourse, trauma, vaginal bleeding or decreased movements. Her OB history is complicated by prior delivery at 36 weeks, hyperemesis gravidarum during this and anemia. history: : 4 Term: 1 : 1 Abortus: 1 Living children: 2 Conditions of : hyperemesis gravidarum Past medical history: asthma, Anemia Family history Relation not specified for: Condition: FH: breast cancer Medications: Home Medications: Medication Dose/Rte/Freq Days Qty Entered Last Max Daily Dose Reviewed PROGESTERONE,MICRONIZED 100 MG PO DAILY 07/12/24 (PROGESTERONE) 2047 Strength: 100 MG CAP busPIRone (BUSPIRONE) (Unknown Dose) PO 07/12/24 Strength: (Unknown BID 2048 Strength) TAB ALBUTEROL 2 PUFF INH RTQ4H 07/12/24 (PROAIR DIGIHALER 90 2048 MCG/ACT 0.65 GM) Strength: 90 MCG INHALER IRON (EZFE 200) 200 MG PO DAILY 07/12/24 Strength: 200 MG IRON CAP 2050 ONDANSETRON ODT 4 MG PO Q6H 90 03/25/24 (ZOFRAN ODT) 0952 Strength: 4 MG TAB.RAPDIS Allergies Coded Allergies: azithromycin (From ZITHROMAX) (Severe, SWELLING 07/12/24) latex (Severe, HIVES 07/12/24) metoclopramide (From REGLAN) (Severe, TWITCHING 07/12/24) SEVERE EYE TWITCHING AND EYES ROLLING TO BACK OF HEAD cephalexin (From KEFLEX) (Intermediate, HIVES 07/12/24) Review of Systems : Reports: pelvic pain, vaginal discharge. All systems rev neg: except as marked Objective General VS: Last Documented: Result Date Time Pulse Ox 100 07/12 1955 Pulse 88 07/12 1955 B/P Mean 79.0 07/12 1950 B/P 109/61 07/12 1950 Vital Signs Date Temp Pulse Resp B/P B/P Mean Pulse Ox FiO2 07/12 88-90 109/ 79.0 100 PATIENT WEIGHT: Weight (lb): 165 Weight (oz): Weight (kg): 75.000 Physical Exam Lungs: unlabored breathing Abdomen: gravid, soft, no abnormal tenderness, no guarding Genitourinary: no bladder distention, no flank pain Uterine activity: Monitor: toco Frequency (description): irritability Pelvic exam: Pelvis clinically adequate: yes Vulvar lesions: none Vagina: normal Sterile speculum exam: visually closed, White discharge Cervical/ exam: Dilatation (cm): 0 - closed Effacement (%): 0 station: - 3 FHR evaluation: Baseline: 120 bpm Variability: moderate 6-25 bpm Accelerations: 15 X 15 Decelerations: variable FHR category: category 1 Lower extremities: Edema: none Results Findings/Data: Laboratory Tests: 07/12 1947 Other Body Source Membranes Rupture NON-RUPTURED Microbiology: Date/Time Procedure - Status Source Growth 07/12 2024 Wet Prep - RECD CERVIX WET MOUNT Final 07/12/24-2099 RESULT: BACTERIA SEEN CLUE CELLS SQUAMOUS EPITHELIAL CELLS WHITE BLOOD CELLS UA: + epithelial cells and bacteria ROM plus: Negative Results: labs reviewed Diagnosis, Assessment Plan Diagnosis, Assessment Plan Free Text A P: 19 y/o at 28 weeks presents with c/o contractions, pelvic pressure and leakage of fluid. ROM Plus was negative, UA was also negative. Wet prep is + for clue cells. Rx for Flagyl was sent to her pharmacy. Her cervix is closed and she is not in labor. She was encouraged to take the medication as directed and to follow up with her provider. She verbalized understanding. at 2149 RPT #:[id number] END OF REPORT [facility] 2024-06-20 00:04:34 Patient arrived ambulatory to ED c/o possible water breaking about 30 minutes ago. Patient thinks mucous plug was lost yesterday. Sees Dr. Margo Sears in [place]. 23 weeks but measuring 25 weeks. Has a disk in to prevent bladder from falling out. . Hx of births. EGE AND CAREER COUNSELOR Emily Du RN [facility] 2024-04-10 01:23:47 Pt given printed and verbal discharge instructions regarding pelvic pain, Prescriptions provided Discussed antibiotic therapy and to take until all completed unless adverse reaction occurs - if occurs, discontinue medication and follow up with pcp/seek medical attention Pt verbalized understanding of instructions, pt awake alert oriented, resp reg unlabored, skin w/d, color appropriate for race, moves all ext well,pt encouraged to follow up with pcp and OBGYN Advised to seek medical attention for new/prolonged/worsening of symptoms, No adverse reaction to meds given in ER noted upon discharge PIV d'cd, dressing to site, catheter in tact. Awake, alert oriented, resp reg unlabored, skin w/d, pt leaving amb with steady gait, in no apparent distress, T Kahlil Bro RN [facility] 2024-04-09 23:09:11 Report given to ROSE Guillory T [facility] 2024-04-09 20:56:39 Patient arrived via EMS. EMS states patient is 13 weeks with lower abdominal pain, contractions every minute. Given 100mcg Fentanyl, 100ml NS plane captain. . Patient states she keeps having the notion to push with severe lower abdominal cramping, denies bleeding or abnormal discharge. Patient has a Zofran pump [facility] 2024-03-25 09:54:00 [facility] ([facility]) OB Disch Undelivered REPORT#:[id number] REPORT STATUS: Signed REPORT INITIALIZATION DATE:03/25/24 TIME: 953 PATIENT: KALLI CALDWELL UNIT #: [id number] ROOM/BED: [address] : 03 AGE: 18 SEX: F ATTEND: Margo Sears MD ADM AUTHOR: Dolly Garcia MD REPT SERVICE DT/TIME: 03/25/24 0954 * ALL edits or amendments must be made on the electronic/computer document * Subjective Subjective Patient reports: Patient reports: No: complaints. Objective General VS: Last Documented: Result Date Time Pulse Ox 96 03/25 0402 B/P 97/62 03/25 0402 B/P Mean 73.7 03/25 0402 Temp 98.4 03/25 0402 Pulse 86 03/25 0402 Resp 16 03/25 0402 O2 Delivery Room air 03/24 0323 Vital Signs Date Temp Pulse Resp B/P B/P Mean Pulse Ox FiO2 03/24-03/25 98.4-99.5 78-107 16-18 91-98/55-63 68.1-74 96-99 PATIENT WEIGHT: Weight (lb): Weight (oz): Weight (kg): 71.818 Physical Exam Abdomen: gravid, soft, no abnormal tenderness Discharge Undelivered General Free Text A P: see prior A/P from today Plan: d/c home today Admission diagnosis: hyperemesis gravidarum Hospital course: Pt was admited with HG and lab changes; she was treated with IVF, IV meds, and had an EPS reaction to reglan which was stopped; she has contrinued IV zofran and protonix and is now doing well; no emesis since admit; we are d/c' ing home today as long as tolerated PO zofran and protonix which she can continue at home ; no Vb or pain; ultrasound yesterday WNL Discharge to: Home/Self Care Discharge condition: stable Discharge diagnosis: hyperemesis gravidarum Discharge management: less than 30 mins Discharge Instructions Diet: Regular Additional Discharge Routines: None Prescriptions: Stop taking the following medications: IBUPROFEN (MOTRIN) 600 MG TAB 600 MILLIGRAM ORAL EVERY 6 HOURS NEEDED. as needed for PAIN SCALE 1-3 ( USE 2ND) Qty = 30 Continue taking these medications: PNV WITH FE FUMARATE/FA () (Unknown Strength) TAB Unknown Dose Start taking the following new medications: ONDANSETRON ODT (ZOFRAN ODT) 4 MG TAB.RAPDIS 4 MILLIGRAM ORAL EVERY 6 HOURS. Qty = 90 No Refills PANTOPRAZOLE (PROTONIX IV) 40 MG VIAL 40 MILLIGRAM ORAL DAILY AT 1800. Qty = 90 No Refills at 0957 RPT #:[id number] END OF REPORT [facility] 2024-03-25 09:34:00 [facility] ([facility]) Gynecology Progress Note REPORT#:[id number] REPORT STATUS: Signed REPORT INITIALIZATION DATE:03/25/24 TIME: 933 PATIENT: KALLI CALDWELL UNIT #: [id number] ROOM/BED: [address] : 03 AGE: 18 SEX: F ATTEND: Margo Sears MD ADM AUTHOR: Dolly Garcia MD REPT SERVICE DT/TIME: 03/25/2434 * ALL edits or amendments must be made on the electronic/computer document * Subjective Chief complaint: nausea and vomiting Patient reports: No: complaints, abdominal pain, chills, fever, nausea. Objective General VS/I O: Vital Signs: Date Time Temp Pulse Resp B/P B/P Pulse O2 O2 Flow FiO2 Mean Ox Delivery Rate 03/25 402 98.4 86 16 97/62 73.7 96 03/25 0021 99.0 88 16 94/55 68.1 96 03/24 2015 98.7 107 16 98/63 74 99 03/24 1641 99.5 78 18 91/59 69.3 98 03/24 1303 99.0 81 18 96/60 72.2 97 Last Documented: Result Date Time Pulse Ox 96 03/25 040 B/P 97/62 03/25 040 B/P Mean 73.7 03/25 402 Temp 98.4 03/25 040 Pulse 86 03/25 0402 Resp 16 03/25 0402 O2 Delivery Room air 03/24 0323 24 hour I O ending at 0700: 03/25 0700 03/24 1900 Intake Total 400.00 Output Total Balance 400.00 Intake, IV 400.00 PATIENT WEIGHT: Weight (lb): Weight (oz): Weight (kg): 71.818 Physical Exam General appearance: alert, awake, oriented Abdomen: non-tender, soft, no CVA tenderness Extremities: full range of motion, moves all, no calf tenderness Neuro/SENIOR ARCHITECT: alert, oriented X 3, normal speech Results Findings/Data: Laboratory Tests 03/25 0629 Chemistry Sodium (136 - 145 mEq/L) 138 Potassium (3.4 - 4.5 mEQ/L) 3.7 Chloride (98 - 107 mEq/L) 108 H Carbon Dioxide (22 - 31 mEq/L) 26 Anion Gap (10 - 20) 7.7 L BUN (8 - 23 mg/dL) <5 L Creatinine (0.55 - 1.02 mg/dL) 0.6 Glomerular Filtr Rate (>60 ml/min) 131.70 Glucose (74 - 106 mg/dL) 91 Calcium (8.3 - 10.6 mg/dL) 8.8 Total Bilirubin (0.3 - 1.2 mg/dL) 0.3 AST (< 34 units/L) 14 ALT (10 - 49 units/L) 7 L Total Alk Phosphatase (46 - 116 units/L) 43 L Total Protein (5.7 - 8.2 g/dL) 6.1 Albumin (3.2 - 4.8 g/dL) 3.7 Diagnosis, Assessment Plan Free Text A P: 18 yo at 10+2 with hyperemesis gravidarum, refractory to outpatient therapy, with acute dehydration and mild hyokalemia at admission HD#.2 wks -Hyperemesis Gravidarum- on APU, s/p IVF, s/p thiamine/banana bag, was on scheduled reglan but had an EPS reaction so stopped, on scheduled zofran, and protonix. Now tolerating PO well with IV meds. Feeling great and desires to go home. Discussed will transition to PO meds and d/c all IV meds. If tolerates well will d/c home this pm. - Hypokalemia- now corrected, K WNL this am - No VB or pain - + FHTs yesterday - feeling well - if tolerating PO on PO meds d/c home today at 0949 RPT #:[id number] END OF REPORT [facility] 2024-03-24 22:06:00 [facility] ([facility]) SIDEWALK INSPECTOR Consult Note - Brief REPORT#:[id number] REPORT STATUS: Signed REPORT INITIALIZATION DATE:03/24/24 TIME: 2205 PATIENT: KALLI CALDWELL UNIT #: [id number] ROOM/BED: [address] : 03 AGE: 18 SEX: F ATTEND: Margo Sears MD ADM AUTHOR: Radha Ball MD REPT SERVICE DT/TIME: 03/24/242205 * ALL edits or amendments must be made on the electronic/computer document * See Addendum History of Present Illness HPI Reason for consult: Eye twitching, visual changes History of present illness: 18 in early gestation was admitted for hyperemesis gravidarium She developed an acute episode of eye twitching. She reports being unable to focus her sight, she is unable to blink or completely close her eyes. She feels her eyes are having rapid movements. In addition c/o palpitations, denies SOB or difficulty breathing. Denies bobby or chills. Denies similar episodes in the past Denies any recreational drug use or medications other than was have been prescribed by Obgyn Patient reports improvement on nausea and vomiting, reports mild headache 5/10 History Past Medical History Past medical history: Reports: Depression/mood disorder. Additional medical history: Superior mesenteric artery syndrome, bipolar disorder with anxiety/depression ( Dr. Amauri Pisano is her psychiatrist) Past Surgical History Additional surgical history: 2005 Eustacian tubes in ears Past SIDEWALK INSPECTOR History Past OB history: : 4 Term: 3 Family History Family history: Reports: Depression/mood disorder. Social History Alcohol use: Denies EtOH use Drug use: Denies recreational drugs Smoking status for patients 13 years old or older: Never Smoker Medication/Allergy-Vaccine Hx Allergies: Coded Allergies: azithromycin (From ZITHROMAX) (Severe, SWELLING 05/18/23) latex (Severe, HIVES 05/18/23) cephalexin (From KEFLEX) (Intermediate, HIVES 05/18/23) OB-Billiard Table Mechanic Brief Consult Note Free Text A P: Suspected extrapyramidal side effect to medication. Patient received IV reglan prior to onset of medication. No other significant findings. Discussed with patient suspected etiology and need to d/c reglan. Also recommended to add allergy on her phone -IV benadryl -Eye patches/ tape since patient can't blink -Will consider other anticholinergics or further eval management if symptoms don't improve -Report provided to oncall physician Dr Jaimee Santiago, she will come and evaluate patient and continue with care -All questions answered at 2034 Addendum 1: 03/24/242250 by Jaimee Santiago MD Saw pt and she is doing better Will monitor cramping Dr Sears updated Laboratory Tests: 03/24 07 Chemistry Sodium (136 - 145 mEq/L) 138 Potassium (3.4 - 4.5 mEQ/L) 3.8 Chloride (98 - 107 mEq/L) 109 H Carbon Dioxide (22 - 31 mEq/L) 25 Anion Gap (10 - 20) 7.8 L BUN (8 - 23 mg/dL) 6 L Creatinine (0.55 - 1.02 mg/dL) 0.6 Glomerular Filtr Rate (>60 ml/min) 131.70 Glucose (74 - 106 mg/dL) 92 Calcium (8.3 - 10.6 mg/dL) 8.2 L Magnesium (1.6 - 2.6 mg/dL) 1.7 Total Bilirubin (0.3 - 1.2 mg/dL) 0.4 AST (< 34 units/L) 13 ALT (10 - 49 units/L) <7 L Total Alk Phosphatase (46 - 116 units/L) 40 L Total Protein (5.7 - 8.2 g/dL) 5.8 Albumin (3.2 - 4.8 g/dL) 3.6 Recent Impressions: ULTRASOUND - US PREG UT TRANSVAGINAL 03/24 2032 Report Impression - Status: SIGNED Entered: 03/24/20242131 IMPRESSION: 1. Single live IUP as noted above. 2. Bilateral adnexal vascular congestion. Impression By: Chris Morris MD ULTRASOUND - DUP AB/PEL/SC/LTD 03/24 2032 Report Impression - Status: SIGNED Entered: 03/24/20242131 IMPRESSION: 1. Single live IUP as noted above. 2. Bilateral adnexal vascular congestion. Impression By: Chris Morris MD ULTRASOUND - US PREG EVAL 1ST TRIMTR 03/24 2032 Report Impression - Status: SIGNED Entered: 03/24/20242131 IMPRESSION: 1. Single live IUP as noted above. 2. Bilateral adnexal vascular congestion. Impression By: Chris Morris MD at 2251 RPT #:[id number] END OF REPORT [facility] 2024-03-24 09:32:00 [facility] ([facility]) OB Antepartum Prog Note REPORT#:[id number] REPORT STATUS: Signed REPORT INITIALIZATION DATE:03/24/24 TIME: 931 PATIENT: KALLI CALDWELL UNIT #: [id number] ROOM/BED: [address] : 03 AGE: 18 SEX: F ATTEND: Margo Sears MD ADM AUTHOR: Gabriela Miramontes MD REPT SERVICE DT/TIME: 03/24/24 0932 * ALL edits or amendments must be made on the electronic/computer document * Subjective Subjective Patient reports: Patient reports: Yes abdominal pain (but improved this AM), No vaginal bleeding Comments: mild nausea currently, has not vomited this AM. Attempting to eat soft diet currently. Objective Nursing Documentation Review Nursing data: The data set between the solid lines has been imported from nursing documentation. Any exceptions have been noted below under Provider comments. ROM date: ROM time: Labor onset date: Labor onset time: Provider comments on imported nursing data: [] VS: Last Documented: Result Date Time Pulse Ox 98 03/24 925 B/P 95/62 03/24 925 B/P Mean 72.7 03/24 925 Temp 98.8 03/24 925 Pulse 89 03/24 925 Resp 18 03/24 925 O2 Delivery Room air 03/24 0323 Vital Signs Date Temp Pulse Resp B/P B/P Mean Pulse Ox FiO2 03/23-03/24 98.1-98.8 82-104 16-18 88-105/51-71 64.8-82 97-99 PATIENT WEIGHT: Weight (lb): Weight (oz): Weight (kg): 71.818 Abdomen: gravid, soft, no abnormal tenderness Findings/data: Laboratory Tests: 03/24 03/23 03/23 0749 1916 1830 Chemistry Sodium (136 - 145 mEq/L) 138 136 Potassium (3.4 - 4.5 mEQ/L) 3.8 3.3 L Chloride (98 - 107 mEq/L) 109 H 106 Carbon Dioxide (22 - 31 mEq/L) 25 22 Anion Gap (10 - 20) 7.8 L 11.3 BUN (8 - 23 mg/dL) 6 L 8 Creatinine (0.55 - 1.02 mg/dL) 0.6 0.6 Glomerular Filtr Rate (>60 ml/min) 131.70 131.70 Glucose (74 - 106 mg/dL) 92 89 Calcium (8.3 - 10.6 mg/dL) 8.2 L 9.4 Magnesium (1.6 - 2.6 mg/dL) 1.7 Total Bilirubin (0.3 - 1.2 mg/dL) 0.4 0.5 AST (< 34 units/L) 13 16 ALT (10 - 49 units/L) <7 L 8 L Total Alk Phosphatase (46 - 116 units/L) 40 L 52 Total Protein (5.7 - 8.2 g/dL) 5.8 7.5 Albumin (3.2 - 4.8 g/dL) 3.6 4.6 Lipase (12 - 53 units/L) 45 Hematology WBC (6.5 - 12.3 K/mm3) 7.3 RBC (3.51 - 4.69 M/mm3) 4.33 Hgb (10.1 - 13.8 g/dL) 13.1 Hct (32.5 - 41.8 %) 36.8 MCV (84.6 - 96.6 fL) 85.0 MCH (27.3 - 33.9 pg) 30.3 MCHC (32.0 - 34.2 gm/dL) 35.6 H RDW (12.2 - 16.3 %) 12.4 Plt Count (134 - 363 K/mm3) 192 MPV (9.2 - 12.7 fL) 10.6 Miscellaneous Maternal Serum HCG (mIU/mL) 87923 Toxicology Urine Opiates Screen (Negative) POSITIVE *A Ur Barbiturates, Qual (Negative) Negative Ur Phencyclidine Scrn (NEGATIVE) Negative Ur Amphetamines Screen (Negative) Negative U Benzodiazepines Scrn (Negative) Negative Urine Cocaine Screen (Negative) Negative Urine Cannabinoids (Negative) Negative Urines Urine Color (YELLOW) YELLOW Urine Appearance (CLEAR) CLEAR Urine pH (5 - 9) 6.0 Ur Specific [place] (1.001 - 1.035) 1.026 Urine Protein (NEG) NEGATIVE Urine Glucose (UA) (NEG) NEGATIVE Urine Ketones (NEG) 2+ H Urine Blood (NEG) NEG Urine Nitrite (NEG) NEG Urine Bilirubin (NEG) NEGATIVE Urine Urobilinogen (NEG mg/dL) NEGATIVE Ur Leukocyte Esterase (NEG) NEG Urine RBC (NONE SEEN #/hpf) 0-2 Urine WBC (NONE SEEN #/hpf) 0-2 Ur Epithelial Cells (RARE - FEW #/HPF) RARE Urine Mucus (NONE SEEN) 1+ Recent Impressions: ULTRASOUND - US PREG UT TRANSVAGINAL 03/23 1834 Report Impression - Status: SIGNED Entered: 03/23/20241920 IMPRESSION: Single live IUP. Impression By: Chris Morris MD ULTRASOUND - DUP AB/PEL/SC/LTD 03/23 1834 Report Impression - Status: SIGNED Entered: 03/23/20241920 IMPRESSION: Single live IUP. Impression By: Chris Morris MD ULTRASOUND - US PREG EVAL 1ST TRIMTR 03/23 1834 Report Impression - Status: SIGNED Entered: 03/23/20241920 IMPRESSION: Single live IUP. Impression By: Chris Morris MD Diagnosis, Assessment Plan Diagnosis, Assessment Plan Free Text A P: 18 yo at 10+1 with hyperemesis gravidarum, refractory to outpatient therapy, acute dehydration and mild hyokalemia: 1) HEG-pt with more severe nausea/vomiting over the last week with abdominal pain, multiple episodes of vomiting all day. Admitted to Med Surg/APU for IVF therapy, thiamine/banana bag, scheduled reglan, zofran, and protonix. UA with 2+ ketones and mild hypokalemia on labs. Currently only mild nausea, attempting to eat soft diet this morning. Abdominal pain still present but much improved. Based on exam and lab findings do not suspect her abdominal pain is due to an intraabdominal source, but more so dehydration and recurrent vomiting which can cause abdominal soreness/pain. But will follow closely during this admission. 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 Sears who presents to ED [facility] with severe nausea and vomiting at home despite outpatient medications. She was instructed to come in for evaluation and possible admission by her doctor. She denies vaginal bleeding. She also endorses lower abdominal pain that she says spans across her lower abdomen and feels like uterine contractions. She reports that she is having BM's daily and does not think she is constipated. History Past Medical History Past medical history: Reports: Depression/mood disorder. Denies: Alcoholism/subst abuse, Anemia, Arthritis, Asthma, Atrial fibrillation, Cancer, Congestive heart failure, COPD, Coronary artery disease, Dementia, Diabetes mellitus, GERD/gastritis, Hypertension, Kidney disease/stones, Seizure disorder, Transient ischemic attack , , Abdominal aortic aneurysm, ADD/ADHD, AIDS, Angina pectoris, Anticoagulant therapy, Atrial flutter, Bleeding disorder, BPH, C diff colitis, Cardiac dysrhythmias, Chronic pain, Cirrhosis, Congenital anomalies, Dyslipidemia, Gallbladder dis/stones, GI bleed, Glaucoma, Headache disorder, Hepatitis, HIV, Intracranial hemorrhage, Ischemic stroke, Motor dysfunction, Pancreatitis, Peptic ulcer disease, Periph arterial disease, Pressure ulcer, Prior [place], Schizophrenia, Sickle cell disease, Steroid use, Thyroid disorder, Transfusion history, Tuberculosis, Urinary tract infection, Venous thromboembolism. Additional medical history: Superior mesenteric artery syndrome, bipolar disorder with anxiety/depression (Dr. Amauri Pisano is her psychiatrist) Past Surgical History Past surgical history: Denies: Abdominal surgery, Appendectomy, Bariatric procedure, CABG, Carotid [...] surgery, Nephrectomy, PCI, Prostate surgery, Thyroidectomy, Tracheotomy, PERSONAL LOAN SPECIALIST shunt. Additional surgical history: 2005 Eustacian tubes in ears Family History Family history: Reports: Depression/mood disorder. Denies: Abdominal aortic aneurysm, Anemia, Asthma, CAD < 40 yrs old, Cancer, Coagulopathy, Dementia/Alzheimer's dis, Diabetes, Heart disease, Hypertension, Kidney disease/stones, Seizure disorder, Stroke/TIA, Subarachnoid hemorrhage, Sudden cardiac , Thyroid disorder, === , Connective tissue dis, Gallbladder disease, Hyperlipidemia, Neurofibromatosis, Sickle cell disease. Social History Alcohol use: Denies EtOH use Drug use: Denies recreational drugs Smoking status for patients 13 years old or older: Never Smoker Additional social history: her mother is at bedside Medication/Allergy-Vaccine Hx Medications: Home Medications: Medication Dose/Rte/Freq Days Qty Entered Last Max Daily Dose Reviewed PNV WITH FE (Unknown Dose) 12/21/22 FUMARATE/FA 2027 () Strength: (Unknown Strength) TAB IBUPROFEN (MOTRIN) 600 MG PO 30 05/26/23 Strength: 600 MG TAB Q6H PRN PRN PAIN 1701 SCALE 1-3 (USE 2ND) Current Hospital Medications: Antihistamine Drugs Sig/Cornelio Start time Last Medication Dose Route Stop Time Status Admin Diphenhydramine HCl 25 MG X1ED STA 03/23 1937 DC 03/23 (diphenhydrAMINE HCL IV 03/23 1938 1950 50 MG/ML 1 ML VIAL) Central Nervous System Agents Sig/Cornelio Start time Last Medication Dose Route Stop Time Status Admin Promethazine HCl 25 MG Q6H PRN PRN 03/23 2130 UNV (PHENERGAN 25 MG RECTAL 05/22 2129 SUPP) Acetaminophen 650 MG Q4H PRN PRN 03/23 2115 AC (ACETAMINOPHEN 325 PO 03/24 2105 MG TAB) Hydrocodone Bitart/ 1 TAB Q4H PRN PRN 09/17 2115 DC Acetaminophen PO 03/24 2105 (NORCO 5/325 TABLET) Morphine Sulfate 4 MG Q4H PRN PRN 03/23 2115 DC (Morphine Sulfate) IV 03/24 2105 Morphine Sulfate 4 MG X1ED STA 03/23 1937 DC 03/23 (Morphine Sulfate) IV 03/23 Promethazine HCl 25 MG X1ED STA 03/23 1818 CAN (Phenergan 25 MG) IM 03/23 1819 Electrolytic, Caloric, And Anjelica Sig/Cornelio Start time Last Medication Dose Route Stop Time Status Admin Potassium Chloride/ 100 ML ASDIR PRN 03/23 2130 AC Water IV 05/22 2129 (POTASSIUM CHLORIDE 20 MEQ/100ML STERILE WATER) Sodium Chloride 10 ML ASDIR 03/23 2130 UNV (SODIUM CHLORIDE IV 05/22 2129 0.9% PF) Sodium Chloride 1,000 ML BOLUS ASDIR ONE 03/23 1830 DC 03/23 (SODIUM CHLORIDE IV 03/23 0.9% - 1000 ML) Gastrointestinal Drugs Sig/Cornelio Start time Last Medication Dose Route Stop Time Status Admin Metoclopramide HCl 10 MG Q8H 03/24 0400 AC (Reglan 10 MG/2 ML IV 05/239 VIAL) Ondansetron HCl 4 MG Q6H 03/23 2130 AC (ZOFRAN 2 MG/ML 4 MG IV 05/22 2129 SYR) Pantoprazole Sodium 40 MG DAILY 1800 03/23 2130 UNV (PROTONIX VIAL) IV 05/22 2129 Metoclopramide HCl 10 MG Q6H PRN PRN 03/23 2115 AC (Reglan 10 MG/2 ML IV 03/24 2105 VIAL) Metoclopramide HCl 10 MG X1ED STA 03/23 1937 DC 03/23 (Reglan 10 MG/2 ML IV 03/23 VIAL) Vitamins Sig/Cornelio Start time Last Medication Dose Route Stop Time Status Admin Thiamine HCl 100 MG Q24H 03/23 2200 AC (THIAMINE HCL) IV 05/22 2159 Folic Acid 1 MG (FOLIC ACID INJ 5MG/ ML) Multivitamins 10 ML (M.V.I. WITH VIT K 10 ML VIAL) Sodium Chloride 1,000 ML (SODIUM CHLORIDE 0.9% - 1000 ML) Allergies: Coded Allergies: azithromycin (From ZITHROMAX) (Severe, SWELLING 05/18/23) latex (Severe, HIVES 05/18/23) cephalexin (From KEFLEX) (Intermediate, HIVES 05/18/23) Review of Systems Additional notes: 10 systems reviewed and neg with exception of the above pertinent positives Physical Exam VS/I O Vital Signs: Date Time Temp Pulse Resp B/P B/P Pulse O2 O2 Flow FiO2 Mean Ox Delivery Rate 03/23 1817 98.1 104 16 105/71 82 97 Room air PATIENT WEIGHT: Weight (lb): Weight (oz): Weight (kg): 71.818 General appearance: alert, awake, oriented Head/Eyes: clear cornea, normocephalic Cardiovascular: regular rate rhythm Respiratory: clear to auscultation, no distress Abdomen/GI: soft, non-tender, no guarding, no rebound, no distention, no mass/ organomegaly Extremities: moves all, no edema-all extremities Musculoskeletal: full range of motion Neuro/SENIOR ARCHITECT: alert, oriented X 3, normal speech, no motor deficits, no sensory deficits, CNII-XII grossly intact Skin: dry, intact Psychiatry: normal affect, normal judgment/insight, normal mood Results Findings/Data: Laboratory Tests: 03/23 03/23 1916 1830 Chemistry Sodium (136 - 145 mEq/L) 136 Potassium (3.4 - 4.5 mEQ/L) 3.3 L Chloride (98 - 107 mEq/L) 106 Carbon Dioxide (22 - 31 mEq/L) 22 Anion Gap (10 - 20) 11.3 BUN (8 - 23 mg/dL) 8 Creatinine (0.55 - 1.02 mg/dL) 0.6 Glomerular Filtr Rate (>60 ml/min) 131.70 Glucose (74 - 106 mg/dL) 89 Calcium (8.3 - 10.6 mg/dL) 9.4 Total Bilirubin (0.3 - 1.2 mg/dL) 0.5 AST (< 34 units/L) 16 ALT (10 - 49 units/L) 8 L Total Alk Phosphatase (46 - 116 units/L) 52 Total Protein (5.7 - 8.2 g/dL) 7.5 Albumin (3.2 - 4.8 g/dL) 4.6 Lipase (12 - 53 units/L) 45 Hematology WBC (6.5 - 12.3 K/mm3) 7.3 RBC (3.51 - 4.69 M/mm3) 4.33 Hgb (10.1 - 13.8 g/dL) 13.1 Hct (32.5 - 41.8 %) 36.8 MCV (84.6 - 96.6 fL) 85.0 MCH (27.3 - 33.9 pg) 30.3 MCHC (32.0 - 34.2 gm/dL) 35.6 H RDW (12.2 - 16.3 %) 12.4 Plt Count (134 - 363 K/mm3) 192 MPV (9.2 - 12.7 fL) 10.6 Miscellaneous Maternal Serum HCG (mIU/mL) 04901 Toxicology Urine Opiates Screen (Negative) POSITIVE *A Ur Barbiturates, Qual (Negative) Negative Ur Phencyclidine Scrn (NEGATIVE) Negative Ur Amphetamines Screen (Negative) Negative U Benzodiazepines Scrn (Negative) Negative Urine Cocaine Screen (Negative) Negative Urine Cannabinoids (Negative) Negative Urines Urine Color (YELLOW) YELLOW Urine Appearance (CLEAR) CLEAR Urine pH (5 - 9) 6.0 Ur Specific [place] (1.001 - 1.035) 1.026 Urine Protein (NEG) NEGATIVE Urine Glucose (UA) (NEG) NEGATIVE Urine Ketones (NEG) 2+ H Urine Blood (NEG) NEG Urine Nitrite (NEG) NEG Urine Bilirubin (NEG) NEGATIVE Urine Urobilinogen (NEG mg/dL) NEGATIVE Ur Leukocyte Esterase (NEG) NEG Urine RBC (NONE SEEN #/hpf) 0-2 Urine WBC (NONE SEEN #/hpf) 0-2 Ur Epithelial Cells (RARE - FEW #/HPF) RARE Urine Mucus (NONE SEEN) 1+ Radiology data: Recent Impressions: ULTRASOUND - US PREG UT TRANSVAGINAL 03/23 1834 Report Impression - Status: SIGNED Entered: 03/23/20241920 IMPRESSION: Single live IUP. Impression By: Chris Morris MD ULTRASOUND - DUP AB/PEL/SC/LTD 03/23 1834 Report Impression - Status: SIGNED Entered: 03/23/20241920 IMPRESSION: Single live IUP. Impression By: Chris Morris MD ULTRASOUND - US PREG EVAL 1ST TRIMTR 03/23 1834 Report Impression - Status: SIGNED Entered: 03/23/20241920 IMPRESSION: Single live IUP. Impression By: [email or web address] - Ken Morris MD Diagnosis, Assessment Plan Problem List/A P: 1. Hyperemesis gravidarum Orders: Procedure Date/time Status MAGNESIUM 03/24 600 Active COMPREHENSIVE METABOLIC PANEL 03/24 600 Active Nutritional Consult 03/23 2122 Active Free Text DxA P Notes Free Text DxA P Notes: 18 yo at 10+1 with hyperemesis gravidarum, refractory to outpatient therapy, acute dehydration and mild hyokalemia. Normotensive, afebrile. US shows live SIUP. Plan: -admit to Med Surg/APU for IVF therapy, thiamine/banana bag, scheduled reglan, zofran, and protonix. NPO until AM -nutrition consult -AM labs -at this time based on exam and lab findings do not suspect her abdominal pain is due to an intraabdominal source, but more so dehydration and recurrent vomiting which can cause abdominal soreness/pain. But will follow closely during this admission -Anticipate dispo in 1-2 days-- Quality Current Medications Current medication review: I attest that the foregoing medication list in the medical record is true, accurate, and complete to the best of my knowledge. at 0611 RPT #:[id number] END OF REPORT [facility] 2024-03-23 21:02:00 [facility] ([facility]) EMERGENCY PROVIDER REPORT REPORT#:[id number] REPORT STATUS: Signed DATE:03/23/24 TIME: 2101 PATIENT: KALLI CALDWELL UNIT #: [id number] ROOM/BED: [facility] : 03 AGE: 18 SEX: F PCP PHYS: Margo Sears MD SERVICE AUTHOR: Yamil Coleman DO REP SRV REP SRV TM: 2101 * ALL edits or amendments must be made on the electronic/computer document * HPI-General Illness Free Text HPI Notes Free Text HPI Notes onset 1 day ago, not sudden onset, described as dull, non-radiating, at worse 10 /10 intensity, currently 6/10, nothing makes better nor worse General Initial Greet Date/Time 03/23/241816 Presentation Chief Complaint Abdominal pain, Vomiting Review of Systems ROS Statements All systems rev neg except as marked. Complete sys rev neg except as marked. Review of Systems Constitutional Denies: Chills, Fatigue, Fever, Lethargy, Malaise, Recent wt loss, Weakness - generalized. Past Medical History - Adult Stated Complaint vomiting, abd pain, 10 wks Allergies Coded Allergies: azithromycin (From ZITHROMAX) (Severe, SWELLING 05/18/23) latex (Severe, HIVES 05/18/23) metoclopramide (From REGLAN) (Severe, TWITCHING 03/25/24) SEVERE EYE TWITCHING AND EYES ROLLING TO BACK OF HEAD cephalexin (From KEFLEX) (Intermediate, HIVES 05/18/23) Home Medications Reported Medications PNV WITH FE FUMARATE/FA () (Unknown Dose) Past Medical History: Reports: Depression/mood disorder. Denies: Alcoholism/subst abuse, Anemia, Arthritis, Asthma, Atrial fibrillation, Cancer, Congestive heart failure, COPD, Coronary artery disease, Dementia, Diabetes mellitus, GERD/gastritis, Hypertension, Kidney disease/stones, Seizure disorder, Transient ischemic attack , , Abdominal aortic aneurysm, ADD/ADHD, AIDS, Angina pectoris, Anticoagulant therapy, Atrial flutter, Bleeding disorder, BPH, C diff colitis, Cardiac dysrhythmias, Chronic pain, Cirrhosis, Congenital anomalies, Dyslipidemia, Gallbladder dis/stones, GI bleed, Glaucoma, Headache disorder, Hepatitis, HIV, Intracranial hemorrhage, Ischemic stroke, Motor dysfunction, Pancreatitis, Peptic ulcer disease, Periph arterial disease, Pressure ulcer, Prior [place], Schizophrenia, Sickle cell disease, Steroid use, Thyroid disorder, Transfusion history, Tuberculosis, Urinary tract infection, Venous thromboembolism. Additional Medical History Superior mesenteric artery syndrome, bipolar disorder with anxiety/depression (Dr. Amauri Pisano is her psychiatrist) Past Surgical History: Denies: Abdominal surgery, Appendectomy, Bariatric procedure, CABG, Carotid [...] surgery, Nephrectomy, PCI, Prostate surgery, Thyroidectomy, Tracheotomy, PERSONAL LOAN SPECIALIST shunt. Additional Surgical History 2005 Eustacian tubes in ears Family History: Reports: Depression/mood disorder. Denies: Abdominal aortic aneurysm, Anemia, Asthma, CAD < 40 yrs old, Cancer, Coagulopathy, Dementia/Alzheimer's dis, Diabetes, Heart disease, Hypertension, Kidney disease/stones, Seizure disorder, Stroke/TIA, Subarachnoid hemorrhage, Sudden cardiac , Thyroid disorder, === , Connective tissue dis, Gallbladder disease, Hyperlipidemia, Neurofibromatosis, Sickle cell disease. Alcohol Use Denies EtOH use Drug Use Denies recreational drugs Smoking status for patients 13 years old or older: Never Smoker Additional Social History her mother is at bedside Physical Exam Vital Signs Vital Signs First Documented: Result Date Time Pulse Ox 97 03/23 1817 B/P 105/71 03/23 1817 B/P Mean 82 03/23 1817 O2 Delivery Room air 03/23 1817 Temp 36.7 03/23 1817 Pulse 104 03/23 1817 Resp 03/23 Last Documented: Result Date Time Pulse Ox 97 03/23 1817 B/P 105/71 03/23 1817 B/P Mean 82 03/23 1817 O2 Delivery Room air 03/23 1817 Temp 36.7 03/23 1817 Pulse 104 03/23 1817 Resp 03/23 Review of Vital Signs Reviewed Physical Exam General/Const General/Const Awake, Alert, No acute distress, Well appearing, Well developed , Well hydrated, Well nourished, Cooperative, Not toxic appearing MS Head Head Normocephalic Eyes Eyes PERRL Ears/Nose/Throat Ears/Nose/Throat Airway patent, Mucous membranes moist, Pharynx NL MS Neck Neck Supple, No meningismus, Full range of motion, No swelling, Non-tender, No masses Resp/Chest Respiratory/Chest Breath sounds NL, Breath sounds = bilat, No respiratory distress, No rales, No rhonchi, No wheezing Cardiovascular Cardiovascular Heart rate NL, Regular rhythm, Heart sounds NL, Cap refill not delayed, Peripheral circulation NL Abdomen/GI Abdomen/GI Soft, Non-tender, No guarding, No rebound MS Back Back Inspection NL, Painless range of motion, Non-tender, No CVA tenderness Lymphatic Lymphatic No gross adenopathy MS Upper Extrem Upper Extremity/MS Inspection NL, No swelling, Non-tender, No erythema, No deformity, Neurologic intact, Vascular intact, No clubbing/cyanosis MS Wrist/Hand Wrist/Hand Inspection NL, No swelling, No erythema, Non-tender, No deformity, Neurologic intact, Vascular intact, No clubbing/cyanosis MS Lower Extrem Lower Ext/Pelvis/MS Inspection NL, No swelling, Non-tender, No erythema, No deformity, Neurologic intact, Vascular intact, No edema MS Ankle/Foot Ankle/Foot Inspection NL, No swelling, No erythema, Non-tender, No deformity, Neurologic intact, Vascular intact, No edema Skin Skin Color NL, Warm, Dry, Turgor NL Neurologic Neurologic Oriented X3, Speech NL, No motor deficits, No sensory deficits Psychiatric Psychiatric Affect NL, Mood NL, Thought content NL Interpretation Diagnostics Lab Results Interpretation Considerations Independ review imaging, Reviewed prior records Results Laboratory Tests 03/23/241915: [Embedded Image Not Available] Laboratory Tests: 03/23 1830 Chemistry Sodium (136 - 145 mEq/L) 136 Potassium (3.4 - 4.5 mEQ/L) 3.3 L Chloride (98 - 107 mEq/L) 106 Carbon Dioxide (22 - 31 mEq/L) 22 Anion Gap (10 - 20) 11.3 BUN (8 - 23 mg/dL) 8 Creatinine (0.55 - 1.02 mg/dL) 0.6 Glomerular Filtr Rate (>60 ml/min) 131.70 Glucose (74 - 106 mg/dL) 89 Calcium (8.3 - 10.6 mg/dL) 9.4 Total Bilirubin (0.3 - 1.2 mg/dL) 0.5 AST (< 34 units/L) 16 ALT (10 - 49 units/L) 8 L Total Alk Phosphatase (46 - 116 units/L) 52 Total Protein (5.7 - 8.2 g/dL) 7.5 Albumin (3.2 - 4.8 g/dL) 4.6 Lipase (12 - 53 units/L) 45 Hematology WBC (6.5 - 12.3 K/mm3) 7.3 RBC (3.51 - 4.69 M/mm3) 4.33 Hgb (10.1 - 13.8 g/dL) 13.1 Hct (32.5 - 41.8 %) 36.8 MCV (84.6 - 96.6 fL) 85.0 MCH (27.3 - 33.9 pg) 30.3 MCHC (32.0 - 34.2 gm/dL) 35.6 H RDW (12.2 - 16.3 %) 12.4 Plt Count (134 - 363 K/mm3) 192 MPV (9.2 - 12.7 fL) 10.6 Miscellaneous Maternal Serum HCG (mIU/mL) 03783 Toxicology Urine Opiates Screen (Negative) POSITIVE *A Ur Barbiturates, Qual (Negative) Negative Ur Phencyclidine Scrn (NEGATIVE) Negative Ur Amphetamines Screen (Negative) Negative U Benzodiazepines Scrn (Negative) Negative Urine Cocaine Screen (Negative) Negative Urine Cannabinoids (Negative) Negative Urines Urine Color (YELLOW) YELLOW Urine Appearance (CLEAR) CLEAR Urine pH (5 - 9) 6.0 Ur Specific [place] (1.001 - 1.035) 1.026 Urine Protein (NEG) NEGATIVE Urine Glucose (UA) (NEG) NEGATIVE Urine Ketones (NEG) 2+ H Urine Blood (NEG) NEG Urine Nitrite (NEG) NEG Urine Bilirubin (NEG) NEGATIVE Urine Urobilinogen (NEG mg/dL) NEGATIVE Ur Leukocyte Esterase (NEG) NEG Urine RBC (NONE SEEN #/hpf) 0-2 Urine WBC (NONE SEEN #/hpf) 0-2 Ur Epithelial Cells (RARE - FEW #/HPF) RARE Urine Mucus (NONE SEEN) 1+ Recent Impressions: ULTRASOUND - US PREG UT TRANSVAGINAL 03/23 1834 Report Impression - Status: SIGNED Entered: 03/23/20241920 IMPRESSION: Single live IUP. Impression By: Chris Morris MD ULTRASOUND - DUP AB/PEL/SC/LTD 03/23 1834 Report Impression - Status: SIGNED Entered: 03/23/20241920 IMPRESSION: Single live IUP. Impression By: Chris Morris MD ULTRASOUND - US PREG EVAL 1ST TRIMTR 03/23 183 Report Impression - Status: SIGNED Entered: 03/23/20241920 IMPRESSION: Single live IUP. Impression By: [email or web address] - Ken Morris MD Lab Imaging Statement Laboratory radiographic studies reviewed and considered in the medical decision-making. Re-Evaluation MDM Re-Evaluation/Progress #1 Time of Re-Eval 2101 Re-Eval Status Improved Eval Following Treatment Pt. feels better, Condition improved ED Course Medication(s) Ordered Medication(s) Ordered: Antihistamine Drugs Sig/Cornelio Start time Last Medication Dose Route Stop Time Status Admin Diphenhydramine HCl 25 MG X1ED STA 03/23 193 DC 03/23 IV 03/23 1938 1950 Central Nervous System Agents Sig/Cornelio Start time Last Medication Dose Route Stop Time Status Admin Morphine Sulfate 4 MG X1ED STA 03/23 1937 DC 03/23 IV 03/23 1938 194 Promethazine HCl 25 MG X1ED STA 03/23 1818 CANr IM 03/23 1819 Electrolytic, Caloric, And Anjelica Sig/Cornelio Start time Last Medication Dose Route Stop Time Status Admin Sodium Chloride 1,000 ML BOLUS ASDIR ONE 03/23 1830 DC 03/23 IV 03/23 183 1912 Gastrointestinal Drugs Sig/Cornelio Start time Last Medication Dose Route Stop Time Status Admin Metoclopramide HCl 10 MG X1ED STA 03/23 193 DC 03/23 IV 03/23 1938 195 Patient Discharge Departure Vital Signs/Condition Vital Signs First Documented: Result Date Time Pulse Ox 97 03/23 181 B/P 105/71 03/23 181 B/P Mean 82 03/23 181 O2 Delivery Room air 03/23 181 Temp 36.7 03/23 181 Pulse 104 03/23 1817 Resp 16 03/23 1817 Last Documented: Result Date Time Pulse Ox 97 03/23 181 B/P 105/71 03/23 181 B/P Mean 82 03/23 181 O2 Delivery Room air 03/23 1817 Temp 36.7 03/23 181 Pulse 104 03/23 181 Resp 16 03/23 1817 All vital signs available at the time of this entry have been reviewed. Condition Stable, Improved Clinical Impression Clinical Impression Primary Impression: Hyperemesis gravidarum before end of 22 week gestation with dehydration Secondary Impressions: Dehydration, Hypokalemia, Pelvic pain affecting in first trimester, antepartum Time of Impression 2102 Disposition Decision Hospitalize Hosp Physician Name Margo Sears MD )( Accepts Hospitalization Yes )( Reason for Hospitalization hyperem )( Accepted Time 2102 )( Accepted Date 03/23/24 Discharge/Care Plan (Auto) Prescriptions Current Visit Scripts ONDANSETRON ODT (ZOFRAN ODT) 4 MG PO Q6H ONDANSETRON ODT (ZOFRAN ODT) 4 MG PO Q6H #90 TAB PANTOPRAZOLE (PROTONIX IV) 40 MG PO DAILY 1800 PANTOPRAZOLE (PROTONIX IV) 40 MG PO DAILY 1800 #90 at 1300 RPT #:[id number] END OF REPORT [facility] 2024-03-07 19:11:02 Pt given printed and verbal discharge instructions regarding nausea and vomiting Prescriptions provided: proMETHazine 12.5 mg suppository Pt verbalized understanding of instructions, pt awake alert oriented, resp reg unlabored, skin w/d, color appropriate for race, moves all ext well,pt encouraged to follow up with pcp Advised to seek medical attention for new/prolonged/worsening of symptoms No adverse reaction to meds given in ER noted upon discharge PIV d'cd, dressing to site, catheter in tact. Awake, alert oriented, resp reg unlabored, skin w/d, pt leaving amb with steady gait, in no apparent distress Citlalli Christian RN [facility] 2024-03-07 17:42:29 Kalli Caldwell is a 18 year old female presents to ED for vomiting. Pt report vomiting since Friday, unable to keep anything down, pt is 8 weeks , . Denied any any vaginal bleeding, cramping, fever. Pt endorses rib pain and vomited 30min ago. Pt reports she took promethazine this AM. Pt AAOx4, RR even and unlabored. [facility] 2024-03-07 17:35:00 [facility] Emergency Department Note Patient Name: Kalli Caldwell Date of : 2005 18 year old female Treatment Room: Room/bed info not found Primary Care Physician: CT SEARS Patient Escorted by: Family [5] Mode of Arrival: Personal means [1] EMS Treatment Prior to ED Arrival: Travel and Exposure Screening: Symptoms Does patient have any of these symptoms?: (not recorded) Exposure Screening Has patient had contact with someone with a communicable disease in the last month?: (not recorded) Diseases exposed to:: (not recorded) Is Patient ?: (not recorded) Exposure Date: (not recorded) Chief Complaint: Chief Complaint Patient presents with Vomiting History of Present Illness: The patient presents from home for evaluation for nausea and vomiting on and off for the past 1 week. She reports it has been constant since Friday. Today is Friday. No diarrhea. No sick contacts. No bad food exposure. No recent trips or travel or antibiotics. She reports she is currently with her last menstrual period being January 11. She is 3 para 2-0-0-2. [facility] [place] She reports she has Zofran and Phenergan tablets at home but they are not helping. No dysuria or hematuria. No abdominal pain or cramping. No vaginal bleeding or discharge. Here for evaluation. Past Medical History/Immunizations: Past Medical History: Diagnosis Date ADHD (attention deficit hyperactivity disorder) Allergic rhinitis Asthma Allergies: Allergies Allergen Reactions Keflex [Cephalexin] Hives Omnicef [Cefdinir] Hives Zithromax [Azithromycin] Hives Past Social History: Tobacco Use Never smoked or used smokeless tobacco. Comments: no smoke exposure Past Surgical History: Past Surgical History: Procedure Laterality Date MYRINGOTOMY 2004, 2006 Review of Systems: Review of Systems Constitutional: Negative for chills and fever. Respiratory: Negative for cough and shortness of breath. Cardiovascular: Negative for chest pain. Gastrointestinal: Positive for nausea and vomiting. Negative for abdominal pain. Genitourinary: Negative for dysuria. Musculoskeletal: Negative for arthralgias, neck pain and neck stiffness. Skin: Negative for wound. Neurological: Negative for dizziness. Psychiatric/Behavioral: Negative for agitation. Endocrine: Negative for goiter. Physical Exam: ED Triage Vitals Weight 03/07/24 1741 72.6 kg (160 lb) Actual or estimated 03/07/24 1741 Estimated by patient/family report Height 03/07/24 1745 1.702 m (5' 7") BP 03/07/24 1741 121/78 Pulse 03/07/24 1741 104 Resp 03/07/24 1741 20 Temp 03/07/24 1741 37 ?C (98.6 ?F) Temp source 03/07/24 1741 Oral SpO2 03/07/24 174 94 % Measured on 03/07/24 174 Room air Physical Exam Vitals and nursing note reviewed. Constitutional: Appearance: Normal appearance. HENT: Head: Normocephalic and atraumatic. Mouth/Throat: Mouth: Mucous membranes are dry. Cardiovascular: Rate and Rhythm: Normal rate and regular rhythm. Pulses: Normal pulses. Pulmonary: Effort: Pulmonary effort is normal. No respiratory distress. Breath sounds: No stridor. No wheezing or rhonchi. Abdominal: General: There is no distension. Palpations: Abdomen is soft. There is no mass. Tenderness: There is no abdominal tenderness. There is no guarding or rebound. Hernia: No hernia is present. Musculoskeletal: General: Normal range of motion. Cervical back: Normal range of motion and neck supple. Skin: General: Skin is warm and dry. Neurological: General: No focal deficit present. Mental Status: She is alert and oriented to person, place, and time. Radiology: No orders to display Lab Results: Lab Results MAGNESIUM - Normal Result Value Ref Range MAGNESIUM 1.9 1.7 - 2.4 mg/dL POCT TEST - Normal POCT PREG Positive On board controls acceptable with C Line Yes POCT PREG LOT # [id number] POCT PREG TEST DATE 11/13/2024 CBC WITH DIFF WBC 8.26 4.30 - 11.10 10*3/?L RBC 4.25 3.93 - 5.25 10*6/?L HGB 12.8 11.6 - 15.0 g/dL HCT 37.3 35.7 - 45.2 % MCV 87.8 80.6 - 95.5 fL MCH 30.1 25.9 - 32.8 pg MCHC 34.3 31.6 - 35.1 g/dL RDW-SD 39.1 39.0 - 49.9 fL RDW-CV 12.4 12.0 - 15.5 % PLT 229 166 - 358 10*3/?L MPV 10.4 9.5 - 12.9 fL NRBC/100 WBC 0.0 0.0 - 10.0 /100 WBCs NRBC x10 3 <0.01 10*3/?L GRAN MAT (NEUT) % 56.2 % IMM GRAN % 0.40 % LYMPH % 34.9 % MONO % 7.3 % EOS % 0.7 % BASO % 0.5 % GRAN MAT x10 3 (ANC) 4.65 1.88 - 7.09 10*3/uL IMM GRAN x10 3 0.03 0.00 - 0.06 10*3/uL LYMPH x10 3 2.88 1.32 - 3.29 10*3/uL MONO x10 3 0.60 0.33 - 0.92 10*3/uL EOS x10 3 0.06 0.03 - 0.39 10*3/uL BASO x10 3 0.04 0.01 - 0.07 10*3/uL COMP. METABOLIC PANEL (37822) NA 137 135 - 145 mmol/L K 3.8 3.5 - 5.0 mmol/L CL 101 98 - 108 mmol/L CO2 TOTAL 28 23 - 31 mmol/L AGAP 8 2 - 16 BUN 8 7 - 23 mg/dL GLUCOSE 103 70 - 110 mg/dL CREATININE 0.61 0.50 - 1.04 mg/dL TOTAL BILI 0.7 0.1 - 1.1 mg/dL CALCIUM 9.7 8.6 - 10.6 mg/dL T PROTEIN 7.9 6.3 - 8.2 g/dL ALBUMIN 4.5 3.5 - 5.0 g/dL ALK PHOS 47 34 - 122 U/L ALTv 13 5 - 35 U/L AST(SGOT) 22 13 - 40 U/L eGFR 131.4 mL/min/1.73m2 URINALYSIS EKG: If EKG completed, see Procedure Note. Orders and Treatments: Orders Placed This Encounter Procedures CBC WITH DIFF COMP. METABOLIC PANEL (67407) Magnesium URINALYSIS POCT TEST Orders Placed This Encounter Medications NaCl 0.9% (NS) bolus infusion 1,000 mL metoclopramide HCl (REGLAN) injection 10 mg proMETHazine 12.5 mg suppository First Provider Eval: ED Events Date/Time Event User Comments 03/07/241736 Medical Screening Begins ARLENE MAYORGA DO -- 03/07/241736 First Provider Evaluation ARLENE MAYORGA DO -- ED COURSE Diagnosis/Impression as of 03/07/241856 Nausea and vomiting, unspecified vomiting type Procedures: Procedures MDM: Medical Decision Making The patient presents from home for evaluation for nausea and vomiting on and off for the past 1 week. She reports it has been constant since Friday. Today is Friday. She also reports he is currently with her last menstrual period being January 11. She is 3 para 2-0-0-2. No abdominal pain or cramping. No vaginal bleeding or discharge. She does follow with OB /[facility] PRODUCTS SUPERVISOR in [place]. She reports she has Zofran as well as Phenergan tablets at home but they are not helping. Vital signs are stable in the ER. She has dry mucous membranes. Her abdomen is soft and nontender on examination. Will check laboratory studies and give the patient IV fluids feels antiemetics. Anticipate discharge home later when she is able to tolerate by mouth. 1856 -the patient is doing well here in the ER. Her laboratory studies are unremarkable. Her UPT is positive. Her nausea and vomiting has resolved after the medications given here in the ER. She was given a p.o. challenge and able to tolerate by mouth without difficulty. She reports she is a follow-up appoint with her SIDEWALK INSPECTOR for this coming Friday. Today is Friday. She remained stable here in the ER and is okay for discharge home with PCP follow-up. Problems Addressed: Nausea and vomiting, unspecified vomiting type: acute illness or injury Amount and/or Complexity of Data Reviewed Labs: ordered. Decision-making details documented in ED Course. Risk Prescription drug management. Flowsheet Documentation: Scoring Tools: No data recorded Disposition/Condition: ED Disposition ED Disposition Disch - Home Condition Stable Comment -- Discharge Medications: Patient's Medications START taking these medications PROMETHAZINE 12.5 MG SUPPOSITORY Insert 1 Suppository into rectum every 4 (four) hours as needed for Nausea and Vomiting (N/V). CONTINUE taking these medications which have NOT CHANGED MONTELUKAST 10 MG TABLET TAKE ONE (1) TABLET(S) BY MOUTH IN THE EVENING. SERTRALINE 25 MG TABLET Take 1 tablet by mouth at bedtime. START taking Modified Medications as Prescribed No medications on file STOP taking these medications No medications on file Follow-up: Electronically signed by: Arlene Mayorga DO 03/07/24 1857 [facility] 2023-05-28 23:58:00 [id number] [facility] [address] [place], [place] [address] PATIENT NAME: KALLI CALDWELL ADMIT DATE: 05/24/23 ACCOUNT NO: [id number] ROOM NO: F.2013 AGE: 17 SEX: F ADMITTING PHYSICIAN: Margo Sears MD ATTENDING PHYSICIAN: Margo Sears MD Provider Query QUERY TEXT: Specificity General 360MD Query related questions should be directed to: [facility] Coding Query Helpline Please provide any known specificity for [Chronic anemia] documented in the [OB Discharge 05/26/2023 ]. (Acute blood loss anemia, Chronic blood loss anemia, iron deficiency anemia, other, unable to determine) The patient's Clinical Indicators include: Chronic anemia- hgb on admission is 9.8 - OB Discharge 05/26/2023 Vaginal delivery - OB Delivery Note 05/25/2023 EBL:350 mL - OB Delivery Note 05/25/2023 HEMATOCRIT (%) 29.6L - LAB HEMOGLOBIN (g/dL) 9.8L - LAB PNV WITH FE FUMARATE/FA - OB Admission / H and P 05/24/2023 Options provided: -- Respond - Create new note now -- Dismiss - Not applicable / Not valid -- Dismiss - Clinically unable to determine / Unknown -- Assign to another provider QUERY RESPONSE: Patient has physiologic anemia of (no evidence of iron deficiency anemia, no evidence of chronic blood loss anemia nor acute blood loss anemia on admission on 05/24/23 when hgb was found to be 9.8) Query created by: SHLOMO PORTILLO on 05/28/2023 9:47 PM at 2358 PATIENT NAME: KALLI CALDWELL [facility] 2023-05-26 10:20:00 [facility] ([facility]) OB Disch REPORT#:[id number] REPORT STATUS: Signed REPORT INITIALIZATION DATE:05/26/23 TIME: 1020 PATIENT: KALLI CALDWELL UNIT #: [id number] ROOM/BED: : 03 AGE: 17 SEX: F ATTEND: Margo Sears MD ADM AUTHOR: Margo Sears MD REPT SERVICE DT/TIME: 05/26/23 1020 * ALL edits or amendments must be made on the electronic/computer document * Subjective Subjective Admission EGA: Weeks: 36 Days: 5 EGA at delivery (wks/days): 36 weeks (6 days) Status/day: post Patient reports: Patient reports: Yes: complaints, normal lochia, pain management effective, tolerating po well , voiding well, voiding without pain, tolerating ambulation, flatus, headache. No: bowel movement, nausea, vomiting, excessive bleeding, abdominal pain, perineal pain, blurred vision. Objective General VS: Vital Signs Date Temp Pulse Resp B/P B/P Mean Pulse Ox FiO2 05/25-05/26 97.9-98.8 82-90 18 101-119/62-82 79.5 98 Last Documented: Result Date Time Pulse Ox 98 05/26 817 B/P 105/67 05/26 817 B/P Mean 79.5 05/26 817 Temp 97.9 05/26 08 Pulse 88 05/26 08 Resp 18 05/26 0408 PATIENT WEIGHT: Weight (lb): Weight (oz): Weight (kg): 77.700 Physical Exam Lungs: unlabored breathing Neuro: Exam: alert, oriented x3, normal speech Abdomen: post gravid, soft, no abnormal tenderness, no guarding, no rebound tenderness Uterus: involution appropriate, non-tender Fundus: firm, below the umbilicus, non-tender Lochia: normal Lower extremities: Edema: none Results Findings/Data: Laboratory Tests: 05/24 1700 Chemistry Sodium (135 - [...] signs reviewed, vital signs stable Discharge Summary General Free Text A P: 17 yo s/p PTSVD at 36 weeks due [...] of - patient complains of pruritis of palms of her hands and soles of her feet. Bile acids drawn 05/22/[address] [facility] [employer] Data [employer] are still pending. Normal liver enzymes on admission (AST 20, ALT 15). Explained to patient that the pruritis is a classic [...] precautions for PP depression, f/u in 2 weeks for virtual visit and 6 weeks for pp visit. pt advised to get psych appointment this week for close follow up. Hospital course: spontaneous labor, spontaneous vag delivery Procedures: spontaneous vaginal deliv Discharge condition: stable Discharge to: Home/Self Care Discharge diagnosis: full-term uncomp delivery Discharge management: less than 30 mins Baby A: status: live born Gender: female 1 minute: 8 5 minutes: 9 Anomalies: none noted Nursing data: The data set between the solid lines has been imported from nursing documentation. Any exceptions have been noted below under Provider comments. Delivery date A: 05/25/23 Delivery time A: 0648 Birthweight (gm) A: 3340 Feeding preference: Gender infant A: Female 1 minute infant A: 8 5 minutes A: 9 10 minutes A: Provider comments on imported nursing data: [] Plan: routine care Discharge Instructions Instructions: routine instr sheet given, instr and warnings rev'd, specific instr as noted Diet: Regular Activity: Light Duty Additional discharge routines: Attending Follow-Up Contraception discussed: abstinence for 4-6 weeks, will discuss at PP visit Prescriptions: e-prescribe at 1700 RPT #:[id number] END OF REPORT [facility] 2023-05-25 07:17:00 [facility] ([facility]) OB Delivery Note REPORT#:[id number] REPORT STATUS: Signed REPORT INITIALIZATION DATE:05/25/23 TIME: 716 PATIENT: KALLI CALDWELL UNIT #: [id number] ROOM/BED: [address] : 03 AGE: 17 SEX: F ATTEND: Margo Sears MD ADM AUTHOR: Nuvia Schafer MD REPT SERVICE DT/TIME: 05/25/23716 * ALL edits or amendments must be made on the electronic/computer document * OB Delivery Pre-delivery GBS status: GBS status: negative [place] evaluation at delivery: NRP certified personnel Admission EGA: Weeks: 36 Days: 5 EGA at delivery (wks/days): 36 weeks (6 days) Admission indication: labor, intrahepatic cholestasis of Steroids Prior to Delivery Steroids prior to delivery: no, delivery on arrival Blood Loss/Details Blood loss at delivery: <1K: no sx hypovol=no hem EBL at delivery (ml's): 350 Baby A Information Baby A information Delivery date: 05/25/23 Delivery time: 647 status: live born Wt of baby: not yet available Gender: female 1 minute: 8 5 minutes: 9 Presentation: vertex Anomalies: none noted ABG details Baby A Cord blood gases: not collected Nuchal cord Baby A Nuchal cord: no Vaginal Delivery Vaginal Delivery Vaginal delivery: Labor: augmented Medications/Devices used: oxytocin Lacerations: High vaginal laceration: no Extraction details OVD performed: no Shoulder dystocia present: no Additional comments: Ms. Kalli Caldwell is a 17 y.o. woman who presented to [facility] at [facility] ([facility]) on 05/24/23 at 36 weeks 5 days with complaint of painful regular contractions. OB hospitalist evaluated her and gave her Nubain for pain relief. When I evaluated her she not only complained of uterine contractions that had intensified compared to those she felt at her last visit with Dr. Sears at [facility] [employer] on 05/22/23 but also she stated she had itching of the palms of her hands as well as the soles of her feet. Dr. Sears had ordered bile acids on 05/22/23 which are still pending. Patient and her mother at bedside were informed that she would be admitted not only for labor since her SVE in the outpatient setting was 3 cm but her cervix was dilated to 4 cm in ST[facility]E at [facility] but she was also informed that [...] am shortly after she was evaluated by SOFTWARE DEVELOPMENT SPECIALIST. I checked her SVE and she was [...] she was encouraged to push so that her pelvic pressure would be alleviated with delivery. As the head crowned and delivered in LEROY position, the perineum was protected with blue towel. The anterior shoulder delivered with gentle downward traction and posterior shoulder with gentle upward traction. A nuchal cord was not noted. Delivery time was 6:48 am on 05/25/23. The infant was placed on patient' s chest, the umbilical cord was clamped x2 after 60 sec of delayed cord clamping and cut, then assessed by NRP certified nurse. Umbilical cord blood was collected [...] Caldwell and her daughter (no name yet). 's weight is unavailable at this time. Infant's scores were 8 at 1 min and 9 at 5 min. EBL:350 mL. at 0728 RPT #:[id number] END OF REPORT [facility] 2023-05-24 18:53:00 [facility] ([facility]) OB Admission / H P REPORT#:[id number] REPORT STATUS: Signed REPORT INITIALIZATION DATE:05/24/23 TIME: 1852 PATIENT: KALLI CALDWELL UNIT #: [id number] ROOM/BED: [address] : 03 AGE: 17 SEX: F ATTEND: Margo Sears MD ADM AUTHOR: Nuvia Schafer MD REPT SERVICE DT/TIME: 05/24/231852 * ALL edits or amendments must be made on the electronic/computer document * OB History Chief complaint: uterine contractions, itching of palms of hands and soles of feet HPI: Ms. Kalli Caldwell is a 18 y.o. at 36 weeks 1 day (EDC 06/20/23) on day of admission from [facility] to L D unit at [facility] on 05/24/23. She notes that she [...] Previous : none Number of prev : 0 Current : Best EDC: 06/20/23 Admission EGA (weeks) 36 Admission EGA (days) 5 EDC based on: ultrasound, 1st trimester Steroids prior to delivery: no, delivery on arrival Conditions of : hospitalized for hyperemsis gravidarum in first trimester s/p zofran subcutaneous infusion pump and PICC joon which has been removed, hospitalized for pyelonephritis s/p IV antibiotics, contractions- she took progesterone 200 mg po qday since she could not tolerate vaginal progesterone and she had serial cervical length ultrasounds, hospitalized in [place] at approx 28 weeks for contractions and received magnesium for neuroprophylaxis, steroids for lung maturity and SVE was 1-2 cm Labs: Blood type: O Rh: positive Rubella: immune Hepatitis B: negative HIV: negative STD: negative Syphilis: currently negative GBS: negative Procedures: non stress test Past History Past Medical History: Reports: Depression/mood disorder. Denies: Alcoholism/subst abuse, Anemia, Arthritis, Asthma, Atrial fibrillation, Cancer, Congestive heart failure, COPD, Coronary artery disease, Dementia, Diabetes mellitus, GERD/gastritis, Hypertension, Kidney disease/stones, Seizure disorder, Transient ischemic attack , , Abdominal aortic aneurysm, ADD/ADHD, AIDS, Angina pectoris, Anticoagulant therapy, Atrial flutter, Bleeding disorder, BPH, C diff colitis, Cardiac dysrhythmias, Chronic pain, Cirrhosis, Congenital anomalies, Dyslipidemia, Gallbladder dis/stones, GI bleed, Glaucoma, Headache disorder, Hepatitis, HIV, Intracranial hemorrhage, Ischemic stroke, Motor dysfunction, Pancreatitis, Peptic ulcer disease, Periph arterial disease, Pressure ulcer, Prior [place], Schizophrenia, Sickle cell disease, Steroid use, Thyroid disorder, Transfusion history, Tuberculosis, Urinary tract infection, Venous thromboembolism. Additional Medical History: Superior mesenteric artery syndrome, bipolar disorder with anxiety/depression ( Dr. Amauri Pisano is her psychiatrist) Past Surgical History: Denies: Abdominal surgery, Appendectomy, Bariatric procedure, CABG, Carotid [...] surgery, Nephrectomy, PCI, Prostate surgery, Thyroidectomy, Tracheotomy, PERSONAL LOAN SPECIALIST shunt. Additional Surgical History: 2005 Eustacian tubes in ears Family History Reports: Depression/mood disorder. Denies: Abdominal aortic aneurysm, Anemia, Asthma, CAD < 40 yrs old, Cancer, Coagulopathy, Dementia/Alzheimer's dis, Diabetes, Heart disease, Hypertension, Kidney disease/stones, Seizure disorder, Stroke/TIA, Subarachnoid hemorrhage, Sudden cardiac , Thyroid disorder, === , Connective tissue dis, Gallbladder disease, Hyperlipidemia, Neurofibromatosis, Sickle cell disease. Alcohol Use Denies EtOH use Drug Use Denies recreational drugs Smoking status for patients 13 years old or older: Former Smoker Additional Social History: her mother is at bedside Medications: Home Medications: PNV WITH FE FUMARATE/FA () (Unknown Dose) PROGESTERONE,MICRONIZED (PROMETRIUM) 200 MG PO BEDTIME Buspirone for mood Allergies: Coded Allergies: azithromycin (From ZITHROMAX) (Severe, SWELLING 05/18/23) latex (Severe, HIVES 05/18/23) cephalexin (From KEFLEX) (Intermediate, HIVES 05/18/23) Review of Systems Constitutional: Denies: chills, fever. Skin: Denies: rash. Allergy/Immun: Denies: rhinorrhea. Eyes: Denies: visual loss/blurred. ENT: Denies: sore throat. Respiratory: Denies: SOB. Cardiovascular: Denies: chest pain. GI: Reports: abdominal pain. : Reports: , previous pregnancies. Denies: dysuria, vaginal bleeding, vaginal discharge. Musculoskeletal: Denies: extremity pain, extremity swelling. Neuro: Denies: headache. Objective General VS: Last Documented: Result Date Time Pulse Ox 98 05/25 257 Pulse 97 05/25 257 B/P Mean 74.0 05/25 025 B/P 98/54 05/25 0256 Temp 98.4 05/25 0200 Resp 18 05/24 2034 Vital Signs: Date Time Temp Pulse Resp [...] 05/25 0152 92 99 05/25 0151 85.0 05/25 0151 89 110/68 05/25 0148 84.0 05/25 [...] 86.0 05/24 2034 98.8 99 18 115/71 05/24 1811 121 100 05/24 1806 105 99 05/24 1801 109 89 05/24 1756 100 100 05/24 1753 8 85 05/24 1751 107 100 05/24 1746 97 100 05/24 1741 92 100 05/24 1736 99 100 05/24 1731 195 99 05/24 1726 99 97 05/24 1721 100 98 05/24 1716 101 98 05/24 1711 102 98 05/24 1706 99 98 05/24 1701 210 99 05/24 1656 120 98 05/24 1651 109 98 [...] (lb): Weight (oz): Weight (kg): 77.700 Physical Exam HEENT: normocephalic w/o injury Cardiac: regular rate and rhythm (by palpation of radial pulse) Lungs: unlabored breathing Breasts: deferred Neuro: Exam: alert, oriented x3, normal speech Abdomen: gravid, soft, no abnormal tenderness, no guarding, no rebound tenderness Musculoskeletal: normal inspection Uterine activity: Monitor: toco Frequency (description): irregular Pelvic exam: Pelvis clinically adequate: yes Cervical/ exam: Dilatation (cm): 4 Effacement (%): 70 Est wt (gms): 3022 (by US at [facility] [employer] 05/22/23) Suspected macrosomia: No Suspected >/= 4500 grams No Suspected >/= 5000 grams: No station: - 3 Membranes: Membranes: AROM ROM date: 05/25/23 ROM time: 0030 Amniotic fluid: clear Lower extremities: Edema: none Baby A: Baby A FHR category: category 1 Results Findings/Data: Laboratory Tests: 05/24 05/24 05/24 1700 1559 1557 [...] % (Auto) (14.5 - 29.7 %) 23.2 Robertson % (Auto) (3.6 - 10.2 %) 9.7 Eos % (Auto) (0.0 - 3.0 %) 0.2 Baso % (Auto) (0.1 - 0.9 %) 0.2 Neut # (Auto) (K/mm3) 7.9 Lymph # (Auto) (K/mm3) 2.8 Robertson # (Auto) (K/mm3) 1.2 Eos # (Auto) (K/mm3) 0.02 Baso # (Auto) (K/mm3) 0.0 Serology Treponema pallidum Ab (NONREACTIVE) NONREACTIVE Hep Bs Antigen (NONREACTIVE) NONREACTIVE Hepatitis C Antibody (NONREACTIVE) NONREACTIVE Hep C Ab Signal/Cutoff (<0.80) 0.07 HIV 1 2 Antibody (NONREACTIVE) NONREACTIVE Diagnosis, Assessment Plan Diagnosis, Assessment Plan Free Text A P: Ms. Kalli Caldwell is a 17 y.o. woman at 36 weeks 5 days (EDC 06/20/23) who is admitted from [facility] to L D unit at [facility] due to labor and suspected intrahepatic cholestasis of based on clinical findings 1) labor -patient's SVE at [facility] [employer]ap [employer] during her routine visits on 05/22/23 was 3 cm/70%/-2 -OB hospitalist evaluated patient and found that she had a great deal of pain with abdominal contractions so she gave her Nubain -On L D my SVE was 4/70%/-3 and she was offered amniotomy for which she gave verbal consent. At approx 00:30 amnihook was used to perform amniotomy which patient tolerated with her mother at bedside but she explained it was exquisitely uncomfortable but she declined epidural prior to amniotomy since she has fear of needles -After amniotomy she requested epidural -Plan to give IV Pitocin to augment labor -anticipate -Adequate pelvis 2) well being -cat I FHT -last growth US on 05/22/[address] [facility] Sap Data Architect showed fetus was in cephalic presentation/EFW 3022 gm/fundal placenta/MIGUEL ANGEL 17.80 cm -She received betamethasone at approx 28 weeks when she was hospitalized in [place], [place] for rule out labor. She had a rescue course 05/22/[address] [facility] [employer] 3) GBS negative 4) Rubella immune/Rh positive 5) PMH: bipolar disorder with anxiety/depression- patient kept stating that she was nervous about "everything" when she was admitted to L D just prior to amniotomy. Asked if she took medications at home regarding her anxiety and her mother at bedside stated that she takes Buspirone. Will order; superior mesenteric artery syndrome 6) PSH: 2004 Eustacian tubes in ears 7) s/p tdap vaccine 8) Intrahepatic cholestasis of - patient complains of pruritis of palms of her hands and soles of her feet. Bile acids drawn 05/22/[address] [facility] [employer] are still pending. Normal liver enzymes on admission (AST 20, ALT 15). Explained to patient that the pruritis is a classic [...] 36 weeks 5 days at 0333 RPT #:[id number] END OF REPORT [facility] 2023-05-24 16:03:00 [facility] ([facility]) STEVE Evaluation Note REPORT#:[id number] REPORT STATUS: Signed REPORT INITIALIZATION DATE:05/24/23 TIME: 1603 PATIENT: KALLI CALDWELL UNIT #: [id number] ROOM/BED: [facility] : 03 AGE: 17 SEX: F ATTEND: Margo Sears MD ADM AUTHOR: Vicky Anderson MD REPT SERVICE DT/TIME: 05/24/23 1603 * ALL edits or amendments must be made on the electronic/computer document * STEVE History Nursing Documentation Review Nursing data: The data set between the solid lines has been imported from nursing documentation. Any exceptions have been noted below under Provider comments. Current data Steroids prior to arrival: ROM date: ROM time: EDC date: 06/16/23 Gestational age (labor triage): Post hemorrhage risk score: Prior history : 3 Para: 1 Term: : Abortions spontaneous: Abortions induced: Living children: Ectopic: Stillbirths: Live births: deaths: Number of previous C/S: Reported maternal labs/data Blood type: Rh type: Rubella: Hepatitis B: HIV exposure test: VDRL: Group B beta strep: Rho(D) immune globulin this preg: Monitor mode - UA: Feeding preference: Provider comments on imported nursing data: [] Chief complaint: uterine contractions HPI: 17 year old at 36w5d who presents to [...] 3 Term: 1 Abortus: 1 Living children: 1 Conditions of : pre-term labor Past medical history: bipolar Past surgical history: denies PSH Social history: no alcohol use, no tobacco use, no drug use Family history Relation not specified for: FH: breast cancer Medications: Home Medications: Medication Dose/Rte/Freq Days Qty Entered Last Max Daily Dose Reviewed PNV WITH FE (Unknown Dose) 12/21/22 FUMARATE/FA 2027 () Strength: (Unknown Strength) TAB TERCONAZOLE 1 APPFUL VAGINAL 3 20 05/18/23 (TERAZOL-3 0.8% VAGINAL) DAILY 1226 Strength: 0.8 % CREAM PROGESTERONE,MICRONIZED 200 MG PO BEDTIME 30 12/23/22 (PROMETRIUM) 1700 Strength: 100 MG CAP Current Hospital Medications: Central Nervous System Agents Sig/Cornelio Start time Last Medication Dose Route Stop Time Status Admin Nalbuphine HCl 10 MG Q4H PRN PRN 05/24 1600 AC (NALBUPHINE HCL 10 IV 07/23 1559 MG/ML 1 ML AMP) Allergies Coded Allergies: azithromycin (From ZITHROMAX) (Severe, SWELLING 05/18/23) latex (Severe, HIVES 05/18/23) cephalexin (From KEFLEX) (Intermediate, HIVES 05/18/23) Review of Systems Additional notes: As per HPI Objective General VS: Last Documented: Result Date Time Pulse Ox 97 05/24 1556 Pulse 137 05/24 1556 Temp 98.1 05/24 1521 Resp 24 05/24 1521 B/P Mean 77.0 05/24 1512 B/P 05/24 1512 Vital Signs Date Temp Pulse Resp B/P B/P Mean Pulse Ox FiO2 05/24 98.1 121-156 24 77.0 90-99 PATIENT WEIGHT: Weight (lb): Weight (oz): Weight (kg): 77.109490 Physical Exam HEENT: normocephalic w/o injury, pupils equal Cardiac: regular rate and rhythm Neuro: Exam: alert, oriented x3, normal speech Abdomen: gravid Uterine activity: Monitor: toco Frequency (minutes): 2 Cervical/ exam: Dilatation (cm): 4 Effacement (%): 25 station: - 3 FHR evaluation: Baseline: 130 bpm Variability: moderate 6-25 bpm Accelerations: 15 X 15 Decelerations: none FHR category: Reactive NST Membranes: Membranes: Intact Diagnosis, Assessment Plan Diagnosis, Assessment Plan Assessment/Impression: 17 year old at 36w5d with contractions Plan: Patient received Nubain with improvement in pain, however remains uncomfortable. Given degree of pain as well as regular contractions, will plan to admit patient to labor and delivery for expectant management. Patient's primary OB group notified. Care to be transfered. surveillance remains reassuring. at 1706 RPT #:[id number] END OF REPORT [facility] 2023-05-18 10:46:00 [facility]) STEVE Evaluation Note REPORT#:[id number] REPORT STATUS: Signed REPORT INITIALIZATION DATE:05/18/23 TIME: 1046 PATIENT: KALLI CALDWELL UNIT #: [id number] ROOM/BED: : 03 AGE: 17 SEX: F ATTEND: Chely Segura MD ADM DT: AUTHOR: Chely Segura MD REPT SERVICE DT/TIME: 05/18/23 1046 * ALL edits or amendments must be made on the electronic/computer document * STEVE History Chief complaint: uterine contractions HPI: 17 year old at 35.6 weeks with complaints of contractions. States contractions has been occuring every 2 minutes since last night. No vb, lof. +FM Patient has had chronic vaginitis during and was treated for BV. Reports discharge and was tested on Friday by Dr. Sears who informed her that she had white clumpy discharge history: : 2 Term: 1 Abortus: 1 Comments: G1 (2020)- 37 wks, . 6lb 12oz Past medical history: bipolar, superior mesentary artery syndrome Past surgical history: wisdom teeth Social history: no alcohol use, no tobacco use, no drug use Family history Relation not specified for: FH: breast cancer Medications: Home Medications: Medication Dose/Rte/Freq Days Qty Entered Last Max Daily Dose Reviewed PNV WITH FE (Unknown Dose) 12/21/22 05/18/23 FUMARATE/FA 2027 1054 () Strength: (Unknown Strength) TAB TERCONAZOLE 1 APPFUL VAGINAL 3 20 05/18/23 (TERAZOL-3 0.8% VAGINAL) DAILY 1226 Strength: 0.8 % CREAM PROGESTERONE,MICRONIZED 200 MG PO BEDTIME 30 12/23/22 (PROMETRIUM) 1700 Strength: 100 MG CAP Allergies Coded Allergies: azithromycin (From ZITHROMAX) (Severe, SWELLING 05/18/23) latex (Severe, HIVES 05/18/23) cephalexin (From KEFLEX) (Intermediate, HIVES 05/18/23) Objective General VS: Last Documented: Result Date Time Pulse Ox 99 05/18 1157 Pulse 91 05/18 1157 B/P Mean 90.0 05/18 1154 B/P 115/74 05/18 1154 Temp 98.4 05/18 1020 Resp 22 05/18 1020 Vital Signs Date Temp Pulse Resp B/P B/P Mean Pulse Ox FiO2 05/18 98.4 89-116 22 112-115/71-74 84.0-90.0 98-100 PATIENT WEIGHT: Weight (lb): 170 Weight (oz): Weight (kg): 77.300 Physical Exam HEENT: normocephalic w/o injury, no scleral icterus Lungs: unlabored breathing Neuro: Exam: alert, oriented x3, CNII-XII grossly intact Abdomen: gravid, soft, no abnormal tenderness, no rebound tenderness Musculoskeletal: normal inspection Uterine activity: Monitor: toco Frequency (description): none Cervical/ exam: Dilatation (cm): 0 - closed Effacement (%): 50 station: - 5 presentation: unable to assess FHR evaluation: Baseline: 140 bpm Variability: moderate 6-25 bpm Accelerations: 15 X 15 Decelerations: none Notes: Reactive Lower extremities: Edema: none Diagnosis, Assessment Plan Diagnosis, Assessment Plan Free Text A P: 17 year old at 35.6 weeks with concerns about contractions ruled out for labor Plan: - No cevical change or contractions noted - Patient given a trial with Procardia 10 mg once with no relief - Discussed concern for possible [place] infection. Pending vaginal swab by Dr. Sears. Will send patient with prescription for terconazole and informed to follow -up with swab performed in office - labor precautions - f/u with OB in 1-2 days at 1304 RPT #:[id number] END OF REPORT [facility] 2023-05-07 11:20:00 [facility] ([facility]) STEVE Evaluation Note REPORT#:[id number] REPORT STATUS: Signed REPORT INITIALIZATION DATE:05/07/23 TIME: 112 PATIENT: KALLI CALDWELL UNIT #: [id number] ROOM/BED: : 03 AGE: 17 SEX: F ATTEND: Margo Sears MD ADM AUTHOR: Chely Segura MD REPT SERVICE DT/TIME: 05/07/23 1120 * ALL edits or amendments must be made on the electronic/computer document * STEVE History Chief complaint: suspected ruptured memb HPI: 17 year old at 34.2 weeks (MARIA TERESA 06/16/23) who presents with possible rupture of membrane. Noticed leakage since Friday and increased today. No contractions, vaginal bleeding. Reports movement care with Dr. Sears. complicated by history of bipolar disorder history: : 3 Term: 1 Abortus: 1 Comments: G1 (2020)- 37 wks, . 6lb 12oz Past medical history: bipolar Past surgical history: wisdom teeth Social history: no alcohol use, no tobacco use, no drug use Family history Relation not specified for: FH: breast cancer Medications: vitamin Progesterone 200 mcg PO Allergies Coded Allergies: azithromycin (From ZITHROMAX) (Severe, SWELLING 05/07/23) latex (Severe, HIVES 05/07/23) cephalexin (From KEFLEX) (Intermediate, HIVES 05/07/23) Review of Systems All systems rev neg: [...] 110/72 87.0 98-99 PATIENT WEIGHT: Weight (lb): 168 Weight (oz): Weight (kg): 76.400 Physical Exam HEENT: normocephalic w/o injury, no scleral icterus Lungs: unlabored breathing Neuro: Exam: alert, oriented x3, CNII-XII grossly intact Abdomen: gravid, soft, no abnormal tenderness Musculoskeletal: normal inspection Uterine activity: Monitor: toco Frequency (description): none Pelvic exam: Sterile speculum exam: visually closed, no pooling, no bleeding, thick white discharge FHR evaluation: Baseline: 130 bpm Variability: moderate 6-25 bpm Accelerations: 15 X 15 Decelerations: none Notes: Reactive Lower extremities: Edema: none Results Findings/Data: Laboratory Tests: 05/07 1141 Other Body Source Membranes Rupture NON-RUPTURED Microbiology: Date/Time Procedure - Status Source Growth 05/07 1125 Wet Prep - COMP CERVIX Diagnosis, Assessment Plan Diagnosis, Assessment Plan Free Text A P: 17 year old at 34.2 weeks ruled out for rupture of membrane. Plan: - ROM plus negative and speculum exam negative for pooling with valsalva - Wet prep with clue cells. Will treat for bacterial vaginosis. Metrogel sent to pharmacy - labor precautions - f/u with OB on Friday as scheduled or earlier if indicated Plan discussed with: patient, parent at 1323 RPT #:[id number] END OF REPORT [facility] 2023-03-05 23:16:00 [facility] ([facility]) Clinical Note REPORT#:[id number] REPORT STATUS: Signed REPORT INITIALIZATION DATE:03/05/23 TIME: 2315 PATIENT: KALLI CALDWELL UNIT #: [id number] ROOM/BED: : 03 AGE: 17 SEX: F ATTEND: Margo Sears MD ADM AUTHOR: aMrgo Sears MD REPT SERVICE DT/TIME: 03/05/232315 * ALL edits or amendments must be made on the electronic/computer document * Clinical Note Note: Patient is a 17 year old at 24 [...] 99 Abdomen: - gravid, non-tender SVE - closed EFM - Cat 1 strip 150bpm/moderate variability/positive accelerations/no decels. no cvat [place] - no contractions Laboratory Tests: 03/05 Serology SARS-CoV-2 Ag (Rapid) (NEGATIVE) NEGATIVE Urines Urine Color (YELLOW) YELLOW Urine Appearance (CLEAR) Slightly-Cloudy Urine pH (5 - 9) 6.0 Ur Specific [place] (1.001 - 1.035) 1.018 Urine Protein (NEG) [...] Triage for pelvic pain and rule out labot Plan: Suspect UTI, plan for antibiotics, pelvic rest and tylenol for pain increase water hydration. Pyelonephritis precautions given. SVE close, plan to discharge home with ptl precautions. Patient advised to f/u in office at next scheduled appointment. at 2251 RPT #:[id number] END OF REPORT [facility] 2022-12-23 16:26:00 [facility] ([facility]) OB Disch Undelivered REPORT#:[id number] REPORT STATUS: Signed DATE:12/23/22 TIME: 1626 PATIENT: KALLI CALDWELL UNIT #: [id number] ROOM/BED: [address] : 03 AGE: 17 SEX: F ATTEND: Margo Sears MD ADM AUTHOR: Margo Sears MD * ALL edits or amendments must be made on the electronic/computer document * Subjective Subjective Admission EGA: Weeks: 14 Days: 1 Current EGA weeks/days: 14 week Status/Day: hospital day (3) Patient reports: Patient reports: Yes: abdominal pain (but improving, mild). No: complaints, vaginal bleeding, leaking fluid, contractions, normal movement, no movement, headache, scotomata, fever, chills, shortness of breath, comfortable with epidural, coping well w/o pain meds, new complaints. Objective General VS: Last Documented: Result Date [...] Weight (oz): Weight (kg): 65.800 Physical Exam Cervical/ exam: Dilatation (cm): 0 - closed FHR evaluation: Baby A notes: positive on ultrasound Procedures performed: ultrasound: abdominal, ultrasound: transvaginal HEENT: normocephalic w/o injury Lungs: unlabored breathing Neuro: Exam: alert, oriented x3, normal speech, normal gait Abdomen: gravid, soft, no abnormal tenderness, no rebound tenderness, no CVAT Lower extremities: Edema: none Los's sign: negative Calf tenderness: negative Discharge Undelivered General Free Text A P: 17 yo at 14 weeks 1 days with acute right lower abdominal pain hospital day 3 - 14 days and 3 days 1. Acute abdominal pain (RLQ and flank) - On iv antibiotics rocephin every 24 hours for presumed early pyelonephritis. Tvus shows 2.7 cornelio, no bleeding noted normal cervical length. continue progesterone. Repeat ultrasound on discharge shows viable fetus, stable 4cm cervical length. Abdominal ultrasound shows appendix appears normal. Patient also has a history of SMA syndrome. Patient reports she is clinically feeling better, no bleeding, recommend rest upon discharge, no pelvic activity and continue progesterone. Bleeding precautions. Will continue keflex outpatient for 7 more days, continue po hydration 2. Rh+ 3. Anxiety/history of bipolar - pt is not meds. will add prn hydroxyzine. 4. dispo - dc home today, plan to continue oral antibiotics. f/u in 1 week for repeat ultrasound. Discharge to: Home/Self Care Discharge diagnosis: kidney/bladder infection, low lying placenta, pelvic pain Procedures: ultrasound: abdominal, ultrasound: transvaginal Discharge management: greater than 30 mins Time spent: Time spent with patient (minut 30 >50% spent on counseling/coordination of care: yes Discharge Instructions Instructions: routine instr sheet given, instr and warnings rev'd, specific instr as noted Warnings: bleeding, nausea/vomit/dehydration, labor warnings, fever Diet: Regular Activity: Light Duty, No [place] for 6 Wks, No Lifting >10lbs, No Sports/ Activities, No Strenuous Activity Additional Discharge Routines: Attending Follow-Up, F/U Labs/Procedures (f/u ultrasound 1 week) Follow-up labs, proc, tx: 1 week ultrasound Prescriptions: Continue taking these medications: ONDANSETRON (ZOFRAN) 4 MG TAB 4 MILLIGRAM ORAL EVERY 6 HOURS NEEDED. as needed for NAUSEA/VOMITING PNV WITH FE FUMARATE/FA () (Unknown Strength) TAB Unknown Dose AMOXICILLIN (AMOXIL) 875 MG TAB 875 MILLIGRAM ORAL EVERY 12 HOURS. Qty = 14 Start taking the following new medications: hydrOXYzine HCL (ATARAX) 25 MG TAB 25 MILLIGRAM ORAL EVERY 6 HOURS NEEDED. as needed for ANXIETY/SEDATION Qty = 30 No Refills CEPHALEXIN (KEFLEX) 500 MG CAP 500 MILLIGRAM ORAL EVERY 12 HOURS. Qty = 14 No Refills PROGESTERONE,MICRONIZED (PROMETRIUM) 100 MG CAP 200 MILLIGRAM ORAL BEDTIME. Qty = 30 No Refills at 0832 [facility] #:[id number] END OF REPORT [facility] 2022-12-22 09:55:00 [facility] ([facility]) OB Antepartum Prog Note REPORT#:[id number] REPORT STATUS: Signed DATE:12/22/22 TIME: 09 PATIENT: KALLI CALDWELL UNIT #: [id number] [address] AGE: 17 SEX: F ATTEND: Margo Sears MD ADM AUTHOR: Margo Sears MD * ALL edits or amendments must be made on the electronic/computer document * Subjective Subjective Admission EGA: Weeks: 14 Days: 1 Patient reports: Patient reports: Yes abdominal pain (right pains), No no complaints, No vaginal bleeding, No leaking fluid, No contractions, No normal movement, No decreased movement, No no movement, No headache, No blurred vision, No scotomata, No fever, No chills, No shortness of breath, No comfortable with epidural, No coping well w/o pain meds, No new complaints Objective Nursing Documentation Review Nursing data: The data set between the solid lines has been imported from nursing documentation. Any exceptions have been noted below under Provider comments. ROM date: ROM time: Labor onset date: Labor onset time: Provider comments on imported nursing data: [] VS: Last Documented: Result Date Time Pulse Ox 96 12/22 0925 B/P 97/63 12/22 0925 B/P Mean 74.2 12/22 0925 Temp 98.1 12/22 0925 Pulse 86 12/22 0925 Resp 14 12/22 09 O2 Delivery Room air 12/22 0200 Vital Signs Date Temp Pulse Resp B/P B/P Mean Pulse Ox FiO2 12/21-12/22 97.6-98.1 77-86 -18 89-97/47-63 60.9-74.2 96-100 PATIENT WEIGHT: Weight (lb): Weight (oz): Weight (kg): 65.800 Membranes: Intact Cervical/ exam: Dilatation (cm): 0 - closed HEENT: normocephalic w/o injury Cardiac: regular rate and rhythm Lungs: unlabored breathing Neuro: Exam: alert, oriented x3, normal speech, normal gait Abdomen: gravid, soft, no rebound tenderness, tender to deep palpation in lower right quadrant, right cvat, right CVAT Lower extremities: Edema: none Los's sign: negative Calf tenderness: negative Findings/data: Laboratory Tests: 12/21 Chemistry Sodium (135 - 145 [...] (Auto) (14.5 - 29.7 %) 45.0 H Robertson % (Auto) (3.6 - 10.2 %) 7.4 Eos % (Auto) (0.0 - 3.0 %) 2.2 Baso % (Auto) (0.1 - 0.9 %) 0.4 Neut # (Auto) (K/mm3) 3.1 Lymph # (Auto) (K/mm3) 3.1 Robertson # (Auto) (K/mm3) 0.5 Eos # (Auto) (K/mm3) 0.15 Baso # (Auto) (K/mm3) 0.0 Miscellaneous Maternal Serum HCG 40512 Urines Urine Color (YELLOW) YELLOW Urine Appearance (CLEAR) CLEAR Urine pH (5 - 9) 5.0 Ur Specific [place] (1.001 - 1.035) 1.020 Urine Protein (NEG) [...] 2022 Urine Culture - RES URINE Recent Impressions: ULTRASOUND - US ABDOMEN LTD 12/21 2024 Report Impression - Status: SIGNED Entered: 12/21/2022 2147 IMPRESSION: Unremarkeble limited exam, appendix not definitively visualized. Impression By: [id number] - Ha Fontenot ULTRASOUND - US LTD 12/21 2024 Report Impression - Status: SIGNED Entered: 12/21/2022 2221 Impression: 1. Single live intrauterine . 2. Suspected small placental marginal hemorrhage. 3. No sonographic abnormality of the ovaries. Impression By: [email or web address] - Fabrice Avila MD ULTRASOUND - US PREG UT TRANSVAGINAL 12/22 0020 Report Impression - Status: SIGNED Entered: 12/22/2022 0103 IMPRESSION: Cervical length of 4 cm. Impression By: [email or web address] - Fabrice Avila MD Diagnosis, Assessment Plan Diagnosis, Assessment Plan Free Text A P: 17 yo at 14 weeks 1 days with acute right lower abdominal pain hospital day 2 - 14 days and 2 days 1. Acute abdominal pain (RLQ and flank) - On iv antibiotics rocephin every 24 hours for presumed early pyelonephritis. Tvus shows 2.7 cornelio, no bleeding noted normal cervical length. continue progesterone. plan to repeat tvus on discharge to monitor CORNELIO size. Abdominal ultrasound shows appendix appears normal. Patient also has a history of SMA syndrome. Patient is feel a little better, but still having some pains this morning with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 Baso % (Auto) (0.1 - 0.9 %) 0.4 Neut # (Auto) (K/mm3) 4.5 Lymph # (Auto) (K/mm3) 2.5 Robertson # (Auto) (K/mm3) 0.5 Eos # (Auto) (K/mm3) 0.07 Baso # (Auto) (K/mm3) 0.0 Urines Urine Color (YELLOW) YELLOW Urine Appearance (CLEAR) Slightly-Cloudy Urine pH (5 - 9) 6.0 Ur Specific [place] (1.001 - 1.035) 1.029 Urine Protein (NEG) [...] Note No complaints of headache. Still awaiting laboratory studies for probable admission Time of Re-Eval [...] STA 11/20 1932 DC 11/20 PO 11/20 1932000 Electrolytic, Caloric, And Anjelica Sig/Cornelio Start time [...] Room air 11/20 1724 Temp 36.4 11/20 172 Pulse 88 11/20 1725 Resp 20 11/20 1724 Last Documented: Result Date Time Pulse Ox 99 11/20 2134 B/P 103/62 11/20 2134 B/P Mean 75 11/20 2134 Temp 36.6 11/20 2134 Pulse 79 11/20 2134 Resp 19 11/20 2134 O2 Delivery Room air 11/20 172 All vital signs available at the time of this entry have been reviewed. Clinical Impression Clinical Impression Primary Impression: Hyperemesis gravidarum Secondary Impressions: UTI (urinary tract infection) Time of Impression 2111 Disposition Decision Admit Admit Physician Name Margo Sears MD Admit Physician SIDEWALK INSPECTOR Request Time 2112 Request Date 11/20/22 )( Admission Accepts Yes )( Accepted Time 2112 )( Accepted Date 11/20/22 Call Information accepted by dr Stephon Powers,Analysa 11/27/22 0744: HPI-General Illness Free Text HPI Notes Free Text HPI Notes G2, P1 at 10 weeks Patient presents for nausea and vomiting, this is her fourth visit in 1 month, she complains of feeling very dehydrated She has tried Zofran, Phenergan, Reglan, Diclegis without relief OB Dr. Sears, sent in for admission Review of Systems ROS Statements All systems rev neg except as marked. Review of Systems Constitutional Denies: Chills, Fatigue, Fever, Lethargy, Malaise, Recent wt loss, Weakness - generalized. Past Medical History - Adult Stated Complaint 10 WEEKS PREG NAUSEA/VOMITING 2 WEEKS, Home Medications Discontinued Scripts IBUPROFEN (MOTRIN) 600 MG PO Q6H PRN PRN MILD PAIN (SCALE 1-3) IBUPROFEN (MOTRIN) 600 MG PO Q6H PRN PRN MILD PAIN (SCALE 1-3) #30 TAB Prov: 12/26/20 DC: 11/26/22 3404 Therapy completed Reported Medications FERROUS SULFATE (FEOSOL) [...] been transferred to and accepted by [Dr Mai]. We discussed: the patient's chief complaint; labs [...] the current impression and/or treatment plan. The accepting physician is now responsible for the patient's care and final disposition. at 2383 at 0747 RPT #:[id number] END OF REPORT [facility] 2020-12-26 11:15:00 [facility] ([facility]) OB Disch REPORT#:[id number] REPORT STATUS: Signed DATE:12/26/20 TIME: 1115 PATIENT: KALLI CALDWELL UNIT #: [id number] ROOM/BED: [address] : 03 AGE: 15 SEX: F ATTEND: Margo Sears MD ADM AUTHOR: Desirae Martinez MD * ALL edits or amendments must be made on the electronic/computer document * Subjective Subjective Admission EGA: Weeks: 37 Days: 4 EGA at delivery (wks/days): 37 weeks Patient reports: Patient reports: Yes: normal lochia, pain management effective, tolerating po well, voiding well, tolerating ambulation. No: complaints, nausea, vomiting. Objective General VS: Vital Signs Date [...] gait Abdomen: post gravid, soft, no abnormal tenderness, no guarding, no rebound tenderness Fundus: firm, [...] % (Auto) (14.5 - 29.7 %) 20.4 Robertson % (Auto) (3.6 - 10.2 %) 11.1 H Eos % (Auto) (0.0 - 3.0 %) 0.7 Baso % (Auto) (0.1 - 0.9 %) 0.3 Neut # (Auto) (K/mm3) 9.2 Lymph # (Auto) (K/mm3) 2.8 Robertson # (Auto) (K/mm3) 1.6 Eos # (Auto) [...] 37 weeks 4 days in early active labor 1. PPD 1 - AFVSS 2. Teen - clinical social worker consult 3. Bipolar d/o- on abilify 15mg daily, zoloft 100mg daily, buspar 10mg bid, mood currently stable but high risk for depression, will monitor mood closely. Patient is with father of baby, patient is a little estranged from her mother and father. 4. RH+/rubella immune/gbs negative 5. Discharge home tomorrow. Telehealth in 2 weeks. Date of admission: Date of admission: 12/25/20 Hospital course: spontaneous vag delivery Procedures: spontaneous vaginal deliv Discharge condition: stable Discharge to: Home/Self Care Baby A: Vaginal delivery: spontaneous status: live born Gender: male (Medardo) 1 minute: 8 5 minutes: 9 Plan: routine care, discharge tomorrow Vaginal packing at delivery: No Discharge Instructions Instructions: routine instr sheet given, instr and warnings rev'd, specific instr as noted Diet: Regular Activity: As Tolerated Additional discharge routines: Attending Follow-Up Contraception discussed: abstinence for 4-6 weeks, will discuss at PP visit Prescriptions: e-prescribe at 1218 RPT #:[id number] END OF REPORT [facility] 2020-12-25 18:01:00 [facility] ([facility]) OB Delivery Note REPORT#:[id number] REPORT STATUS: Signed DATE:12/25/20 TIME: 1801 PATIENT: KALLI CALDWELL UNIT #: [id number] ROOM/BED: [address] : 03 AGE: 15 SEX: F ATTEND: Margo Sears MD ADM AUTHOR: Margo Sears MD * ALL edits or amendments must be made on the electronic/computer document * OB Delivery Nursing Documentation Review Nursing data: The data set between the solid lines has been imported from nursing documentation. Any exceptions have been noted below under Provider comments. _ ROM date: ROM time: Membranes rupture method: AROM Amniotic fluid color: Clear Amniotic fluid amount: Steroids prior to arrival: Antibiotic prophylaxis given: Post hemorrhage risk score: Low Risk for Hemorrhage. Delivery date infant A: Delivery time infant A: Birthweight (gm) A: Weight (lb) infant A: Weight (oz) A: Gender A: 1 minute infant A: 5 minutes infant A: 10 minutes A: Cord pH obtained A: Vacuum time A: Vacuum # pulls infant A: Vacuum # popoffs A: QBL at delivery: __ Provider comments on imported nursing data: [] Pre-delivery GBS status: GBS status: negative [place] evaluation at delivery: NRP certified personnel Admission EGA: Weeks: 37 Days: 4 EGA [...] As the head crowned and delivered, the perineum [...] lap scan negative. Good maternal-infant bonding noted ebl 300. Blood Loss/Details Blood loss at delivery: <1000 ml EBL at delivery (ml's): 300 at 1804 RPT #:[id number] END OF REPORT [facility] 2020-12-25 11:34:00 [facility] ([facility]) OB Admission / H P REPORT#:[id number] REPORT STATUS: Signed DATE:12/25/20 TIME: 1134 PATIENT: KALLI CALDWELL UNIT #: [id number] ROOM/BED: [address] : 03 AGE: 15 SEX: F ATTEND: Margo Sears MD ADM AUTHOR: Margo Sears MD * ALL edits or amendments must be made on the electronic/computer document * OB History Chief complaint: uterine [...] Past Medical History: Reports: Depression/mood disorder. Denies: Alcoholism/subst abuse, Anemia, Arthritis, Asthma, Atrial fibrillation, Cancer, Congestive heart failure, COPD, Coronary artery disease, Dementia, Diabetes mellitus, GERD/gastritis, Hypertension, Kidney disease/stones, Seizure disorder, Transient ischemic attack , , Abdominal aortic aneurysm, ADD/ADHD, AIDS, Angina pectoris, Anticoagulant therapy, Atrial flutter, Bleeding disorder, BPH, C diff colitis, Cardiac dysrhythmias, Chronic pain, Cirrhosis, Congenital anomalies, Dyslipidemia, Gallbladder dis/stones, GI bleed, Glaucoma, Headache disorder, Hepatitis, HIV, Intracranial hemorrhage, Ischemic stroke, Motor dysfunction, Pancreatitis, Peptic ulcer disease, Periph arterial disease, Pressure ulcer, Prior [place], Schizophrenia, Sickle cell disease, Steroid use, Thyroid disorder, Transfusion history, Tuberculosis, Urinary tract infection, Venous thromboembolism. Past Surgical History: Denies: Abdominal surgery, Appendectomy, Bariatric procedure, CABG, Carotid [...] surgery, Nephrectomy, PCI, Prostate surgery, Thyroidectomy, Tracheotomy, PERSONAL LOAN SPECIALIST shunt. Additional Surgical History: ear tubes Family History Reports: Depression/mood disorder. Denies: Abdominal aortic aneurysm, Anemia, Asthma, CAD < 40 yrs old, Cancer, Coagulopathy, Dementia/Alzheimer's dis, Diabetes, Heart disease, Hypertension, Kidney disease/stones, Seizure disorder, Stroke/TIA, Subarachnoid hemorrhage, Sudden cardiac , Thyroid disorder, === , Connective tissue dis, Gallbladder disease, Hyperlipidemia, Neurofibromatosis, Sickle cell disease. Alcohol Use Denies EtOH use Drug Use Denies recreational drugs Smoking status: Smoking status for patients 13 years old or older: Never Smoker Medications: Home Medications: LEVOTHYROXINE (SYNTHROID) [...] 16 91-128/57-70 68.0-86.0 PATIENT WEIGHT: Weight (lb): 179 Weight (oz): Weight (kg): 81.193 Physical Exam HEENT: normocephalic w/o injury, pupils equal, pupils reactive to light, no apparent hearing diff, no lesions of mouth Cardiac: regular rate and rhythm Lungs: unlabored breathing Breasts: deferred Neuro: Exam: alert, oriented x3, normal speech, normal gait Abdomen: gravid, soft, no abnormal tenderness, no guarding, no rebound tenderness Musculoskeletal: normal inspection [...] % (Auto) (14.5 - 29.7 %) 20.4 Robertson % (Auto) (3.6 - 10.2 %) 11.1 H Eos % (Auto) (0.0 - 3.0 %) 0.7 Baso % (Auto) (0.1 - 0.9 %) 0.3 Neut # (Auto) (K/mm3) 9.2 Lymph # (Auto) (K/mm3) 2.8 Robertson # (Auto) (K/mm3) 1.6 Eos # (Auto) [...] 37 weeks 4 days in early active labor 1. early active labor - admit to L D routine labs, will augment with pitocin if labor protracted. pelvis adequate for efw 7#, will arom when ready 2. Teen - clinical social worker consult 3. Bipolar d/o- on abilify 15mg daily, zoloft 100mg daily, buspar 10mg bid, mood currently stable but high risk for depression, will monitor mood closely. Patient is with father of baby, patient is a little estranged from her mother and father. 4. RH+/rubella immune/gbs negative Plan: transfer to [facility] Plan discussed with: patient at 1510 RPT #:[id number] END OF REPORT [facility] 2020-11-25 23:37:00 [facility] ([facility]) EMERGENCY PROVIDER REPORT REPORT#:[id number] REPORT STATUS: Signed DATE:11/25/20 TIME: 2336 PATIENT: KALLI CALDWELL UNIT #: [id number] ROOM/BED: AGE: 15 SEX: F PCP PHYS: Margo Sears MD SERVICE AUTHOR: Suzei Davis MD * ALL edits or amendments must be made on the electronic/computer document * STEVE History Chief complaint: LOF [...] 25 MCG PO DAILY 09/13/20 11/25/20 (SYNTHROID) 1604 2023 Strength: 25 MCG TAB FERROUS SULFATE 325 MG PO DAILY 11/25/20 11/25/20 (FEOSOL) 2024 2024 Strength: 325 MG TAB busPIRone (BUSPAR) 10 MG PO ASDIR 11/25/20 11/25/20 Strength: 10 MG TAB 2024 2024 SERTRALINE (ZOLOFT) 100 MG PO DAILY 11/25/20 11/25/20 Strength: 100 MG TAB 2024 2025 ASCORBIC ACID (VITAMIN C) (Unknown Dose) PO 11/25/20 11/25/20 Strength: (Unknown DAILY 2025 2025 Strength) TAB ALBUTEROL 11/25/20 11/25/20 (PROAIR HFA 90 MCG/ACT 2025 2025 8.5 GM) Strength: 90 MCG INHALER Allergies Coded Allergies: latex (Severe, HIVES 11/25/20) Review of Systems Constitutional: Denies: chills, fatigue, fever, generalized weakness, lethargy, malaise, recent wt loss, other. Skin: Denies: rash, swelling. Allergy/Immun: Denies: rhinorrhea, sneezing. Eyes: Denies: visual loss/blurred. ENT: Denies: nasal congestion, sore throat, throat pain. Respiratory: Denies: BARBOZA (dyspnea on exertion), hemoptysis, non productive cough, parox nocturnal dyspnea, pleurisy, pleuritic pain, pneumonia, productive cough (sputum ), SOB, wheezing, other. Cardiovascular: Denies: chest pain, BARBOZA (dyspnea on exertion), edema, orthopnea, palpitations, parox nocturnal dyspnea, other. GI: Denies: abdominal pain, anorexia, constipation, diarrhea, dysphagia, GERD, hematemesis, hematochezia, hiatal hernia, melena, nausea, rectal pain, vomiting, other. : Reports: . Denies: dysuria, flank pain, frequency, hematuria, nocturia, pelvic pain, urgency, urinary retention, vaginal bleeding, vaginal discharge, other. Musculoskeletal: lumbar pain. Denies: extremity pain, extremity swelling, myalgias. Neuro: Denies: bladder dysfunction, bowel dysfunction, [...] WEIGHT: Weight (lb): Weight (oz): Weight (kg): [id number] T:98.4F P:94 R:18 BP: 101/55 Physical Exam HEENT: normocephalic w/o injury Cardiac: regular rate and rhythm Lungs: clear to auscultation Breasts: deferred Neuro: Exam: alert, oriented x3, normal speech Abdomen: gravid, soft, no abnormal tenderness, normoactive bowel sounds Musculoskeletal: no CVA tenderness Uterine [...] given f/u primary ob at 2346 RPT #:[id number] END OF REPORT [facility] 2020-11-23 12:23:00 [facility] ([facility]) OB Disch Undelivered REPORT#:[id number] REPORT STATUS: Signed DATE:11/23/20 TIME: 1223 PATIENT: KALLI CALDWELL UNIT #: [id number] ROOM/BED: [address] : 03 AGE: 15 SEX: F ATTEND: Margo Sears MD ADM AUTHOR: Jaimee Santiago MD * ALL edits or amendments must be made on the electronic/computer document * Subjective Subjective Admission EGA: Weeks: 32 Days: 4 Current EGA weeks/days: 33w0d Status/Day: hospital day, #4 Patient reports: Patient reports: Yes: normal movement. No: complaints, abdominal pain, vaginal bleeding , leaking fluid, contractions. [...] 97-114/61-69 73.0-83.0 97 PATIENT WEIGHT: Weight (lb): 170 Weight [...] renal stone, pyelonephritis although fever at this time. WBC elevated at 12. s/p IVF and 2 days of rocephin. Will send pt home with 4 days of oral augmentin for presumed pyelo/complicated UTI. urine culture sent- pending. -Pt has h/o kidney infections and UTIs. urine dip +leuk estrace -renal ultrasound-mild right hydronephrosis, no stones. -discussed adding heating pad for lower back pain and prn albuterol for contractions -advised to avoid IM Demerol if possible. -11/22: overnight patient did not report pain, but began having radiating back/ abdominal pains this morning not relieved with PO [...] ordered (sitter canceled after f/u visit from clinical social worker) -inpatient pysch consult pending, Dr. Flores (no inpatient psych consult option at this time) -today feeling better. moments of saddness, no suicidal [...] observed over 30minutes, category 1, reassuring today 4. [...] renal stone, pyelonephritis although fever at this time. WBC elevated at 12. s/p IVF and 2 days of rocephin. Will send pt home with 4 days of oral augmentin for presumed pyelo/complicated UTI. urine culture sent- pending. -Pt has h/o kidney infections and UTIs. urine dip +leuk estrace -renal ultrasound-mild right hydronephrosis, no stones. -discussed adding heating pad for lower back pain and prn albuterol for contractions -advised to avoid IM Demerol if possible. -11/22: overnight patient did not report pain, but began having radiating back/ abdominal pains this morning not relieved with PO [...] ordered (sitter canceled after f/u visit from clinical social worker) -inpatient pysch consult pending, Dr. Flores (no inpatient psych consult option at this time) -today feeling better. moments of saddness, no suicidal [...] observed over 30minutes, category 1, reassuring today 4. [...] Instructions Instructions: routine instr sheet given, instr and warnings rev'd, specific instr as noted Warnings: labor warnings, decreased movement Diet: Regular Activity: Light Duty Additional Discharge Routines: Attending Follow-Up Prescriptions: Stop taking the following medications: SERTRALINE (ZOLOFT) 50 MG TAB 50 MILLIGRAM ORAL DAILY. Continue taking these medications: PNV/FE FUM/FA ( MULTIVITAMIN) 28 MG IRON-800 MCG [...] = 1 Consultation(s) performed: Consultation performed: psychiatrist, case management social worker at 1225 RPT #:[id number] END OF REPORT [facility] 2020-11-23 12:15:00 [facility] ([facility]) OB Antepartum Prog Note REPORT#:[id number] REPORT STATUS: Signed DATE:11/23/20 TIME: 1215 PATIENT: KALLI CALDWELL UNIT #: [id number] ROOM/BED: 3004- : 03 AGE: 15 SEX: F ATTEND: Margo Sears MD ADM AUTHOR: Jaimee Santiago MD * ALL edits or amendments must be made on the electronic/computer document * Subjective Subjective Admission EGA: Weeks: [...] renal stone, pyelonephritis although fever at this time. WBC elevated at 12. s/p IVF and 2 days of rocephin. Will send pt home with 4 days of oral augmentin for presumed pyelo/complicated UTI. urine culture sent- pending. -Pt has h/o kidney infections and UTIs. urine dip +leuk estrace -renal ultrasound-mild right hydronephrosis, no stones. -discussed adding heating pad for lower back pain and prn albuterol for contractions -advised to avoid IM Demerol if possible. -11/22: overnight patient did not report pain, but began having radiating back/ abdominal pains this morning not relieved with PO [...] ordered (sitter canceled after f/u visit from clinical social worker) -inpatient pysch consult pending, Dr. Flores (no inpatient psych consult option at this time) -today feeling better. moments of saddness, no suicidal [...] observed over 30minutes, category 1, reassuring today 4. RH+/rubella immune, COVID-19 negative 5. Dispo- Discharge pt home today with her mother. Strict PTL/PIH/fkc precautions given. pt to f/u with her psychiatrist in 2 weeks. pt has appt with Dr Sears next week. Assessment: IUP @ 32WKS CONTRACTIONS-DOUBT THAT SHE IS IN LABOR ANXIETY Plan: continue current managmnt, I RECOMMENDED CONTINUED MONITORING FOR NOW Consultation(s): Consultation performed: case management social worker Plan discussed with: patient, parent, nurse at 1219 RPT #:[id number] END OF REPORT [facility] 2020-11-23 12:15:00 [facility] ([facility]) OB Antepartum Prog Note REPORT#:[id number] REPORT STATUS: Signed DATE:11/23/20 TIME: 1215 PATIENT: KALLI CALDWELL UNIT #: [id number] ROOM/BED: [facility] : 03 AGE: 15 SEX: F ATTEND: Margo Sears MD ADM AUTHOR: Jaimee Santiago MD * ALL edits or amendments must be made on the electronic/computer document * See Addendum Subjective Subjective Admission [...] renal stone, pyelonephritis although fever at this time. WBC elevated at 12. s/p IVF and 2 days of rocephin. Will send pt home with 4 days of oral augmentin for presumed pyelo/complicated UTI. urine culture sent- pending. -Pt has h/o kidney infections and UTIs. urine dip +leuk estrace -renal ultrasound-mild right hydronephrosis, no stones. -discussed adding heating pad for lower back pain and prn albuterol for contractions -advised to avoid IM Demerol if possible. -11/22: overnight patient did not report pain, but began having radiating back/ abdominal pains this morning not relieved with PO [...] ordered (sitter canceled after f/u visit from clinical social worker) -inpatient pysch consult pending, Dr. Flores (no inpatient psych consult option at this time) -today feeling better. moments of saddness, no suicidal [...] observed over 30minutes, category 1, reassuring today 4. RH+/rubella immune, COVID-19 negative 5. Dispo- Discharge pt home today with her mother. Strict PTL/PIH/fkc precautions given. pt to f/u with her psychiatrist in 2 weeks. pt has appt with Dr Sears next week. Assessment: IUP @ 32WKS CONTRACTIONS-DOUBT THAT SHE IS IN LABOR ANXIETY Plan: continue current managmnt, I RECOMMENDED CONTINUED MONITORING FOR NOW Consultation(s): Consultation performed: case management social worker Plan discussed with: patient, parent, nurse at 1219 Addendum 1: 11/23/20 1220 by Jaimee Santiago MD urine culture negative therefore no oral home antibiotics needed at 1220 RPT #:[id number] END OF REPORT [facility] 2020-11-22 11:28:00 [facility] ([facility]) OB Antepartum Prog Note REPORT#:[id number] REPORT STATUS: Signed DATE:11/22/20 TIME: 1128 PATIENT: KALLI CALDWELL UNIT #: [id number] ROOM/BED: 300-A : 03 AGE: 15 SEX: F ATTEND: Margo Sears MD ADM AUTHOR: Gabriela Miramontes MD * ALL edits or amendments must be made on the electronic/computer document * Subjective Subjective Patient reports: Patient reports: Yes abdominal pain, Yes normal movement, No leaking fluid, No contractions Objective Nursing Documentation Review Nursing data: Vital Signs: Date Time Temp Pulse Resp B/P B/P Pulse O2 O2 Flow FiO2 Mean Ox Delivery Rate 11/22 902 77.0 11/22 09 84 106/62 11/22 2103 [...] with acute back pain and worsening depression HD#3/32+6 weeks 1. Acute back pain - FFN negative, no evidence of active labor, will monitor with toco. Ddx includes renal stone, pyelonephritis although fever at this time. WBC elevated at 12. Will start ivf and rocephin IV x 24hrs (up tonight at midnight) and urine culture sent-pending. -Pt has h/o kidney infections and UTIs. urine dip +leuk estrace -renal ultrasound-mild right hydronephrosis, no stones. -discussed adding heating pad for lower back pain and prn albuterol for contractions -advised to avoid IM Demerol if possible. -11/22: overnight patient did not report pain, but began having radiating back/ abdominal pains this morning not relieved with PO meds. One dose of IV Demerol given, now comfortably sleeping. Mother at bedside. 2. Depression/bipolar with anxiety/depression - Dr Baugh is her psychiatrist and she was on oxcarbazepine and buspirone prior to . Currently she is on zoloft 50mg, will increase her to 100mg tonight. Psych consult and clinical social worker consult pending. Suicidal precautions given patient is high risk for depression. Family support, mother at bedside -pt seen by social work and sitter ordered (sitter canceled after f/u visit from clinical social worker) -inpatient pysch consult pending, Dr. Flores (no inpatient psych consult option at this time) -today feeling better. moments of saddness, no suicidal [...] observed over 30minutes, category 1, reassuring today 4. RH+/rubella immune, COVID-19 negative 5. Dispo- consider d/c home later this evening or tomorrow, if pain controlled on oral meds, currently required IV pain meds at 1250 RPT #:[id number] END OF REPORT [facility] 2020-11-21 12:31:00 [facility] ([facility]) OB Antepartum Prog Note REPORT#:[id number] REPORT STATUS: Signed DATE:11/21/20 TIME: 1231 PATIENT: KALLI CALDWELL UNIT #: [id number] ROOM/BED: [address] : 03 AGE: 15 SEX: F ATTEND: Margo Sears MD ADM AUTHOR: Patricia Szymanski MD * ALL edits or amendments must be made on the electronic/computer document * Subjective Subjective Admission EGA: Weeks: [...] gait Abdomen: gravid, soft, no abnormal tenderness, no guarding, no rebound tenderness, cva tenderness Uterus: [...] with acute back pain and worsening depression HD#/32+5 weeks 1. Acute back pain - FFN negative, no evidence of active labor, will monitor with toco. Ddx includes renal stone, pyelonephritis although fever at this time. WBC elevated at 12. Will start ivf and rocephin IV x 24hrs (up tonight at midnight) and urine culture sent-pending. -Pt has h/o kidney infections and UTIs. urine dip +leuk estrace -renal ultrasound-mild right hydronephrosis, no stones. -discussed adding heating pad for lower back pain and prn albuterol for contractions -advised to avoid IM Demerol if possible. 2. Depression/bipolar with anxiety/depression - Dr Baugh is her psychiatrist and she was on oxcarbazepine and buspirone prior to . Currently she is on zoloft 50mg, will increase her to 100mg tonight. Psych consult and clinical social worker consult pending. Suicidal precautions given patient is high risk for depression. Family support, mother at bedside -pt seen by social work and sitter ordered (sitter canceled after f/u visit from clinical social worker) -inpatient pysch consult pending, Dr. Flores (no inpatient psych consult option at this time) -today feeling better. moments of saddness, no suicidal [...] reassuring today 11/21 4. RH+/rubella immune, COVID-19 negative Assessment: IUP @ 32WKS CONTRACTIONS-DOUBT THAT SHE IS IN LABOR ANXIETY Plan: continue current managmnt, I RECOMMENDED CONTINUED MONITORING FOR NOW at 1446 RPT #:[id number] END OF REPORT [facility] 2020-11-21 07:06:00 [facility] ([facility]) OB Antepartum Prog Note REPORT#:[id number] REPORT STATUS: Signed DATE:11/21/20 TIME: 705 PATIENT: KALLI CALDWELL UNIT #: [id number] ROOM/BED: [address] : 03 AGE: 15 SEX: F ATTEND: Margo Sears MD ADM AUTHOR: Camden Richards Jr, MD * ALL edits or amendments must be made on the electronic/computer document * Subjective Subjective Admission EGA: Weeks: [...] irritability Abdomen: gravid, soft, no abnormal tenderness, no guarding, no rebound tenderness, cva tenderness Uterus: [...] ANXIETY Plan: continue current managmnt, I RECOMMENDED CONTINUED MONITORING FOR NOW Plan discussed with: patient, parent, nurse at 0718 RPT #:[id number] END OF REPORT [facility] 2020-11-20 20:09:00 [facility] ([facility]) OB Admission / H P REPORT#:[id number] REPORT STATUS: Signed DATE:11/20/20 TIME: 2008 PATIENT: KALLI CALDWELL UNIT #: [id number] ROOM/BED: [facility] : 03 AGE: 15 SEX: F ATTEND: Margo Sears MD ADM AUTHOR: Margo Sears MD * ALL edits or amendments must be made on the electronic/computer document * OB History Chief complaint: uterine contractions, BACK PAIN HPI: 15 yo at 32 weeks 4 days [...] the baby. She has h/o bipolar and previously on other mood [...] DAILY PROGESTERONE,MICRONIZED (PROMETRIUM) 200 MG PO DAILY Allergies Coded Allergies: No Known Allergies (09/13/20) Review of Systems GI: Denies: abdominal pain, anorexia, constipation, diarrhea, dysphagia, GERD, hematemesis, hematochezia, hiatal hernia, melena, nausea, rectal pain, vomiting, other. : Reports: flank pain, pelvic pain, . Psych: depression, suicidal ideation. Denies: agitation, anxiety, auditory hallucination, [...] gait Abdomen: gravid, soft, no abnormal tenderness, no guarding, no rebound tenderness, cva tenderness Musculoskeletal: [...] % (Auto) (14.5 - 29.7 %) 22.3 Robertson % (Auto) (3.6 - 10.2 %) 7.5 Eos % (Auto) (0.0 - 3.0 %) 0.6 Baso % (Auto) (0.1 - 0.9 %) 0.2 Neut # (Auto) (K/mm3) 8.4 Lymph # (Auto) (K/mm3) 2.8 Robertson # (Auto) (K/mm3) 0.9 Eos # (Auto) (K/mm3) 0.07 Baso # (Auto) (K/mm3) 0.0 Miscellaneous Fibronectin NEGATIVE Urines Urine Color (YELLOW) YELLOW Urine Appearance (CLEAR) Slightly-Cloudy Urine pH (5 - 9) 8.0 Ur Specific [place] (1.001 - 1.035) 1.016 Urine Protein (NEG) [...] 11/20/20201915 IMPRESSION: 1. Single living intrauterine in cephalic position. 2. biophysical profile score of 8/8. 3. Cervical shortening with a measured length of 1.9 cm using transvaginal imaging. SL: 131 Impression By: Sandy Harmon MD ULTRASOUND - US FET BIO PH MA W/O NST 11/20 1810 Report Impression - Status: SIGNED Entered: 11/20/20201915 IMPRESSION: 1. Single living intrauterine in cephalic position. 2. biophysical profile score of 8/8. 3. Cervical shortening with a measured length of 1.9 cm using transvaginal imaging. SL: 131 Impression By: Sandy Harmon MD Results: labs reviewed, vital signs stable Diagnosis, Assessment Plan Diagnosis, Assessment Plan Free Text A P: 15 yo at 32 weeks 4 days with acute back pain and worsening depression 1. Acute back pain - FFN negative, no evidence of active labor, will monitor with toco. Ddx includes renal stone, pyelonephritis although fever at this time. WBC elevated at 12. Will start ivf and rocephin and urine culture sent. Pt has h /o kidney infections and UTIs. Order renal ultrasound in am. 2. Depression/bipolar with anxiety/depression - Dr Baugh is her psychiatrist and she was on oxcarbazepine and buspirone prior to . Currently she is on zoloft 50mg, will increase her to 100mg tonight. Psych consult and clinical social worker consult pending. Suicidal precautions given patient is high risk for depression. Family support, mother at bedside 3. PTIUP - reactive NST observed over 30minutes, reassuring 4. RH+/rubella immune Assessment/Impression: labor, pyelonephritis, depression Plan: admit to observation, IVF Consultation(s): Consultation performed: psychiatrist, case management social worker Plan discussed with: patient, parent at 2025 RPT #:[id number] END OF REPORT [facility] 2020-11-20 20:09:00 [facility] ([facility]) OB Admission / H P REPORT#:[id number] REPORT STATUS: Signed DATE:11/20/20 TIME: 2008 PATIENT: KALLI CALDWELL UNIT #: [id number] ROOM/BED: [facility] : 03 AGE: 15 SEX: F ATTEND: Margo Sears MD ADM AUTHOR: Margo Sears MD * ALL edits or amendments must be made on the electronic/computer document * See Addendum OB History Chief complaint: uterine contractions, BACK PAIN HPI: 15 yo at 32 weeks 4 days [...] the baby. She has h/o bipolar and previously on other mood [...] DAILY PROGESTERONE,MICRONIZED (PROMETRIUM) 200 MG PO DAILY Allergies Coded Allergies: No Known Allergies (09/13/20) Review of Systems GI: Denies: abdominal pain, anorexia, constipation, diarrhea, dysphagia, GERD, hematemesis, hematochezia, hiatal hernia, melena, nausea, rectal pain, vomiting, other. : Reports: flank pain, pelvic pain, . Psych: depression, suicidal ideation. Denies: agitation, anxiety, auditory hallucination, [...] gait Abdomen: gravid, soft, no abnormal tenderness, no guarding, no rebound tenderness, cva tenderness Musculoskeletal: [...] % (Auto) (14.5 - 29.7 %) 22.3 Robertson % (Auto) (3.6 - 10.2 %) 7.5 Eos % (Auto) (0.0 - 3.0 %) 0.6 Baso % (Auto) (0.1 - 0.9 %) 0.2 Neut # (Auto) (K/mm3) 8.4 Lymph # (Auto) (K/mm3) 2.8 Robertson # (Auto) (K/mm3) 0.9 Eos # (Auto) (K/mm3) 0.07 Baso # (Auto) (K/mm3) 0.0 Miscellaneous Fibronectin NEGATIVE Urines Urine Color (YELLOW) YELLOW Urine Appearance (CLEAR) Slightly-Cloudy Urine pH (5 - 9) 8.0 Ur Specific [place] (1.001 - 1.035) 1.016 Urine Protein (NEG) [...] 11/20/20201915 IMPRESSION: 1. Single living intrauterine in cephalic position. 2. biophysical profile score of 8/8. 3. Cervical shortening with a measured length of 1.9 cm using transvaginal imaging. SL: 131 Impression By: Sandy Harmon MD ULTRASOUND - US FET BIO PH MA W/O NST 11/20 1810 Report Impression - Status: SIGNED Entered: 11/20/20201915 IMPRESSION: 1. Single living intrauterine in cephalic position. 2. biophysical profile score of 8/8. 3. Cervical shortening with a measured length of 1.9 cm using transvaginal imaging. SL: 131 Impression By: Sandy Harmon MD Results: labs reviewed, vital signs stable Diagnosis, Assessment Plan Diagnosis, Assessment Plan Free Text A P: 15 yo at 32 weeks 4 days with acute back pain and worsening depression 1. Acute back pain - FFN negative, no evidence of active labor, will monitor with toco. Ddx includes renal stone, pyelonephritis although fever at this time. WBC elevated at 12. Will start ivf and rocephin and urine culture sent. Pt has h /o kidney infections and UTIs. Order renal ultrasound in am. 2. Depression/bipolar with anxiety/depression - Dr Baugh is her psychiatrist and she was on oxcarbazepine and buspirone prior to . Currently she is on zoloft 50mg, will increase her to 100mg tonight. Psych consult and clinical social worker consult pending. Suicidal precautions given patient is high risk for depression. Family support, mother at bedside 3. PTIUP - reactive NST observed over 30minutes, reassuring 4. RH+/rubella immune Assessment/Impression: labor, pyelonephritis, depression Plan: admit to observation, IVF Consultation(s): Consultation performed: psychiatrist, case management social worker Plan discussed with: patient, parent at 2025 Addendum 1: 11/20/202039 by Margo Sears MD Vitals: BP 101/66, Pulse 78-92, RR 18, Temp 98.3, at 2039 RPT #:[id number] END OF REPORT [facility] 2020-11-20 20:09:00 [facility] ([facility]) OB Admission / H P REPORT#:[id number] REPORT STATUS: Signed DATE:11/20/20 TIME: 2008 PATIENT: KALLI CALDWELL UNIT #: [id number] ROOM/BED: [facility] : 03 AGE: 15 SEX: F ATTEND: Margo Sears MD ADM AUTHOR: Margo Sears MD * ALL edits or amendments must be made on the electronic/computer document * See Addendum OB History Chief complaint: uterine contractions, BACK PAIN HPI: 15 yo at 32 weeks 4 days [...] the baby. She has h/o bipolar and previously on other mood [...] DAILY PROGESTERONE,MICRONIZED (PROMETRIUM) 200 MG PO DAILY Allergies Coded Allergies: No Known Allergies (09/13/20) Review of Systems GI: Denies: abdominal pain, anorexia, constipation, diarrhea, dysphagia, GERD, hematemesis, hematochezia, hiatal hernia, melena, nausea, rectal pain, vomiting, other. : Reports: flank pain, pelvic pain, . Psych: depression, suicidal ideation. Denies: agitation, anxiety, auditory hallucination, [...] gait Abdomen: gravid, soft, no abnormal tenderness, no guarding, no rebound tenderness, cva tenderness Musculoskeletal: [...] % (Auto) (14.5 - 29.7 %) 22.3 Robertson % (Auto) (3.6 - 10.2 %) 7.5 Eos % (Auto) (0.0 - 3.0 %) 0.6 Baso % (Auto) (0.1 - 0.9 %) 0.2 Neut # (Auto) (K/mm3) 8.4 Lymph # (Auto) (K/mm3) 2.8 Robertson # (Auto) (K/mm3) 0.9 Eos # (Auto) (K/mm3) 0.07 Baso # (Auto) (K/mm3) 0.0 Miscellaneous Fibronectin NEGATIVE Urines Urine Color (YELLOW) YELLOW Urine Appearance (CLEAR) Slightly-Cloudy Urine pH (5 - 9) 8.0 Ur Specific [place] (1.001 - 1.035) 1.016 Urine Protein (NEG) [...] 11/20/20201915 IMPRESSION: 1. Single living intrauterine in cephalic position. 2. biophysical profile score of 8/8. 3. Cervical shortening with a measured length of 1.9 cm using transvaginal imaging. SL: 131 Impression By: Sandy Harmon MD ULTRASOUND - US FET BIO PH MA W/O NST 11/20 1810 Report Impression - Status: SIGNED Entered: 11/20/20201915 IMPRESSION: 1. Single living intrauterine in cephalic position. 2. biophysical profile score of 8/8. 3. Cervical shortening with a measured length of 1.9 cm using transvaginal imaging. SL: 131 Impression By: Sandy Harmon MD Results: labs reviewed, vital signs stable Diagnosis, Assessment Plan Diagnosis, Assessment Plan Free Text A P: 15 yo at 32 weeks 4 days with acute back pain and worsening depression 1. Acute back pain - FFN negative, no evidence of active labor, will monitor with toco. Ddx includes renal stone, pyelonephritis although fever at this time. WBC elevated at 12. Will start ivf and rocephin and urine culture sent. Pt has h /o kidney infections and UTIs. Order renal ultrasound in am. 2. Depression/bipolar with anxiety/depression - Dr Baugh is her psychiatrist and she was on oxcarbazepine and buspirone prior to . Currently she is on zoloft 50mg, will increase her to 100mg tonight. Psych consult and clinical social worker consult pending. Suicidal precautions given patient is high risk for depression. Family support, mother at bedside 3. PTIUP - reactive NST observed over 30minutes, reassuring 4. RH+/rubella immune Assessment/Impression: labor, pyelonephritis, depression Plan: admit to observation, IVF Consultation(s): Consultation performed: psychiatrist, case management social worker Plan discussed with: patient, parent at 2025 Addendum 1: 11/20/202039 by Margo Sears MD Vitals: BP 101/66, Pulse 78-92, RR 18, Temp 98.3, at 2039 Addendum 2: 11/20/202055 by Margo Sears MD D/w pt risk/benefits/indications/alte rnatives of adding back buspar to her mood medication regimen. Patient reports she has more anxiety symptoms and this worked well prior to . Discussed this is a class C drug and overall recommend use if benefits outweighs risk to baby. Buspar 10mg bid started. Patients consents to use. at 2056 RPT #:[id number] END OF REPORT [facility] 2020-09-17 15:02:00 [id number] [facility] [place] [id number] PATIENT NAME: KALLI CALDWELL ADMIT DATE: 09/16/20 ACCOUNT NO: [id number] ROOM NO: AGE: 15 SEX: F ADMITTING PHYSICIAN: ATTENDING PHYSICIAN: Margo Sears MD TRIAGE EVALUATION: 09/16/2020 For evaluation in OB ED on 09/16/2000, by Soumya Guerrero MD, triage hospitalist per agreement with Kassy morris, patient of Dr. Sears. HISTORY OF PRESENT ILLNESS: The patient is a 15-year-old G1, P0 with last menstrual period unsure in 03/2020, and estimated date of confinement 01/11/2021. She presented at 23 and 2/7th weeks complaining of leakage of fluid beginning on the evening of the . She also reported some occasional off and on brief abdominal twinges of pain for the last few days. She states she did have intercourse earlier on the , but could not recall the exact time. She denied vaginal bleeding and reported good movement. She had been in the OB ED 3 days prior complaining of decreased movement. Workup was negative and she was discharged home in stable condition at that time. She currently denies headache, vision changes, or other preeclampsia symptoms. She denies fever, chills, nausea, vomiting, diarrhea, constipation, or dysuria. She denies cough, sore throat, shortness of breath, loss of taste and smell, fever, diarrhea, or other COVID symptoms. She states she did have COVID infection in July. She was hospitalized for a single day and then sent home. She was quarantined at that time. Her partner was also positive. She denies persistent symptoms of COVID. Her care has been with Dr. Sears beginning at approximately 4 weeks' gestation. She states she did have first trimester bleeding and was diagnosed with a subchorionic hematoma. The bleeding resolved without intervention, but she also reports she was found to have a low progesterone and has been on progesterone supplements since. She otherwise denies complications in the and reports all labs and ultrasounds normal to her knowledge. PAST MEDICAL HISTORY: Asthma diagnosed in 2012, never hospitalized overnight, intubated or on long-term steroids. She states her last flare was 1 week ago. She uses her medications as needed, last with her flare a week ago. She also reports a history of anxiety and depression and bipolar disorder. She states 2 years ago she attempted suicide multiple times during the course of a year and was hospitalized 4 times, each suicide attempt was by overdosing with pills. She currently denies suicidal or homicidal ideation and states that the Zoloft is controlling her symptoms well. She was on Seroquel also in the past, but this was stopped when she became . The patient states she was diagnosed with hypothyroidism in the and was started on medications. PAST SURGICAL HISTORY: [place] teeth in 2019. ALLERGIES: NO KNOWN DRUG ALLERGIES. PATIENT NAME: KALLI CALDWELL MEDICATIONS: vitamins, levothyroxine, Zoloft, daily oral progesterone and inhaler for her asthma as needed. OBSTETRICAL HISTORY: The patient is primiparous. GYNECOLOGIC HISTORY: Menarche at age 9 with regular monthly cycles lasting up to 2 weeks, heavy with moderate cramping. The patient denies prior history of STDs. She thinks she had a Pap smear though she is only 15 and states it was normal. SOCIAL HISTORY: The patient denies tobacco or illicit drug use. She reports rare prepregnancy alcohol use. She lives with her mom, her stepfather, and 4 siblings. She is still involved with the father of the . He is a 19-year-old healthy male. She is attending online classes for 11th grade. No lab courses. FAMILY HISTORY: Mother with breast cancer diagnosed at age 37. Also, bipolar disorder, and anxiety disorder. Father with heart disease and diabetes. Maternal grandmother with diabetes and history of breast cancer diagnosed in her 40s. Maternal grandfather with diabetes. Paternal grandmother with unknown health history. Paternal grandfather with [place]. The patient has 3 half siblings, all living and healthy. She denies history of mental retardation or defects in her family or her partner's family. REVIEW OF SYSTEMS: A 10-point review of systems is negative except as stated above. PHYSICAL EXAMINATION: GENERAL: The patient is a well-nourished, well-developed young white female in no acute distress, lying on triage stretcher in OB ED. VITAL SIGNS: Height 5 feet 7, weight prior to the 150 pounds and at most recent visit 160 pounds. Blood pressure 110/61, pulse 89, respirations 18, and temperature 98.7. HEAD AND NECK: Within normal limits without lymphadenopathy or thyromegaly. CHEST: Clear to auscultation bilaterally. HEART: With regular rate and rhythm. BREASTS: Deferred. ABDOMEN: Soft, nontender, gravid with a fundal height 4 cm above umbilicus. PELVIC: Sterile speculum exam showed normal leukorrhea and cervix appeared long, closed, and posterior. No sterile vaginal exam was performed. EXTREMITIES: Without edema. Bilateral patellar reflexes, 2+ NEUROLOGIC: Nonfocal. The patient is awake, alert, and oriented x3. heart tones in the 140s to 150s range. No contractions noted on monitoring. ROM Plus was negative. Wet prep negative. [...] It was discussed with the patient at this gestational age, movement might be felt less often than later in the and now with leakage of fluid, but on workup consistent with normal leukorrhea and possibly mixed with seminal fluid from recent intercourse. She also reported low abdominal pain and is found to have urine with probable urinary tract infection. She is now discharged home in stable condition with reassuring status. An e-script for Macrobid is sent to her pharmacy of choice. She is to drink greater than 100 ounces of water daily, eat frequent small meals. Follow up with Dr. Sears as scheduled. She is also to call Dr. Sears's office on the to request final results of urine culture. She is to call or return for vaginal bleeding, leakage of fluid, contractions with increasing force and frequency, worsening pain, temperature greater than 100.4, flank pain, dysuria, hematuria, or other concerns. It was also discussed with the patient that due to her mother's history of breast cancer diagnosed at 37 and her maternal grandmother with breast cancer diagnosis in her 40s, the patient should follow up with her SIDEWALK INSPECTOR to discuss timing of her first mammogram. Currently the recommendation is approximately 10 years younger than the age at which a first-degree relative was diagnosed i.e., at age 27. Dictated By: Soumya Guerrero MD WT: HP:FJOSEP/AMBREEN/TOOTIE Conf#: [id number]/DID#: [id number] Authenticated and Edited by Soumya Guerrero MD On 10/08/20 1:57:18 AM at 0159 PATIENT NAME: KALLI CALDWELL [facility] 2020-09-13 16:18:00 [facility] EMERGENCY PROVIDER REPORT REPORT#:[id number] REPORT STATUS: Signed DATE:09/13/20 TIME: 1618 PATIENT: KALLI CALDWELL UNIT #: [id number] ROOM/BED: AGE: 15 SEX: F PCP PHYS: Margo Sears MD SERVICE AUTHOR: Vishnu Allen III, MD * ALL edits or amendments must be made on the electronic/computer document * STEVE History Nursing Documentation Review Nursing data: [facility] STEVE 15 year old white female Primagravida at 22.6 wks cc Decreased movements HPI She noticed the onset of decreased movements for the past 2 days. No vaginal bleeding, not leaking amniotic fluid, no ab pain. care with Dr Sears. Claims normal anatomy scan in her . History of first trimester vaginal bleeding. She is on oral progesterone. 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[employer] STD denied PMH Hypothyroidism PSH Denied MEDS Levothyroxine, zofran, progesterone, vitamins FMH Postive for diabetes SH No smoke, [...] SERTRALINE (ZOLOFT) 50 MG PO DAILY 09/13/20 09/13/20 Strength: 50 MG TAB 1604 1606 PNV/FE FUM/FA 1 TAB PO DAILY 09/13/20 09/13/20 ( MULTIVITAMIN) 1605 1606 Strength: 28 MG IRON-800 MCG TAB LEVOTHYROXINE 25 MCG PO DAILY 09/13/20 09/13/20 (SYNTHROID) 1605 1606 Strength: 25 MCG TAB PROGESTERONE,MICRONIZED 200 MG PO DAILY 09/13/20 09/13/20 (PROMETRIUM) 1606 1606 Strength: 100 MG CAP Allergies Coded Allergies: No Known Allergies (09/13/20) Objective General VS: PATIENT WEIGHT: Weight (lb): 160 Weight (oz): Weight (kg): 72.211104 No acute distress, alert, normal affect Afebrile, VSS 112/67, pulse 78 PUL Chest clear to auscultation, unlabored respirations CVR RRR AB Gravid, nontender SVE Deferred, she is not jennifer EXT No pathological pretibial edema, normal reflexes, no calf tenderness TOCO She is not [...] 3.5 cm. Impression By: Nicci Nick DO Normal MIGUEL ANGEL Results Findings/Data: Recent [...] precautions. F/U with Dr Orion ochoa at 6245 RPT #:[id number] END OF REPORT [facility]
[2024-10-25] MEDS ORDERED: KETOROLAC 30 MG/ML INJ ONE (13:24)
[2024-10-25] MEDS ORDERED: methocarbamoL 750 MG TAB ONE (13:24)
--- NOTE | 2024-10-25 13:48 | RAD REPORT ---
EXAMINATION: Ankle Right 3 View CLINICAL INDICATION: Female, 19 years old. PAIN COMPARISON: No prior exam. FINDINGS: No acute fracture. No malalignment/dislocation. No significant focal degenerative change. Other: n/a IMPRESSION: No acute osseous abnormality.
--- NOTE | 2024-10-25 13:49 | RAD REPORT ---
EXAM: Foot Right 3 View HISTORY: PAIN COMPARISON: None FINDINGS: Bones: No acute fracture identified. Alignment:No significant malalignment. Degenerative changes:None significant. Other: n/a IMPRESSION: No acute osseous abnormality.
--- NOTE | 2024-10-25 14:09 | EDPHYS ---
Physician Documentation [facility] Name: Kalli Caldwell Age: 19 yrs Sex: Female : 2005 Arrival Date: 10/25/2024 Time: 12:50 Bed 12 Private MD: ED Physician Anselmo Aviles HPI: 10/25 13:10 This 19 yrs old Female presents to ER via Ambulatory with complaints of Foot Pain. sb4 13:10 Patient reports right foot and ankle pain x 6 days. States that she was playing around sb4 with her boyfriend and kicked him and now she has had pain and bruising in that region. States the bruising and swelling has improved but the pain has persisted. States that she is unable to move her 3rd, 4th and 5th toes. Has an appointment with Ortho in 4 days. 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 - Infectious Disease History:: Denies. - Social history:: Smoking status: Patient denies any tobacco usage or history of. ROS: 13:10 Constitutional: Negative for fever, chills, and weight loss, sb4 13:10 MS/extremity: Positive for injury or acute deformity, decreased range of motion, ecchymosis, pain, swelling, tenderness, of the right foot, 13:10 All other systems are negative, Exam: 13:10 Constitutional: This is a well developed, well nourished patient who is awake, alert, sb4 and in no acute distress. Head/Face: Normocephalic, atraumatic. Eyes: Extra-ocular motions intact. Periorbital areas with no swelling, redness, or edema. ENT: Mucous membranes moist. Respiratory: No increased work of breathing, no retractions or nasal flaring. 13:10 Musculoskeletal/extremity: ROM: limited active range of motion, limited passive range of motion due to pain, Circulation is intact in all extremities. Pulses: are normal with no appreciated deficits, Sensation intact. Weight bearing: able to fully bear weight, ecchymosis noted to dorsum of right foot. Vital Signs: 12:59 BP 108 / 79; Pulse 80; Resp 15; Temp 97; Pulse Ox 100% ; Pain 6/10; jl7 12:59 Pain Scale: Adult jl7 MDM: 12:52 Medical Screening Exam initiated sb4 14:08 Data reviewed: vital signs, nurses notes, radiologic studies, and as a result, I will sb4 discharge patient. Independent interpretation of the following test(s) in the Emergency Department X-Ray: My interpretation is my interpretation of the foot xray images is no acute fracture or dislocation. Counseling: I had a detailed discussion with the patient and/or guardian regarding the historical points, exam findings, and any diagnostic results supporting the discharge/admit diagnosis, radiology results, the need for outpatient follow up, a orthopedic surgeon, to return to the emergency department if symptoms worsen or persist or if there are any questions or concerns that arise at home. 10/25 13:00 Order name: Foot Right 3 View XRAY; Complete Time: 13:50 sb4 10/25 13:00 Order name: Ankle Right 3 View XRAY; Complete Time: 13:50 sb4 10/25 14:08 Order name: Walking boot; Complete Time: 14:45 sb4 Administered Medications: 13:27 Not Given (Patient Refused): [id number] mg IM once ap3 13:34 Drug: Methocarbamol PO 750 mg PO once Route: PO; ap3 14:45 Follow up: Response: No adverse reaction ap3 Disposition: 14:54 Co-signature as Attending Physician, Anselmo Aviles MD I reviewed the patient's care rt provided by the Advanced Practice Provider and agree with the diagnosis and treatment plan. Disposition Summary: 10/25/24 14:09 Discharge Ordered Notes: Location: Home sb4 Problem: an ongoing problem sb4 Symptoms: are unchanged sb4 Condition: Stable sb4 Diagnosis - Contusion of right foot sb4 Followup: sb4 - With: Private Physician - When: 2 - 3 days - Reason: Recheck today's complaints, Re-evaluation by your physician Discharge Instructions: - Discharge Summary Sheet sb4 - Foot Contusion, [id number] sb4 Forms: - Patient Portal Instructions sb4 - Leadership Thank You Letter sb4 Signatures: [facility] Deshawn Ortiz, RN RN jl7 Alissa Treviño RN RN ap3 Emerald Alonso, PASidC PA-C sb4 Anselmo Aviles MD MD rt Corrections: (The following items were deleted from the chart) 13:00 13:00 Ankle Right 3 View+RAD.RAD.BRZ ordered. [facility] EDMN 13:11 13:10 Patient reports right foot and ankle pain x 6 days. States that she was playing sb4 around with her boyfriend and kicked him and now she has had pain and bruising in that region. States the bruising and swelling has improved but the pain has persisted. States that she is unable to move her 3rd, 4th and 5th toes. sb4
--- NOTE | 2024-10-25 14:09 | ER ---
Nurse's Notes [facility] Name: Kalli Caldwell Age: 19 yrs Sex: Female : 2005 Arrival Date: 10/25/2024 Time: 12:50 Bed 12 Private MD: Diagnosis: Contusion of right foot Presentation: 10/25 12:59 Chief complaint: Patient states: Play fighting on 10/19/24 and complaining of right foot jl7 pain. Coronavirus screen: At this time, the client does not indicate any symptoms associated with coronavirus-19. Ebola Screen: No symptoms or risks identified at this time. Initial Sepsis Screen: Does the patient meet any 2 criteria? No. Patient's initial sepsis screen is negative. Does the patient have a suspected source of infection? No. Patient's initial sepsis screen is negative. Risk Assessment: Do you want to hurt yourself or someone else? Patient reports no desire to harm self or others. Onset of symptoms was October 19, 2024. 12:59 Method Of Arrival: Ambulatory jl 12:59 Acuity: ANDRE 4 jl7 Triage Assessment: 13:01 General: Appears in no apparent distress. uncomfortable, Behavior is calm, cooperative, jl7 appropriate for age. Pain: Complains of pain in right foot Pain currently is 6 out of 10 on a pain scale. 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 - Infectious Disease History:: Denies. - Social history:: Smoking status: Patient denies any tobacco usage or history of. Screenin:42 Abuse screen: Denies threats or abuse. Nutritional screening: No deficits noted. ap3 Tuberculosis screening: No symptoms or risk factors identified. 13:43 [facility] ED Fall Risk Assessment (Adult) History of falling in the last 3 months, ap3 including since admission No falls in past 3 months (0 pts) Confusion or Disorientation No (0 pts) Intoxicated or Sedated No (0 pts) Impaired Gait No (0 pts) Mobility Assist Device Used No (0 pt) Altered Elimination No (0 pt) Score/Fall Risk Level 0 - 2 = Low Risk Oriented to surroundings, Maintained a safe environment, Educated pt \T\ family on fall prevention, incl call for assistance when getting out of bed, Assessed \T\ reinforced patient's understanding of fall precautions, Hourly rounding (assess needs \T\ fall precautionary measures) done, Used ambulatory aids as needed (educated on \T\ assisted with). Assessment: 13:42 General: Appears in no apparent distress. Behavior is calm, cooperative, appropriate ap3 for age. Pain: Complains of pain in right foot. Neuro: Level of Consciousness is awake, alert, obeys commands, Oriented to person, place, time, situation, Appropriate for age. Cardiovascular: Patient's skin is warm and dry. Respiratory: Airway is patent Respiratory effort is even, unlabored, Respiratory pattern is regular, symmetrical. Vital Signs: 12:59 BP 108 / 79; Pulse 80; Resp 15; Temp 97; Pulse Ox 100% ; Pain 6/10; jl7 12:59 Pain Scale: Adult jl7 ED Course: 12:51 Patient arrived in ED. im 12:51 Emerald Alonso [facility]C [facility] sb4 12:51 Anselmo Aviles MD is Attending Physician. sb4 13:01 Triage completed. jl7 13:01 Arm band placed on right wrist. jl7 13:20 Foot Right 3 View XRAY In Process Unspecified. EDMS 13:20 Ankle Right 3 View XRAY In Process Unspecified. EDMS 13:34 Alissa Treviño, RN is Primary Nurse. ap3 13:43 No provider procedures requiring assistance completed. ap3 14:46 Patient has correct armband on for positive identification. Provided Education on: ap3 walking boot education . 14:46 Patient did not have IV access during this emergency room visit. ap3 Administered Medications: 13:27 Not Given (Patient Refused): [id number] mg IM once ap3 13:34 Drug: Methocarbamol PO 750 mg PO once Route: PO; ap3 14:45 Follow up: Response: No adverse reaction ap3 Medication: 13:43 VIS not applicable for this client. ap3 Outcome: 14:09 Discharge ordered by . sb4 14:45 Discharged to home ambulatory, with family, ap3 14:45 Condition: good 14:45 Discharge instructions given to patient, Instructed on discharge instructions, follow up and referral plans. Demonstrated understanding of instructions, follow-up care, 14:46 Patient left the ED. ap3 Signatures: Dispatcher [employer] Deshawn Hawley RN RN jl7 Alissa Treviño RN RN ap3 Emerald Alonso PA-C PAJuana sb4 Jacquie Torres
[2024-10-25 15:33] VITALS: BP 108/79; TEMP 97; O2SAT 100
== END 2024-10-25 14:46 | disposition home or self-care (01) ==
LOC: ER 12:50
DX: S90.31XA Contusion of right foot, initial encounter (principal)
CPT/HCPCS: 99283